=== PATIENT | female | born 1950 | race Caucasian/White ===

== ENCOUNTER → 2016-09-06 | Outpatient (CLI) | payer OTHER ==
[~2016-09-06] MED LIST: ABL/5 PO; ABL5 PO; AMT10 PO; ATV/1 PO; ATV5 PO; BIOT50006 PO; CALC500T64 PO; CHOL1000 PO; CHOL1TAB42 PO; CLB/200 PO; CLOT10TR2 MT; DOCU-94 PO; FERR1TAB62 PO; FLUC150T PO; HOME1TAB8 PO; IBUP100S7 PEG; LACT1LOT3 EX; LISI-789 PO; LORA10CA2 PO; LVNIS40 SQ; MAGN400T6 PO; MGNO400 PO; MODA1TAB PO; MOML PO; MORP15TA PO; MRPSR15 PO; NPHA; OMEG10007 PO; OMEP40CA PO; ONDA4TAB9 PO; ONDA8TAB6 PO; PENI-82 PO; POLY335019 PO; POLYSOL OPB; POTA550T4 PO; PSEU1TAB PO; RANI150T3 PO; RXC5 PO; SNK PO; SODIENE PR; TRMCR515 TOP; TRMO2580 TOP; ULT50X PO
== END | disposition home or self-care (01) ==
LOC: C.PATHSPEC 17:55
PROVIDERS: ATTEND Podiatrist Foot & Ankle Surgery
DX: B07.9 Viral wart, unspecified (principal)

== ENCOUNTER → 2017-01-23 | Day surgery (SDC) | payer OTHER ==
[~2017-01-23] VITALS: Ht 161.3 cm; Wt 98.0 kg
[~2017-01-23] MED LIST changes: -AMT10 PO; -CALC500T64 PO; +FENTANYL CITRATE INJ 50 MCG/1 ML 2 ML VIAL ONE; -FERR1TAB62 PO; +FERR325T PO; +HOME1TAB PO; -HOME1TAB8 PO; +LIDOCAINE HCL 2% 2 ML VIAL (20MG/ML) ONE; -MGNO400 PO; -OMEP40CA PO; -POTA550T4 PO; +PROPOFOL IV EMULSION 10 MG/ML 20 ML VIAL IV ONE; +SODIUM CHLORIDE 0.9% 500ML 500 ML IV ONE; -ULT50X PO
--- NOTE | 2017-01-23 10:15 | Endo History and Physical ---
History & Physical Date of Service: Jan 23, 2017. Chief Complaint: anemia Referring Physician: History of Present Illness anemia Past Surgical History Hx Cardiac Surgery: No Hx Abdominal Surgery: Yes (gastric bypass - complete) Hx Cancer Surgery: No Hx Thoracic Surgery: No Hx Orthopedic: No Hx Urinary Tract Surgery: No Social History Smoking Status: Never Smoker Hx Substance Use: No Hx Alcohol Use: Yes (socially) Allergies Coded Allergies: Dust (Verified Allergy, Unknown, sneezing, coughing and congestion, 01/13/17 ) Phenobarbital (Verified Allergy, Unknown, welts swelling, 10/11/14) Pineapple (Verified Allergy, Unknown, inside mouth irritation, 01/13/17) Uncoded Allergies: BLACK MOLD (Allergy, Unknown, chronic sinus infection, respiratory issues, 01/13/17) TOMATOES (Allergy, Unknown, inside mouth irritation, 01/13/17) Current Medications Reported Home Medications Medications Dose Route/Sig Max Daily Dose Days Date Category Dose Instructions 12HOUR Decongestant (Pseudoephedrine Hcl) 120 Mg Tab 1 Tab PO DAILY PRN 01/13/17 Reported Vitamin D3 (Cholecalciferol) 1,000 Unit Tab 5 Tab PO QAM 30 01/13/17 Reported Biotin 5,000 Mcg Sub 1 Tab PO QAM 01/13/17 Reported Childrens Ibuprofen 100 (Ibuprofen) 100 Mg/5 Ml Eunice 20 Ml PEG QD PRN 01/13/17 Reported Claritin (Loratadine) 10 Mg Cap 1 Cap PO DAILY PRN 30 01/13/17 Reported [place]-3 (Fish Oil) 1 Ea Cap 1 Cap PO QAM 01/13/17 Reported Zicam Cold Remedy (Homeopathic Products) 1 Tab Tab 1 Tab PO DAILY PRN 01/13/17 Reported Refresh (Polyvinyl Alcohol-Povidone (Op) 1 Luis Manuel Luis Manuel 2 Drop OPB DAILY PRN 01/13/17 Reported Naphcon-A (Naphazoline HCl/Pheniramine Maleate) 15 Ml Soln 2 Drops NA DAILY PRN 01/13/17 Reported Amlactin (Lactic Acid (Ammonium Lactate)) 12 % Lot 1 Appln EX DAILY PRN 01/13/17 Reported Mycelex (Clotrimazole) 10 Mg Tro 10 Mg MT DAILY PRN 01/13/17 Reported Triamcinolone Acet 0.025% (Triamcinolone Acetonide (Topic) 0.025 % Oin 1 Appln TOP DAILY PRN 01/13/17 Reported Triamcinolone Acetonide (Triamcinolone Acet) 45 Appln/15 Gm Cr 1 Appln TOP BID PRN 30 01/13/17 Reported Ondansetron HCl (Ondansetron) 4 Mg Tab 1 Mg PO Q8 PRN 01/13/17 Reported CeleBREX (Celecoxib) 200 Mg Cap 1 Cap PO BID 30 01/13/17 Reported Mag-Ox (Magnesium Oxide) 400 Mg Tab 400 Mg PO DAILY PRN 01/13/17 Reported Ativan * (Lorazepam) 0.5 Mg Tab 0.5 Mg PO HS 11/28/07 Reported Abilify * (Aripiprazole) 5 Mg Tab 5 Mg PO HS 11/28/07 Reported Provigil (Modafinil) 200 Mg Tab 200 Mg PO BID 11/28/07 Reported takes in Am and noon Physical Exam General Appearance: WD/WN, no apparent distress Assessment and Plan EGD/colonoscopy today
[2017-01-23 10:20] VITALS: Ht 161.3 cm; Wt 98.0 kg
--- NOTE | 2017-01-23 11:14 | Discharge Instructions ---
Endoscopy Patient Instructions Date / Procedure(s) Performed Jan 23, 2017. Colonoscopy, EGD Allergy Information Coded Allergies: Dust (Verified Allergy, Unknown, sneezing, coughing and congestion, 01/13/17 ) Phenobarbital (Verified Allergy, Unknown, welts swelling, 10/11/14) Pineapple (Verified Allergy, Unknown, inside mouth irritation, 01/13/17) Uncoded Allergies: BLACK MOLD (Allergy, Unknown, chronic sinus infection, respiratory issues, 01/13/17) TOMATOES (Allergy, Unknown, inside mouth irritation, 01/13/17) Discharge Date / Findings Jan 23, 2017. RYGB - no ulcers; few sigmoid diverticuli Medication Instructions Stopped Medication(s): OMEGA 3 AST DOSE 01/22/17 Restart Stopped Medication(s): OK to resume all home medications NO anti-inflammatory medications with a history of gastric bypass!!! Provider Instructions Activity Restrictions - No exercising or heavy lifting for 24 hours. - Do not drink alcohol the day of the procedure. - Do not drive a car or operate machinery until the day after the procedure. - Do not make any important decisions or sign important papers in 24 hours after the procedure. Following Day: - Return to full activity which may include returning to work/school. Diet Start your diet with liquids and light foods (jello, soup, juice, toast). Then eat your usual diet if not nauseated. Treatment For Common After Affects For mild abdominal pain, bloating, or excessive gas: - Rest - Eat lightly - Lie on right side Follow-Up Information Follow-up with DR JACKSON as scheduled Anesthesia Information What You Should Know You have had a procedure that required some medicine to reduce anxiety and discomfort. This treatment is called moderate sedation. After receiving the treatment, you may be sleepy, but you will be able to breathe on your own. The effects of the treatment may last for several hours. Follow these instructions along with Activity/Diet recommendations noted above: * Do NOT do anything where dizziness or clumsiness would be dangerous. * Rest quietly at home today, then you can be up and about tomorrow. * Have a responsible person stay with you the rest of today. * You may have had an I.V. today. If so, you may take the dressing off later today. Recommendations Call your doctor if: * Trouble breathing * Continuous vomiting for more than 24 hours * Temperature above 101 degrees * Severe abdominal pain or bloating * Pain not relieved by pain medicine ordered * There is increased drainage or redness from any incision * A large amount of rectal bleeding greater than 2-3 tablespoons. (If you had a polyp/s removed or have hemorrhoids, a small amount of blood - from the rectum is to be expected.) * You have any unanswered questions or concerns. IN THE EVENT OF A SERIOUS EMERGENCY, GO TO THE NEAREST EMERGENCY ROOM Your discharge instructions were prepared by provider Jaimie Rice. Patient Instructions Signature Page Ambika Lynch Patient (or Guardian) Signature/Date: I have read and understand the instructions given to me by my caregivers. Caregiver/RN/Doctor Signature/Date: The above-named patient and/or guardian has received patient instructions on this date. + Original Patient Signature Page (only) stays with chart. Please make copy for patient.
--- NOTE | 2017-01-23 11:20 | GI REPORT ---
Procedure Date: 01/23/2017 10:22 AM Procedure: Upper GI endoscopy Indications: Iron deficiency anemia Medicines: Propofol per Anesthesia Complications: No immediate complications. Estimated blood loss: None. Estimated Blood Loss: Estimated blood loss: none. Procedure: Pre-Anesthesia Assessment: - Prior to the procedure, a History and Physical was performed, and patient medications, allergies and sensitivities were reviewed. The patient's tolerance of previous anesthesia was reviewed. - The risks and benefits of the procedure and the sedation options and risks were discussed with the patient. All questions were answered and informed consent was obtained. - Patient identification and proposed procedure were verified prior to the procedure by the physician and the nurse. The procedure was verified in the pre-procedure area in the procedure room. - Mental Status Examination: alert and oriented. Airway Examination: normal oropharyngeal airway and neck mobility. Respiratory Examination: clear to auscultation. CV Examination: normal. Abdominal Examination: bowel sounds present, abdomen soft and non-tender, no masses or organomegaly noted. - ASA Grade Assessment: III - A patient with severe systemic disease. After obtaining informed consent, the endoscope was passed under direct vision. Throughout the procedure, the patient's blood pressure, pulse, and oxygen saturations were monitored continuously. The scope was introduced through the mouth, and advanced to the jejunum. The upper GI endoscopy was accomplished without difficulty. The patient tolerated the procedure well. Findings: The esophagus was normal. Evidence of a Darcy-en-Y gastrojejunostomy was found. The gastrojejunal anastomosis was characterized by healthy appearing mucosa. This was traversed. The ocajk-yq-ubwrard limb was characterized by healthy appearing mucosa. The jejunojejunal anastomosis was characterized by healthy appearing mucosa. The examined jejunum was normal. Impression: - Normal esophagus. - Darcy-en-Y gastrojejunostomy with gastrojejunal anastomosis characterized by healthy appearing mucosa. - Normal examined jejunum. - No specimens collected. Recommendation: - Perform a colonoscopy today. Jaimie Rice D.O. Jaimie Rice, 01/23/2017 11:19:55 AM This report has been signed electronically. Note Initiated On: 01/23/2017 10:22 AM I attest to the content of the Intraoperative Record and orders documented therein, exceptions below
--- NOTE | 2017-01-23 11:22 | GI REPORT ---
Procedure Date: 01/23/2017 10:27 AM Procedure: Colonoscopy Indications: Iron deficiency anemia Medicines: Propofol per Anesthesia Complications: No immediate complications. Estimated blood loss: None. Estimated Blood Loss: Estimated blood loss: none. Procedure: Pre-Anesthesia Assessment: - Prior to the procedure, a History and Physical was performed, and patient medications, allergies and sensitivities were reviewed. The patient's tolerance of previous anesthesia was reviewed. - The risks and benefits of the procedure and the sedation options and risks were discussed with the patient. All questions were answered and informed consent was obtained. - Patient identification and proposed procedure were verified prior to the procedure by the physician and the nurse. The procedure was verified in the pre-procedure area in the procedure room. - Mental Status Examination: alert and oriented. Airway Examination: normal oropharyngeal airway and neck mobility. Respiratory Examination: clear to auscultation. CV Examination: normal. Abdominal Examination: bowel sounds present, abdomen soft and non-tender, no masses or organomegaly noted. - ASA Grade Assessment: III - A patient with severe systemic disease. After I obtained informed consent, the scope was passed under direct vision. Throughout the procedure, the patient's blood pressure, pulse, and oxygen saturations were monitored continuously. The scope was introduced through the anus and advanced to the terminal ileum. The colonoscopy was performed without difficulty. The patient tolerated the procedure well. The quality of the bowel preparation was good. Findings: The perianal and digital rectal examinations were normal. Pertinent negatives include normal sphincter tone and no palpable rectal lesions. The terminal ileum appeared normal. The entire examined colon appeared normal on direct and retroflexion views. Impression: - The examined portion of the ileum was normal. - The entire examined colon is normal on direct and retroflexion views. - No specimens collected. Recommendation: - Repeat colonoscopy in 10 years for screening purposes. - Return to referring physician as previously scheduled. - Discharge patient to home. Jaimie Rice D.O. Jaimie Rice, 01/23/2017 11:22:19 AM This report has been signed electronically. Note Initiated On: 01/23/2017 10:27 AM I attest to the content of the Intraoperative Record and orders documented therein, exceptions below
[2017-01-23 11:50] VITALS: BP 173/95; PULSE 75; O2SAT 98
--- NOTE | 2017-01-23 12:13 | Anesthesiology Progress Note ---
Anesthesia Post Op Note Date & Time Jan 23, 2017 at 12:13 Vital Signs Pain Intensity: 0 Vital Signs Past 12 Hours Date Time Temp Pulse Resp B/P (MAP) Pulse Ox O2 Delivery O2 Flow Rate FiO2 01/23/17 11:50 75 16 173/95 (121) 98 Room Air 01/23/17 11:30 75 16 176/89 (118) 97 Room Air 01/23/17 11:15 73 16 131/80 (97) 97 Room Air 01/23/17 10:19 36.9 76 24 178/83 (114) 97 Room Air Notes Mental Status: alert / awake / arousable, participated in evaluation Pt Amnestic to Procedure: Yes Nausea / Vomiting: adequately controlled Pain: adequately controlled Airway Patency, RR, SpO2: stable & adequate BP & HR: stable & adequate Hydration State: stable & adequate Anesthetic Complications: no major complications apparent
== END | disposition home or self-care (01) ==
LOC: C.GI 09:43
PROVIDERS: ATTEND Internal Medicine
DX: D50.9 Iron deficiency anemia, unspecified (principal); Z98.84 Bariatric surgery status

== ENCOUNTER 2017-02-08 06:26 | Inpatient (IN) | payer OTHER ==
[2017-01-13 13:40] VITALS: BMI 38.0
--- NOTE | 2017-01-13 14:43 | PAT Medication Instructions ---
Service Date Jan 13, 2017. Current Home Medication List Aripiprazole (Abilify *), 5 MG PO HS Biotin (Biotin), 1 TAB PO QAM Celecoxib (CeleBREX), 1 CAP PO BID Cholecalciferol (Vitamin D3), 5 TAB PO QAM Clotrimazole (Mycelex), 10 MG MT DAILY PRN for DRYNESS Fish Oil ([place]-3), 1 CAP PO QAM Homeopathic Products (Zicam Cold Remedy), 1 TAB PO DAILY PRN for Cough Ibuprofen (Childrens Ibuprofen 100), 20 ML PEG QD PRN for Pain Lactic Acid (Ammonium Lactate) (Amlactin), 1 APPLN EX DAILY PRN for DRYNESS Loratadine (Claritin), 1 CAP PO DAILY PRN for ALLERGIC REACTION Lorazepam (Ativan *), 0.5 MG PO HS Magnesium Oxide (Mag-Ox), 400 MG PO DAILY PRN for Muscle Spasms Modafinil (Provigil), 200 MG PO BID Naphazoline/Pheniramine (Naphcon-A), 2 DROPS NA DAILY PRN for congestion Ondansetron (Ondansetron HCl), 1 MG PO Q8 PRN for Nausea or Vomiting Polyvinyl Alcohol-Povidone (Op (Refresh), 2 DROP OPB DAILY PRN for DRYNESS Pseudoephedrine Hcl (12HOUR Decongestant), 1 TAB PO DAILY PRN for congestion Triamcinolone Acet (Triamcinolone Acetonide), 1 APPLN TOP BID PRN for DRYNESS Triamcinolone Acetonide (Topic (Triamcinolone Acet 0.025%), 1 APPLN TOP DAILY PRN for DRYNESS Medication Instructions For Your Scheduled Surgery - Hold the following medications 2 weeks prior to surgery: Biotin (Biotin), 1 TAB PO QAM Fish Oil ([place]-3), 1 CAP PO QAM - Hold the following medications 24 hours prior to surgery: Triamcinolone Acetonide (Topic (Triamcinolone Acet 0.025%), 1 APPLN TOP DAILY PRN for DRYNESS Triamcinolone Acet (Triamcinolone Acetonide), 1 APPLN TOP BID PRN for DRYNESS Lactic Acid (Ammonium Lactate) (Amlactin), 1 APPLN EX DAILY PRN for DRYNESS - Hold the following medications the morning of surgery: Magnesium Oxide (Mag-Ox), 400 MG PO DAILY PRN for Muscle Spasms Modafinil (Provigil), 200 MG PO BID Pseudoephedrine Hcl (12HOUR Decongestant), 1 TAB PO DAILY PRN for congestion Loratadine (Claritin), 1 CAP PO DAILY PRN for ALLERGIC REACTION Cholecalciferol (Vitamin D3), 5 TAB PO QAM Homeopathic Products (Zicam Cold Remedy), 1 TAB PO DAILY PRN for Cough Clotrimazole (Mycelex), 10 MG MT DAILY PRN for DRYNESS Ibuprofen (Childrens Ibuprofen 100), 20 ML PO QD PRN for Pain (otherwise okay to continue per surgeon) - Take the following medications the morning of surgery: Polyvinyl Alcohol-Povidone (Op (Refresh), 2 DROP OPB DAILY PRN for DRYNESS Naphazoline/Pheniramine (Naphcon-A), 2 DROPS NA DAILY PRN for congestion - Take the following medications as scheduled the night before surgery: Lorazepam (Ativan *), 0.5 MG PO HS Aripiprazole (Abilify *), 5 MG PO HS Magnesium Oxide (Mag-Ox), 400 MG PO DAILY PRN for Muscle Spasms Polyvinyl Alcohol-Povidone (Op (Refresh), 2 DROP OPB DAILY PRN for DRYNESS Naphazoline/Pheniramine (Naphcon-A), 2 DROPS NA DAILY PRN for congestion nothing to eat or drink after midnight If you have any questions please call us at [phone] or [phone] or [phone]
--- NOTE | 2017-01-13 15:08 | History and Physical ---
History & Physical Date Jan 13, 2017. Chief Complaint Bilateral Knee Pain History of Present Illness Ms Lynch is a 66 year old female who is here for a follow up of knee pain equally on both sides. She presents with pain on the right and left side equally. She states that the symptoms have been chronic non-traumatic. Patient is here today for pre-operative visit, scheduled for bilateral knee TKA to be performed by Dr. Arroyo on 02/08/2017 at [facility]. The symptoms occur intermittently. The problem is unchanged. Currently the patient states that the symptoms are moderate-severe. The pain is described as aching, discomforting and throbbing. The symptoms occur intermittently. The symptoms are aggravated by ascending stairs, daily activities, descending stairs, driving, first steps while awake, kneeling, movement, repetitive activities, sleeping in any position, squatting and walking. Ambika states that the symptoms are relieved by no specific activity. In addition to knee pain equally on both sides the patient is also experiencing decreased mobility, difficulty bending, difficulty going to sleep, limping, nighttime awakening, pain, stiffness, tenderness and weakness. Pertinent negatives include chills and fever. The patient has had a previous x- ray. Prior NSAIDs include ibuprofen. She has been treated with a corticosteroid injection on the right and left side equally. Patient has been treated with previous visco supplementation, previous Supartz series of 3 injections. No relief with injections. Patient has had previous therapy. She attended physical therapy. Patient has had arthroscopic surgery. Past Medical/Surgical History Medical Problems: (1) Asthma, exercise induced (2) HTN (hypertension) (3) Osteoarthritis (4) Sinusitis (5) Urinary urgency Surgical Problems: (1) H/O gastric bypass (2) H/O knee surgery Allergies Coded Allergies: Dust (Verified Allergy, Unknown, sneezing, coughing and congestion, 01/13/17 ) Phenobarbital (Verified Allergy, Unknown, welts swelling, 10/11/14) Pineapple (Verified Allergy, Unknown, inside mouth irritation, 01/13/17) Uncoded Allergies: BLACK MOLD (Allergy, Unknown, chronic sinus infection, respiratory issues, 01/13/17) TOMATOES (Allergy, Unknown, inside mouth irritation, 01/13/17) Home Medications Scheduled Aripiprazole (Abilify *), 5 MG PO HS Biotin (Biotin), 1 TAB PO QAM Celecoxib (CeleBREX), 1 CAP PO BID Cholecalciferol (Vitamin D3), 5 TAB PO QAM Fish Oil ([place]-3), 1 CAP PO QAM Lorazepam (Ativan *), 0.5 MG PO HS Modafinil (Provigil), 200 MG PO BID Scheduled PRN Clotrimazole (Mycelex), 10 MG MT DAILY PRN for DRYNESS Homeopathic Products (Zicam Cold Remedy), 1 TAB PO DAILY PRN for Cough Ibuprofen (Childrens Ibuprofen 100), 20 ML PEG QD PRN for Pain Lactic Acid (Ammonium Lactate) (Amlactin), 1 APPLN EX DAILY PRN for DRYNESS Loratadine (Claritin), 1 CAP PO DAILY PRN for ALLERGIC REACTION Magnesium Oxide (Mag-Ox), 400 MG PO DAILY PRN for Muscle Spasms Naphazoline/Pheniramine (Naphcon-A), 2 DROPS NA DAILY PRN for congestion Ondansetron (Ondansetron HCl), 1 MG PO Q8 PRN for Nausea or Vomiting Polyvinyl Alcohol-Povidone (Op (Refresh), 2 DROP OPB DAILY PRN for DRYNESS Pseudoephedrine Hcl (12HOUR Decongestant), 1 TAB PO DAILY PRN for congestion Triamcinolone Acet (Triamcinolone Acetonide), 1 APPLN TOP BID PRN for DRYNESS Triamcinolone Acetonide (Topic (Triamcinolone Acet 0.025%), 1 APPLN TOP DAILY PRN for DRYNESS Physical Examination Skin: warm/dry, no rash Eyes: normal inspection, EOMI, sclerae normal Head: normocephalic, atraumatic Neck: supple, no adenopathy, trachea midline Respiratory/Chest: lungs clear, normal breath sounds, no respiratory distress Cardiovascular: regular rate, rhythm, no edema, no murmur Addiitonal Comments: Knee Exam Physical Exam Exam Findings Details Knee ROM L * Active ROM - Flexion: 135 degrees, Extension: 0 degrees, Factors: pain, Description: active painful range of motion. Passive ROM - Flexion: 135 degrees, Extension: 0 degrees, Factors: pain, Description: passive painful range of motion. Knee ROM R * Active ROM - Flexion: 135 degrees, Extension: 0 degrees, Factors: pain, Description: active painful range of motion. Passive ROM - Flexion: 135 degrees, Extension: 0 degrees, Factors: pain, Description: passive painful range of motion. Strength LE Normal Strength Description - Normal lower extremity: Bilateral. Knee * Inspection - Gait: antalgic. Alignment - Right: neutral, Left: neutral. Ecchymosis - Right: negative, Left: negative. Effusion - Right: mild, Left: mild. Swelling - Right: mild, Left: mild. Flexibility - Right: normal, Left: normal. Maximum tenderness - Right: medial joint line, lateral joint line, patella, Left: medial joint line, lateral joint line, patella. Patella exam - Crepitation - Right: mild, Left: mild. Patella position - Right: neutral, Left: neutral. Tilt - Right: equal, Left: equal. Jeff's - lateral - Right: Positive, Left: Positive. Jeff's - medial - Right: Positive, Left: Positive. Knee Comments No calf tenderness Knee Normal Inspection - Atrophy - Right: Absent, Left: Absent. Skin - Right: Normal, Left: Normal. Patella exam - Apprehension - Right: Negative, Left: Negative. Q-angle - Right: Normal, Left: Normal. Yesenia's - Right: Negative, Left: Negative. Posterior drawer - Right: Negative, Left: Negative. Anterior drawer - Right: Negative, Left: Negative. Valgus stress - Right: Negative, Left : Negative. Varus stress - Right: Negative, Left: Negative. Extensor lag - Right : Normal, Left: Normal. Neurovascular LE Normal Neurovascular examination including reflexes, sensation , and pulses is within normal limits. Knee Xray: Xrays reviewed of bilateral knees showing findings consistent with degenerative joint disease including joint space narrowing, subchondral sclerosis and peripheral osteophyte formation. no acute bony pathology, overall varus alignment. Impression: degenerative joint disease of Bilateral knees with no acute bony pathology noted. Diagnosis 1. Bilateral Knee Osteoarthritis -Further care discussed with patient and at this point in time has failed conservative measures and would like to proceed with bilateral total knee replacements. Plan on discharge will be to [facility]. DVT prophalaxis with TEDs, SCDs and will also place on aspirin 325 mg p.o. b.i.d. for a month postop. Patient will have follow up appointment in our office two weeks post op for staple/suture removal and re-evaluation. Patient otherwise has no other questions or concerns.
[2017-01-13 15:51] LABS: BUN/CREATININE RATIO 18.5 (10-20); CALCIUM 8.9 mg/dl (8.5-10.1); CREATININE 0.53 mg/dl (0.60-1.20); POTASSIUM 4.5 mmol/L (3.5-5.1)
[2017-01-13 15:54] LABS: URINE APPEARANCE CLEAR (CLEAR); URINE BILIRUBIN NEG (NEG); URINE COLOR YELLOW; URINE NITRITE NEG (NEG); URINE PH 6.5 (4.5-7.5); URINE SPECIFIC GRAVITY 1.012 (1.000-1.030); UROBILINOGEN NEG (NEG); ZZUR CULT IF INDIC CLEAN CATCH NO
[2017-01-13 16:01] LABS: MANUAL MICROSCOPIC REQUIRED? NO; REVIEW REQ? NO
[2017-01-13 16:07] LABS: PROTHROMBIN TIME (PATIENT) 10.2 SECONDS (9.0-12.0)
[2017-01-13 16:57] LABS: HEMATOCRIT 27.1 % (37-47); MEAN CELL VOLUME 65.1 fL (80-100); MEAN CORPUSCULAR HGB CONC 29.2 g/dl (32-36); MEAN PLATELET VOLUME 8.2 fL (7.4-10.4); PLATELET COUNT 411 K/uL (130-400); RED BLOOD COUNT 4.16 M/uL (4.2-5.4); WHITE BLOOD COUNT 7.81 K/uL (4.8-10.8)
[2017-01-13 17:03] LABS: ANISOCYTOSIS PRESENT; BASO % 1.2 %; BASO ABS # 0.09 K/uL (0-0.2); COMPLETE YES; EOS % 3.2 %; HYPOCHROMIA PRESENT; IG% 0.3 %; LYMPH % 20.5 %; MICROCYTOSIS PRESENT; MONO % 10.4 %; NEUT % 64.4 %; POLYCHROMASIA 1+; SCHISTOCYTES OCCASIONAL
[2017-01-14 07:58] LABS: ESTIMATED AVERAGE GLUCOSE 123 mg/dl; HA1C FLAG Normal (Normal)
[2017-02-08] VITALS (9 sets, daily range): BP systolic 118–153; BP diastolic 73–88; PULSE 65–89; TEMP 36.4–36.9; O2SAT 96–100; Ht 160 cm; Wt 98.2 kg
[~2017-02-08] VITALS: Ht 160 cm; Wt 98.2 kg
[~2017-02-08 06:26] MED LIST changes: -ABL/5 PO; +ACETAMINOPHEN 500 MG TAB PO SCH; -ATV/1 PO; +CEFAZOLIN 2000 MG/60 ML D5W 60 ML IV SCH; -CHOL1TAB42 PO; +CeleBREX 200 MG CAP PO SCH; +DEXAMETHASONE 4 MG TAB PO SCH; -DOCU-94 PO; +FAMOTIDINE 20 MG TAB PO SCH; -FENTANYL CITRATE INJ 50 MCG/1 ML 2 ML VIAL ONE; -FERR325T PO; +GABAPENTIN 300 MG CAP PO SCH; +LACTATED RINGER'S 1000ML 1,000 ML IV SCH; +LACTATED RINGER'S 1000ML 500 ML IV ONE; +LACTATED RINGER'S 1000ML IV SCH; -LIDOCAINE HCL 2% 2 ML VIAL (20MG/ML) ONE; -LISI-789 PO; -LVNIS40 SQ; +METOCLOPRAMIDE HCL 10 MG TAB PO SCH; -MOML PO; -MORP15TA PO; -MRPSR15 PO; -ONDA4TAB9 PO; -ONDA8TAB6 PO; -POLY335019 PO; -PROPOFOL IV EMULSION 10 MG/ML 20 ML VIAL IV ONE; -RANI150T3 PO; +ROPIVACAINE 5MG/ML 30 ML 150 MG, BUPIVACAINE/EPINEPHR 0.5% MPF 30 ML, KETOROLAC TROMETH... INFIL SCH; -RXC5 PO; -SNK PO; -SODIENE PR; -SODIUM CHLORIDE 0.9% 500ML 500 ML IV ONE; -TRMO2580 TOP
[2017-02-08] MEDS ORDERED: BUPIVACAINE 0.25% 30 ML VIAL ONE (06:32)
[2017-02-08] MEDS ORDERED: BUPIVACAINE 0.5 % 5 MG/1 ML PF 10ML VIAL ONE (06:32)
[2017-02-08] MEDS ORDERED: FENTANYL CITRATE INJ 50 MCG/1 ML 2 ML VIAL ONE (06:56)
[2017-02-08] MEDS ORDERED: MIDAZOLAM HCL 1 MG/ML 2ML VIAL ONE (06:56)
--- NOTE | 2017-02-08 06:58 | History & Physical Bridge Note ---
H&P Re-Evaluation Bridge Note: I have examined the patient, reviewed the History & Physical and in the interval since the performance of the History & Physical I have noted the following changes of clinical significance: No changes noted
[2017-02-08] MEDS ORDERED: BACITRACIN 50000 UNIT VIAL ONE (07:00)
[2017-02-08] MEDS ORDERED: POVIDONE-IODINE OP SOLN 30 ML BTL ONE (07:00)
[2017-02-08] MEDS ORDERED: ORTHO JOINT ANESTHETIC ONE (07:00)
[2017-02-08 07:15] LABS: HEMATOCRIT 36.3 % (37-47); MEAN CELL VOLUME 74.7 fL (80-100); MEAN CORPUSCULAR HEMOGLOBIN 22.6 pg (25-34); MEAN PLATELET VOLUME 8.6 fL (7.4-10.4); PLATELET COUNT 340 K/uL (130-400); RED BLOOD COUNT 4.86 M/uL (4.2-5.4); WHITE BLOOD COUNT 4.88 K/uL (4.8-10.8)
[2017-02-08 07:21] LABS: MEAN CORPUSCULAR HGB CONC 30.3 g/dl (32-36)
[2017-02-08] MEDS ORDERED: ATROPINE SULFATE 0.1 MG/ML 5ML SYR IV PRN (07:45)
[2017-02-08] MEDS ORDERED: FENTANYL CITRATE INJ 50 MCG/1 ML 2 ML VIAL IV PRN (07:45)
[2017-02-08] MEDS ORDERED: EpHEDrine SULFATE INJ 50 MG/ML AMP IV PRN (07:45)
[2017-02-08] MEDS ORDERED: ONDANSETRON INJ 2 MG/ML 2 ML VIAL IV PRN ×2 (07:45→10:45)
[2017-02-08] MEDS: TRANEXAMIC ACID INJ 1,000 MG in SODIUM CHLORIDE 0.9% 100ML 100 ML IV SCH ×2 (07:46→13:53)
[2017-02-08] MEDS ORDERED: ACETAMINOPHEN 1000 MG/100 ML IV IV ONE (08:31)
[2017-02-08] MEDS ORDERED: KETAMINE HCL INJ 50 MG/ML 10 ML VIAL ONE (08:34)
[2017-02-08] MEDS ORDERED: PROPOFOL IV EMULSION 10 MG/ML 20 ML VIAL IV ONE ×2 (08:48→09:39)
[2017-02-08] MEDS ORDERED: LIDOCAINE HCL 2% 2 ML VIAL (20MG/ML) ONE (08:48)
[2017-02-08] MEDS ORDERED: KETOROLAC TROMETHAMINE 30 MG/ML VIAL ONE (08:48)
[2017-02-08] MEDS: ROPIVACAINE 5MG/ML 30 ML 150 MG, BUPIVACAINE/EPINEPHR 0.5% MPF 30 ML, KETOROLAC TROMETH... INFIL SCH ×14 (09:01→13:53)
--- NOTE | 2017-02-08 10:02 | [facility] Operative Report ---
Operative Report Operative Date Feb 08, 2017. Pre-Operative Diagnosis Bilateral Knees Osteoarthritis Post-Operative Diagnosis Bilateral Knees Osteoarthritis Procedure(s) Performed Bilateral Total Knee Arthroplasty using Baltazar [employer] Nephew patient-matched journey 2 total knee arthroplasty right size 4 femur 4 tibia 12 poly-29 oval patella left size 4 femur 4 tibia 11 poly-[address] Clay Arroyo Specialist Physicians Surgeon(s) Cassius Lassiter PA-C Estimated Blood Loss 5 mL right 5 mL left Findings Patient presents presents with severe end-stage tricompartmental degenerative joint disease joint disease with varus alignment of her bilateral knees for bilateral total knee arthroplasty after failing attempts at conservative management. Specimens A. Right Knee Bone and Tissue B. Left Knee Bone and Tissue Complication(s) None Disposition Recovery Room / PACU Indications Patient presents today for failing times a conservative management including physical therapy anti-inflammatories relative rest activity modification injections viscus of rotations as well as corticosteroid injections for total knee arthroplasty bilaterally resculpted been discussed Description of Procedure After proper prepping and draping of the bilateral lower extremities, an anterior midline incision was made over the region of the extensor extensor mechanism of the left knee. After meticulous hemostasis was obtained and maintained in subcutaneous tissues a medial parapatellar incision was made The patella was subluxed lateralward the medial lateral gutter were cleaned from any hypertrophic synovitis and scar tissue of the distal femoral block was placed and the distal femoral osteotomy cut was made subsequently the chamfers anterior and posterior osteotomy cuts were made utilizing the 4-in-1 block the tibia was subsequently subluxed anteriorward medial and ateral meniscal remnants were excised in their entirety remnants of the anterior and posterior cruciate ligaments were excised in their entirety excellent exposure of the proximal tibia was obtained the tibial osteotomy guide was placed on the proximal tibial osteotomy cut was made once again the knee was irrigated with copious amounts of sterile saline solution the patella was subsequently everted lateralward thickened scar tissue around the patella was removed the patella was subsequently cut utilizing a freehand technique and was drilled prepared for final preparation and placement of patella socially flexion-extension gaps were checked and the equal and symmetric trials were placed to the appropriate femoral and tibial trials with poly-spacer being placed for equal flexion and extension gaps and full range of motion including extension to 0 and flexion to 140 the trial components after having been taken to recovery range of motion was subsequently removed meticulous hemostasis was obtained and maintained subsequently a knee block injection of joint cocktail including ropivacaine 0.5 % 150 mg. Bupivacaine 0.5% epinephrine 1-200,030 mL's toradol 30 mg dexamethasone 4 mg ketamine 10 mg clonidine 100 micrograms normal saline solution 30 mg was infiltrated into the soft tissues of the posterior knee medial lateral gutters and periosteal synovium special attention was paid to protect neurovascular structures at all times subsequently trial components having been removed the knee was irrigated with sterile saline solution. debris was removed the proximal tibia was subsequently prepared and was made ready for the placement of the tibial component tibial component was also cemented and tamped into position the femoral component was subsequently placed and cemented in the position the patellar component was subsequently cemented in position because hemostasis once again obtained and maintained wound having been thoroughly irrigated with debridement and debridement lavage was performed as well as a medial parapatellar incision closed with #1 Vicryl in interrupted fashion subcutaneous was closed with #2 Vicryl skin was closed with skin clips Next, an anterior midline incision was made over the region of the extensor extensor mechanism of the right knee. After meticulous hemostasis was obtained and maintained in subcutaneous tissues a medial parapatellar incision was made The patella was subluxed lateralward the medial lateral gutter were cleaned from any hypertrophic synovitis and scar tissue of the distal femoral block was placed and the distal femoral osteotomy cut was made subsequently the chamfers anterior and posterior osteotomy cuts were made utilizing the 4-in-1 block the tibia was subsequently subluxed anteriorward medial and ateral meniscal remnants were excised in their entirety remnants of the anterior and posterior cruciate ligaments were excised in their entirety excellent exposure of the proximal tibia was obtained the tibial osteotomy guide was placed on the proximal tibial osteotomy cut was made once again the knee was irrigated with copious amounts of sterile saline solution the patella was subsequently everted lateralward thickened scar tissue around the patella was removed the patella was subsequently cut utilizing a freehand technique and was drilled prepared for final preparation and placement of patella socially flexion-extension gaps were checked and the equal and symmetric trials were placed to the appropriate femoral and tibial trials with poly-spacer being placed for equal flexion and extension gaps and full range of motion including extension to 0 and flexion to 140 the trial components after having been taken to recovery range of motion was subsequently removed meticulous hemostasis was obtained and maintained subsequently a knee block injection of joint cocktail including ropivacaine 0.5 % 150 mg. Bupivacaine 0.5% epinephrine 1-200,030 mL's toradol 30 mg dexamethasone 4 mg ketamine 10 mg clonidine 100 micrograms normal saline solution 30 mg was infiltrated into the soft tissues of the posterior knee medial lateral gutters and periosteal synovium special attention was paid to protect neurovascular structures at all times subsequently trial components having been removed the knee was irrigated with sterile saline solution. debris was removed the proximal tibia was subsequently prepared and was made ready for the placement of the tibial component tibial component was also cemented and tamped into position the femoral component was subsequently placed and cemented in the position the patellar component was subsequently cemented in position because hemostasis once again obtained and maintained wound having been thoroughly irrigated with debridement and debridement lavage was performed as well as a medial parapatellar incision closed with #1 Vicryl in interrupted fashion subcutaneous was closed with #2 Vicryl skin was closed with skin clips.. PA-C was necessary for prepping and drapping as well as wound closure of deep fascia Sub cutaneous tissue and skin and was necessary for the case. A sterile compressive dressings were placed, patient was taken to recovery in stable condition of report dictated by Cruz I attest to the content of the Intraoperative Record and any orders documented therein. Any exceptions are noted below. I attest to the content of the Intraoperative Record and any orders documented therein. Any exceptions are noted below.
[2017-02-08] MEDS ORDERED: ARTIFICIAL TEARS OP SOLN OPB PRN ×2 (10:45)
[2017-02-08] MEDS ORDERED: ALUMINUM/MAGNESIUM/SIMETH (MAALOX MAX) 30 ML UDC PO PRN (10:45)
[2017-02-08] MEDS ORDERED: MAGNESIUM HYDROXIDE SUSP 30 ML UDC PO PRN (10:45)
[2017-02-08] MEDS ORDERED: LORATADINE 10 MG TAB PO PRN (10:45)
[2017-02-08] MEDS ORDERED: MoRPHine SULFATE 4 MG/ML 1 ML CARP\\VIAL IV PRN (10:45)
[2017-02-08] MEDS ORDERED: BISACODYL 10 MG SUPP PR PRN (10:45)
[2017-02-08] MEDS ORDERED: MoRPHine SULFATE 2 MG/ML CARP IV PRN (10:45)
[2017-02-08] MEDS ORDERED: MAGNESIUM OXIDE 400 MG TAB PO PRN (10:45)
--- NOTE | 2017-02-08 11:27 | DIAGNOSTIC IMAGING REPORT ---
RIGHT KNEE 2 VIEWS History: Right total knee arthroplasty. Degenerative arthritis. Postop. FINDINGS: The patient is status post a right total knee arthroplasty. The hardware is intact. No fracture or dislocation. Skin nir and surgical drains are in place. IMPRESSION: Right total knee arthroplasty. No evidence for hardware complication. Electronically signed by: Nik Hale M.D. 02/08/2017 11:26 AM Dictated Date/Time: 02/08/2017 11:26 AM
--- NOTE | 2017-02-08 11:29 | DIAGNOSTIC IMAGING REPORT ---
LEFT KNEE 2 VIEWS History: Left total knee arthroplasty. Degenerative arthritis. Postop. FINDINGS: The patient is status post a left total knee arthroplasty. The hardware is intact. No fracture or dislocation. Skin nir and surgical drains are in place. IMPRESSION: Left total knee arthroplasty. No evidence for hardware complication. Electronically signed by: Nik Hale M.D. 02/08/2017 11:28 AM Dictated Date/Time: 02/08/2017 11:28 AM
--- NOTE | 2017-02-08 11:50 | Anesthesiology Progress Note ---
Anesthesia Post Op Note Date & Time Feb 08, 2017 at 11:50 Vital Signs Pain Intensity: 0 Vital Signs Past 12 Hours Date Time Temp Pulse Resp B/P (MAP) Pulse Ox O2 Delivery O2 Flow Rate FiO2 02/08/17 11:43 67 16 02/08/17 11:43 69 16 100 02/08/17 11:41 139/83 02/08/17 11:38 50 12 100 02/08/17 11:38 56 12 02/08/17 11:36 145/75 02/08/17 11:33 60 17 02/08/17 11:33 62 17 100 02/08/17 11:31 119/79 02/08/17 11:29 36.4 65 16 145/75 100 Mask 2 02/08/17 11:28 61 18 02/08/17 11:28 60 18 100 02/08/17 11:27 157/75 02/08/17 11:23 59 12 02/08/17 11:23 59 12 100 02/08/17 11:22 66 13 100 02/08/17 11:22 68 13 02/08/17 11:21 152/67 02/08/17 11:17 61 16 02/08/17 11:17 61 16 100 02/08/17 11:16 142/68 02/08/17 11:12 64 19 02/08/17 11:12 64 19 02/08/17 11:11 144/72 02/08/17 11:07 65 13 100 02/08/17 11:07 65 13 02/08/17 11:06 129/73 02/08/17 11:02 76 17 02/08/17 11:02 66 17 02/08/17 11:01 64 19 02/08/17 11:01 60 19 138/71 100 02/08/17 10:56 64 15 02/08/17 10:56 63 15 138/64 99 02/08/17 10:51 65 18 02/08/17 10:51 67 18 139/65 100 02/08/17 10:46 64 21 02/08/17 10:46 65 21 126/63 100 02/08/17 10:41 66 19 02/08/17 10:41 68 19 117/84 100 02/08/17 10:37 124/62 02/08/17 10:36 37.1 71 16 124/62 100 Mask 10 02/08/17 10:36 67 18 100 02/08/17 10:36 69 18 02/08/17 06:59 36.8 78 20 138/82 96 Room Air Notes Mental Status: alert / awake / arousable, participated in evaluation Pt Amnestic to Procedure: Yes Nausea / Vomiting: adequately controlled Pain: adequately controlled Airway Patency, RR, SpO2: stable & adequate BP & HR: stable & adequate Hydration State: stable & adequate Neuraxial Anesthesia: was administered, sensory block is resolving Anesthetic Complications: no major complications apparent
[2017-02-08] MEDS: D5W AND 1/2NSS + 20MEQ KCL 1,000 ML IV SCH ×2 (13:44→22:31)
[2017-02-08] MEDS: SODIUM CHLORIDE 0.9% 1000ML 1,000 ML IV SCH (14:58)
[2017-02-08] MEDS ORDERED: NALOXONE HCL 0.4 MG/1 ML VIAL/CARP IV PRN (15:00)
[2017-02-08] MEDS ORDERED: LOCK-OUT PCA TITRATION SCH (16:00)
[2017-02-08] MEDS: MoRPHine SULFATE 1 MG/ML 50 ML PCA CASS IV PRN ×2 (17:33→23:16)
[2017-02-08] MEDS ORDERED: NURSING VERBAL MED ORDER ONE (19:30)
[2017-02-08] MEDS: CEFAZOLIN IV 2,000 MG in DEXTROSE 5% 50ML 50 ML IV SCH (19:41)
[2017-02-08] MEDS ORDERED: LORAZEPAM 0.5 MG TAB PO SCH (21:00)
[2017-02-08] MEDS: MoRPHine SULFATE CR 15 MG TAB (MS CONTIN) PO SCH (21:00)
[2017-02-08] MEDS: MODAFINIL 100 MG TAB PO SCH (21:00)
[2017-02-08] MEDS: DOCUSATE SODIUM 100 MG CAP PO SCH (22:30)
[2017-02-08] MEDS: ARIPIprazole TAB 5 MG TAB PO SCH (22:30)
[2017-02-08] MEDS: CeleBREX 200 MG CAP PO SCH (22:31)
[2017-02-08] MEDS: SENNA 8.6 MG TAB PO SCH (22:31)
[2017-02-09] MEDS: CEFAZOLIN IV 2,000 MG in DEXTROSE 5% 50ML 50 ML IV SCH (01:50)
[2017-02-09 03:30] VITALS: BP 151/82; PULSE 80; TEMP 36.5; O2SAT 97
[2017-02-09 06:15] LABS: MEAN CELL VOLUME 76.4 fL (80-100); MEAN CORPUSCULAR HEMOGLOBIN 22.7 pg (25-34); MEAN CORPUSCULAR HGB CONC 29.7 g/dl (32-36); MEAN PLATELET VOLUME 8.8 fL (7.4-10.4); PLATELET COUNT 324 K/uL (130-400); RED BLOOD COUNT 4.19 M/uL (4.2-5.4); WHITE BLOOD COUNT 11.29 K/uL (4.8-10.8)
[2017-02-09 06:52] LABS: BUN/CREATININE RATIO 19.1 (10-20); CALCIUM 8.5 mg/dl (8.5-10.1); CREATININE 0.69 mg/dl (0.60-1.20); POTASSIUM 4.6 mmol/L (3.5-5.1)
[2017-02-09] MEDS: MoRPHine SULFATE 1 MG/ML 50 ML PCA CASS IV PRN ×5 (07:04→23:18)
[2017-02-09 07:22] VITALS: BP 99/69; PULSE 91; TEMP 36.4; O2SAT 100
[2017-02-09] MEDS: D5W AND 1/2NSS + 20MEQ KCL 1,000 ML IV SCH (08:52)
[2017-02-09] MEDS: CHOLECALCIFEROL 1000 INTER.UNIT TAB PO SCH ×2 (08:53→09:00)
[2017-02-09] MEDS: ENOXAPARIN 40 MG/0.4 ML SYR SQ SCH (08:53)
[2017-02-09] MEDS: MULTIVITAMIN TAB PO SCH ×2 (08:53→09:00)
[2017-02-09] MEDS: PANTOprazole SOD 40 MG TAB PO SCH (08:53)
[2017-02-09] MEDS: DOCUSATE SODIUM 100 MG CAP PO SCH ×3 (08:54→21:13)
[2017-02-09] MEDS: CeleBREX 200 MG CAP PO SCH ×2 (08:54→21:13)
--- NOTE | 2017-02-09 09:04 | Orthopedic Progress Note ---
Orthopedic Progress Note Date of Service Feb 09, 2017. Subjective Post OP Day: 1 Reports: feeling well Objective N/V intact, dressing C/D/I (Hemovacs in place), toes mobile Date Time Temp Pulse Resp B/P (MAP) Pulse Ox O2 Delivery O2 Flow Rate FiO2 02/09/17 07:22 36.4 91 19 99/69 (79) 100 Room Air 02/09/17 03:30 36.5 80 16 151/82 (105) 97 Room Air 02/09/17 00:31 Room Air 02/08/17 22:53 36.4 76 16 151/86 (107) 97 Room Air 02/08/17 20:30 36.9 89 20 153/85 (107) 97 Room Air 02/08/17 19:30 36.6 80 18 142/79 (100) 96 Room Air 02/08/17 16:00 Nasal Cannula 2.0 02/08/17 15:15 36.5 68 18 120/73 (89) 96 Nasal Cannula 2.0 02/08/17 14:15 74 18 128/77 (94) 98 2.0 02/08/17 13:15 81 18 118/77 (91) 100 2.5 02/08/17 12:45 73 18 148/88 (108) 100 2.5 02/08/17 12:10 36.6 65 18 148/83 (104) 100 Nasal Cannula 2.0 02/08/17 12:10 100 Nasal Cannula 2.0 02/08/17 12:10 Nasal Cannula 2.0 02/08/17 12:01 124/ 02/08/17 11:59 68 16 100 02/08/17 11:59 66 16 02/08/17 11:56 131/67 02/08/17 11:54 60 14 02/08/17 11:54 59 14 100 02/08/17 11:51 130/72 02/08/17 11:49 62 17 02/08/17 11:49 61 17 100 02/08/17 11:46 134/73 02/08/17 11:44 71 13 100 02/08/17 11:44 69 13 02/08/17 11:43 67 16 02/08/17 11:43 69 16 100 02/08/17 11:41 139/83 02/08/17 11:38 50 12 100 02/08/17 11:38 56 12 02/08/17 11:36 145/75 02/08/17 11:33 60 17 02/08/17 11:33 62 17 100 02/08/17 11:31 119/79 02/08/17 11:29 36.4 65 16 145/75 100 Mask 2 02/08/17 11:28 61 18 02/08/17 11:28 60 18 100 02/08/17 11:27 157/75 02/08/17 11:23 59 12 02/08/17 11:23 59 12 100 02/08/17 11:22 66 13 100 02/08/17 11:22 68 13 02/08/17 11:21 152/67 02/08/17 11:17 61 16 02/08/17 11:17 61 16 100 02/08/17 11:16 142/68 02/08/17 11:12 64 19 02/08/17 11:12 64 19 02/08/17 11:11 144/72 02/08/17 11:07 65 13 100 02/08/17 11:07 65 13 02/08/17 11:06 129/73 02/08/17 11:02 76 17 02/08/17 11:02 66 17 02/08/17 11:01 64 19 02/08/17 11:01 60 19 138/71 100 02/08/17 10:56 64 15 02/08/17 10:56 63 15 138/64 99 02/08/17 10:51 65 18 02/08/17 10:51 67 18 139/65 100 02/08/17 10:46 64 21 02/08/17 10:46 65 21 126/63 100 02/08/17 10:41 66 19 02/08/17 10:41 68 19 117/84 100 02/08/17 10:37 124/62 02/08/17 10:36 37.1 71 16 124/62 100 Mask 10 02/08/17 10:36 67 18 100 02/08/17 10:36 69 18 Laboratory Results 24 Hours: Test 02/09/17 05:44 Hematocrit 32.0 % Hemoglobin 9.5 g/dL Assessment & Plan Assessment: 66 yo female stable POD #1 s/p bilat TKA Plan: 1. Med management 2. DVT prophylaxis- ASA, SCDs 3. PT/OT 4. D/C planning- pt interested in [facility]
[2017-02-09] MEDS: MODAFINIL 100 MG TAB PO SCH ×2 (09:07→21:00)
--- NOTE | 2017-02-09 09:29 | Clinical Documentation Query ---
GEOFF ChávezN : CLINICAL DOCUMENTATION QUERY Patient is a 66 year old female admitted to undergo elective bilateral TKA. Preoperative hemoglobin and hematocrit were 11 g/dl and 36.3%. Preadmission values were 7.9 g/dl and 27.1%. POD #1, values are 9.5 g/dl and 32%. Blood loss thus far totals 660 ml's to date. Notable history of gastric bypass via aye-en-y gastrojenunal anastomosis and previously documented iron deficiency anemia. Also, net I/O positive 1,600 ml's per nursing documentation. She is being monitored with serial hematology and I/O including drain outputs. In your clinical opinion is this patient being managed for: ( X ) Acute blood loss, iron deficiency, and hemodilutional anemia ( ) Not Agree ( ) Other explanation of clinical findings (Please Explain) ( ) Unable to determine (Please Define) ( ) Need to Discuss The medical record reflects the following clinical findings, treatment, and risk factors. Clinical Indicators: As above Treatment: She is being monitored with serial hematology and I/O including drain outputs. Risk Factors: Gastric bypass, acute blood losses, IVF administration Please clarify and document your clinical opinion in the progress notes and discharge summary. Terms such as "probable", "suspected", "likely", "questionable", "possible", or "still to be ruled out" are acceptable. IF IN AGREEMENT, YOU MUST DOCUMENT ABOVE DIAGNOSTIC STATEMENT IN DAILY PROGRESS NOTES AND DISCHARGE SUMMARY. This document is not part of the patient's record. Thank You, Sammy Blake, RN [phone]
[2017-02-09 11:02] VITALS: BP 167/87
[2017-02-09 11:36] VITALS: BP 155/86; PULSE 94; TEMP 36.6; O2SAT 100
[2017-02-09] MEDS ORDERED: NURSING VERBAL MED ORDER ONE (12:00)
[2017-02-09] MEDS: SODIUM CHLORIDE 0.9% 1000ML 1,000 ML IV SCH (12:52)
--- NOTE | 2017-02-09 13:09 | Anesthesiology Progress Note ---
Anesthesia Post Op Note Date & Time Feb 09, 2017 at 13:08 Vital Signs Pain Intensity: 2.0 Vital Signs Past 12 Hours Date Time Temp Pulse Resp B/P (MAP) Pulse Ox O2 Delivery O2 Flow Rate FiO2 02/09/17 11:36 36.6 94 16 155/86 (109) 100 Room Air 02/09/17 07:50 Room Air 02/09/17 07:22 36.4 91 19 99/69 (79) 100 Room Air 02/09/17 03:30 36.5 80 16 151/82 (105) 97 Room Air Notes Mental Status: alert / awake / arousable, participated in evaluation Pt Amnestic to Procedure: Yes Nausea / Vomiting: adequately controlled Pain: adequately controlled Airway Patency, RR, SpO2: stable & adequate BP & HR: stable & adequate Hydration State: stable & adequate Neuraxial Anesthesia: was administered, sensory block resolved Anesthetic Complications: no major complications apparent
[2017-02-09 15:15] VITALS: BP 169/83; PULSE 106; TEMP 36.8; O2SAT 100
[2017-02-09] MEDS ORDERED: LORAZEPAM INJ 0.5 MG in SYRINGE 0.75 ML IV PRN (16:00)
[2017-02-09] MEDS ORDERED: LORAZEPAM INJ 0.5 MG in SYRINGE 0.75 ML IV ONE (16:15)
[2017-02-09 19:45] VITALS: BP 165/81; PULSE 102; TEMP 36.7; O2SAT 99
[2017-02-09] MEDS: SENNA 8.6 MG TAB PO SCH (21:13)
[2017-02-09] MEDS: ARIPIprazole TAB 5 MG TAB PO SCH (21:14)
[2017-02-10 00:04] VITALS: BP 166/84; PULSE 101; TEMP 37; O2SAT 98
[2017-02-10] MEDS: MoRPHine SULFATE 1 MG/ML 50 ML PCA CASS IV PRN (07:21)
[2017-02-10 07:37] VITALS: BP 173/92; PULSE 99; TEMP 36.8; O2SAT 100
--- NOTE | 2017-02-10 08:11 | Orthopedic Progress Note ---
Orthopedic Progress Note Date of Service Feb 10, 2017. Subjective Post OP Day: 2 Reports: feeling well, pain controlled w PO medications, Denies: complaints, chest pain, SOB, nausea / vomiting, light headedness, calf pain Objective calves soft nontender, N/V intact, capillary refill less than 2 sec., dressing C /D/I (silverlon intact), A&O x3, toes mobile Date Time Temp Pulse Resp B/P (MAP) Pulse Ox O2 Delivery O2 Flow Rate FiO2 02/10/17 07:37 36.8 99 18 173/92 (119) 100 Room Air 02/10/17 00:04 37.0 101 16 166/84 (111) 98 Room Air 02/09/17 23:25 Room Air 02/09/17 19:45 36.7 102 16 165/81 (109) 99 Room Air 02/09/17 15:15 36.8 106 18 169/83 (111) 100 Room Air 02/09/17 13:11 Room Air 02/09/17 11:36 36.6 94 16 155/86 (109) 100 Room Air Assessment & Plan Assessment: 66 yo female stable POD #2 s/p bilat TKA Plan: 1. Med management 2. DVT prophylaxis- ASA, SCDs 3. PT/OT 4. D/C planning- pt interested in [facility] undiagnosed HTN, BPs high since admission, started on prn Hydralazine, will consult medicine. plan for d/c to [facility] when stable.
--- NOTE | 2017-02-10 08:15 | Discharge Instructions ---
Discharge Instructions Date of Service Feb 10, 2017. Admission Reason for Admission: Bilateral Knee Degenerative Joint Disease Discharge Discharge Diagnosis / Problem: Bilateral Total knee replacements Discharge Goals Goal(s): Decrease discomfort, Improve function, Increase independence Activity Recommendations Activity Level: Up Ad [place] Therapies: Weight Bearing Status (WBAT) Weightbearing Status: Left weightbearing (as tolerated), Right weightbearing ( as tolerated) . Additional Information Patient informed of condition: Yes Advance Directives: No DNR: No Level of Care: Acute Rehab Communicable Disease: No Prognosis: Stable Instructions / Follow-Up Instructions / Follow-Up ACTIVITY RECOMMENDATIONS: SELF CARE INSTRUCTIONS AFTER TOTAL KNEE REPLACEMENT A. You may need to continue a physical therapy program after discharge from the hospital. There are several options available to you. Your doctor will assist you in selecting the best one for you. 1. An out-patient facility 2 to 3 times a week for therapy or home therapy. 2. Continue working on all exercises taught to you in the hospital. Your goals should be to increase bending of your knee to 90 degrees and beyond and to fully straighten your knee. B. You may progress at your own pace from walking with a walker or crutches to a cane; then to no assistive devices. C. Make walking a part of your daily routine. Be up as much as comfortable with rest periods throughout the day. Rest with leg elevation is very important. Use the ice wrap frequently for the first 3-4 weeks. D. There are no restrictions on activities. You may ride in a car, shop, participate in admissions director and all social activities. E. Wear the long elastic stockings (MODESTA hose) 20 hours a day for 2 weeks after surgery. They can be removed several times a day for laundering and for a bath. F. You may shower, no tub baths until cleared by your doctor. SPECIAL CARE INSTRUCTIONS: VERY IMPORTANT TO READ AND REVIEW A. There are a few signs you need to watch for after you are home. Call [facility] if you notice any of the followin. Increased severe knee pain. Some pain is expected especially when you exercise. 2. Increased swelling in your leg or knee; pain or swelling of the calf muscle in either lower leg. 3. Any fluid drainage from the incision. 4. Shortness of breath or chest pain. B. Please call [facility] at if you have any concerns or questions about your operation or recovery. The doctor or his nurse will return your call promptly. C. You must take antibiotics before dental work, bladder, bowel or other surgery. Your doctor will provide you with a permanent care to carry describing this precaution. IMPORTANT: * REMEMBER TO TAKE ASPIRIN, 81 MG, TWICE DAILY FOR 4 WEEKS UNLESS OTHERWISE DIRECTED. THIS IS YOUR BLOOD THINNER. * HIGH RISK PATIENTS MAY BE PRESCRIBED A STRONGER BLOOD THINNER. THIS WILL BE PROVIDED AT DISCHARGE. * CALL IF INCREASED PAIN, REDNESS, DRAINAGE OR FEVER GREATER THAT 101. * WEAR MODESTA HOSE 20 HOURS PER DAY FOR 2 WEEKS. * YOU MAY HAVE A LARGE BAND-AID LIKE DRESSING (SILVERON). THIS WILL REMAIN ON YOUR INCISION FOR 7 DAYS, THEN CAN BE REMOVED. IF INCISION IS LEAKING THROUGH DRESSING, CALL THE OFFICE . FOLLOW UP VISIT: If appointment is not already scheduled: Please call [facility] to make a follow-up appointment for 2 weeks after your surgery at . Current Hospital Diet Patient's current hospital diet: Regular Diet Discharge Diet Recommended Diet: Regular Diet Procedures Procedures Performed: Bilateral Total Knee Arthroplasty using Baltazar & Nephew patient-matched journey 2 total knee arthroplasty right size 4 femur 4 tibia 12 poly-29 oval patella left size 4 femur 4 tibia 11 poly-29 oval patella Pending Studies Studies pending at discharge: no Physician Orders On Transfer Dressing Changes: Silverlon- This is a large adhesive bandage that contains silver ions. This helps your incision heal by fighting off bacteria and protecting it from the outside environment. You are permitted to shower with this dressing. This will remain on your incision for 7 days and then should be removed. Some visible blood or drainage through the dressing window is normal. If there is significant drainage or leaking noted before the 7 days notify your doctor's office immediately. Once removed, keep incision clean and dry. If there is any drainage or redness noted, please call your surgeon. Laboratory Results Hemoglobin A1c Test 01/13/17 14:41 Range/Units Estimated Average Glucose 123 mg/dl Hemoglobin A1c 5.9 H 4.5-5.6 % Medical Emergencies . Who to Call and When: Medical Emergencies: If at any time you feel your situation is an emergency, please call 911 immediately. . Non-Emergent Contact Non-Emergency issues call your: Primary Care Provider, Surgeon . . "Provider Documentation" section prepared by Bakari Resendiz. . Core Measure Problem Core Measures: None [place] Drug Monitoring Program Search Results: patient reviewed within database, no issues identified
[2017-02-10] MEDS: DOCUSATE SODIUM 100 MG CAP PO SCH ×2 (09:27→21:14)
[2017-02-10] MEDS: MULTIVITAMIN TAB PO SCH (09:27)
[2017-02-10] MEDS: CeleBREX 200 MG CAP PO SCH ×2 (09:27→21:14)
[2017-02-10] MEDS: PANTOprazole SOD 40 MG TAB PO SCH (09:27)
[2017-02-10] MEDS: ENOXAPARIN 40 MG/0.4 ML SYR SQ SCH (09:28)
[2017-02-10] MEDS: CHOLECALCIFEROL 1000 INTER.UNIT TAB PO SCH (09:28)
[2017-02-10 09:40] VITALS: BP 146/82; PULSE 103
[2017-02-10] MEDS: MoRPHine SULFATE CR 15 MG TAB (MS CONTIN) PO SCH ×2 (09:42→21:14)
[2017-02-10] MEDS: MODAFINIL 100 MG TAB PO SCH ×2 (09:42→21:00)
[2017-02-10 10:21] VITALS: BP 146/82; PULSE 103
[2017-02-10 15:31] VITALS: BP_SYST 149; BP_SYST 156; BP_DIAS 76; BP_DIAS 82; PULSE 99; TEMP 37.1; O2SAT 100
[2017-02-10] MEDS: OXYCODONE HCL IR 5 MG TAB (IMMEDIATE RELEASE) PO PRN (17:21)
[2017-02-10] MEDS: ARIPIprazole TAB 5 MG TAB PO SCH (21:14)
[2017-02-10] MEDS: SENNA 8.6 MG TAB PO SCH (21:14)
[2017-02-10 23:36] VITALS: BP_SYST 148; BP_SYST 171; BP_DIAS 81; BP_DIAS 83; PULSE 97; TEMP 36.9; O2SAT 93
[2017-02-11] MEDS: OXYCODONE HCL IR 5 MG TAB (IMMEDIATE RELEASE) PO PRN (06:13)
--- NOTE | 2017-02-11 07:31 | Orthopedic Progress Note ---
Orthopedic Progress Note Date of Service Feb 11, 2017. Subjective Post OP Day: 3 Reports: feeling well, Denies: chest pain, SOB, nausea / vomiting, light headedness, calf pain Objective calves soft nontender, N/V intact, dressing C/D/I (SILVERLON), A&O x3, toes mobile Date Time Temp Pulse Resp B/P (MAP) Pulse Ox O2 Delivery O2 Flow Rate FiO2 02/11/17 00:20 Room Air 02/10/17 23:36 36.9 97 16 148/83 (104) 93 Room Air 02/10/17 17:55 Room Air 02/10/17 15:31 37.1 99 17 156/82 (106) 100 Room Air 149/76 (100) 02/10/17 10:21 103 02/10/17 09:40 103 146/82 (103) 02/10/17 07:40 Room Air 02/10/17 07:37 36.8 99 18 173/92 (119) 100 Room Air Assessment & Plan Assessment: 66 yo female stable POD #3 s/p bilat TKA Plan: 1. Med management 2. DVT prophylaxis- ASA, SCDs 3. PT/OT 4. D/C planning- pt interested in [facility] undiagnosed HTN, BPs high since admission, started on prn Hydralazine, will consult medicine. plan for d/c to [facility] when stable. WILL AWAIT MEDICAL EVAL RE : HTN. IF STABLE OK TO TRANSFER TODAY Inhouse Planning Pain Management: Morphine (MS CONTIN), PO Tylenol, Oxy IR DVT Prophylaxis: Lovenox Discharge Planning Discharge Planning: rehab hospital ([facility] WHEN MEDICALLY STABLE.)
[2017-02-11] MEDS ORDERED: ONDA8TAB6 PO (07:37)
[2017-02-11] MEDS ORDERED: CLB/200 PO (07:37)
[2017-02-11] MEDS ORDERED: SNK PO (07:37)
[2017-02-11] MEDS ORDERED: MRPSR15 PO (07:37)
[2017-02-11] MEDS ORDERED: LVNIS40 SQ (07:37)
[2017-02-11] MEDS ORDERED: RXC5 PO (07:37)
[2017-02-11 08:20] VITALS: BP 135/81; PULSE 89; TEMP 36.8; O2SAT 100
[2017-02-11] MEDS: DOCUSATE SODIUM 100 MG CAP PO SCH (08:53)
[2017-02-11] MEDS: MoRPHine SULFATE CR 15 MG TAB (MS CONTIN) PO SCH (08:53)
[2017-02-11] MEDS: MULTIVITAMIN TAB PO SCH (08:54)
[2017-02-11] MEDS: CeleBREX 200 MG CAP PO SCH (08:54)
[2017-02-11] MEDS: ENOXAPARIN 40 MG/0.4 ML SYR SQ SCH (08:54)
[2017-02-11] MEDS: PANTOprazole SOD 40 MG TAB PO SCH (08:54)
[2017-02-11] MEDS: CHOLECALCIFEROL 1000 INTER.UNIT TAB PO SCH (08:55)
[2017-02-11] MEDS: MODAFINIL 100 MG TAB PO SCH ×2 (08:56→09:16)
[2017-02-11 09:52] VITALS: BP 135/81; PULSE 89; TEMP 36.8; O2SAT 100
--- NOTE | 2017-02-14 15:00 | DISCHARGE SUMMARY ---
DISCHARGE DIAGNOSIS: Degenerative joint disease, bilateral knees. SECONDARY DIAGNOSES: Asthma, hypertension, osteoarthritis, sinusitis, urinary urgency, history of urinary tract infection. CONSULTS: None. COMPLICATIONS: None. PROCEDURES: Bilateral total knee arthroplasty performed by Dr. Arroyo on 02/08/2017. BRIEF HISTORY: As dictated in the history and physical. HOSPITAL SUMMARY: The patient was admitted on the above date and had the above-noted surgery performed which she tolerated well. On the first postoperative day, she was feeling well. Neurovascularly intact. Dressings clean, dry and intact. Toes were mobile. Vital signs were stable and she was afebrile. BPs were fluctuating anywhere from systolic being 99 to 151. Hemoglobin was 9.5 and she was started on physical therapy protocol and continued on DVT prophylaxis and pain management. By her second postoperative day, she was feeling well and pain was controlled. Calves were soft, nontender. Neurovascularly intact. Cap refill is less than 2 seconds. Silverlon's were intact. Toes were mobile. The patient was using [employer] analgesia and plans were to switch over to a total p.o. pain management. She was continued on her PT protocol and continued on DVT prophylaxis and pain management. Plans were for her to go to [facility]. At that point in time, it was noted her systolic blood pressure had reached 173 and hydralazine was ordered p.r.n. By 02/11/2017 she was otherwise remaining stable. She was feeling well and had no complaints. Dressings were intact. Toes were mobile. Calves were soft and nontender. Systolic blood pressure was 148. She was progressing in PT and it was felt to be okay for her to be transferred to [facility] and she was thusly transferred to [facility] for further physical therapy and care. For further review, please see chart. LAB AND X-RAY DATA: As per chart. DISCHARGE INSTRUCTIONS: The patient was discharged to [facility] on 02/11/2017. DIET: Regular. ACTIVITY: Weightbearing as tolerated bilateral lower extremities. Follow TK instruction sheets and special care instructions as noted. Follow up with Dr. Arroyo in 2 weeks. The patient to call for appointment if one has not been made for you. DISCHARGE MEDICATIONS: Enoxaparin 40 mg subQ for 14 days, MS Contin 15 mg p.o. q. 12 hours, Zofran 8 mg p.o. q. 8 hours p.r.n. nausea, oxycodone 5-10 mg p.o. q. 4 hours p.r.n., senna 17.2 mg p.o. at bedtime. Resume home meds as listed and stop taking ibuprofen.
== END 2017-02-11 10:47 | DRG 462 ==
LOC: C.ACU 06:26 → C.3E 06:45 → ENRESERV 11:28
PROVIDERS: ADMIT Orthopaedic Surgery; ATTEND Orthopaedic Surgery
PROC: 0SRC0J9 Replacement of Right Knee Joint with Synthetic Substitute, Cemented, Open Approach (ICD-10-PCS; principal; 2017-02-08 08:00)
PROC: 0SRD0J9 Replacement of Left Knee Joint with Synthetic Substitute, Cemented, Open Approach (ICD-10-PCS; principal; 2017-02-08 08:00)
DX: M17.0 Bilateral primary osteoarthritis of knee (principal); I10 Essential (primary) hypertension; Z79.899 Other long term (current) drug therapy

== ENCOUNTER 2017-02-18 10:31 | Emergency (ER) | payer OTHER ==
[~2017-02-18] VITALS: Ht 162.6 cm; Wt 97.3 kg
[~2017-02-18 10:31] MED LIST changes: -ACETAMINOPHEN 500 MG TAB PO SCH; -CEFAZOLIN 2000 MG/60 ML D5W 60 ML IV SCH; -CeleBREX 200 MG CAP PO SCH; -DEXAMETHASONE 4 MG TAB PO SCH; -FAMOTIDINE 20 MG TAB PO SCH; -GABAPENTIN 300 MG CAP PO SCH; -IBUP100S7 PEG; -LACTATED RINGER'S 1000ML 1,000 ML IV SCH; -LACTATED RINGER'S 1000ML 500 ML IV ONE; -LACTATED RINGER'S 1000ML IV SCH; +LVNIS40 SQ; -METOCLOPRAMIDE HCL 10 MG TAB PO SCH; +MRPSR15 PO; +ONDA8TAB6 PO; -ROPIVACAINE 5MG/ML 30 ML 150 MG, BUPIVACAINE/EPINEPHR 0.5% MPF 30 ML, KETOROLAC TROMETH... INFIL SCH; +RXC5 PO; +SNK PO
[2017-02-18 10:40] VITALS: TEMP 37.5; Ht 162.6 cm; Wt 97.3 kg
[2017-02-18] MEDS ORDERED: ABL/5 PO (10:46)
[2017-02-18] MEDS ORDERED: ONDANSETRON INJ 2 MG/ML 2 ML VIAL IV PRN (11:15)
[2017-02-18 11:26] LABS: MEAN CELL VOLUME 77.1 fL (80-100); MEAN CORPUSCULAR HEMOGLOBIN 23.4 pg (25-34); MEAN CORPUSCULAR HGB CONC 30.4 g/dl (32-36); MEAN PLATELET VOLUME 7.9 fL (7.4-10.4); PLATELET COUNT 479 K/uL (130-400); RED BLOOD COUNT 3.63 M/uL (4.2-5.4); WHITE BLOOD COUNT 8.54 K/uL (4.8-10.8)
[2017-02-18 11:28] VITALS: O2SAT 94
--- NOTE | 2017-02-18 11:34 | EMERGENCY ROOM VISIT NOTE ---
History Report prepared by Kimberly: Rand Salazar Under the Supervision of: Dr. Juan Dutton M.D. First contact with patient: 10:37 Stated Complaint: CHEST PAIN History of Present Illness The patient is a 66 year old female who presents to the Emergency Room with complaints of constant chest pain beginning early this morning. The patient states that her chest pain woke her up at 3am. It is located in the center of her chest and does not radiate anywhere. She describes her pain as a "heaviness " and rates it as a 5/10 in severity. She did get diaphoretic and nauseated with her pain. She has had 1 episode of vomiting. The patient was recently in the hospital 10 days ago for bilateral knee surgery. Prior to her surgery she was anemic with a hemoglobin of 7.9. She was given iron infusions, but did not require blood transfusion. She was scoped upper and lower at that time and there was no evidence of bleeding. The patient has been at [facility] for rehab since she was discharged. She has not been eating much while there because she has not felt well. The patient was brought to the ED by ambulance from [facility]. She was given Maalox, morphine, and Zofran en route. She states that this helped to alleviate some of her discomfort and nausea. She is still on Lovenox after her knee surgery. The patient denies lightheadedness, palpitations, shortness of breath, abdominal pain, and hematemesis. She denies any significant cardiac history. She had a similar episode of pain about 5 years ago. She came to the hospital at that time and had an echocardiogram that was normal. She was discharged home. Source of History: patient Onset: 3am this morning Position: chest Symptom Intensity: 5/10 Quality: other (heaviness) Timing: constant Modifying Factors (Relieving): narcotics, anti-emetics, other (Maalox) Associated Symptoms: + diaphoresis, + nausea, + vomiting, No SOB, No abdominal pain Note: Pt denies lightheadedness, palpitations, and hematemesis. Review of Systems All systems have been listed, reviewed, and are negative other than those previously mentioned. Please see Additional Medical History Sheet. Past Medical & Surgical Medical Problems: (1) Asthma, exercise induced (2) DjD Bilateral knees (3) HTN (hypertension) (4) Osteoarthritis (5) Sinusitis (6) Urinary urgency Surgical Problems: (1) H/O gastric bypass (2) H/O knee surgery Family History Diabetes mellitus MOTHER FH: myocardial infarction FATHER MOTHER Heart disease FATHER MOTHER Stroke FATHER Social History Smoking Status: Never Smoker Housing Status: lives alone Occupation Status: employed Current/Historical Medications Scheduled Aripiprazole (Abilify), 5 MG PO HS Celecoxib (CeleBREX), 1 CAP PO BID Cholecalciferol (Vitamin D), 5,000 UNITS PO DAILY Docusate Sodium (Colace), 1 CAP PO BID Enoxaparin (Enoxaparin Sodium), 40 MG SQ Q24H Ferrous Sulfate (Ferrous Sulfate), 1 TAB PO DAILY Lisinopril (Zestril), 2.5 MG PO DAILY Lorazepam (Ativan), 1 MG PO BID Magnesium Hydroxide (Milk Of Magnesia), 30 ML PO DAILY Magnesium Oxide (Mag-Ox), 400 MG PO DAILY Modafinil (Provigil), 200 MG PO UD Penicillin V Potassium (Veetids), 500 MG PO QID Polyethylene Glycol 3350 (Miralax), 17 GM PO DAILY Ranitidine Hcl (Zantac), 150 MG PO BID Senna (Senna Lax), 17.2 MG PO HS Scheduled PRN Morphine Sulfate (Morphine Sulfate Ir), 7.5 MG PO Q4 PRN for Pain Naphazoline/Pheniramine (Naphcon-A), 2 DROPS NA DAILY PRN for congestion Ondansetron Hcl (Zofran), 8 MG PO Q8 PRN for Nausea Polyvinyl Alcohol-Povidone (Op (Refresh), 2 DROP OPB DAILY PRN for DRYNESS Pseudoephedrine Hcl (12HOUR Decongestant), 1 TAB PO DAILY PRN for congestion Sodium Phosphate/Biphosphate (Fleet Enema), [address] DAILY PRN for Constipation Allergies Coded Allergies: Dust (Verified Allergy, Unknown, sneezing, coughing and congestion, 02/18/17 ) Phenobarbital (Verified Allergy, Unknown, welts swelling, 02/18/17) Pineapple (Verified Allergy, Unknown, inside mouth irritation, 02/18/17) Uncoded Allergies: BLACK MOLD (Allergy, Unknown, chronic sinus infection, respiratory issues, 01/13/17) TOMATOES (Allergy, Unknown, inside mouth irritation, 01/13/17) Physical Exam Vital Signs Date Time Temp Pulse Resp B/P (MAP) Pulse Ox O2 Delivery O2 Flow Rate FiO2 02/18/17 15:22 81 18 166/83 96 02/18/17 14:21 87 18 163/68 95 Room Air 02/18/17 14:03 76 02/18/17 13:17 82 18 160/79 97 Room Air 02/18/17 11:28 94 Room Air 02/18/17 11:28 94 Room Air 02/18/17 10:45 82 02/18/17 10:40 37.5 85 18 158/85 100 Room Air 02/18/17 10:40 100 Room Air Physical Exam GENERAL: Patient awake, alert, oriented x 3. Patient appears somnolent and pale. Patient follows commands. Patient does not appear toxic. Patient is adequately hydrated and well-nourished. SKIN: No erythema, pallor, cyanosis or rash HEENT: Normal head, pupils equal, reactive to light and accommodation, pale conjunctiva. Oral cavity and posterior pharynx appear normal. Neck: Without adenopathy, no neck vein distention. LUNGS: Clear to auscultation. No wheezes, no rales, no rhonchi. HEART: Irregularly irregular. 2/6 systolic murmur. No gallops. No rubs ABDOMEN: Obese, soft, nontender. No masses, no rebound, no hepatomegaly or splenomegaly. EXTREMITIES: No signs of trauma. Trace pedal edema bilaterally. No calf or thigh tenderness. [place] over bilateral knees no signs of infection. NEUROLOGIC: Cranial nerves II-XII within normal limits. No gross motor sensory function deficits. Medical Decision & Procedures ER Provider Diagnostic Interpretation: Radiology results as stated below per my review and radiologist interpretation: CHEST ONE VIEW PORTABLE CLINICAL HISTORY: chest pain dyspnea COMPARISON STUDY: 08/17/2014 FINDINGS: Minimal bibasilar atelectasis. Lungs otherwise appear clear. Diaphragms are smooth. There are no focal infiltrates. IMPRESSION: Minimal bibasilar atelectasis. Otherwise negative study The above report was generated using voice recognition software. It may contain grammatical, syntax or spelling errors. Electronically signed by: Bakari Burdick M.D. 02/18/2017 11:36 AM Dictated Date/Time: 02/18/2017 11:35 AM (CHEST FOR PE) ANGIO WITH CT DOSE: 354.16 mGy.cm HISTORY: Chest pain dyspnea TECHNIQUE: Multiaxial CT images of the chest were performed following the intravenous administration of contrast to evaluate the pulmonary arteries. Maximal intensity projection images were also obtained. A dose lowering technique was utilized adhering to the principles of ALARA. COMPARISON STUDY: None. FINDINGS: Thoracic aorta shows minimal atherosclerotic change. Pulmonary vasculature enhances appropriately. There are no significant filling defects. There is no significant hilar or mediastinal adenopathy. There is a component of emphysematous change. There is a slight interstitial infiltrative process of the lingula. Lungs otherwise appear clear. Patient appears to be status post gastric bypass type procedure. IMPRESSION: 1. Study is negative for pulmonary embolus. 2. Minimal interstitial infiltrate in the lingula. 3. Lungs otherwise are clear. The above report was generated using voice recognition software. It may contain grammatical, syntax or spelling errors. Electronically signed by: Bakari Burdick M.D. 02/18/2017 1:54 PM Dictated Date/Time: 02/18/2017 1:49 PM Laboratory Results 02/18/17 11:05 02/18/17 11:05 Test 02/18/17 11:05 02/18/17 13:11 Red Blood Count 3.63 M/uL (4.2-5.4) Mean Corpuscular Volume 77.1 fL (80-100) Mean Corpuscular Hemoglobin 23.4 pg (25-34) Mean Corpuscular Hemoglobin Concent 30.4 g/dl (32-36) Mean Platelet Volume 7.9 fL (7.4-10.4) D-Dimer 4250 ug/L FEU (0-500) Anion Gap 5.0 mmol/L (3-11) Est Creatinine Clear Calc Drug Dose 150.8 ml/min Estimated GFR () 123.9 Estimated GFR (Non- 106.9 BUN/Creatinine Ratio 17.6 (10-20) Calcium Level 9.1 mg/dl (8.5-10.1) Total Bilirubin 0.2 mg/dl (0.2-1) Aspartate Amino Transf (AST/SGOT) 17 U/L (15-37) Alanine Aminotransferase (ALT/SGPT) 18 U/L (12-78) Alkaline Phosphatase 147 U/L (45-117) Troponin I < 0.015 ng/ml (0-0.045) Total Protein 7.4 gm/dl (6.4-8.2) Albumin 2.7 gm/dl (3.4-5.0) Globulin 4.7 gm/dl (2.5-4.0) Albumin/Globulin Ratio 0.6 (0.9-2) Lipase 88 U/L (73-393) Bedside Troponin I < 0.030 ng/ml (0-0.045) Laboratory results as stated above per my review. Medications Administered Medications (Trade) Dose Ordered Sig/Patsy Route Start Time Stop Time Status Last Admin Dose Admin Ondansetron HCl (Zofran Inj) 4 mg Q1HWA PRN IV 02/18/17 11:15 02/18/17 16:08 DC 02/18/17 11:27 4 MG Ranitidine HCl (zANTac TAB) 150 mg NOW ONCE PO 02/18/17 14:45 02/18/17 14:46 DC 02/18/17 15:11 150 MG ECG Indication: chest pain Rate (beats per minute): 87 Rhythm: normal sinus Findings: PAC, no acute ischemic change, other (borderline LVH) ED Course 1037: Past medical records reviewed. The patient was evaluated in room A11B. A complete history and physical examination was performed. 1115: Zofran 4 mg IV - PRN 1438: I reassessed the patient at this time. She is feeling better and resting comfortably. I discussed the results and treatment plan with the patient. I answered all pertaining questions that she had. She expressed understanding and verbalized agreement. The patient will be discharged back to [facility]. She is going to start Zantac. 1445: Zantac 150 mg PO Medical Decision I considered multiple diagnoses including myocardial infarction, chest wall pain , pericarditis, myocarditis, aortic emergencies, pulmonary embolism, congestive heart failure, GI causes, and other significant cardiopulmonary disorders. The patient is here with atypical chest pain. Multiple labs and EKG and imaging were obtained. The patient has no evidence of an acute cardiopulmonary event. Most likely her pain is GI in urgent. She has had similar pain in the past. The patient remains on Lovenox. Her CT was negative for PE. I believe the patient can safely return to the rehabilitation hospital. The patient was given Zantac here him continue that medication at home. Medication Reconcilliation Current Medication List: was personally reviewed by me Blood Pressure Screening Patient's blood pressure: Elevated blood pressure Blood pressure disposition: Referred to PCP Impression Primary Impression: GERD (gastroesophageal reflux disease) Additional Impression: Anemia Scribe Attestation The scribe's documentation has been prepared under my direction and personally reviewed by me in its entirety. I confirm that the note above accurately reflects all work, treatment, procedures, and medical decision making performed by me. Departure Information Dispostion Home / Self-Care Prescriptions Ranitidine Hcl (ZANTAC) 150 Mg Tab 150 MG PO BID, #60 TAB Prov: Juan Dutton M.D. 02/18/17 Referrals Luis Harris III, M.D. (PCP) Forms Call Back Authorization, HOME CARE DOCUMENTATION FORM, IMPORTANT VISIT INFORMATION Additional Instructions Continue all of your current medications as prescribed. 150 mg of Zantac twice a day. Follow-up with your family physician on Monday. Problem Qualifiers
[2017-02-18 11:35] LABS: BUN/CREATININE RATIO 17.6 (10-20); CALCIUM 9.1 mg/dl (8.5-10.1); CREATININE 0.41 mg/dl (0.60-1.20); POTASSIUM 4.1 mmol/L (3.5-5.1)
--- NOTE | 2017-02-18 11:37 | DIAGNOSTIC IMAGING REPORT ---
CHEST ONE VIEW PORTABLE CLINICAL HISTORY: chest pain dyspnea COMPARISON STUDY: 08/17/2014 FINDINGS: Minimal bibasilar atelectasis. Lungs otherwise appear clear. Diaphragms are smooth. There are no focal infiltrates. IMPRESSION: Minimal bibasilar atelectasis. Otherwise negative study The above report was generated using voice recognition software. It may contain grammatical, syntax or spelling errors. Electronically signed by: Bakari Burdick M.D. 02/18/2017 11:36 AM Dictated Date/Time: 02/18/2017 11:35 AM
[2017-02-18 11:38] LABS: ALB/GLOB RATIO 0.6 (0.9-2)
[2017-02-18] MEDS ORDERED: ATV/1 PO (11:40)
[2017-02-18] MEDS ORDERED: FERR325T PO (11:40)
[2017-02-18] MEDS ORDERED: DOCU-94 PO (11:40)
[2017-02-18] MEDS ORDERED: CHOL1TAB42 PO (11:40)
[2017-02-18] MEDS ORDERED: LISI-789 PO (11:40)
[2017-02-18] MEDS ORDERED: SODIENE PR (11:59)
[2017-02-18] MEDS ORDERED: POLY335019 PO (11:59)
[2017-02-18] MEDS ORDERED: MORP15TA PO (11:59)
[2017-02-18] MEDS ORDERED: MOML PO (11:59)
[2017-02-18] MEDS ORDERED: OPTIRAY 320 IV PRN (13:30)
--- NOTE | 2017-02-18 13:56 | DIAGNOSTIC IMAGING REPORT ---
(CHEST FOR PE) ANGIO WITH CT DOSE: 354.16 mGy.cm HISTORY: Chest pain dyspnea TECHNIQUE: Multiaxial CT images of the chest were performed following the intravenous administration of contrast to evaluate the pulmonary arteries. Maximal intensity projection images were also obtained. A dose lowering technique was utilized adhering to the principles of ALARA. COMPARISON STUDY: None. FINDINGS: Thoracic aorta shows minimal atherosclerotic change. Pulmonary vasculature enhances appropriately. There are no significant filling defects. There is no significant hilar or mediastinal adenopathy. There is a component of emphysematous change. There is a slight interstitial infiltrative process of the lingula. Lungs otherwise appear clear. Patient appears to be status post gastric bypass type procedure. IMPRESSION: 1. Study is negative for pulmonary embolus. 2. Minimal interstitial infiltrate in the lingula. 3. Lungs otherwise are clear. The above report was generated using voice recognition software. It may contain grammatical, syntax or spelling errors. Electronically signed by: Bakari Burdick M.D. 02/18/2017 1:54 PM Dictated Date/Time: 02/18/2017 1:49 PM
[2017-02-18] MEDS ORDERED: RANI150T3 PO (14:43)
[2017-02-18] MEDS ORDERED: RANITIDINE HCL 150 MG TAB PO ONE (14:45)
[2017-02-18 15:22] VITALS: BP 166/83; PULSE 81; O2SAT 96
== END 2017-02-18 15:22 | disposition home or self-care (01) ==
LOC: EDBD 10:31 → C.EDA 10:32
DX: K21.9 Gastro-esophageal reflux disease without esophagitis (principal); D64.9 Anemia, unspecified; J45.909 Unspecified asthma, uncomplicated; M17.9 Osteoarthritis of knee, unspecified; I10 Essential (primary) hypertension; Z98.84 Bariatric surgery status; Z83.3 Family history of diabetes mellitus; Z82.49 Family history of ischemic heart disease and other diseases of the circulatory system; Z79.899 Other long term (current) drug therapy

== ENCOUNTER 2020-09-14 13:23 | Inpatient (IN) ==
--- OUTSIDE RECORDS SUMMARY | 2020-09-14 13:26 | External Medical Summary | Continuity of Care Document ---
:1950 Author Name Kayden Dai, Provider Address Unavailable Unavailable , Care Team Providers Name Role Phone Unavailable Unavailable Unavailable Myron Dai, [email or web address] ASA JACKSON III Unavailable Unavailable Unavailable Unavailable Unavailable Problems Need for hepatitis A immunization (V05.3) (Z23) Need for immunization against typhoid (V03.1) (Z23) Need for prophylactic antibiotic (V58.62) (Z79.2) Need for hepatitis B vaccination (V05.3) (Z23) Encounter for counseling for travel (V65.49) (Z71.84) Polyarthritis (716.50) (M13.0) Sicca syndrome (710.2) (M35.00) Foot pain, bilateral (729.5) (M79.671) Long-term use of hydroxychloroquine (V58.69) (Z79.899) Generalized osteoarthritis (715.00) (M15.9) Raynaud's syndrome (443.0) (I73.00) Allergies and Adverse Reactions PHENobarbital SOLN (Allergy) Phenylalanine PACK (Allergy) Medications Famotidine 20 MG Oral Tablet , M.D. Start: Refills: 0 Abilify 5 MG Oral Tablet; TAKE 1 TABLET DAILY. , M.D. Start: 30-Jan-2018 Refills: 0 Ibuprofen 800 MG Oral Tablet , M.D. Start: Refills: 0 Tylenol 500 MG CAPS; TAKE CAPSULE PRN , M.D. Refills: 0 Naphcon-A 0.025-0.3 % Ophthalmic Solution , M.D. Refills: 0 Vitamin D SOLN , M.D. Refills: 0 Vitamin B-12 1000 MCG/ML SOLN; INJECT 1 ML EVERY 3 MONTHS , M.D. Refills: 0 Provigil 100 MG Oral Tablet; TAKE 2 TABLETS DAILY. , M.D. Refills: 0 LORazepam 1 MG Oral Tablet; TAKE 1 TABLET AT BEDTIME NEED Suhas BERNARDO Refills: 0 Hydroxychloroquine Sulfate 200 MG Oral Tablet; TAKE 1 TABLET DAILY. Suhas Sanches Start: 13-Feb-2018 Quantity: 90 Refills: 1 Procedures Procedures not documented Immunizations Hepatitis A, adult On: 28-Apr-2017 16:17 Lot #: [id number], [employer] Typhim 25 MCG/0.5ML Intramuscular Solution On: 16:20 Lot #: [id number], [employer] Plan of Treatment Planned Observations Planned Goals not documented Results No Known Results Results not documented
[2020-09-14] MEDS ORDERED: STAT IV Infusion **Titration per Protocol STA (13:28)
[2020-09-14] MEDS ORDERED: SODIUM CHLORIDE 0.9% 1000ML 1,000 ML IV SCH ×2 (13:30→19:41)
[2020-09-14 13:50] LABS: Basophils # (auto) 0.09 K/uL (0-0.2); Basophils % (auto) 0.8 %; Eosinophils % (auto) 0.9 %; Hematocrit (blood only) 41.5 % (37-47); Hemoglobin 13.3 g/dL (12.0-16.0); Immature Granulocytes # (auto) 0.02 K/uL (0.00-0.02); Immature Granulocytes % (auto) 0.2 %; Lymphocytes # (auto) 2.05 K/uL (1.2-3.4); Lymphocytes % (auto) 19.1 %; Mean Corpuscular Hemoglobin 30.6 pg (25-34); Mean Corpuscular Volume 95.6 fL (80-100); Mean Platelet Volume 10.5 fL (7.4-10.4); Monocytes # (auto) 1.09 K/uL (0.11-0.59); Monocytes % (auto) 10.2 %; Neutrophils # (auto) 7.37 K/uL (1.4-6.5); Neutrophils % (auto) 68.8 %; Platelet Count 299 K/uL (130-400); RDW Coefficient of Variation 13.5 % (11.5-14.5); RDW Standard Deviation 47.2 fL (36.4-46.3); Red Blood Count 4.34 M/uL (4.2-5.4); White Blood Count 10.72 K/uL (4.8-10.8)
--- NOTE | 2020-09-14 13:50 | XRay Report ---
XR chest 1V portable HISTORY: 70 years-old Female Chest Pain with atypical chest pain COMPARISON: Chest radiograph and CTA chest 02/18/2017 TECHNIQUE: Portable AP view of the chest FINDINGS: Cardiac silhouette is moderately enlarged. No pneumothorax, pleural effusion, airspace consolidation or overt pulmonary edema. Mild chronic interstitial coarsening. Degenerative changes of the shoulders and spine. IMPRESSION: Cardiomegaly without acute process. ACT 112: Negative or not required by law. The above report was generated using voice recognition software. It may contain grammatical, syntax o r spelling errors. Electronically signed by: Titus Romero M.D. 09/14/2020 1:48 PM
[2020-09-14] MEDS: dilTIAZem HCL 125 MG in DEXTROSE 5% 100 ML IV SCH (13:58)
[2020-09-14] MEDS ORDERED: ONDANSETRON INJ 2 MG/ML 2 ML VIAL ONE (14:02)
[2020-09-14 14:04] LABS: D Dimer 650 ug/L FEU (0-500)
[2020-09-14 14:09] LABS: BUN Creatinine Ratio 20.8 (10-20); Calcium 9.2 mg/dl (8.5-10.1); Creatinine Clr Calc Pharmacy 86.4 ml/min; Est GFR (Non-African American) 87.2; Magnesium 2.3 mg/dl (1.8-2.4); Potassium 4.1 mmol/L (3.5-5.1)
[2020-09-14 14:14] LABS: Troponin I 0.024 ng/ml (0-0.045)
[2020-09-14 14:43] LABS: Influenza A virus by PCR Negative (Neg); Influenza B virus by PCR Negative (Neg); RSV by PCR Negative (Neg); SARS CoV2 RNA(COVID-19) InHosp NEGATIVE (Negative)
--- NOTE | 2020-09-14 15:02 | Electrocardiogram Report ---
Test Reason : Blood Pressure : / mmHG Vent. Rate : 095 BPM Atrial Rate : 136 BPM P-R Int : 000 ms QRS Dur : 120 ms QT Int : 376 ms P-R-T Axes : 000 -19 145 degrees QTc Int : 472 ms Poor data quality, interpretation may be adversely affected Atrial fibrillation Left bundle branch block Abnormal ECG When compared with ECG of 18-FEB-2017 10:46, Atrial fibrillation has replaced Sinus rhythm Left bundle branch block is now Present Confirmed by Fahad Gilliland ([id number]) on 09/14/2020 3:02:32 PM Referred By: Confirmed By:Fahad Gilliland
[2020-09-14] MEDS ORDERED: OPTIRAY 320 125ml IV ONE (15:33)
--- NOTE | 2020-09-14 15:46 | Emergency Department Note ---
History of Present Illness General Chief Complaint: Cardiac Assessment Time Seen by Provider: 09/14/20 13:24 History of Present Illness Provider Complaint: + palpitations Onset (ago): 1 day(s) Severity: mild Current Pain Intensity: 0 Context: + occurred during rest Arrhythmia history: no atrial fibrillation and no SVT Associated symptoms: + shortness of breath; no chest pain, no syncope, no near- syncope, no nausea, no vomiting, no diaphoresis and no cough Home Medications Medication Instructions Recorded Confirmed Type Iron Infusion 1 dose IV DIRECTED PRN 09/14/20 09/14/20 History Magnesium Lotion 1 applic TOPICAL DAILY 09/14/20 09/14/20 History cyanocobalamin (vitamin B-12) 1,000 mcg IM .[id number] 09/14/20 09/14/20 History [Vitamin B-12] levothyroxine 25 mcg PO DAILYBB 09/14/20 09/14/20 History lorazepam 1 mg PO TID PRN 09/14/20 09/14/20 History modafinil 200 mg PO BID 09/14/20 09/14/20 History polyvinyl alcohol-povidon(PF) 2 drp OPHTHALMIC (EYE) DIRECTED 09/14/2009/14 History [Refresh Classic (PF)] PRN Allergies Allergy/AdvReac Type Severity Reaction Status Date / Time phenobarbital Allergy Intermediate welts Verified 09/14/20 16:07 swelling pineapple Allergy Mild inside Verified 09/14/20 16:07 mouth irritation cefuroxime AdvReac Unknown CAN'T Verified 09/14/20 16:07 REMEMBER BLACK MOLD Allergy Intermediate chronic Uncoded 09/14/20 16:07 sinus infection, respiratory issues Dust Allergy Intermediate sneezing, Uncoded 09/14/20 16:07 coughing and congestion TOMATOES Allergy Mild inside Uncoded 09/14/20 16:07 mouth irritation Past Med/Surg History Medical History (Updated 09/14/20 @ 16:28 by [place]) Asthma, exercise induced HLD (hyperlipidemia) HTN (hypertension) Intestinal postoperative nonabsorption Sjogren's syndrome without extraglandular involvement Surgical History (Updated 09/14/20 @ 16:04 by Salima Sam PA-C) H/O gastric bypass H/O knee surgery History of History of colonoscopy History of esophagogastroduodenoscopy (EGD) History of tonsillectomy and adenoidectomy Family History (Updated 09/14/20 @ 16:05 by Salima Sam PA-C) Mother Coronary heart disease Diabetes History of coronary artery bypass graft, Onset Age: 76 Father , 87 Coronary heart disease Stroke Myocardial infarction, Onset Age: 78 Social History (Updated 09/14/20 @ 16:06 by Salima Sam PA-C) Smoking Status: Never smoker Hx Alcohol Use: Yes Hx Substance Use: No Preferred Language: Guamanian Communication Ability: Effective marital status: Feels Safe at Home: Yes Review of Systems A total of 10 systems reviewed and were otherwise negative Physical Exam Vital Signs: Vital Signs - 24 hr 09/14/20 13:33 09/14/20 13:39 09/14/20 13:59 Pulse Rate 94 H 109 H Pulse Rate [Right Finger] Pulse Rate from Sp O2 Sensor 97 H 107 H Pulse Rhythm [Righ t Finger] Respiratory Rate 17 19 23 Respiratory Effort / Characteristics Non-Labored Sponta neous Respiratory Depth Normal Blood Pressure 163/131 H 152/99 H Blood Pressure [Ri ght Arm] Blood Pressure Roseline n 141 116 Blood Pressure Roseline n [Right Arm] Pulse Oximetry 95 98 98 Oxygen Delivery Me thod Room Air Sepsis Recent Feve r Within 48 Hours No Sepsis New/Unexpla ined Change in Men chiki Status N/A Sepsis Action Take n by Nursing No Action Required 09/14/20 14:00 09/14/20 15:00 09/14/20 15:42 Pulse Rate 113 H 119 H Pulse Rate [Right Finger] 110 H Pulse Rate from Sp O2 Sensor Pulse Rhythm [Righ t Finger] Irregular Respiratory Rate 24 24 26 H Respiratory Effort / Characteristics Respiratory Depth Blood Pressure 158/107 H Blood Pressure [Ri ght Arm] 152/99 H Blood Pressure Roseline n 124 Blood Pressure Roseline n [Right Arm] 116 Pulse Oximetry 98 Oxygen Delivery Me thod Room Air Sepsis Recent Feve r Within 48 Hours Sepsis New/Unexpla ined Change in Men chiki Status Sepsis Action Take n by Nursing 09/14/20 15:45 Pulse Rate 109 H Pulse Rate [Right Finger] Pulse Rate from Sp O2 Sensor Pulse Rhythm [Righ t Finger] Respiratory Rate 22 Respiratory Effort / Characteristics Respiratory Depth Blood Pressure Blood Pressure [Ri ght Arm] Blood Pressure Roseline n Blood Pressure Roseline n [Right Arm] Pulse Oximetry Oxygen Delivery Me thod Sepsis Recent Feve r Within 48 Hours Sepsis New/Unexpla ined Change in Men chiki Status Sepsis Action Take n by Nursing Physical Exam: Physical Exam GENERAL: She is oriented to person, place, and time. She appears well-developed and well-nourished. She does not appear distressed. HENT: Exam performed. -Head: Normocephalic and atraumatic. -Right Ear: External ear normal. No mastoid tenderness. -Left Ear: External ear normal. No mastoid tenderness. -Mouth/Throat: The oropharynx is clear and moist. No trismus in the jaw. No dental abscesses or uvula swelling. No oropharyngeal exudate or tonsillar abs cesses. EYES: Conjunctivae and EOM are normal. Pupils are equal, round, and reactive to light. Right eye exhibits no discharge. Left eye exhibits no discharge. No scleral icterus. NECK: Normal range of motion. Neck supple. No JVD present. No spinous process tenderness present. No carotid bruit present. No rigidity. No tracheal deviation and normal range of motion present. No Brudzinski's sign and no Kernig's sign noted. CV: Normal rate, irregular rhythm, normal heart sounds and intact distal pulses. There is no peripheral edema. Palpable radial pulses bue. PULM/CHEST: Effort normal and breath sounds normal. No respiratory distress. No stridor. She has no wheezes. She has no rales. -Chest Wall: She exhibits no tenderness. ABD: The abdomen is soft. Bowel sounds are normal. She has no distension. No mass is present. There is no tenderness. There is no rebound, no guarding, no Dixon's sign and no tenderness at McBurney's point. Rovsig negative MUSC/SKEL: Normal range of motion. There is no peripheral edema, tenderness or deformity. LYMPH: No cervical adenopathy. NEURO: She is alert and oriented to person, place, and time. She has normal strength. No cranial nerve deficit or sensory deficit. Coordination and gait normal. GCS eye subscore is 4. GCS verbal subscore is 5. GCS motor subscore is 6. Cerebellar tests wnl. SKIN: Skin is warm and dry. She is not diaphoretic. PSYCH: She has a normal mood and affect. Behavior is normal. Judgment and thought content normal. Course Course 1315: Call from EMS seeing the ring a 70-year-old female with A. fib RVR with heart rate between 150-170. No history of A. fib RVR. Patient was at PCPs office for constipation. Blood pressure stable. Cardizem 20 mg IV push was ordered for the patient. EKG transmitted from 1301 showed atrial fibrillation with a rate of 162. KS QRS and QTc intervals were within normal limits. No ST elevation or ST depression. 1325: The patient was evaluated in room A1. A complete history and physical exam was performed Cardiac monitoring: An order was placed for continuous cardiac monitoring. The monitor shows a rate of 110-130 with atrial fibrilation rhythm Patient's ventricular rate appears mildly elevated at this time we will start the patient on a Cardizem drip. 1624: Vital signs stable on Cardizem drip. Labs show elevated D-dimer, CTA negative for PE. Patient will be admitted for A. fib RVR new onset. Spoke with Salima [facility] hospitalist who stated to admit to Dr. Spencer Administered Medications Diltiazem HCl 125 mg/ Dextrose 125 mls @ 5 mls/hr IV .Q24H LORENA; Protocol Stop: 10/14/20 13:29 Last Titration: 09/14/20 15:14 Dose: 10 mg/hr, 10 mls/hr Documented by: [id number] Cosigned by: [id number] Admin: 09/14/20 13:58 Dose: 5 mg/hr, 5 mls/hr Documented by: [id number] Cosigned by: [id number] Sodium Chloride (Nss 1000ml) 1,000 mls @ 125 mls/hr IV .Q8H LORENA Stop: 10/14/20 13:29 Last Admin: 09/14/20 13:58 Dose: 125 mls/hr Documented by: [id number] Discontinued Medications Docusate Sodium (Docusate Sodium 100 Mg Cap) 100 mg PO NOW ONE Stop: 09/14/20 16:03 Last Admin: 09/14/20 16:15 Dose: 100 mg Documented by: Ioversol (Optiray 320 125ml) 119 ml IV ONCE ONE Stop: 09/14/20 15:34 Last Admin: 09/14/20 15:34 Dose: 119 ml Documented by: [id number] Miscellaneous (Stat Iv Infusion Titration Per Protocol) 1 ea N/A NOW STA Stop: 09/14/20 13:29 Last Admin: 09/14/20 13:58 Dose: 1 ea Documented by: [id number] Ondansetron HCl (Ondansetron Inj 2 Mg/Ml 2 Ml Vial) Confirm Administered Dose 4 mg .ROUTE .STK-MED ONE Stop: 09/14/20 14:03 Last Admin: 09/14/20 14:07 Dose: 4 mg Documented by: [id number] Medical Decision Making Laboratory Data Result diagrams: 09/14/20 13:30 09/14/20 13:30 Lab Results 09/14/20 09/14/20 09/14/20 Range/Units 13:30 13:30 13:30 WBC 10.72 (4.8-10.8) K/uL RBC 4.34 (4.2-5.4) M/uL Hgb 13.3 (12.0-16.0) g/dL Hct 41.5 (37-47) % MCV 95.6 (80-100) fL MCH 30.6 (25-34) pg MCHC 32.0 (32-36) g/dL RDW Std Deviation 47.2 H (36.4-46.3) fL RDW Coeff of Ujan 13.5 (11.5-14.5) % Plt Count 299 (130-400) K/uL MPV 10.5 H (7.4-10.4) fL Immature Gran % (Auto) 0.2 % Neut % (Auto) 68.8 % Lymph % (Auto) 19.1 % Foster % (Auto) 10.2 % Eos % (Auto) 0.9 % Baso % (Auto) 0.8 % Neut # (Auto) 7.37 H (1.4-6.5) K/uL Lymph # (Auto) 2.05 (1.2-3.4) K/uL Foster # (Auto) 1.09 H (0.11-0.59) K/uL Eos # (Auto) 0.10 (0-0.5) K/uL Baso # (Auto) 0.09 (0-0.2) K/uL Immature Gran # (Auto) 0.02 (0.00-0.02) K/uL D-Dimer 650 H* (0-500) ug/L FEU Sodium (136-145) mmol/L Potassium (3.5-5.1) mmol/L Chloride (98-107) mmol/L Carbon Dioxide (21-32) mmol/L Anion Gap (3-11) BUN (7-18) mg/dl Creatinine (0.6-1.2) mg/dl Est Cr Clr Drug Dosing ml/min Est GFR ( Amer) Est GFR (Non-Af Amer) BUN/Creatinine Ratio (10-20) Glucose (70-99) mg/dl Calcium (8.5-10.1) mg/dl Magnesium Cancelled Troponin I (0-0.045) ng/ml Lipase (73-393) U/L COVID-19 Eval Order SARS-CoV-2 (PCR) (Negative) Influenza Type A (PCR) (Neg) Influenza Type B (PCR) (Neg) RSV (RT-PCR) (Neg) 09/14/20 09/14/20 09/14/20 Range/Units 13:30 13:39 13:39 WBC (4.8-10.8) K/uL RBC (4.2-5.4) M/uL Hgb (12.0-16.0) g/dL Hct (37-47) % MCV (80-100) fL MCH (25-34) pg MCHC (32-36) g/dL RDW Std Deviation (36.4-46.3) fL RDW Coeff of Juan (11.5-14.5) % Plt Count (130-400) K/uL MPV (7.4-10.4) fL Immature Gran % (Auto) % Neut % (Auto) % Lymph % (Auto) % Foster % (Auto) % Eos % (Auto) % Baso % (Auto) % Neut # (Auto) (1.4-6.5) K/uL Lymph # (Auto) (1.2-3.4) K/uL Foster # (Auto) (0.11-0.59) K/uL Eos # (Auto) (0-0.5) K/uL Baso # (Auto) (0-0.2) K/uL Immature Gran # (Auto) (0.00-0.02) K/uL D-Dimer (0-500) ug/L FEU Sodium 140 (136-145) mmol/L Potassium 4.1 (3.5-5.1) mmol/L Chloride 109 H (98-107) mmol/L Carbon Dioxide 23 (21-32) mmol/L Anion Gap 8.0 (3-11) BUN 15 (7-18) mg/dl Creatinine 0.70 (0.6-1.2) mg/dl Est Cr Clr Drug Dosing 86.4 ml/min Est GFR ( Amer) 101.0 Est GFR (Non-Af Amer) 87.2 BUN/Creatinine Ratio 20.8 H (10-20) Glucose 117 H (70-99) mg/dl Calcium 9.2 (8.5-10.1) mg/dl Magnesium 2.3 Troponin I 0.024 (0-0.045) ng/ml Lipase 85 (73-393) U/L COVID-19 Eval Order CovFluRsv at [facility] [place] SARS-CoV-2 (PCR) NEGATIVE (Negative) Influenza Type A (PCR) Negative (Neg) Influenza Type B (PCR) Negative (Neg) RSV (RT-PCR) Negative (Neg) Imaging Data Radiologist's Impression: Chest X-Ray 09/14/20 13:26 XR chest 1V portable HISTORY: 70 years-old Female Chest Pain with atypical chest pain COMPARISON: Chest radiograph and CTA chest 02/18/2017 TECHNIQUE: Portable AP view of the chest FINDINGS: Cardiac silhouette is moderately enlarged. No pneumothorax, pleural effusion, airspace consolidation or overt pulmonary edema. Mild chronic interstitial coarsening. Degenerative changes of the shoulders and spine. IMPRESSION: Cardiomegaly without acute process. ACT 112: Negative or not required by law. The above report was generated using voice recognition software. It may contain grammatical, syntax or spelling errors. Electronically signed by: Titus Romero M.D. 09/14/2020 1:48 PM Chest CTA 09/14/20 14:26 CT ANGIOGRAM OF THE CHEST CLINICAL HISTORY: Dyspnea. Atypical chest pain. COMPARISON STUDY: Chest x-ray dated 09/14/2020. Chest CT dated 02/18/2017. TECHNIQUE: Following the IV administration of 119 cc of Optiray 320, CT angiogram of the chest was performed from the upper abdomen to the thoracic inlet utilizing the pulmonary embolus protocol. Images are reviewed in the axial, sagittal, and coronal planes. 3-D MIPS images are created and assessed. I V contrast was administered without complication. A dose lowering technique was utilized adhering to the principles of ALARA. CT DOSE: 631.45 mGycm FINDINGS: Thyroid: Imaged portions of the thyroid gland are normal in size and attenuation. Thoracic aorta: There is mild atherosclerotic calcification of the thoracic aorta, which is normal in caliber and demonstrates standard 3-vessel arch a natomy. No dissection is seen. Pulmonary vasculature: The pulmonary trunk is normal in caliber. There are no filling defects identified in main, lobar, or segmental pulmonary branches to suggest pulmonary embolus. Heart: The heart is mildly enlarged and without pericardial effusion. The coronary arteries are densely calcified. Lungs and pleural spaces: Evaluation of the lung parenchyma is degraded by motion artifact. There are foci of mild patchy groundglass consolidation identified in the left lower lobe. No pleural effusion is identified. Foci of scarring/atelectasis are seen throughout both lungs. The trachea and central airways are clear. Scattered calcified granulomas are observed. A 3 mm pulmonary nodule in the lingula on image #131 has been present dating back to 2017. Mediastinum: A mildly enlarged subcarinal node on image #140 measures 2.8 x 1.8 cm. No additional enlarged mediastinal lymph nodes are identified. Mirian: Clear. Axillae: There is no axillary lymphadenopathy. Upper abdomen: Postoperative change is consistent with a history of Darcy-en-Y gastric bypass surgery. Partially visualized upper abdominal viscera is otherwise grossly unremarkable. Skeletal structures: The skeletal structures are osteopenic. Degenerative change and mild hyperkyphosis is noted in the thoracic spine. Advanced arthritic change is seen in the shoulders. No lytic or blastic bony lesions are seen. There are healed bilateral rib fractures. IMPRESSION: 1. There is no evidence of pulmonary embolus in the main, lobar, or segmental pulmonary arteries. 2. There are mild patchy groundglass opacities in the left lower lobe. This likely represents a mild infectious/inflammatory pneumonitis. A 3-6 month follow-up chest CT is recommended to document resolution. 3. There is no lobar consolidation or pleural effusion. 4. A mildly enlarged subcarinal node is indeterminant and can also be reassessed at follow-up. 5. Cardiomegaly. 6. Additional findings as above. ACT 112: Positive. There are findings on this exam that require communication between the performing entity and the patient following Patient Test Result Information Act ([place] Act 112) guidelines. Electronically signed by: Eran Martinez M.D. 09/14/2020 3:52 PM ECG Data Indication: palpitations Rate (beats per minute): 95 Rhythm: atrial fibrillation Findings: + LBBB; no ST depression, no ST elevation and no prolonged QT Additional Comments: sgarbosa negative MDM Narrative 1315: Call from EMS seeing the ring a 70-year-old female with A. fib RVR with heart rate between 150-170. No history of A. fib RVR. Patient was at PCPs office for constipation. Blood pressure stable. Cardizem 20 mg IV push was ordered for the patient. EKG transmitted from 1301 showed atrial fibrillation with a rate of 162. KS QRS and QTc intervals were within normal limits. No ST elevation or ST depression. 1325: The patient was evaluated in room A1. A complete history and physical exam was performed Cardiac monitoring: An order was placed for continuous cardiac monitoring. The monitor shows a rate of 110-130 with atrial fibrilation rhythm Patient's ventricular rate appears mildly elevated at this time we will start the patient on a Cardizem drip. 1624: Vital signs stable on Cardizem drip. Labs show elevated D-dimer, CTA negative for PE. Patient will be admitted for A. fib RVR new onset. Spoke with [facility] Hospitalist who stated to admit to Dr. Spencer Impression & Plan Atrial fibrillation with rapid ventricular response Critical Care Time Critical Care Time: Yes Total Critical Care Time: 42 I have personally spent greater than 42 minutes of critical care time in the direct management of this patient. This includes bedside care, interpretation of diagnostic studies, and testing, discussion with consultants, patient, and family members, and other required patient management activities. This 42 minutes is in excess of all separately billable procedures. Discharge Plan Visit Data Chief Complaint: Cardiac Assessment ED Provider: [place] Discharge Problem: Atrial fibrillation with rapid ventricular response Patient Disposition: Admitted As Inpatient Forms Stand Alone Forms: My [facility] Prescriptions Prescriptions: No Action levothyroxine 25 mcg tablet 25 mcg PO DAILYBB RF: 0 modafinil 200 mg tablet 200 mg PO BID RF: 0 cyanocobalamin (vitamin B-12) [Vitamin B-12] 1,000 mcg/mL Solution 1,000 mcg IM .[id number] RF: 0 lorazepam 1 mg tablet 1 mg PO TID PRN (Reason: Anxiety) RF: 0 Refresh Classic (PF) 1.4-0.6 % Dropperette 2 drp OPHTHALMIC (EYE) DIRECTED PRN (Reason: Dry Eyes) RF: 0 Iron Infusion 1 dose IV DIRECTED PRN (Reason: CHECK [id number]) RF: 0 Magnesium Lotion 1 applic topical DAILY RF: 0 Referrals Referrals: Luis Harris MD [Primary Care Provider] -
--- NOTE | 2020-09-14 15:53 | CT Scan Report ---
CT ANGIOGRAM OF THE CHEST CLINICAL HISTORY: Dyspnea. Atypical chest pain. COMPARISON STUDY: Chest x-ray dated 09/14/2020. Chest CT dated 02/18/2017. TECHNIQUE: Following the IV administration of 119 cc of Optiray 320, CT angiogram of the chest was pe rformed from the upper abdomen to the thoracic inlet utilizing the pulmonary embolus protocol. Images are reviewed in the axial, sagittal, and coronal planes. 3-D MIPS images are created and assessed. I V contrast was administered without complication. A dose lowering technique was utilized adhering to the principles of ALARA. CT DOSE: 631.45 mGycm FINDINGS: Thyroid: Imaged portions of the thyroid gland are normal in size and attenuation. Thoracic aorta: There is mild atherosclerotic calcification of the thoracic aorta, which is normal in caliber and demonstrates standard 3-vessel arch anatomy. No dissection is seen. Pulmonary vasculature: The pulmonary trunk is normal in caliber. There are no filling defects identif ied in main, lobar, or segmental pulmonary branches to suggest pulmonary embolus. Heart: The heart is mildly enlarged and without pericardial effusion. The coronary arteries are dense ly calcified. Lungs and pleural spaces: Evaluation of the lung parenchyma is degraded by motion artifact. There are foci of mild patchy groundglass consolidation identified in the left lower lobe. No pleural effusion is identified. Foci of scarring/atelectasis are seen throughout both lungs. The trachea and central airways are clear. Scattered calcified granulomas are observed. A 3 mm pulmonary nodule in the lingul a on image #131 has been present dating back to 2017. Mediastinum: A mildly enlarged subcarinal node on image #140 measures 2.8 x 1.8 cm. No additional enl arged mediastinal lymph nodes are identified. Mirian: Clear. Axillae: There is no axillary lymphadenopathy. Upper abdomen: Postoperative change is consistent with a history of Darcy-en-Y gastric bypass surgery. Partially visualized upper abdominal viscera is otherwise grossly unremarkable. Skeletal structures: The skeletal structures are osteopenic. Degenerative change and mild hyperkyphos is is noted in the thoracic spine. Advanced arthritic change is seen in the shoulders. No lytic or bl astic bony lesions are seen. There are healed bilateral rib fractures. IMPRESSION: 1. There is no evidence of pulmonary embolus in the main, lobar, or segmental pulmonary arteries. 2. There are mild patchy groundglass opacities in the left lower lobe. This likely represents a mild infectious/inflammatory pneumonitis. A 3-6 month follow-up chest CT is recommended to document resolu tion. 3. There is no lobar consolidation or pleural effusion. 4. A mildly enlarged subcarinal node is indeterminant and can also be reassessed at follow-up. 5. Cardiomegaly. 6. Additional findings as above. ACT 112: Positive. There are findings on this exam that require communication between the performing entity and the patient following Patient Test Result Information Act ([place] Act 112) guidelines. Electronically signed by: Eran Martinez M.D. 09/14/2020 3:52 PM
[2020-09-14] MEDS ORDERED: DOCUSATE SODIUM 100 MG CAP PO ONE (16:02)
[2020-09-14] MEDS ORDERED: Heparin IV Adult Wt-Based Standard *NO* Bolus Protocol IV SCH (16:55)
--- NOTE | 2020-09-14 17:13 | History & Physical Report ---
Date of Service September 14, 2020 Assessment & Plan (1) Atrial fibrillation with rapid ventricular response: (2) New onset left bundle branch block (LBBB): This is a 70-year-old female who has significant past medical history of HTN, HLD, Sjogren's, history of Darcy-en-Y with postop malabsorption, history of iron deficiency anemia, obesity, narcolepsy who presents to ED at the referral of PCP secondary to A. fib with RVR. Pt with new onset afibb, LBBB. No c/o chest pain, trop 0.024. Unknown duration of afib. Admit to PCU consult cardiology Continue Diltiazem gtt start metoprolol tartrate 12.5 po q6h Initiate IV heparin - [id number] 3 (F, age, HTN) cycle troponins, ecg obtain echocardiogram obtain TSH, venous doppler lower ext 2/ to elevated dimer a1c, fasting lipid panel in a.m. (3) Constipation: senna S bid, consider adding miralax if no improvement no need for KUB at this time, abd S, NT (4) History of COVID-19: hx of covid 08/2019 received full vaccination 07/2019 CT chest showing LLL ground glass opacity recommend repeat imaging as outpt in 3-6 months If dyspnea on exertion persists despite tx of afib would recommend referral to pulmonology (5) Sjogren's syndrome without extraglandular involvement: continue refresh eye gtts (6) DVT prophylaxis: IV heparin gtt Dispo: PCU PCP: Kimberly FULL CODE Pt was seen and examined in collaboration with Dr. Harris, please see addendum History of Present Illness Chief Complaint: Referred by PCP / to Afib RVR. Primary Care Provider: Luis Harris MD This is a 70-year-old female who has significant past medical history of HTN, HLD, Sjogren's, history of Darcy-en-Y with postop malabsorption, history of iron deficiency anemia, obesity, narcolepsy who presents to ED at the referral of PCP secondary to A. fib with RVR. Patient has no prior history of atrial fibrillation. She was seen and evaluated by PCP today secondary to nausea and constipation for 1 week. While being evaluated she was found to be tachycardic with heart rates in the 150s. She was referred to ED and in route received 20 mg of IV diltiazem. In ED heart rates are around 110s. She was started on a diltiazem drip and is currently on 10 mg. Patient elicits 1 year ago being diagnosed with COVID-19. She admits to being very sick for 1 month, but did not require any hospitalization. She also did not have any lung imaging. Ever since having Covid she admits to being more fatigued and having shortness of breath with exertion. "I just do not have the get up and go that I used to." She has noticed her FOURNIER worsening over the past month. She did receive her second dose of Covid vaccine in July 2020. She had significant reaction to second dose including inflammatory arthropathy, myalgias and fatigue. She was taking [id number] ibuprofen which was upsetting her stomach. She subsequently then took Pepcid and feels this resulted in her constipation. She has not had a bowel movement in over 1 week. She is overall nauseated and has decreased appetite. She has had minimal oral intake for the last 1 to 2 days. She has tried milk of magnesia without result. "I think I'm impacted." She denies recent fevers but feels chilled. Also c/o dizziness and lightheaded but no syncope. She denies CP, SOB at rest, orthopnea, PND, edema, palpitations, emesis, melena, hematochezia, dysuria, increased urg/freq with urination. She denies URI sx. Occasional dry cough but nothing on regular basis. She does feel mildly improved in ED. Denies hx of significant bleeding in past. Has never been on anticoagulation in past. Allergies Allergy/AdvReac Type Severity Reaction Status Date / Time phenobarbital Allergy Intermediate welts Verified 09/14/20 16:07 swelling pineapple Allergy Mild inside Verified 09/14/20 16:07 mouth irritation cefuroxime AdvReac Unknown CAN'T Verified 09/14/20 16:07 REMEMBER BLACK MOLD Allergy Intermediate chronic Uncoded 09/14/20 16:07 sinus infection, respiratory issues Dust Allergy Intermediate sneezing, Uncoded 09/14/20 16:07 coughing and congestion TOMATOES Allergy Mild inside Uncoded 09/14/20 16:07 mouth irritation Home Medications Medication Instructions Recorded Confirmed Type cyanocobalamin (vitamin B-12) 1,000 mcg IM [id number] 09/14/20 09/14/20 History [Vitamin B-12] levothyroxine 25 mcg PO DAILYBB 09/14/20 09/14/20 History lorazepam 1 mg PO DAILY PRN 09/14/20 09/14/20 History modafinil 200 mg PO BID 09/14/20 09/14/20 History polyvinyl alcohol-povidon(PF) 2 drp OPHTHALMIC (EYE) DIRECTED 09/14/20 09/14/20 History [Refresh Classic (PF)] PRN Past Med/Surg History Medical History Asthma, exercise induced HLD (hyperlipidemia) HTN (hypertension) Intestinal postoperative nonabsorption Sjogren's syndrome without extraglandular involvement Surgical History H/O gastric bypass H/O knee surgery History of History of colonoscopy History of esophagogastroduodenoscopy (EGD) History of tonsillectomy and adenoidectomy Family History Mother Coronary heart disease Diabetes History of coronary artery bypass graft, Onset Age: 76 Father , 87 Coronary heart disease Stroke Myocardial infarction, Onset Age: 78 Social History Smoking Status: Never smoker Hx Alcohol Use: Yes Hx Substance Use: No Preferred Language: Ghanaian Communication Ability: Effective marital status: Feels Safe at Home: Yes Review of Systems Review of Systems: All systems reviewed & are unremarkable except as noted in HPI & below Physical Exam Physical Exam: Constitutional: WD/WN, F, vitals as above, NAD, sitting up in bed, pleasant, conversing easily Head: Normocephalic, Atraumatic Eyes: PERRL, conjunctivae normal, anicteric sclerae ENMT: external ear and nose normal, oropharynx normal Neck: trachea midline, no thyromegaly normal visual inspection Respiratory: normal respiratory effort, lungs clear to auscultation, no wheeze, rales, rhonchi. Normal insp/exp effort, no accessory muscle use Cardiovascular: IRR/IRR, no murmur, no edema Vessels: no JVD or carotid bruit Chest: normal inspection of chest Abdomen: normal bowel sounds, soft, nontender, no hepatosplenomegaly Musculoskeletal: no cyanosis or clubbing, extremities motor strength 5/5 Skin: no rashes, warm and dry normal turgor Neurologic: PERRL, EOMI, accommodation nl, no face palsy, no dysarthria CN's II-XI intact bilaterally and moves all extremities Psychiatric: A+Ox3, euthymic affect Lymphatic: no cervical or axillary lymphadenopathy : deferred Results & Data Results & Data ([facility]) Vital Signs (Past 12 Hours) Vital Signs Pulse Pulse Resp BP BP Pulse Ox 09/14/20 16:40 95 H 23 94 09/14/20 16:30 113 H 21 130/92 97 09/14/20 16:00 106 H 25 H 146/114 H 09/14/20 15:45 109 H 22 09/14/20 15:42 119 H 26 H 158/107 H 09/14/20 15:00 113 H 24 09/14/20 14:00 110 H 24 152/99 H 98 09/14/20 13:59 23 152/99 H 98 09/14/20 13:39 109 H 19 163/131 H 98 09/14/20 13:33 94 H 17 95 Diagnostic Findings Chest X-Ray 09/14/20 13:26 XR chest 1V portable HISTORY: 70 years-old Female Chest Pain with atypical chest pain COMPARISON: Chest radiograph and CTA chest 02/18/2017 TECHNIQUE: Portable AP view of the chest FINDINGS: Cardiac silhouette is moderately enlarged. No pneumothorax, pleural effusion, airspace consolidation or overt pulmonary edema. Mild chronic interstitial coarsening. Degenerative changes of the shoulders and spine. IMPRESSION: Cardiomegaly without acute process. ACT 112: Negative or not required by law. The above report was generated using voice recognition software. It may contain grammatical, syntax or spelling errors. Electronically signed by: Titus Romero M.D. 09/14/2020 1:48 PM Chest CTA 09/14/20 14:26 CT ANGIOGRAM OF THE CHEST CLINICAL HISTORY: Dyspnea. Atypical chest pain. COMPARISON STUDY: Chest x-ray dated 09/14/2020. Chest CT dated 02/18/2017. TECHNIQUE: Following the IV administration of 119 cc of Optiray 320, CT angiogram of the chest was performed from the upper abdomen to the thoracic inlet utilizing the pulmonary embolus protocol. Images are reviewed in the axial, sagittal, and coronal planes. 3-D MIPS images are created and assessed. IV contrast was administered without complication. A dose lowering technique was utilized adhering to the principles of ALARA. CT DOSE: 631.45 mGycm FINDINGS: Thyroid: Imaged portions of the thyroid gland are normal in size and attenuation. Thoracic aorta: There is mild atherosclerotic calcification of the thoracic aorta, which is normal in caliber and demonstrates standard 3-vessel arch anatomy. No dissection is seen. Pulmonary vasculature: The pulmonary trunk is normal in caliber. There are no filling defects identified in main, lobar, or segmental pulmonary branches to suggest pulmonary embolus. Heart: The heart is mildly enlarged and without pericardial effusion. The coronary arteries are densely calcified. Lungs and pleural spaces: Evaluation of the lung parenchyma is degraded by motion artifact. There are foci of mild patchy groundglass consolidation identified in the left lower lobe. No pleural effusion is identified. Foci of scarring/atelectasis are seen throughout both lungs. The trachea and central airways are clear. Scattered calcified granulomas are observed. A 3 mm pulmonary nodule in the lingula on image #131 has been present dating back to 2017. Mediastinum: A mildly enlarged subcarinal node on image #140 measures 2.8 x 1.8 cm. No additional enlarged mediastinal lymph nodes are identified. Mirian: Clear. Axillae: There is no axillary lymphadenopathy. Upper abdomen: Postoperative change is consistent with a history of Darcy-en-Y gastric bypass surgery. Partially visualized upper abdominal viscera is otherwise grossly unremarkable. Skeletal structures: The skeletal structures are osteopenic. Degenerative change and mild hyperkyphosis is noted in the thoracic spine. Advanced arthritic change is seen in the shoulders. No lytic or blastic bony lesions are seen. There are healed bilateral rib fractures. IMPRESSION: 1. There is no evidence of pulmonary embolus in the main, lobar, or segmental pulmonary arteries. 2. There are mild patchy groundglass opacities in the left lower lobe. This likely represents a mild infectious/inflammatory pneumonitis. A 3-6 month follow-up chest CT is recommended to document resolution. 3. There is no lobar consolidation or pleural effusion. 4. A mildly enlarged subcarinal node is indeterminant and can also be reassessed at follow-up. 5. Cardiomegaly. 6. Additional findings as above. ACT 112: Positive. There are findings on this exam that require communication between the performing entity and the patient following Patient Test Result Information Act ([place] Act 112) guidelines. Electronically signed by: Eran Martinez M.D. 09/14/2020 3:52 PM Medications Administered Diltiazem HCl 125 mg/ Dextrose 125 mls @ 5 mls/hr IV .Q24H LORENA; Protocol Stop: 10/14/20 13:29 Last Titration: 09/14/20 15:14 Dose: 10 mg/hr, 10 mls/hr Documented by: [id number] Cosigned by: [id number] Admin: 09/14/20 13:58 Dose: 5 mg/hr, 5 mls/hr Documented by: [id number] Cosigned by: [id number] Sodium Chloride (Nss 1000ml) 1,000 mls @ 125 mls/hr IV .Q8H LORENA Stop: 10/14/20 13:29 Last Admin: 09/14/20 13:58 Dose: 125 mls/hr Documented by: [id number] Discontinued Medications Docusate Sodium (Docusate Sodium 100 Mg Cap) 100 mg PO NOW ONE Stop: 09/14/20 16:03 Last Admin: 09/14/20 16:15 Dose: 100 mg Documented by: [id number] Ioversol (Optiray 320 125ml) 119 ml IV ONCE ONE Stop: 09/14/20 15:34 Last Admin: 09/14/20 15:34 Dose: 119 ml Documented by: [id number] Miscellaneous (Stat Iv Infusion Titration Per Protocol) 1 ea N/A NOW STA Stop: 09/14/20 13:29 Last Admin: 09/14/20 13:58 Dose: 1 ea Documented by: [id number] Ondansetron HCl (Ondansetron Inj 2 Mg/Ml 2 Ml Vial) Confirm Administered Dose 4 mg .ROUTE .STK-MED ONE Stop: 09/14/20 14:03 Last Admin: 09/14/20 14:07 Dose: 4 mg Documented by: [id number] ECG Rate (beats per minute): 95 Rhythm: atrial fibrillation Findings: + LBBB COVID-19 Results Results COVID-19 Adm Lab Results: RBC 4.34 M/uL (4.2-5.4) 09/14/20 WBC 10.72 K/uL (4.8-10.8) 09/14/20 Hgb 13.3 g/dL (12.0-16.0) 09/14/20 Hct 41.5 % (37-47) 09/14/20 Plt Count 299 K/uL (130-400) 09/14/20 Neutrophils (%) (Auto) 68.8 % 09/14/20 Lymphocytes (%) (Auto) 19.1 % 09/14/20 Monocytes # (Auto) 1.09 K/uL (0.11-0.59) H 09/14/20 Eosinophils # (Auto) 0.10 K/uL (0-0.5) 09/14/20 Immature Granulocyte % (Auto) 0.2 % 09/14/20 Neutrophils # (Auto) 7.37 K/uL (1.4-6.5) H 09/14/20 Lymphocytes # (Auto) 2.05 K/uL (1.2-3.4) 09/14/20 Monocytes # (Auto) 1.09 K/uL (0.11-0.59) H 09/14/20 Eosinophils # (Auto) 0.10 K/uL (0-0.5) 09/14/20 Basophils # (Auto) 0.09 K/uL (0-0.2) 09/14/20 Immature Granulocyte # (Auto) 0.02 K/uL (0.00-0.02) 09/14/20 Na 140 mmol/L (136-145) 09/14/20 K 4.1 mmol/L (3.5-5.1) 09/14/20 Cl 109 mmol/L (98-107) H 09/14/20 CO2 23 mmol/L (21-32) 09/14/20 Anion Gap 8.0 (3-11) 09/14/20 BUN 15 mg/dl (7-18) 09/14/20 Creatinine 0.70 mg/dl (0.6-1.2) 09/14/20 BUN/Creatinine Ratio 20.8 (10-20) H 09/14/20 Glucose Level 117 mg/dl (70-99) H 09/14/20 Ca 9.2 mg/dl (8.5-10.1) 09/14/20 Troponin I 0.024 ng/ml (0-0.045) 09/14/20 D-Dimer 650 ug/L FEU (0-500) H* 09/14/20 COVID-19 PCR NEGATIVE (Negative) 09/14/20 Influenza Virus Type A (PCR) Negative (Neg) 09/14/20 Influenza Virus Type B (PCR) Negative (Neg) 09/14/20 Chest X-Ray 09/14/20 Code Status & VTE Plan Code Status Full Code VTE Prophylaxis Plan VTE Prophylaxis will be ordered: No Supervising Physician Co-Signing Physician Notes Attending addendum: The patient was seen and examined in the emergency room She was referred from PCPs office with A Fib with RVR She denied any symptoms except exertional shortness of breath which has been ongoing for a long time On examination No apparent distress at rest Hemodynamically stable in the emergency room Heart heart rate is is below 100 now Chest-minimally decreased breath sounds bilaterally without any crackles Heart- S1-S2 irregular, no murmur appreciated Abdomen- benign Extremities-negative for any edema- Her admission labs, EKG and imaging studies reviewed Has atrial fibrillation with RVR with left bundle branch block Has been on Cardizem drip, Lopressor orally and heparin drip Serial cardiac enzymes Cardiology consult Agree with assessment and plan as outlined above by CALVIN Biggs Dr
[2020-09-14] MEDS ORDERED: HEPARIN 25000 UNIT/500 ML D5W IV ONE (17:23)
[2020-09-14] MEDS: METOPROLOL TARTRATE 25 MG TAB PO SCH (17:35)
[2020-09-14] MEDS: HEPARIN SODIUM/DEXTROSE 25,000 UNITS/500 ML BAG IV SCH (17:41)
[2020-09-14] MEDS ORDERED: MAGNESIUM HYDROXIDE SUSP 30 ML UDC PO PRN (19:41)
[2020-09-14] MEDS ORDERED: POLYETHYLENE (MIRALAX) 17 GM PACK PO PRN (19:41)
[2020-09-14] MEDS ORDERED: ALUMINUM/MAGNESIUM SUSP 30 ML UDC PO PRN (19:41)
[2020-09-14] MEDS ORDERED: ACETAMINOPHEN 325 MG TAB PO PRN (19:41)
[2020-09-14] MEDS ORDERED: LORazepam 1 MG TAB PO PRN (20:08)
[2020-09-14] MEDS ORDERED: ARTIFICIAL TEARS OP PRN (20:09)
[2020-09-14] MEDS: modafiniL 100 MG TAB PO SCH (21:31)
[2020-09-14] MEDS: DOCUSATE SODIUM/SENNA 50/8.6MG TAB PO SCH (21:31)
[2020-09-14] MEDS: ONDANSETRON INJ 2 MG/ML 2 ML VIAL IV PRN (21:43)
[2020-09-14 23:57] LABS: Partial Thromboplastin Ratio 1.5; Partial Thromboplastin Time 39.3 Seconds (21.0-31.0)
[2020-09-15] MEDS: dilTIAZem HCL 125 MG in DEXTROSE 5% 100 ML IV SCH (00:02)
[2020-09-15] MEDS: METOPROLOL TARTRATE 25 MG TAB PO SCH ×3 (00:42→11:36)
[2020-09-15] MEDS ORDERED: SOD PHOSPHATE/SOD BIPHOSPHATE ENEMA 132 ML BTL PR STA (02:23)
[2020-09-15] MEDS: ONDANSETRON INJ 2 MG/ML 2 ML VIAL IV PRN ×2 (03:25→17:42)
[2020-09-15] MEDS: LEVOTHYROXINE SODIUM 25 MCG TABLET PO SCH (05:44)
[2020-09-15 06:25] LABS: Hemoglobin 12.8 g/dL (12.0-16.0); Mean Corpuscular Volume 96.9 fL (80-100); Mean Platelet Volume 10.1 fL (7.4-10.4); Platelet Count 249 K/uL (130-400); RDW Coefficient of Variation 13.7 % (11.5-14.5); RDW Standard Deviation 48.5 fL (36.4-46.3); Red Blood Count 4.13 M/uL (4.2-5.4); White Blood Count 11.11 K/uL (4.8-10.8)
[2020-09-15 06:30] LABS: Partial Thromboplastin Ratio 1.6; Partial Thromboplastin Time 42.2 Seconds (21.0-31.0)
[2020-09-15 06:43] LABS: Albumin Level 3.5 gm/dl (3.4-5.0); BUN Creatinine Ratio 19.5 (10-20); Calcium 8.3 mg/dl (8.5-10.1); Creatinine Clr Calc Pharmacy 91.2 ml/min; Est GFR (Non-African American) 88.9; Potassium 3.9 mmol/L (3.5-5.1)
[2020-09-15 06:48] LABS: Albumin Globulin Ratio 0.8 (0.9-2); Bilirubin,Total 0.5 mg/dl (0.2-1); Globulin 4.3 gm/dl (2.5-4.0); Total Protein 7.8 gm/dl (6.4-8.2)
[2020-09-15 06:55] LABS: Estimated Average Glucose 108 mg/dl; Hemoglobin A1C 5.4 % (4.5-5.6)
[2020-09-15] MEDS ORDERED: DOCUSATE SODIUM 100 MG CAP PO ONE (07:31)
[2020-09-15] MEDS ORDERED: bisacodyL 10 MG SUPP PR STA ×2 (07:46→11:07)
[2020-09-15] MEDS: modafiniL 100 MG TAB PO SCH ×2 (08:03→20:29)
[2020-09-15] MEDS: DOCUSATE SODIUM/SENNA 50/8.6MG TAB PO SCH ×2 (08:03→20:30)
--- NOTE | 2020-09-15 09:02 | Ultrasound Report ---
US venous doppler LE BI CLINICAL HISTORY: elevated d-dimer ,r/o dvt COMPARISON STUDY: No previous studies for comparison. FINDINGS: Real-time and color flow Doppler imaging were performed. Flow was seen within the femoral, popliteal and calf veins with no intraluminal thrombus demonstrated. The saphenous vein is patent. IMPRESSION: No evidence of lower extremity DVT. ACT 112: Negative or not required by law. Electronically signed by: Ziyad Glaser M.D. 09/15/2020 9:01 AM
[2020-09-15] MEDS: POLYETHYLENE (MIRALAX) 17 GM PACK PO SCH ×2 (09:03→16:00)
--- NOTE | 2020-09-15 09:27 | Hospitalist Progress Note ---
Date of Service September 15, 2020 Assessment & Plan (1) Atrial fibrillation with rapid ventricular response: (2) New onset left bundle branch block (LBBB): This is a 70-year-old female who has significant past medical history of HTN, HLD, Sjogren's, history of Darcy-en-Y with postop malabsorption, history of iron deficiency anemia, obesity, narcolepsy who presents to ED at the referral of PCP secondary to A. fib with RVR. Pt with new onset afibb, LBBB. No c/o chest pain, trop 0.024. Unknown duration of afib. Admit to PCU consult cardiology Continue Diltiazem gtt and metoprolol tartrate 12.5 po q6h, continues in Afib but now rate controlled IV heparin - [id number] 3 (F, age, HTN) - await cards recommendations for OAC trops 0.025, ecg reviewed rate controlled afib, new LBBB await echocardiogram results TSH WNL, b/l venous duplex WNL A1c 5.4, LDL93, Chol 170, Trig 110, HDL 55 (3) Constipation: senna S bid, Miralax now added BID had fleet enema, biscodyl suppository over night as well as extra 100mg colace Obtain KUB; although abd S, NT and + BS Received second Fleet enema with oil without any result KUB did not show any obstruction evidence of stool overload/impaction Status post DE examination-no stool in the rectum and no tenderness Will try 1 dose of hydrocortisone suppository (4) History of COVID-19: hx of covid 08/2019 received full vaccination 07/2019 CT chest showing LLL ground glass opacity recommend repeat imaging as outpt in 3-6 months If dyspnea on exertion persists despite tx of afib would recommend referral to pulmonology (5) Sjogren's syndrome without extraglandular involvement: continue refresh eye gtts (6) DVT prophylaxis: IV heparin gtt Dispo: PCU, will need continued hospitalization until transitioned to oral medications for afib and constipation improved PCP: Kimberly FULL CODE Pt was seen and examined in collaboration with Dr. Spencer, please see addendum (7) Morbid obesity: She has history of gastric bypass surgery Her BMI is more than 41 kg/m She is morbidly obese Possible pneumonia has been ruled out No significant increase in white count and no fever or any other respiratory symptoms Admission and Anticipated Discharge Date Admission Date: September 14, 2020 Supervising Physician Co-Signing Physician Notes Attending addendum: The patient was seen and examined in telemetry unit She has been complaining of constipation with abdominal discomfort and nausea which have been worse since admission She has not had a bowel movement for the last 7 days and initial laxatives including enema did not work so far She remains very anxious and inferior that the constipation is going to affect her consciousness She was reassured On examination Very anxious Denies any cardiac symptoms Hemodynamically stable Abdomen-soft and not distended, mildly tender in the lower quadrants without any guarding and/or rigidity. Bowel sounds present Chest-clear to auscultate bilaterally Heart-S1-S2, irregular [employer]ST[employer]ER-very anxious Her labs were reviewed KUB-did not show any intestinal obstruction or any increase in fecal mass in the colon Plan We will continue current treatment for A. fib with RVR Awaiting cardiology evaluation She will be given additional Fleet enema with oil Agree with assessment and plan as outlined above by CALVIN Biggs DR Subjective Pt seen and examined in room 229-2. Follow up Afib and Constipation. "I feel awful, everyone is concerned about my heart and no one is concerned a bout my serious issue of constipation." "Nothing is working." Denies f/c/s, chest pain, palpitations, cough, sob, abdominal pain, dysuria, increased urg, freq, or melena." She only passed flatus after fleet enema. "I am extremely nauseated and can barely take anything by mouth." Discussed with nursing staff. She had fleet enema overnight, senna-s and colace this morning. She also had biscodyl suppository and miralax. Per nursing staff pt has been very rude towards them. Review of Systems Review of Systems: All systems reviewed & are unremarkable except as noted in HPI & below Physical Exam Physical Exam: Gen: WD/WN, ill appearing female, lying in bed, minimal eye contact, NAD, A&O x3 HEENT: Normocephalic, atraumatic, conjunctivae moist, sclerae anicteric, mucous membranes moist. Lung: Clear to Auscultation bilaterally, no wheezes/rales/rhonchi Heart: IRR/IRR, no murmurs, rubs, or gallops Abdomen: Soft, NT, ND +BS x 4 Extremities: No edema Skin: Warm, no rash, negative turgor. Results & Data Results & Data ([facility]) Vital Signs (Past 12 Hours) Vital Signs Temp Pulse Pulse Resp BP Pulse Ox 09/15/20 08:54 36.8 C 72 18 132/68 99 09/15/20 04:23 36.6 C 80 18 172/77 H 91 09/15/20 01:21 72 09/15/20 00:04 36.6 C 85 18 108/73 92 Laboratory Results Short CBC 09/14/20 09/15/20 Range/Units 13:30 05:53 WBC 10.72 11.11 H (4.8-10.8) K/uL Hgb 13.3 12.8 (12.0-16.0) g/dL Hct 41.5 40.0 (37-47) % Plt Count 299 249 (130-400) K/uL BMP 09/14/20 09/15/20 13:30 05:53 Sodium 140 137 Potassium 4.1 3.9 Chloride 109 H 107 Carbon Dioxide 23 24 BUN 15 13 Creatinine 0.70 0.66 Glucose 117 H 152 H Calcium 9.2 8.3 L Cardiac Enzymes 09/14/20 09/14/20 09/15/20 Range/Units 13:30 19:42 00:36 Troponin I 0.024 0.027 0.025 (0-0.045) ng/ml Liver Function 09/15/20 Range/Units 05:53 Total Bilirubin 0.5 (0.2-1) mg/dl AST 27 (15-37) U/L ALT 26 (12-78) U/L Alkaline Phosphatase 167 H (45-117) U/L Albumin 3.5 (3.4-5.0) gm/dl Diagnostic Findings Venous doppler Study: IMPRESSION: No evidence of lower extremity DVT. Medications Administered Diltiazem HCl 125 mg/ Dextrose 125 mls @ 5 mls/hr IV .Q24H [facility]; Protocol Stop: 10/14/20 13:29 Last Admin: 09/15/20 00:02 Dose: 10 mg/hr, 10 mls/hr Documented by: [id number] Cosigned by: [id number] Titration: 09/15/20 00:02 Dose: 10 mg/hr, 10 mls/hr Documented by: [id number] Cosigned by: [id number] Titration: 09/14/20 15:14 Dose: 10 mg/hr, 10 mls/hr Documented by: [id number] Cosigned by: [id number] Admin: 09/14/20 13:58 Dose: 5 mg/hr, 5 mls/hr Documented by: [id number] Cosigned by: [id number] Heparin Sodium/Dextrose (Heparin Sodium/Dextrose) 25,000 units in 500 mls @ 29 mls/hr IV .[id number] [facility]; Protocol Stop: 10/14/20 16:59 Last Titration: 09/15/20 06:55 Dose: 1,450 units/hr, 29 mls/hr Documented by: [id number] Cosigned by: [id number] Titration: 09/14/20 23:59 Dose: 1,400 units/hr, 28 mls/hr Documented by: [id number] Cosigned by: [id number] Admin: 09/14/20 17:41 Dose: 1,350 units/hr, 27 mls/hr Documented by: [id number] Cosigned by: [id number] Levothyroxine Sodium (Levothyroxine Sodium 25 Mcg Tablet) 25 mcg PO DAILYBB [facility] Stop: 10/15/20 06:29 Last Admin: 09/15/20 05:44 Dose: Not Given Documented by: [id number] Metoprolol Tartrate (Metoprolol Tartrate 25 Mg Tab) 12.5 mg PO Q6H [facility] Stop: 10/14/20 16:59 Last Admin: 09/15/20 05:36 Dose: 12.5 mg Documented by: [id number] Admin: 09/15/20 00:42 Dose: 12.5 mg Documented by: [id number] Admin: 09/14/20 17:35 Dose: 12.5 mg Documented by: [id number] Modafinil (Modafinil 100 Mg Tab) 200 mg PO BID [facility] Stop: 10/14/20 20:59 Last Admin: 09/15/20 08:03 Dose: Not Given Documented by: [id number] Admin: 09/14/20 21:31 Dose: Not Given Documented by: [id number] Ondansetron HCl (Ondansetron Inj 2 Mg/Ml 2 Ml Vial) 4 mg IV Q6H PRN PRN Reason: Nausea Stop: 10/14/20 19:40 Last Admin: 09/15/20 03:25 Dose: 4 mg Documented by: [id number] Admin: 09/14/20 21:43 Dose: 4 mg Documented by: [id number] Polyethylene Glycol (Polyethylene (Miralax) 17 Gm Pack) 17 gm PO DAILY PRN PRN Reason: Constipation Stop: 10/14/20 19:40 Last Admin: 09/15/20 06:35 Dose: 17 gm Documented by: [id number] Polyethylene Glycol (Polyethylene (Miralax) 17 Gm Pack) 17 gm PO [id number] [facility] Stop: 10/15/20 08:59 Last Admin: 09/15/20 09:03 Dose: 17 gm Documented by: [id number] Senna/Docusate Sodium (Docusate Sodium/Senna 50/8.6mg Tab) 1 tab PO BID [facility] Stop: 10/14/20 20:59 Last Admin: 09/15/20 08:03 Dose: 1 tab Documented by: [id number] Admin: 09/14/20 21:31 Dose: 1 tab Documented by: [id number] Discontinued Medications Bisacodyl (Bisacodyl 10 Mg Supp) 10 mg DE NOW STA Stop: 09/15/20 07:47 Last Admin: 09/15/20 08:03 Dose: 10 mg Documented by: [id number] Docusate Sodium (Docusate Sodium 100 Mg Cap) 100 mg PO NOW ONE Stop: 09/14/20 16:03 Last Admin: 09/14/20 16:15 Dose: 100 mg Documented by: [id number] Docusate Sodium (Docusate Sodium 100 Mg Cap) 100 mg PO NOW ONE Stop: 09/15/20 07:32 Last Admin: 09/15/20 08:03 Dose: 100 mg Documented by: [id number] Heparin Sodium/Dextrose (Heparin [id number] Unit/500 Ml D5w) Confirm Administered Dose 25,000 units IV .STK-MED ONE Stop: 09/14/20 17:24 Last Admin: 09/14/20 17:36 Dose: Not Given Documented by: [id number] Sodium Chloride (Nss 1000ml) 1,000 mls @ 125 mls/hr IV .Q8H [facility] Stop: 10/14/20 13:29 Last Infusion: 09/14/20 20:11 Dose: 0 mls/hr Documented by: [id number] Admin: 09/14/20 13:58 Dose: 125 mls/hr Documented by: [id number] Sodium Chloride (Nss 1000ml) 1,000 mls @ 80 mls/hr IV .[id number] [facility] Stop: 09/15/20 08:10 Last Infusion: 09/15/20 09:16 Dose: 0 mls/hr Documented by: [id number] Admin: 09/14/20 20:32 Dose: 80 mls/hr Documented by: [id number] Ioversol (Optiray 320 125ml) 119 ml IV ONCE ONE Stop: 09/14/20 15:34 Last Admin: 09/14/20 15:34 Dose: 119 ml Documented by: [id number] Miscellaneous (Stat Iv Infusion Titration Per Protocol) 1 ea N/A NOW STA Stop: 09/14/20 13:29 Last Admin: 09/14/20 13:58 Dose: 1 ea Documented by: [id number] Ondansetron HCl (Ondansetron Inj 2 Mg/Ml 2 Ml Vial) Confirm Administered Dose 4 mg .ROUTE .STK-MED ONE Stop: 09/14/20 14:03 Last Admin: 09/14/20 14:07 Dose: 4 mg Documented by: [id number] Sodium Biphosphate/Sodium Phosphate (Sod Phosphate/Sod Biphosphate Enema 132 Ml Btl) 132 ml DE NOW STA Stop: 09/15/20 02:24 Last Admin: 09/15/20 02:45 Dose: 132 ml Documented by: [id number] ECG Rate (beats per minute): 83 Rhythm: atrial fibrillation Findings: + LBBB
[2020-09-15] MEDS ORDERED: FAMOTIDINE 20MG IV PUSH 20 MG/5 ML SYR IV ONE (09:30)
[2020-09-15] MEDS ORDERED: POTASSIUM CHLORIDE / WTR 10 MEQ/100 ML PLCT IV ONE (09:30)
[2020-09-15] MEDS ORDERED: POTASSIUM CHLORIDE CRTAB 20 MEQ TABCR PO STA (09:58)
[2020-09-15] MEDS: HEPARIN SODIUM/DEXTROSE 25,000 UNITS/500 ML BAG IV SCH ×2 (10:01→17:01)
--- NOTE | 2020-09-15 10:49 | XRay Report ---
KUB CLINICAL HISTORY: Constipation. FINDINGS: 2 AP supine abdominal radiographs are obtained. No prior studies are available for comparis on at the time of dictation. There is a nonobstructed abdominal bowel gas pattern. No significant fec al retention is identified. No evidence of intraperitoneal free air is seen on these supine views. Carey ture material projects over the gastroesophageal junction and the midabdomen. There are no abnormal a bdominal calcifications. The skeletal structures are osteopenic and appear intact. Lumbosacral spondy losis is noted. IMPRESSION: Nonobstructed bowel gas pattern. Electronically signed by: Eran Martinez M.D. 09/15/2020 10:47 AM
[2020-09-15] MEDS ORDERED: MINERAL OIL ENEMA 133 ML BTL PR ONE (11:08)
[2020-09-15] MEDS: PROMETHAZINE HCL 12.5 MG in SODIUM CHLORIDE 0.9% 50 ML IV PRN ×2 (11:35→20:58)
--- NOTE | 2020-09-15 12:37 | Electrocardiogram Report ---
Test Reason : Blood Pressure : / mmHG Vent. Rate : 101 BPM Atrial Rate : 182 BPM P-R Int : 000 ms QRS Dur : 120 ms QT Int : 384 ms P-R-T Axes : 000 -28 150 degrees QTc Int : 497 ms Atrial fibrillation Possible Anterior infarct , age undetermined Abnormal ECG When compared with ECG of 14-SEP-2020 13:27, No significant change was found Confirmed by Fahad Gilliland ([id number]) on 09/15/2020 12:36:46 PM Referred By: REFERRED SELF Confirmed By:Fahad Gilliland
--- NOTE | 2020-09-15 14:37 | Electrocardiogram Report ---
Test Reason : Blood Pressure : / mmHG Vent. Rate : 083 BPM Atrial Rate : 070 BPM P-R Int : 000 ms QRS Dur : 124 ms QT Int : 432 ms P-R-T Axes : 000 -27 152 degrees QTc Int : 507 ms Atrial fibrillation Left bundle branch block Abnormal ECG When compared with ECG of 14-SEP-2020 17:40, (unconfirmed) No significant change Confirmed by Fahad Gilliland ([id number]) on 09/15/2020 2:36:59 PM Referred By: REFERRED SELF Confirmed By:Fahad Gilliland
[2020-09-15 14:40] LABS: Partial Thromboplastin Ratio 4.2
[2020-09-15 14:47] LABS: Partial Thromboplastin Time 109.3 Seconds (21.0-31.0)
[2020-09-15] MEDS ORDERED: HYDROCORTISONE ACETATE 25 MG SUPP PR ONE (14:51)
[2020-09-15] MEDS ORDERED: METOPROLOL TARTRATE 50 MG TAB PO STA (16:05)
--- NOTE | 2020-09-15 17:23 | Cardiology Consultation ---
Date of Consultation September 15, 2020 Assessment & Plan (1) Atrial fibrillation with rapid ventricular response: (2) New onset left bundle branch block (LBBB): (3) Sjogren's syndrome without extraglandular involvement: Echocardiogram reveals abnormal septal motion consistent with left bundle branch block, with mild left ventricular systolic dysfunction, ejection fraction in the range of 40 to 45%. Mild mitral regurgitation is present Severe pulmonary hypertension is present with estimated pulmonary systolic pressure in the range of 60 to 65 mmHg. Compared to the prior study performed in 2014, sinus rhythm was noted at that time. Grade 2 diastolic dysfunction noted at that time, estimated pulmonary systolic pressure was 50 mmHg at that time. We will forward with attempting to wean diltiazem infusion, change metoprolol tartrate from 12.5 mg p.o. every 6 to 50 mg twice daily. Retrogressed stroke prophylaxis, transition from heparin to Eliquis this evening. Patient has significant elevation in her pulmonary pressures without a past diagnosis of underlying lung disease or obstructive sleep apnea. Her pulmonary pressures however were moderately elevated in 2015. She has a history of Sjogren's syndrome, and I question if she has previously undiagnosed underlying interstitial lung disease related to an autoimmune process Which would explain the CT findings as well as taking her Covid diagnosis from a year ago into account. She also notes GI complaints. These are difficult to interpret given her history of gastric bypass. I am going to order a repeat antinuclear antibody, SCL 70 antibody, and anticentromere antibody. Although I did not see the results of anti-SCL 70 or anticentromere antibody in her [facility] record, Per review of her [facility] record she did have a negative SCL 70 antibody and negative anticentromere antibody performed in 2018. Her outpatient record suggests mild hypertension, with most of her systolic blood pressure readings in the 130s, and occasional readings in the 150s to 160s. At present, she does not appear to be volume overloaded. We will continue to follow the patient through this hospital stay. History of Present Illness Attending Physician: Jolly Spencer MD History of Present Illness Ambika Lynch is a 70-year-old male seen in cardiology consultation per the request of Salima Sam PA-C of the [facility] for the evaluation of atrial fibrillation, left bundle branch block. Ms. Lynch describes having had a COVID-19 illness about a year ago in August,. She states that she has had shortness of breath since and has not returned to her previous baseline. In addition to shortness of breath, her most pressing subjective concern is a sensation of nauseousness and constipation. She presented to primary care yesterday and was found to be in atrial fibrillation with rapid ventricular response, with left bundle branch block morphology on EKG. At the time an EKG performed at 11:26 AM on 09/14/2020 at the outpatient clinic, her ventricular rate was extremely rapid at 173 bpm. The patient was admitted via the emergency room, placed on a diltiazem infusion overnight which remains at 10 mg/h, and also placed on low-dose oral metoprolol and unfractionated heparin for stroke prophylaxis. During my assessment, she was resting comfortably. Allergies Allergy/AdvReac Type Severity Reaction Status Date / Time phenobarbital Allergy Intermediate welts Verified 09/14/20 16:07 swelling pineapple Allergy Mild inside Verified 09/14/20 16:07 mouth irritation cefuroxime AdvReac Unknown CAN'T Verified 09/14/20 16:07 REMEMBER BLACK MOLD Allergy Intermediate chronic Uncoded 09/14/20 16:07 sinus infection, respiratory issues Dust Allergy Intermediate sneezing, Uncoded 09/14/20 16:07 coughing and congestion TOMATOES Allergy Mild inside Uncoded 09/14/20 16:07 mouth irritation Home Medications Medication Instructions Recorded Confirmed Type cyanocobalamin (vitamin B-12) 1,000 mcg IM .[id number] 09/14/20 09/14/20 History [Vitamin B-12] levothyroxine 25 mcg PO DAILYBB 09/14/20 09/14/20 History lorazepam 1 mg PO DAILY PRN 09/14/20 09/14/20 History modafinil 200 mg PO BID 09/14/20 09/14/20 History polyvinyl alcohol-povidon(PF) 2 drp OPHTHALMIC (EYE) DIRECTED 09/14/20 09/14/20 History [Refresh Classic (PF)] PRN Patient History Medical History Asthma, exercise induced HLD (hyperlipidemia) HTN (hypertension) Intestinal postoperative nonabsorption Sjogren's syndrome without extraglandular involvement Surgical History H/O gastric bypass H/O knee surgery History of History of colonoscopy History of esophagogastroduodenoscopy (EGD) History of tonsillectomy and adenoidectomy Family History Mother Coronary heart disease Diabetes History of coronary artery bypass graft, Onset Age: 76 Father , 87 Coronary heart disease Stroke Myocardial infarction, Onset Age: 78 Social History Smoking Status: Never smoker Hx Alcohol Use: Yes Alcohol type: wine Hx Substance Use: No Preferred Language: Qatari Communication Ability: Effective Beliefs That Will Affect Care: None marital status: Current Living Situation: Alone Other Information That Helps Us Care for You: No Feels Safe at Home: Yes Safety Concerns: Feels Safe At This Time Assistive Devices: Glasses Review of Systems Review of Systems: All systems reviewed & are unremarkable except as noted in HPI & below Physical Exam Physical Exam: Temp Pulse Resp BP Pulse Ox 36.7 C 83 18 140/90 96 09/15/20 15:25 09/15/20 15:25 09/15/20 15:25 09/15/20 15:25 09/15/20 15:25 Constitutional: + obese Respiratory: normal respiratory effort, lungs clear to auscultation Cardiovascular: Rate/Rhythm: + irregularly irregular Heart Sounds: no murmur Vessels: no JVD Extremities: no edema Gastrointestinal (Abdomen): normal bowel sounds, soft, nontender, no hepatosplenomegaly Neurologic: PERRL, EOMI, accommodation nl, no face palsy, no dysarthria Results & Data ([facility]) Vital Signs (Past 12 Hours) Vital Signs Temp Pulse Resp BP Pulse Ox 09/15/20 15:25 36.7 C 83 18 140/90 96 09/15/20 08:54 36.8 C 72 18 132/68 99 Laboratory Results Cardiac Enzymes 09/14/20 09/15/20 09/15/20 Range/Units 19:42 00:36 05:53 AST 27 (15-37) U/L Troponin I 0.027 0.025 (0-0.045) ng/ml Coagulation 09/14/20 09/15/20 09/15/20 Range/Units 23:35 05:53 14:04 APTT 39.3 H 42.2 H 109.3 H* (21.0-31.0) Seconds Lipids 09/15/20 Range/Units 05:53 Triglycerides 110 (0-150) mg/dl Cholesterol 170 (0-200) mg/dl HDL Cholesterol 55 mg/dl Cholesterol/HDL Ratio 3 CBC 09/15/20 Range/Units 05:53 WBC 11.11 H (4.8-10.8) K/uL RBC 4.13 L (4.2-5.4) M/uL Hgb 12.8 (12.0-16.0) g/dL Hct 40.0 (37-47) % Plt Count 249 (130-400) K/uL Comprehensive Metabolic Panel 09/15/20 Range/Units 05:53 Sodium 137 (136-145) mmol/L Potassium 3.9 (3.5-5.1) mmol/L Chloride 107 (98-107) mmol/L Carbon Dioxide 24 (21-32) mmol/L BUN 13 (7-18) mg/dl Creatinine 0.66 (0.6-1.2) mg/dl Glucose 152 H (70-99) mg/dl Calcium 8.3 L (8.5-10.1) mg/dl AST 27 (15-37) U/L ALT 26 (12-78) U/L Alkaline Phosphatase 167 H (45-117) U/L Total Protein 7.8 (6.4-8.2) gm/dl Albumin 3.5 (3.4-5.0) gm/dl Intake and Output 09/15/20 09/15/20 09/15/20 06:59 14:59 22:59 Intake Total 652.233 / 7798.773 1789.4 / 1521.866 261.466 / 1521.866 Balance 652.233 / 0435.292 2070.4 / 1521.866 261.466 / 1521.866 Intake: IV 452.233 / 0702.827 0221.4 / 1401.866 261.466 / 1401.866 HEPARIN SODIUM/DEXTROSE 25,000 364.233 / 364.233 89.9 / 289.033 199.133 / 289.033 units In 500 ml @ 1,450 UNITS/ HR 29 mls/hr IV .[id number] [facility] Rx #:[id number] Phenergan 12.5 mg In Nss 50 ml 50.5 / 50.5 @ 202 mls/hr IV Q6H PRN Rx#: [id number] Nss 1000ML 1,000 ml @ 80 mls/hr 1000 / 1000 IV .[id number] [facility] Rx#:[id number] Cardizem 125 mg In D5 100 ml @ 88 / 94.333 0 / 62.333 62.333 / 62.333 5 MG/HR 5 mls/hr IV .Q24H [facility] Rx#:[id number] Oral 200 / 400 120 / 120 Other: # Unmeasured Voids 2 Weight 106.2 kg Diagnostic Findings EKG performed this morning while on diltiazem infusion, 09/15/2020 atrial fibrillation at 83 bpm, with left bundle branch block. Radiology report of CT of the chest: Heart silhouette is mildly enlarged without pericardial effusion, coronary arter y calcifications noted. Evaluation of the lung parenchyma degraded by motion, but there are patchy groundglass consolidations identified in the left lower lobe. Scarring/atelectasis noted throughout the lungs. Mildly enlarged subcarinal lymph node No pulmonary embolism
[2020-09-15] MEDS: APIXABAN 5 MG TABLET PO SCH (20:58)
[2020-09-15 23:20] LABS: Partial Thromboplastin Ratio 1.1; Partial Thromboplastin Time 27.7 Seconds (21.0-31.0)
[2020-09-16] MEDS: dilTIAZem HCL 125 MG in DEXTROSE 5% 100 ML IV SCH (02:40)
[2020-09-16] MEDS: LEVOTHYROXINE SODIUM 25 MCG TABLET PO SCH (05:13)
[2020-09-16 05:39] LABS: Basophils # (auto) 0.04 K/uL (0-0.2); Basophils % (auto) 0.4 %; Eosinophils # (auto) 0.02 K/uL (0-0.5); Eosinophils % (auto) 0.2 %; Hematocrit (blood only) 39.2 % (37-47); Hemoglobin 12.8 g/dL (12.0-16.0); Immature Granulocytes # (auto) 0.02 K/uL (0.00-0.02); Immature Granulocytes % (auto) 0.2 %; Mean Corpuscular Hgb Conc 32.7 g/dL (32-36); Mean Corpuscular Volume 94.9 fL (80-100); Mean Platelet Volume 10.3 fL (7.4-10.4); Monocytes # (auto) 0.99 K/uL (0.11-0.59); Monocytes % (auto) 9.9 %; Neutrophils # (auto) 7.93 K/uL (1.4-6.5); Neutrophils % (auto) 79.3 %; Platelet Count 320 K/uL (130-400); RDW Coefficient of Variation 13.6 % (11.5-14.5); RDW Standard Deviation 46.5 fL (36.4-46.3); Red Blood Count 4.13 M/uL (4.2-5.4)
[2020-09-16 06:12] LABS: BUN Creatinine Ratio 24.5 (10-20); Calcium 8.7 mg/dl (8.5-10.1); Creatinine Clr Calc Pharmacy 91.1 ml/min; Est GFR (Non-African American) 88.9; Magnesium 2.1 mg/dl (1.8-2.4); Potassium 4.2 mmol/L (3.5-5.1)
[2020-09-16] MEDS: APIXABAN 5 MG TABLET PO SCH (08:23)
[2020-09-16] MEDS: POLYETHYLENE (MIRALAX) 17 GM PACK PO SCH ×2 (08:24→16:24)
[2020-09-16] MEDS: LOSARTAN POTASSIUM 25 MG TAB PO SCH (08:24)
[2020-09-16] MEDS: DOCUSATE SODIUM/SENNA 50/8.6MG TAB PO SCH ×2 (08:27→21:44)
[2020-09-16] MEDS: modafiniL 100 MG TAB PO SCH ×2 (08:28→21:44)
[2020-09-16] MEDS ORDERED: METOPROLOL TARTRATE 50 MG TAB PO SCH (09:00)
--- NOTE | 2020-09-16 13:14 | CT Scan Report ---
CT SCAN OF THE ABDOMEN AND PELVIS WITHOUT CONTRAST CLINICAL HISTORY: Constipation ABDOMINAL PAIN COMPARISON STUDY: X-ray study dated 09/15/2020 TECHNIQUE: CT scan of the abdomen and pelvis was performed from the lung bases to the proximal femurs . Images are reviewed in the axial, sagittal, and coronal planes. IV contrast was not administered fo r this examination. A dose lowering technique was utilized adhering to the principles of ALARA. CT DOSE: 1154.19 mGy.cm FINDINGS: Lower chest: There are small bilateral pleural effusions. There are basilar opacities statistically a telectatic. Liver: The unenhanced liver is normal in size, contour, and attenuation. There is no intrahepatic gina iary ductal dilatation. Gallbladder: There is nonspecific gallbladder wall edema versus pericholecystic fluid. Ultrasound cor relation suggested. Spleen: Normal in size and attenuation. Pancreas: Unremarkable. Adrenal glands: No adrenal masses are visualized. There is minimal infiltration of the fat surroundin g the adrenal glands. Kidneys: There is a punctate nonobstructing lower pole left renal calculus. No ureteral or bladder ca lculi are visualized. Bowel: There are no transition zones indicate bowel obstruction. There is no evidence of acute divert iculitis. The appendix appears normal. There are postsurgical changes of a gastric bypass. Peritoneum: There is no intraperitoneal free air or abdominal ascites. Vasculature: The abdominal aorta is normal in course and caliber. Adenopathy: None. Pelvic viscera: There is a left adnexal calcification, likely ovarian. Skeletal structures: No destructive osseous lesions are seen. There is a grade 1 spinal listhesis of L4 and L5 IMPRESSION: 1. No evidence of bowel obstruction. No evidence of free air 2. Normal appendix. No evidence of acute diverticulitis 3. Abnormally appearing gallbladder with gallbladder wall thickening versus pericholecystic fluid. Ul trasound correlation recommended. 4. Small bilateral pleural effusions ACT 112: Negative or not required by law. Electronically signed by: Ziyad Glaser M.D. 09/16/2020 1:13 PM
--- NOTE | 2020-09-16 13:39 | Electrocardiogram Report ---
Test Reason : Blood Pressure : / mmHG Vent. Rate : 108 BPM Atrial Rate : 133 BPM P-R Int : 000 ms QRS Dur : 124 ms QT Int : 364 ms P-R-T Axes : 000 -19 141 degrees QTc Int : 487 ms Atrial fibrillation with rapid ventricular response Left bundle branch block Abnormal ECG When compared with ECG of 15-SEP-2020 06:31, No significant change was found Confirmed by Fahad Gilliland ([id number]) on 09/16/2020 1:39:09 PM Referred By: REFERRED SELF Confirmed By:Fahad Gilliland
--- NOTE | 2020-09-16 16:19 | Hospitalist Progress Note ---
Date of Service September 16, 2020 Assessment & Plan (1) Atrial fibrillation with rapid ventricular response: (2) New onset left bundle branch block (LBBB): Patient is a 70 yr female with H/O HTN, HLD, Sjogren's, history of Darcy-en-Y with postop malabsorption, history of iron deficiency anemia, obesity, narcolepsy who presents to ED at the referral of PCP secondary to A. fib with RVR. Atrial fibrillation RVR Left bundle branch block Normal TSH Continue Diltiazem gtt Continue metoprolol IV heparin transition to apixaban Apixaban held due to bleeding per rectum Appreciate cardiology input Monitor electrolytes and replace as needed Bleeding per rectum -CT ABD:No evidence of bowel obstruction. No evidence of free air. Normal appendix. No evidence of acute diverticulitis. Abnormally appearing gallbladder with gallbladder wall thickening versus pericholecystic fluid. Ultrasound mike elation recommended. Small bilateral pleural effusions -Hold apixaban -Started on PPI -GI consulted -Monitor H&H (3) Constipation: CT abdomen as above Continue bowel regimen GI consult Encourage to ambulate ? Gallbladder wall thickening/pericholecystic fluid Incidental finding on CT scan Obtain gallbladder ultrasound (4) History of COVID-19: h/O COVID 08/2019 Received full vaccination 07/2019 CT chest showing LLL ground glass opacity COVID Screen negative Needs repeat CT Chest in 3-6 months (5) Sjogren's syndrome without extraglandular involvement: continue refresh eye gtts (6) DVT prophylaxis: SCDs Re: Rectal bleeding (7) Morbid obesity: H/O gastric bypass surgery BMI:41.1 Code Status FULL CODE Admission and Anticipated Discharge Date Admission Date: September 14, 2020 Subjective Patient is seen and examined at bedside Reports nausea, abdominal bloating, constipation Also stated to have a bloody bowel movement this afternoon Denies chest pain, palpitations, dizziness, shortness of breath,nausea, abd pain Offers no other complaints Review of Systems Review of Systems: All systems reviewed & are unremarkable except as noted in HPI & below Physical Exam Physical Exam: Physical Exam: Vitals signs as noted above General Appearance:Obese, no apparent distress Head: normocephalic, Atraumatic Eyes: normal inspection, EOMI Neck: supple, Trachea midline Respiratory/Chest: Normal breath sounds, CTA Cardiovascular: Irregularly irregular, No murmur Abdomen/GI:Soft, Non tender, Bowel sounds present Extremities/Musculoskelatal:normal inspection, no edema Neurologic/Psych:AAOX3, grossly no focal neurological deficits Skin: normal color, warm Results & Data Results & Data ([facility]) Vital Signs (Past 12 Hours) Vital Signs Temp Pulse Pulse Resp BP Pulse Ox 09/16/20 15:11 37.0 C 93 H 18 149/105 H 94 09/16/20 11:18 36.7 C 90 18 146/106 H 93 09/16/20 08:22 36.7 C 110 H 18 151/88 H 94 09/16/20 07:40 105 H Laboratory Results Short CBC 09/16/20 Range/Units 05:17 WBC 10.00 (4.8-10.8) K/uL Hgb 12.8 (12.0-16.0) g/dL Hct 39.2 (37-47) % Plt Count 320 (130-400) K/uL BMP 09/16/20 05:17 Sodium 136 Potassium 4.2 Chloride 107 Carbon Dioxide 24 BUN 16 Creatinine 0.66 Glucose 128 H Calcium 8.7
[2020-09-16 16:21] LABS: Hematocrit (blood only) 37.9 % (37-47); Hemoglobin 12.7 g/dL (12.0-16.0)
[2020-09-16] MEDS: PANTOprazole 40 MG TAB PO SCH (16:26)
--- NOTE | 2020-09-16 16:32 | Ultrasound Report ---
ULTRASOUND RIGHT UPPER QUADRANT ABDOMEN CLINICAL HISTORY: Abnormal gallbladder seen by CT. Abdominal pain. COMPARISON STUDY: Abdominal CT dated 09/16/2020. TECHNIQUE: Real-time, grayscale, and color flow sonography of the right upper quadrant of the abdomen was performed. Images are reviewed in the transverse and longitudinal planes. FINDINGS: Liver: The liver appears cirrhotic in morphology and heterogeneous in echotexture with nodularity of the hepatic surface contour. There is no intrahepatic biliary ductal dilatation. The main portal vein is patent. Gallbladder: The gallbladder is mildly distended. The gallbladder wall is thickened and edematous nneka suring up to 6 mm. No shadowing gallstones are identified. Trace pericholecystic fluid is noted. A so nographic Dixon's sign is reportedly absent. The common bile duct measures up to 0.6 cm in diameter. Pancreas: Visualized portions of the pancreatic head and body are normal in appearance. Splenic vein is patent. Right kidney: Survey images of the right kidney demonstrate normal size and echotexture. There is no hydronephrosis. Ascites: None. IMPRESSION: 1. The gallbladder wall is thickened and edematous and there is trace pericystic fluid. No shadowing gallstones are identified and a sonographic Dixon's sign is reportedly absent. Findings are equivoca l for acute cholecystitis which is not excluded. If there is strong clinical concern for acute and po ssibly acalculus cholecystitis consider nuclear hepatobiliary scan to assess for patency of the cysti c duct. 2. The appearance of the liver suggests early change of cirrhosis. ACT 112: Negative or not required by law. Electronically signed by: Eran Martinez M.D. 09/16/2020 4:31 PM
[2020-09-16] MEDS ORDERED: SODIUM CHLORIDE 0.9% 1000ML 1,000 ML IV ONE (17:45)
--- NOTE | 2020-09-16 19:10 | Cardiology Progress Note ---
Date of Service September 16, 2020 Assessment & Plan (1) Atrial fibrillation with rapid ventricular response: (2) New onset left bundle branch block (LBBB): (3) Sjogren's syndrome without extraglandular involvement: Echocardiogram reveals abnormal septal motion consistent with left bundle branch block, with mild left ventricular systolic dysfunction, ejection fraction in the range of 40 to 45%. Mild mitral regurgitation is present Severe pulmonary hypertension is present with estimated pulmonary systolic pressure in the range of 60 to 65 mmHg. Compared to the prior study performed in 2014, sinus rhythm was noted at that time. Grade 2 diastolic dysfunction noted at that time, estimated pulmonary systolic pressure was 50 mmHg at that time. Diltiazem infusion was weaned to 5 mg/h overnight. We will increase metoprolol tartrate to 75 mg twice daily. Patient has been transitioned to Eliquis, but now describes blood per rectum, therefore Eliquis on hold. She has minimal cardiac complaints, but is very concerned with regards to complaints of early satiety, nauseousness, and no blood per rectum. She is not examined is being volume overloaded. Recommend gastroenterology consultation. As noted, serum markers for systemic sclerosis ordered due to echo findings of pulmonary hypertension both on current echo as well as in 2015. The degree of pulmonary hypertension seems to be out of proportion to what would be expected with diastolic dysfunction. Admission and Anticipated Discharge Date Admission Date: September 14, 2020 Subjective Patient seen in follow-up of atrial fibrillation, left bundle branch block. She describes ongoing difficulty with feeling constipated like she cannot have a bowel movement. She describes having "blood "per rectum but no orlin bloody bowel movement. No problems urinating. Her affect is very flat. Review of Systems Review of Systems: All systems reviewed & are unremarkable except as noted in HPI & below Physical Exam Physical Exam: Temp Pulse Resp BP Pulse Ox 37.0 C 86 18 149/105 H 94 09/16/20 15:11 09/16/20 17:32 09/16/20 15:11 09/16/20 15:11 09/16/20 15:11 Constitutional: No acute distress Respiratory: normal respiratory effort, lungs clear to auscultation Cardiovascular: Rate/Rhythm: + irregularly irregular Heart Sounds: no murmur Extremities: no edema Gastrointestinal (Abdomen): normal bowel sounds, soft, nontender, no hepatosplenomegaly Neurologic: PERRL, EOMI, accommodation nl, no face palsy, no dysarthria Psychiatric: Orientation: alert Affect: + flat affect Results & Data ([facility] [place]) Vital Signs (Past 12 Hours) Vital Signs Temp Pulse Pulse Resp BP Pulse Ox 09/16/20 17:32 86 09/16/20 15:11 37.0 C 93 H 18 149/105 H 94 09/16/20 11:18 36.7 C 90 18 146/106 H 93 09/16/20 08:22 36.7 C 110 H 18 151/88 H 94 09/16/20 07:40 105 H Laboratory Results Coagulation 09/15/20 Range/Units 22:34 APTT 27.7 (21.0-31.0) Seconds CBC 09/16/20 09/16/20 Range/Units 05:17 15:41 WBC 10.00 (4.8-10.8) K/uL RBC 4.13 L (4.2-5.4) M/uL Hgb 12.8 12.7 (12.0-16.0) g/dL Hct 39.2 37.9 (37-47) % Plt Count 320 (130-400) K/uL Neut # (Auto) 7.93 H (1.4-6.5) K/uL Lymph # (Auto) 1.00 L (1.2-3.4) K/uL [place] # (Auto) 0.99 H (0.11-0.59) K/uL Eos # (Auto) 0.02 (0-0.5) K/uL Baso # (Auto) 0.04 (0-0.2) K/uL Comprehensive Metabolic Panel 09/16/20 Range/Units 05:17 Sodium 136 (136-145) mmol/L Potassium 4.2 (3.5-5.1) mmol/L Chloride 107 (98-107) mmol/L Carbon Dioxide 24 (21-32) mmol/L BUN 16 (7-18) mg/dl Creatinine 0.66 (0.6-1.2) mg/dl Glucose 128 H (70-99) mg/dl Calcium 8.7 (8.5-10.1) mg/dl Intake and Output 09/16/20 09/16/20 09/16/20 06:59 14:59 22:59 Intake Total 127 / 2470.658 200 / 200 Output Total Balance 127 / 2470.658 - 200 / 199 Intake: IV 1610.658 Cardizem 125 mg In D5 100 ml @ .708 5 MG/HR 5 mls/hr IV .Q24H [facility] Rx#:[id number] Oral 100 / 860 200 / 200 Output: # Bowel Movements Other: # Unmeasured Voids 1 Weight 106 kg
[2020-09-16] MEDS: METOPROLOL TARTRATE 25 MG TAB PO SCH (21:43)
[2020-09-17] MEDS: dilTIAZem HCL 125 MG in DEXTROSE 5% 100 ML IV SCH (03:16)
[2020-09-17] MEDS: LEVOTHYROXINE SODIUM 25 MCG TABLET PO SCH (04:21)
[2020-09-17 06:05] LABS: Basophils # (auto) 0.05 K/uL (0-0.2); Basophils % (auto) 0.6 %; Eosinophils # (auto) 0.15 K/uL (0-0.5); Eosinophils % (auto) 1.8 %; Hematocrit (blood only) 38.3 % (37-47); Hemoglobin 12.3 g/dL (12.0-16.0); Immature Granulocytes # (auto) 0.04 K/uL (0.00-0.02); Immature Granulocytes % (auto) 0.5 %; Lymphocytes # (auto) 0.98 K/uL (1.2-3.4); Lymphocytes % (auto) 11.9 %; Mean Corpuscular Hemoglobin 30.7 pg (25-34); Mean Corpuscular Hgb Conc 32.1 g/dL (32-36); Mean Corpuscular Volume 95.5 fL (80-100); Mean Platelet Volume 10.4 fL (7.4-10.4); Monocytes # (auto) 1.01 K/uL (0.11-0.59); Monocytes % (auto) 12.3 %; Neutrophils # (auto) 6.01 K/uL (1.4-6.5); Neutrophils % (auto) 72.9 %; Platelet Count 302 K/uL (130-400); RDW Coefficient of Variation 13.8 % (11.5-14.5); RDW Standard Deviation 47.7 fL (36.4-46.3); Red Blood Count 4.01 M/uL (4.2-5.4); White Blood Count 8.24 K/uL (4.8-10.8)
[2020-09-17 06:36] LABS: BUN Creatinine Ratio 25.7 (10-20); Calcium 8.3 mg/dl (8.5-10.1); Creatinine Clr Calc Pharmacy 98.6 ml/min; Est GFR (African American) 105.7; Est GFR (Non-African American) 91.2; Potassium 3.9 mmol/L (3.5-5.1)
[2020-09-17] MEDS: METOPROLOL TARTRATE 25 MG TAB PO SCH (07:21)
[2020-09-17] MEDS: DOCUSATE SODIUM/SENNA 50/8.6MG TAB PO SCH (07:22)
[2020-09-17] MEDS: LOSARTAN POTASSIUM 25 MG TAB PO SCH (07:22)
[2020-09-17] MEDS: PANTOprazole 40 MG TAB PO SCH (07:23)
[2020-09-17] MEDS: POLYETHYLENE (MIRALAX) 17 GM PACK PO SCH ×2 (07:24→17:10)
[2020-09-17] MEDS: modafiniL 100 MG TAB PO SCH ×2 (07:34→21:17)
--- NOTE | 2020-09-17 10:49 | Gastrointestinal Consultation ---
Date of Consultation September 17, 2020 Assessment & Plan (1) Rectal bleeding: (2) Constipation: Pt is a 70 y/o female admitted w new onset Afib, L BBB on Eliquis seen for rectal bleeding. Hx of constipation and hard stools per pt's report. On exam, brown stool on rectal vault though she does have int/ext hemorrhoids. Suspect hemorrhoidal bleeding 2/2 constipation/straining. - Repeat KUB today - Bowel regimen: Miralax 17g BID + Senna 17.2mg qHS - Hydrocortisone rectal cream prn hemorrhoidal bleeding - No contraindication to restart Eliquis - Defer endoscopic eval - ? cirrhosis on u/s and associated abnormal appearing gallbladder: no abd pain and normal LFTs, less likely has cholecystitis. Will need f/u GI appt for cirrhosis workup once she is DC'd home - GI to sign off; pls recall prn Supervising Physician Co-Signing Physician Notes I have discussed the management with HUMBERTO Pizano. Patient in no acute distress when seeing her this afternoon. Reports no bm's today with blood. No belly pain. Abd obese Labs reviewed: hgb stable, no bun rise,last colon with hemorrhoids in 2017. Agree with further plan of care as per Irma's assessment and plan. History of Present Illness Reason for Consultation: Rectal bleeding , constipation Requesting Physician: Dr. Jamie Becerra Attending Physician: Dr. Lexi Carrasco History of Present Illness Pt is a 70 yo female admitted w new onset Afib and L BBB, seen today for rectal bleeding. Pt had been on Eliquis. She reports constipation and last BM 10 days ago. Stool was black, rounded and hard and recently in the last few days started to have only BRBPR. She denies abd pain but has nausea, finds it hard to tolerate liquids but is asking for food now. She hasn't had any rectal bleeding since last night. Noted blood ct, plt and BUN are normal. Prior u/s, CT, KUB reviewed - no signs of bowel obstruction. Gallbladder appears thickened. ? liver cirrhosis noted. EGD/Colonoscopy - Hx of RYGB, normal exams otherwise Allergies Allergy/AdvReac Type Severity Reaction Status Date / Time phenobarbital Allergy Intermediate welts Verified 09/14/20 16:07 swelling pineapple Allergy Mild inside Verified 09/14/20 16:07 mouth irritation tomato Allergy Mild Unknown Verified 09/16/20 16:02 cefuroxime AdvReac Unknown CAN'T Verified 09/14/20 16:07 REMEMBER BLACK MOLD Allergy Intermediate chronic Uncoded 09/14/20 16:07 sinus infection, respiratory issues Dust Allergy Intermediate sneezing, Uncoded 09/14/20 16:07 coughing and congestion Home Medications Medication Instructions Recorded Confirmed Type cyanocobalamin (vitamin B-12) 1,000 mcg IM .[id number] 09/14/20 09/14/20 History [Vitamin B-12] levothyroxine 25 mcg PO DAILYBB 09/14/20 09/14/20 History lorazepam 1 mg PO DAILY PRN 09/14/20 09/14/20 History modafinil 200 mg PO BID 09/14/20 09/14/20 History polyvinyl alcohol-povidon(PF) 2 drp OPHTHALMIC (EYE) DIRECTED 09/14/20 09/14/20 History [Refresh Classic (PF)] PRN Patient History Medical History Asthma, exercise induced HLD (hyperlipidemia) HTN (hypertension) Intestinal postoperative nonabsorption Sjogren's syndrome without extraglandular involvement Surgical History H/O gastric bypass H/O knee surgery History of History of colonoscopy History of esophagogastroduodenoscopy (EGD) History of tonsillectomy and adenoidectomy Family History Mother Coronary heart disease Diabetes History of coronary artery bypass graft, Onset Age: 76 Father , 87 Coronary heart disease Stroke Myocardial infarction, Onset Age: 78 Social History Smoking Status: Never smoker Hx Alcohol Use: Yes Alcohol type: wine Hx Substance Use: No Preferred Language: Iranian Communication Ability: Effective Beliefs That Will Affect Care: None marital status: Current Living Situation: Alone Other Information That Helps Us Care for You: No Feels Safe at Home: Yes Safety Concerns: Feels Safe At This Time Assistive Devices: None Review of Systems Review of Systems: All systems reviewed & are unremarkable except as noted in HPI & below Physical Exam Constitutional: WD/WN, vitals as above well groomed, cooperative and comfortable Eyes: PERRL, conjunctivae normal, anicteric sclerae ENMT: external ear and nose normal, oropharynx normal Respiratory: normal respiratory effort, lungs clear to auscultation Cardiovascular: Rate/Rhythm: + irregularly irregular Heart Sounds: no gallop and no murmur Gastrointestinal (Abdomen): normal bowel sounds, soft, nontender, no hepatosplenomegaly Rectal Exam: + hemorrhoids (external, internal felt); no rectal fissure Brown stool in rectal vault Skin: no rashes, warm and dry no jaundice Psychiatric: A+Ox3, euthymic affect Lymphatic: no lymphedema Results & Data ([facility]) Vital Signs (Past 12 Hours) Vital Signs Temp Pulse Pulse Resp BP Pulse Ox 09/17/20 08:00 36.5 C 83 18 165/85 H 92 09/17/20 04:07 36.6 C 82 20 134/91 93 09/17/20 00:36 36.7 C 81 20 124/67 92 09/17/20 00:00 84
--- NOTE | 2020-09-17 11:14 | XRay Report ---
KUB HISTORY: Acute generalized abdominal pain with constipation eval stool burden COMPARISON: CT abdomen and pelvis 09/16/2020 FINDINGS: Nonobstructive bowel gas pattern. Air-filled loops of large and small bowel are likely phys iologic. No significant fecal retention to suggest constipation. Surgical suture material projects ov er the abdomen related to prior gastric bypass. Renal shadows are obscured by bowel gas. The previou sly noted punctate calculus of the inferior pole left kidney is not identified. No ureteral calculi. Pelvic basin calcifications suggestive of phleboliths. No pneumoperitoneum or pneumatosis. Degenerati ve changes of the lower lumbar spine. No fracture. IMPRESSION: 1. Nonobstructive bowel gas pattern. 2. No radiographic evidence of constipation. ACT 112: Negative or not required by law. The above report was generated using voice recognition software. It may contain grammatical, syntax o r spelling errors. Electronically signed by: Titus Romero M.D. 09/17/2020 11:12 AM
[2020-09-17] MEDS: HYDROCORTISONE ACETATE 25 MG SUPP PR PRN ×2 (12:15→22:55)
--- NOTE | 2020-09-17 15:02 | Hospitalist Progress Note ---
Date of Service September 17, 2020 Assessment & Plan (1) Atrial fibrillation with rapid ventricular response: (2) New onset left bundle branch block (LBBB): Patient is a 70 yr female with H/O HTN, HLD, Sjogren's, history of Darcy-en-Y with postop malabsorption, history of iron deficiency anemia, obesity, narcolepsy who presents to ED at the referral of PCP secondary to A. fib with RVR. Atrial fibrillation RVR Left bundle branch block Normal TSH IV Diltiazem weaned off Continue metoprolol IV heparin transition to apixaban Appreciate cardiology input Monitor electrolytes and replace as needed Resume Eliquis Monitor for any bleeding issues Bleeding per rectum -CT ABD:No evidence of bowel obstruction. No evidence of free air. Normal appendix. No evidence of acute diverticulitis. Abnormally appearing gallbladder with gallbladder wall thickening versus pericholecystic fluid. Ultrasound correlation recommended. Small bilateral pleural effusions Likely secondary to hemorrhoids due to constipation -Appreciate GI Input -Monitor H&H -Hydrocortisone rectal cream -No plan for endoscopy Abnormal Gallbladder ? Cirrhosis -USD: The gallbladder wall is thickened and edematous and there is trace pericystic fluid. No shadowing gallstones are identified and a sonographic Dixon's sign is reportedly absent. Findings are equivocal for acute cholecystitis which is not excluded. If there is strong clinical concern for acute and possibly acalculus cholecystitis consider nuclear hepatobiliary scan to assess for patency of the cystic duct. The appearance of the liver suggests early change of cirrhosis. -Less likely acute cholecystitis given no abdominal pain, afebrile, normal LFTs -Needs follow-up with GI as outpatient for cirrhosis work-up (3) Constipation: CT abdomen as above Continue bowel regimen Encourage to ambulate (4) History of COVID-19: h/O COVID 08/2019 Received full vaccination 07/2019 CT chest showing LLL ground glass opacity COVID Screen negative Needs repeat CT Chest in 3-6 months (5) Sjogren's syndrome without extraglandular involvement: continue refresh eye gtts Immunological work-up pending Severe pulmonary hypertension ? Secondary to above Noted on ECHO (6) DVT prophylaxis: SCDs Re: Rectal bleeding (7) Morbid obesity: H/O gastric bypass surgery BMI:41.1 Code Status FULL CODE Admission and Anticipated Discharge Date Admission Date: September 14, 2020 Subjective Patient is seen and examined at bedside States feeling better today Nausea resolved Denies any bloody bowel movement today Also denies chest pain, palpitations, dizziness, dyspnea, abd pain Review of Systems Review of Systems: All systems reviewed & are unremarkable except as noted in HPI & below Physical Exam Physical Exam: Physical Exam: Vitals signs as noted above General Appearance:Obese, no apparent distress Head: normocephalic, Atraumatic Eyes: normal inspection, EOMI Neck: supple, Trachea midline Respiratory/Chest: Normal breath sounds, CTA Cardiovascular: Irregularly irregular, No murmur Abdomen/GI:Soft, Non tender, Bowel sounds present Extremities/Musculoskelatal:normal inspection, no edema Neurologic/Psych:AAOX3, grossly no focal neurological deficits Skin: normal color, warm Results & Data Results & Data ([facility]) Vital Signs (Past 12 Hours) Vital Signs Temp Pulse Resp BP Pulse Ox 09/17/20 11:52 36.6 C 74 18 131/85 95 09/17/20 08:00 36.5 C 83 18 165/85 H 92 09/17/20 04:07 36.6 C 82 20 134/91 93 Laboratory Results Short CBC 09/16/20 09/17/20 Range/Units 15:41 05:27 WBC 8.24 (4.8-10.8) K/uL Hgb 12.7 12.3 (12.0-16.0) g/dL Hct 37.9 38.3 (37-47) % Plt Count 302 (130-400) K/uL BMP 09/17/20 05:27 Sodium 138 Potassium 3.9 Chloride 108 H Carbon Dioxide 26 BUN 16 Creatinine 0.61 Glucose 107 H Calcium 8.3 L
--- NOTE | 2020-09-17 16:31 | Cardiology Progress Note ---
Date of Service September 17, 2020 Assessment & Plan (1) Atrial fibrillation with rapid ventricular response: Discontinue IV diltiazem. Increase metoprolol tartrate to 100 mg twice daily. Hemoglobin stable, tolerating ongoing Eliquis. Recommend ongoing rate control and anticoagulation. We will consider trial of direct-current cardioversion after she has been on uninterrupted anticoagulation for 4 weeks depending upon how she feels with medications. (2) New onset left bundle branch block (LBBB): Mild left ventricular systolic dysfunction. Reassess LVEF once ongoing rhythm control strategy established. (3) Sjogren's syndrome without extraglandular involvement: Question if patient has a crossover inflammatory process that would explain her GI symptoms, pulmonary hypertension. Serum markers including repeat SCL 70 , SARAH , anticentromere antibody ordered. (4) Rectal bleeding: Gi input noted and appreciated. Continue Eliquis. Outpt GI follow up of abnormal hepatic imaging. Admission and Anticipated Discharge Date Admission Date: September 14, 2020 Subjective Patient seen in follow-up today. She was much more bright. [place] improved. But still laying in bed. Telemetry reveals ongoing atrial fibrillation with left bundle branch block morphology in the 70 bpm range, on 5 mg/h of IV diltiazem. Review of Systems Review of Systems: All systems reviewed & are unremarkable except as noted in HPI & below Physical Exam Physical Exam: Temp Pulse Resp BP Pulse Ox 36.6 C 91 H 18 117/79 92 09/17/20 16:25 09/17/20 16:25 09/17/20 16:25 09/17/20 16:25 09/17/20 16:25 Constitutional: WD/WN, vitals as above Respiratory: normal respiratory effort, lungs clear to auscultation Cardiovascular: Rate/Rhythm: + irregularly irregular Heart Sounds: no murmur Extremities: + edema Gastrointestinal (Abdomen): normal bowel sounds, soft, nontender, no hepatosplenomegaly Neurologic: PERRL, EOMI, accommodation nl, no face palsy, no dysarthria Results & Data ([facility]) Vital Signs (Past 12 Hours) Vital Signs Temp Pulse Resp BP Pulse Ox 09/17/20 16:25 36.6 C 91 H 18 117/79 92 09/17/20 11:52 36.6 C 74 18 131/85 95 09/17/20 08:00 36.5 C 83 18 165/85 H 92 Laboratory Results CBC 09/17/20 Range/Units 05:27 WBC 8.24 (4.8-10.8) K/uL RBC 4.01 L (4.2-5.4) M/uL Hgb 12.3 (12.0-16.0) g/dL Hct 38.3 (37-47) % Plt Count 302 (130-400) K/uL Neut # (Auto) 6.01 (1.4-6.5) K/uL Lymph # (Auto) 0.98 L (1.2-3.4) K/uL [place] # (Auto) 1.01 H (0.11-0.59) K/uL Eos # (Auto) 0.15 (0-0.5) K/uL Baso # (Auto) 0.05 (0-0.2) K/uL Comprehensive Metabolic Panel 09/17/20 Range/Units 05:27 Sodium 138 (136-145) mmol/L Potassium 3.9 (3.5-5.1) mmol/L Chloride 108 H (98-107) mmol/L Carbon Dioxide 26 (21-32) mmol/L BUN 16 (7-18) mg/dl Creatinine 0.61 (0.6-1.2) mg/dl Glucose 107 H (70-99) mg/dl Calcium 8.3 L (8.5-10.1) mg/dl Intake and Output 09/17/20 09/17/20 09/17/20 06:59 14:59 22:59 Intake Total 1123 / 1373 594.833 / 594.833 Output Total 300 / 301 450 / 450 Balance 823 / 1072 144.833 / 144.833 Intake: IV 1123 / 1123 44.833 / 44.833 Nss 1000ML 1,000 ml @ 80 mls/hr 1000 / 1000 IV .[id number] Rx#:[id number] Cardizem 125 mg In D5 100 ml @ 123 / 123 44.833 / 44.833 5 MG/HR 5 mls/hr IV .Q24H [facility] Rx#:[id number] Oral 550 / 550 Output: Urine 300 / 300 450 / 450 Other: Weight 106 kg Weight Measurement Method Built in [facility]
[2020-09-17 16:32] LABS: Anti Nuclear Antibody Screen POSITIVE (NEGATIVE); Anti-Centromere Ab <1.0 NEG AI (<1.0 NEG); Scleroderma Anti Scl-70 Ab <1.0 NEG AI (<1.0 NEG)
[2020-09-17] MEDS: METOPROLOL TARTRATE 100 MG TAB PO SCH (20:44)
[2020-09-17] MEDS ORDERED: SENNA 8.6 MG TAB PO SCH (21:00)
[2020-09-17] MEDS: APIXABAN 5 MG TABLET PO SCH (21:16)
[2020-09-17] MEDS: dilTIAZem HCL 30 MG TAB PO SCH (21:16)
[2020-09-18] MEDS: LEVOTHYROXINE SODIUM 25 MCG TABLET PO SCH (05:31)
[2020-09-18 05:45] LABS: Hemoglobin 11.9 g/dL (12.0-16.0); Mean Corpuscular Hemoglobin 30.7 pg (25-34); Mean Corpuscular Hgb Conc 32.2 g/dL (32-36); Mean Corpuscular Volume 95.6 fL (80-100); Mean Platelet Volume 9.9 fL (7.4-10.4); Platelet Count 250 K/uL (130-400); RDW Coefficient of Variation 13.6 % (11.5-14.5); RDW Standard Deviation 47.1 fL (36.4-46.3); Red Blood Count 3.87 M/uL (4.2-5.4); White Blood Count 6.82 K/uL (4.8-10.8)
[2020-09-18 06:23] LABS: BUN Creatinine Ratio 24.6 (10-20); Creatinine Clr Calc Pharmacy 105.2 ml/min; Est GFR (African American) 108.7; Est GFR (Non-African American) 93.8; Magnesium 2.1 mg/dl (1.8-2.4); Potassium 3.7 mmol/L (3.5-5.1)
[2020-09-18] MEDS: dilTIAZem HCL 30 MG TAB PO SCH (07:46)
[2020-09-18] MEDS: APIXABAN 5 MG TABLET PO SCH (07:47)
[2020-09-18] MEDS: LOSARTAN POTASSIUM 25 MG TAB PO SCH (07:48)
[2020-09-18] MEDS: METOPROLOL TARTRATE 100 MG TAB PO SCH (07:48)
[2020-09-18] MEDS: PANTOprazole 40 MG TAB PO SCH (07:49)
[2020-09-18] MEDS: POLYETHYLENE (MIRALAX) 17 GM PACK PO SCH (07:49)
[2020-09-18] MEDS: modafiniL 100 MG TAB PO SCH (07:54)
--- NOTE | 2020-09-18 10:56 | Cardiology Progress Note ---
Date of Service September 18, 2020 Assessment & Plan (1) Atrial fibrillation with rapid ventricular response: Diltiazem infusion discontinued on 09/17. Oral diltiazem added with first dose last evening. AF noted, rates improved , 80s at rest, 110 -140 walking to bathroom, however much improved. Transition to Diltiazem CD 120 mg daily, metoprolol tartrate 100 mg two times per day. If feels well, discharge to home after lunch with plans for outpt cardiology follow up in about 2-4 weeks , and consideration of outpatient cardioversion after has been on anticoagulation without interruption x 4 weeks. (2) New onset left bundle branch block (LBBB): New compared to prior EKG performed in 2019. Mild left ventricular systolic dysfunction. Reassess LVEF once ongoing rhythm control strategy established. (3) Sjogren's syndrome without extraglandular involvement: Question if patient has a crossover inflammatory process that would explain her GI symptoms, pulmonary hypertension. Scl-70 negative, Atni-centromere Ab negative. SARAH + (chronic finding) Overdue for outpatient Rheum follow up. Reassess pulm pressures on future echo in 1-3 months as outpatient. (4) Rectal bleeding: Resolved. Hgb stable. Gi input noted and appreciated. Continue Eliquis. Outpt GI follow up of abnormal hepatic imaging. Admission and Anticipated Discharge Date Admission Date: September 14, 2020 Subjective Patient seen in follow-up today.Feels well. Constipation resolved. No additional blood per rectum. Review of Systems Review of Systems: All systems reviewed & are unremarkable except as noted in HPI & below Physical Exam Physical Exam: Temp Pulse Resp BP Pulse Ox 37.0 C 86 16 137/83 92 09/18/20 08:10 09/18/20 08:10 09/18/20 08:10 09/18/20 08:10 09/18/20 08:10 Constitutional: WD/WN, vitals as above Respiratory: normal respiratory effort, lungs clear to auscultation Cardiovascular: Rate/Rhythm: + irregularly irregular Heart Sounds: no murmur Vessels: no JVD Extremities: no edema Gastrointestinal (Abdomen): normal bowel sounds, soft, nontender, no hepatosplenomegaly Neurologic: PERRL, EOMI, accommodation nl, no face palsy, no dysarthria Results & Data ([facility]) Vital Signs (Past 12 Hours) Vital Signs Temp Pulse Pulse Resp BP Pulse Ox 09/18/20 08:10 37.0 C 86 16 137/83 92 09/18/20 08:00 93 H 09/18/20 03:53 36.6 C 83 16 156/93 H 95 09/18/20 01:32 81 09/17/20 23:07 37.3 C 70 18 115/79 93 Laboratory Results CBC 09/18/20 Range/Units 05:24 WBC 6.82 (4.8-10.8) K/uL RBC 3.87 L (4.2-5.4) M/uL Hgb 11.9 L (12.0-16.0) g/dL Hct 37.0 (37-47) % Plt Count 250 (130-400) K/uL Comprehensive Metabolic Panel 09/18/20 Range/Units 05:24 Sodium 140 (136-145) mmol/L Potassium 3.7 (3.5-5.1) mmol/L Chloride 110 H (98-107) mmol/L Carbon Dioxide 27 (21-32) mmol/L BUN 14 (7-18) mg/dl Creatinine 0.56 L (0.6-1.2) mg/dl Glucose 95 (70-99) mg/dl Calcium 8.0 L (8.5-10.1) mg/dl Intake and Output 09/17/20 09/18/20 09/18/20 22:59 06:59 14:59 Intake Total 240 / 834.833 0 / 834.833 Balance 240 / 384.833 0 / 384.833 Intake: Oral 240 / 790 0 / 790 Other: # Unmeasured Voids 1 Weight 102.2 kg Weight Measurement Method Built in [facility]
[2020-09-18] MEDS ORDERED: dilTIAZem HCL 120 MG CAPCR PO SCH (12:00)
--- NOTE | 2020-09-18 12:57 | Hospitalist Progress Note ---
Date of Service September 18, 2020 Assessment & Plan (1) Atrial fibrillation with rapid ventricular response: (2) New onset left bundle branch block (LBBB): Patient is a 70 yr female with H/O HTN, HLD, Sjogren's, history of Darcy-en-Y with postop malabsorption, history of iron deficiency anemia, obesity, narcolepsy who presents to ED at the referral of PCP secondary to A. fib with RVR. Atrial fibrillation RVR Left bundle branch block Normal TSH IV Diltiazem weaned off Continue metoprolol 100 mg twice daily Started on diltiazem CD 120 mg daily IV heparin transition to apixaban Appreciate cardiology input Monitor electrolytes and replace as needed Need to follow-up with cardiology upon discharge in 2 to 4 weeks for possible cardioversion Bleeding per rectum -CT ABD:No evidence of bowel obstruction. No evidence of free air. Normal appendix. No evidence of acute diverticulitis. Abnormally appearing gallbladder with gallbladder wall thickening versus pericholecystic fluid. Ultrasound correlation recommended. Small bilateral pleural effusions Likely secondary to hemorrhoids due to constipation -Appreciate GI Input -Monitor H&H -Hydrocortisone rectal cream -No plan for endoscopy -Continue bowel regimen Abnormal Gallbladder ? Cirrhosis -USD: The gallbladder wall is thickened and edematous and there is trace pericystic fluid. No shadowing gallstones are identified and a sonographic Dixon's sign is reportedly absent. Findings are equivocal for acute cholecystitis which is not excluded. If there is strong clinical concern for acute and possibly acalculus cholecystitis consider nuclear hepatobiliary scan to assess for patency of the cystic duct. The appearance of the liver suggests early change of cirrhosis. -Less likely acute cholecystitis given no abdominal pain, afebrile, normal LFTs -Needs follow-up with GI as outpatient for cirrhosis work-up (3) Constipation: CT abdomen as above Continue bowel regimen Encourage to ambulate (4) History of COVID-19: h/O COVID 08/2019 Received full vaccination 07/2019 CT chest showing LLL ground glass opacity COVID Screen negative Needs repeat CT Chest in 3-6 months (5) Sjogren's syndrome without extraglandular involvement: continue refresh eye gtts Immunological work-up pending Severe pulmonary hypertension ? Secondary to above Noted on ECHO (6) DVT prophylaxis: SCDs Re: Rectal bleeding (7) Morbid obesity: H/O gastric bypass surgery BMI:41.1 Code Status FULL CODE Admission and Anticipated Discharge Date Admission Date: September 14, 2020 Subjective Patient is seen and examined at bedside Doing well Offers no complaints Discussed with cardiology today Nausea resolved, tolerating diet Denies any recurrence of bleeding per rectum Also denies chest pain, palpitations, dizziness, dyspnea, abd pain Review of Systems Review of Systems: All systems reviewed & are unremarkable except as noted in HPI & below Physical Exam Physical Exam: Physical Exam: Vitals signs as noted above General Appearance:Obese, no apparent distress Head: normocephalic, Atraumatic Eyes: normal inspection, EOMI Neck: supple, Trachea midline Respiratory/Chest: Normal breath sounds, CTA Cardiovascular: Irregularly irregular, No murmur Abdomen/GI:Soft, Non tender, Bowel sounds present Extremities/Musculoskelatal:normal inspection, no edema Neurologic/Psych:AAOX3, grossly no focal neurological deficits Skin: normal color, warm Results & Data Results & Data ([place]) Vital Signs (Past 12 Hours) Vital Signs Temp Pulse Pulse Resp BP BP Pulse Ox 09/18/20 11:49 36.7 C 81 17 118/76 95 09/18/20 08:10 37.0 C 86 16 137/83 92 09/18/20 08:00 93 H 09/18/20 03:53 36.6 C 83 16 156/93 H 95 09/18/20 01:32 81 Laboratory Results Short CBC 09/18/20 Range/Units 05:24 WBC 6.82 (4.8-10.8) K/uL Hgb 11.9 L (12.0-16.0) g/dL Hct 37.0 (37-47) % Plt Count 250 (130-400) K/uL BMP 09/18/20 05:24 Sodium 140 Potassium 3.7 Chloride 110 H Carbon Dioxide 27 BUN 14 Creatinine 0.56 L Glucose 95 Calcium 8.0 L
--- NOTE | 2020-09-18 13:15 | Discharge Summary ---
Date of Service September 18, 2020 Admission HPI Per Admitting Provider This is a 70-year-old female who has significant past medical history of HTN, HLD, Sjogren's, history of Darcy-en-Y with postop malabsorption, history of iron deficiency anemia, obesity, narcolepsy who presents to ED at the referral of PCP secondary to A. fib with RVR. Patient has no prior history of atrial fibrillation. She was seen and evaluated by PCP today secondary to nausea and constipation for 1 week. While being evaluated she was found to be tachycardic with heart rates in the 150s. She was referred to ED and in route received 20 mg of IV diltiazem. In ED heart rates are around 110s. She was started on a diltiazem drip and is currently on 10 mg. Patient elicits 1 year ago being diagnosed with COVID-19. She admits to being very sick for 1 month, but did not require any hospitalization. She also did not have any lung imaging. Ever since having Covid she admits to being more fatigued and having shortness of breath with exertion. "I just do not have the get up and go that I used to." She has noticed her FOURNIER worsening over the past month. She did receive her second dose of Covid vaccine in July 2020. She had significant reaction to second dose including inflammatory arthropathy, myalgias and fatigue. She was taking [id number] ibuprofen which was upsetting her stomach. She subsequently then took Pepcid and feels this resulted in her constipation. She has not had a bowel movement in over 1 week. She is overall nauseated and has decreased appetite. She has had minimal oral intake for the last 1 to 2 days. She has tried milk of magnesia without result. "I think I'm impacted." She denies recent fevers but feels chilled. Also c/o dizziness and lightheaded but no syncope. She denies CP, SOB at rest, orthopnea, PND, edema, palpitations, emesis, melena, hematochezia, dysuria, increased urg/freq with urination. She denies URI sx. Occasional dry cough but nothing on regular basis. She does feel mildly improved in ED. Denies hx of significant bleeding in past. Has never been on anticoagulation in past. Admission Exam Per Admitting Provider Physical Exam Physical Exam: Constitutional: WD/WN, F, vitals as above, NAD, sitting up in bed, pleasant, conversing easily Head: Normocephalic, Atraumatic Eyes: PERRL, conjunctivae normal, anicteric sclerae ENMT: external ear and nose normal, oropharynx normal Neck: trachea midline, no thyromegaly normal visual inspection Respiratory: normal respiratory effort, lungs clear to auscultation, no wheeze, rales, rhonchi. Normal insp/exp effort, no accessory muscle use Cardiovascular: IRR/IRR, no murmur, no edema Vessels: no JVD or carotid bruit Chest: normal inspection of chest Abdomen: normal bowel sounds, soft, nontender, no hepatosplenomegaly Musculoskeletal: no cyanosis or clubbing, extremities motor strength 5/5 Skin: no rashes, warm and dry normal turgor Neurologic: PERRL, EOMI, accommodation nl, no face palsy, no dysarthria CN's II-XI intact bilaterally and moves all extremities Psychiatric: A+Ox3, euthymic affect Lymphatic: no cervical or axillary lymphadenopathy : deferred Principal Diagnosis Atrial fibrillation with rapid ventricular response New onset left bundle branch block Rectal bleeding Abnormal gallbladder Discharge Data Allergies Allergy/AdvReac Type Severity Reaction Status Date / Time phenobarbital Allergy Intermediate welts Verified 09/14/20 16:07 swelling pineapple Allergy Mild inside Verified 09/14/20 16:07 mouth irritation tomato Allergy Mild Unknown Verified 09/16/20 16:02 cefuroxime AdvReac Unknown CAN'T Verified 09/14/20 16:07 REMEMBER BLACK MOLD Allergy Intermediate chronic Uncoded 09/14/20 16:07 sinus infection, respiratory issues Dust Allergy Intermediate sneezing, Uncoded 09/14/20 16:07 coughing and congestion Consultations 09/14/20 15:55 ED Decision to Admit Stat 09/14/20 16:18 Consult Cardiology Routine 09/16/20 15:24 Consult Gastroenterology Routine Procedures Performed CT ABD:No evidence of bowel obstruction. No evidence of free air. Normal appendix. No evidence of acute diverticulitis. Abnormally appearing gallbladder with gallbladder wall thickening versus pericholecystic fluid. Ultrasound correlation recommended. Small bilateral pleural effusions USD: The gallbladder wall is thickened and edematous and there is trace pericystic fluid. No shadowing gallstones are identified and a sonographic Dixon's sign is reportedly absent. Findings are equivocal for acute cholecystitis which is not excluded. If there is strong clinical concern for acute and possibly acalculus cholecystitis consider nuclear hepatobiliary scan to assess for patency of the cystic duct. The appearance of the liver suggests early change of cirrhosis. Ordered Studies 09/14/20 14:26 CT angio chest PE protocol Stat 09/15/20 08:30 US venous doppler LE BI Routine 09/16/20 10:49 CT abd pelvis wo con Urgent 09/16/20 14:07 US gallbladder Routine Hospital Course (1) Atrial fibrillation with rapid ventricular response: (2) New onset left bundle branch block (LBBB): Patient is a 70 yr female with H/O HTN, HLD, Sjogren's, history of Darcy-en-Y with postop malabsorption, history of iron deficiency anemia, obesity, narcolepsy who presents to ED at the referral of PCP secondary to A. fib with RVR. Atrial fibrillation RVR Left bundle branch block Normal TSH IV Diltiazem weaned off Continue metoprolol 100 mg twice daily Started on diltiazem CD 120 mg daily IV heparin transition to apixaban Appreciate cardiology input Monitor electrolytes and replace as needed Need to follow-up with cardiology upon discharge in 2 to 4 weeks for possible cardioversion Bleeding per rectum -CT ABD:No evidence of bowel obstruction. No evidence of free air. Normal appendix. No evidence of acute diverticulitis. Abnormally appearing gallbladder with gallbladder wall thickening versus pericholecystic fluid. Ultrasound correlation recommended. Small bilateral pleural effusions Likely secondary to hemorrhoids due to constipation -Appreciate GI Input -Monitor H&H -Hydrocortisone rectal cream -No plan for endoscopy -Continue bowel regimen Abnormal Gallbladder ? Cirrhosis -USD: The gallbladder wall is thickened and edematous and there is trace pericystic fluid. No shadowing gallstones are identified and a sonographic Dixon's sign is reportedly absent. Findings are equivocal for acute cholecystitis which is not excluded. If there is strong clinical concern for acute and possibly acalculus cholecystitis consider nuclear hepatobiliary scan to assess for patency of the cystic duct. The appearance of the liver suggests early change of cirrhosis. -Less likely acute cholecystitis given no abdominal pain, afebrile, normal LFTs -Needs follow-up with GI as outpatient for cirrhosis work-up (3) Constipation: CT abdomen as above Continue bowel regimen Encourage to ambulate (4) History of COVID-19: h/O COVID 08/2019 Received full vaccination 07/2019 CT chest showing LLL ground glass opacity COVID Screen negative Needs repeat CT Chest in 3-6 months (5) Sjogren's syndrome without extraglandular involvement: continue refresh eye gtts Immunological work-up pending Severe pulmonary hypertension ? Secondary to above Noted on ECHO (6) DVT prophylaxis: SCDs Re: Rectal bleeding (7) Morbid obesity: H/O gastric bypass surgery BMI:41.1 Code Status FULL CODE Total Time Total Time Spent Total Time Spent (In Minutes): 44 minutes Total Time Includes: Examination of the Patient, Discharge Planning, Medication Reconciliation, Communication With Other Providers and Other Discharge Plan Discharge Items Patient Disposition: Home - Self-Care Reason For Visit: New Onset Afib Discharge Diagnosis: Atrial fibrillation with rapid ventricular response New onset left bundle branch block Rectal bleeding Abnormal gallbladder Activity: Per Instructions section Exercise/Sports: Gradually increase as tolerated Non-emergency contact: Primary Care Provider, Specialist, [employer] and Rate [employer] Call non-emergency contact if: you have any medication questions, your symptoms worsen, your pain is not controlled, your pain is concerning for you and you have a fever Follow-up/Referrals: Luis Harris MD [Primary Care Provider] - (Date & Time 09/23/2020 1:40 PM Provider Tyshawn Tam [facility] ) Diet: Heart Healthy Addtl Attending Provider Instructions: Follow-up with your primary care physician Dr. Harris on 09/23/2020 1:40 PM Follow-up with your geopolitics teacher Dr. Cardoza in 2 to 4 weeks for outpatient cardioversion Follow-up with your major account representative for further work-up of abnormal gallbladder and possible cirrhosis Follow up with your Bioinformaticist for further evaluation and management of Sjogren's syndrome Seek immediate medical attention if your symptoms reoccur or worsen Continue bowel regimen--MiraLAX, senna as recommended by your major account representative. Hold taking bowel regimen for diarrhea. Pending Studies at Discharge: No Stand-Alone Forms: My [employer] [facility] [employer] [facility], Smoking Cessation Medications and DC Order Prescriptions: New metoprolol tartrate 100 mg Tablet 100 mg PO BID Qty: 60 RF: 1 pantoprazole 40 mg Tablet,Delayed Release (Dr/Ec) 40 mg PO QAM Qty: 30 RF: 0 losartan 25 mg Tablet 25 mg PO QAM Qty: 30 RF: 1 diltiazem HCl 120 mg Capsule,Extended Release 24hr 120 mg PO QAM Qty: 30 RF: 1 Eliquis 5 mg Tablet 5 mg PO BID Qty: 60 RF: 1 polyethylene glycol 3350 [Miralax] 17 gram Powder In Packet 17 g PO BID17 Qty: 60 RF: 0 sennosides [Senokot] 8.6 mg Tablet 17.2 mg PO HS Qty: 30 RF: 0 hydrocortisone acetate [Anucort-HC] 25 mg Suppository 25 mg [place] BID PRN (Reason: hemorrhoids) Qty: 24 RF: 0 Continued levothyroxine 25 mcg tablet 25 mcg PO DAILYBB RF: 0 modafinil 200 mg tablet 200 mg PO BID RF: 0 cyanocobalamin (vitamin B-12) 1,000 mcg/mL Solution 1,000 mcg IM .[id number] RF: 0 lorazepam 1 mg tablet 1 mg PO DAILY PRN (Reason: Anxiety) RF: 0 Refresh Classic (PF) 1.4-0.6 % Dropperette 2 drp OPHTHALMIC (EYE) DIRECTED PRN (Reason: Dry Eyes) RF: 0 Discharge Orders: Discharge Order (Routine); Ordered 09/18/20 Ordered By: Jamie Becerra Admission Data Admit Date/Time: 09/14/20 16:18 Attending Provider: Jamie Becerra Admit Provider: Jolly Spencer Primary Care Provider: Luis Harris Other Providers: Wellington Cardoza ; Jolly Spencer ; Lexi Carrasco Other Interventions: Discharge Summary Assessment (RN) Last Done: 09/18/20 13:32
== END 2020-09-18 15:48 | disposition home or self-care (01) | DRG 309 ==
LOC: ED 13:23 → 2S 16:18 → SUATTDRO 16:18 → 2S 18:32

== ENCOUNTER 2023-11-25 09:42 | Inpatient (IN) ==
[2023-11-25] MEDS: FUROSEMIDE 40 MG/4 ML VIAL IV ONE (10:28)
--- NOTE | 2023-11-25 10:28 | Emergency Department Note ---
ED Visit Note I was consulted by the Advanced Practice Provider, Moo Saucedo PA-C. I personally made/approved the management plan and take responsibility for the patient management. I performed a substantive portion of the visit. This includes the aspects of: -History/Physical/Personally seeing the patient -MDM .
[2023-11-25 10:32] LABS: Basophils # (auto) 0.09 K/uL (0.00-0.20); Basophils % (auto) 1.3 %; Eosinophils # (auto) 0.15 K/uL (0.00-0.50); Eosinophils % (auto) 2.1 %; Hematocrit (blood only) 34.1 % (37.0-47.0); Hemoglobin 10.9 g/dl (12.0-16.0); Immature Granulocytes # (auto) 0.02 K/uL (0.01-0.20); Immature Granulocytes % (auto) 0.3 %; Lymphocytes # (auto) 0.97 K/uL (1.20-3.40); Lymphocytes % (auto) 13.7 %; Mean Corpuscular Hemoglobin 27.9 pg (25.0-34.0); Mean Corpuscular Volume 87.2 fL (80.0-100.0); Monocytes # (auto) 0.81 K/uL (0.11-0.59); Monocytes % (auto) 11.5 %; Neutrophils # (auto) 5.03 K/uL (1.40-6.50); Neutrophils % (auto) 71.1 %; Platelet Count 208 K/uL (130-400); RDW Coefficient of Variation 13.6 % (11.5-14.5); RDW Standard Deviation 43.2 fL (36.4-46.3); Red Blood Count 3.91 M/uL (4.20-5.40); White Blood Count 7.07 K/ul (4.8-10.8)
--- NOTE | 2023-11-25 10:47 | XRay Report ---
XR chest 1V portable HISTORY: 73 years-old Female Chest pain, nonspecific COMPARISON: 09/08/2023 TECHNIQUE: AP view of the chest FINDINGS: Cardiac silhouette is enlarged. Pulmonary vascular congestion with interstitial densities. No lobar a irspace consolidation. No pneumothorax or large pleural effusion. IMPRESSION: Cardiomegaly with suggestion of pulmonary edema. ACT 112: Negative or not required by law. The above report was generated using voice recognition software. It may contain grammatical, syntax o r spelling errors. Electronically signed by: Juan Jose Romero M.D. 11/25/2023 10:45 AM
[2023-11-25 10:56] LABS: Albumin Globulin Ratio 1.3 (0.9-2); Albumin Level 3.9 gm/dl (3.4-5.0); BUN Creatinine Ratio 25.3 (10-20); Bilirubin,Total 0.7 mg/dl (0.2-1.0); Calcium 8.9 mg/dl (8.6-10.3); Creatinine Clr Calc Pharmacy 77.5 ml/min; Est GFR (African American) 85.5 ml/min; Est GFR (Non-African American) 73.7 ml/min; Globulin 3.1 gm/dl (2.5-4.0); Potassium 3.9 mmol/L (3.5-5.1)
[2023-11-25 11:01] LABS: Troponin I High Sensitivity 16.6 pg/ml (0-14)
[2023-11-25 11:07] LABS: INR 1.1 (0.9-1.1); Partial Thromboplastin Time 28 Seconds (21-31); Prothrombin Time 12.1 Seconds (9.0-12.0)
[2023-11-25] MEDS: dilTIAZem HCl 5 MG/ML 5 ML VIAL IV STA (11:55)
[2023-11-25] MEDS: MAGNESIUM SULFATE / D5W 1 GM/100 ML BAG IV STA (12:27)
--- NOTE | 2023-11-25 13:03 | History & Physical Report ---
Date of Service November 25, 2023 Assessment & Plan (1) Acute on chronic heart failure with preserved ejection fraction (HFpEF): Plan: This is a 73 y/o female with pulmonary hypertension, diastolic heart failure, atrial fibrillation, on chronic AC, exercise-induced asthma, KIMMY (intermittently uses CPAP b/c she is concerned it causes sinus infections), GERD, anxiety and other history as outlined who presents to the ED today with progressive edema and dyspnea. In the ED, pt was found to be in atrial fibrillation with rapid ventricular response with rates in the 130s-140s. Noted to have marked fluid overload so give IV furosemide 60 mg and referred for admission. Given one dose of diltiazem 20 mg IV with initial improvement of rate to the 100s-110s but rates now back in the 120s-130s. - Admit to PCU - Consult cardiology - Daily weights, monitor Is and Os - Continue IV diuresis - furosemide 40 mg IV BID - Labs in the AM - will need to monitor electrolytes closely with diuresis (2) Atrial fibrillation with rapid ventricular response: Plan: Recurrent issue for patient - scheduled for ablation in [place] on 12/18. Unclear if pt has been taking her beta-víctor as prescribed - IV Lopressor x 1 dose then PRN for HR > 125 - Start metoprolol tartrate 25 mg BID (3) HTN (hypertension): Plan: Chronic, BP in the ED elevated at 142/112 presently Unclear if pt has been taking her atenolol as prescribed (4) Sleep apnea: Plan: Has a CPAP but using inconsistently due to concern that it causes sinus infections. Follows with sleep medicine Will order CPAP per protocol this admission Needs outpatient f/u with sleep medicine (5) Hypothyroidism: Plan: Off meds since 2020. Last outpatient TSH in 2021 was 3.43 Check TSH with reflexive T4 Plan Pt seen and reviewed with collaborating physician, Dr. Carney. Plan of care discussed and as outlined above. Code Status: Full code DVT Prophylaxis: on Eliquis Dispo: PCU Yung Rocha PA-C History of Present Illness Chief Complaint: shortness of breath, swelling Primary Care Provider: Elsa Anguiano, DO This is a 73 y/o female with pulmonary hypertension, diastolic heart failure, atrial fibrillation, on chronic AC, exercise-induced asthma, KIMMY (intermittently uses CPAP b/c she is concerned it causes sinus infections), GERD, anxiety and other history as outlined who presents to the ED today with progressive edema and dyspnea. She reports recurrent issues with atrial fibrillation since first diagnosed in 2020. She feels better after cardioversion but then symptoms gradually return, often triggered by acute illness. She is scheduled for an ablation in [place] on December 18. Her current symptoms started a week ago with gradually progressive LE edema. She notes a sinus infection 2-3 weeks ago, treated with antibiotics, that she thinks may have been the trigger for this episode. Over the last week, she has had progressive edema to the point of being unable to ambulate. She notes dyspnea on exertion that has progressed to the point of shortness of breath at rest since yesterday. She notes orthopnea, having to sleep sitting up or she will feel like she cannot breathe. She notes some tightness in her solar plexus area but no overt chest pain. Denies palpitations, racing heart, syncope, lightheadedness. She did see her PCP earlier in November for the edema, and her furosemide was changed to torsemide. However, pt did not note any significant improvement with this change so she restarted the furosemide yesterday. Pt notes a 30 lb weight gain over the last couple of weeks. She received a dose of IV furosemide in the ED. Respiratory status is already improving with diuresis. She was prescribed an inhaler by her PCP this week but reports she has not started it because she did not think her symptoms were related to history of asthma. ECHO (ANDREW) 10/10/23 - LVEF 55-59%, no LV segmental wall motion abnormalities, mild to moderate MR, moderate TR, mild pulmonary HTN Allergies Allergy/AdvReac Type Severity Reaction Status Date / Time theanine Allergy Severe anxious, Verified 11/25/23 11:29 palpitations, sob phenobarbital Allergy Intermediate hives, Verified 11/25/23 11:29 welts, swelling pineapple Allergy Mild inside Verified 11/25/23 11:29 mouth irritation tomato Allergy Mild irritation Verified 11/25/23 11:29 to mouth aspartame Allergy Unknown Unknown Verified 11/25/23 11:29 lavender (Lavandula Allergy Unknown Unknown Verified 11/25/23 11:29 angustifolia) cefuroxime Allergy Joint Pain Verified 11/25/23 16:11 house dust Allergy Sneezing Verified 11/25/23 16:12 mold Allergy Congested Verified 11/25/23 16:13 phenylalanine AdvReac Severe anxious, Verified 11/25/23 11:29 joint swelling metoprolol AdvReac Blurry Verified 11/25/23 16:11 Vision BLACK MOLD Allergy Intermediate chronic Uncoded 11/25/23 11:29 sinus infection, respiratory issues Dust Allergy Intermediate sneezing, Uncoded 11/25/23 11:29 coughing and congestion Home Medications Medication Instructions Recorded Confirmed Type cyanocobalamin (vitamin B-12) 1,000 mcg IM MONTHLY 07/28/21 11/25/23 History 1,000 mcg/mL injection solution ipratropium bromide 21 mcg (0.03 2 spray intranasal DAILY #30 mL 08/09/23 11/25/23 Rx %) nasal spray acetaminophen 650 mg 1,300 mg PO Q12H PRN Pain 09/08/23 11/25/23 History tablet,extended release (Tylenol Arthritis Pain) apixaban 5 mg tablet (Eliquis) 5 mg PO BID 09/08/23 11/25/23 History aripiprazole 5 mg tablet 5 mg PO HS 09/08/23 11/25/23 History atenolol 25 mg tablet 25 mg PO QAM 09/08/23 11/25/23 History benzonatate 100 mg capsule 100 mg PO TID PRN Cough 09/08/23 11/25/23 History ergocalciferol (vitamin D2) 1,250 1,250 mcg PO WK 09/08/23 11/25/23 History mcg (50,000 unit) capsule (Vitamin D2) furosemide 40 mg tablet See Rx Instructions .Route .COMPLEX 09/08/23 11/25/23 History lorazepam 1 mg tablet 1 mg PO HS Anxiety 09/08/23 11/25/23 History losartan 25 mg tablet 25 mg PO DAILY 09/08/23 11/25/23 History naphazoline 0.025 %-pheniramine 1 drp OPB BID 09/08/23 11/25/23 History 0.3 % eye drops (Naphcon-A) spironolactone 25 mg tablet 12.5 mg PO DAILY 09/08/23 11/25/23 History trazodone 50 mg tablet 50 mg PO HS PRN Sleep 09/08/23 11/25/23 History zolpidem 10 mg tablet 10 mg PO HS PRN Sleep 09/08/23 11/25/23 History Past Med/Surg History Problem List (Updated 11/25/23 @ 13:56 by Susan Rocha PA-C) Hypothyroidism Off meds since 11/2020 > PCP aware/monitoring TSH and Free T4 WNL on 02/24/21 Sleep apnea No device Acute on chronic heart failure with preserved ejection fraction (HFpEF) Vasomotor rhinitis Sensorineural hearing loss (SNHL) of both ears Osteoarthritis (Chronic) HLD (hyperlipidemia) Atrial fibrillation with rapid ventricular response (Acute) New onset left bundle branch block (LBBB) History of COVID-19 Morbid obesity Osteoarthritis of left shoulder CMC arthritis HTN (hypertension) Medical History (Updated 11/25/23 @ 13:56 by Susan Rocha PA-C) Sjogren's syndrome without extraglandular involvement Follows with rheum Intestinal postoperative nonabsorption Pulmonary hypertension Moderate to severe pulmonary hypertension, PASP 60-70 mmHg 09/2022 echo Diastolic heart failure s/p covid-19. Fatty liver non-alcoholic Narcolepsy following up with Jo Ann Cruz (Sleep Lab) at [facility] today LBBB (left bundle branch block) Intermittent- follows with Dr. Cardoza Anxiety GERD (gastroesophageal reflux disease) Well controlled and stable Osteoarthritis History of COVID-19 Dx 08/2019> not hospitalized > loss of taste and smell, fever, sore throat--> developed CHF and chronic congestion and follows with Pulmonary (BELLA Larkin). doing well at this time. Atrial fibrillation Dx September 2020 > follows Dr. Cardoza > no pacer/ Eliquis Asthma, exercise induced Well controlled and stable Exercise induced Surgical History History of total left knee replacement (TKR) 2014 History of total right knee replacement (TKR) 2014 History of cardioversion x2 > last one Jan 2021 History of tooth extraction with dental implants and screw in dentures-approx 2019 History of esophagogastroduodenoscopy (EGD) History of tonsillectomy and adenoidectomy History of colonoscopy History of x1 H/O gastric bypass Family History Mother Diabetes Coronary heart disease History of coronary artery bypass graft, Onset Age: 76 Hypertension Father , 87 Coronary heart disease Myocardial infarction, Onset Age: 78 Stroke Family/Other Heart disease Other No family history of adverse response to anesthesia No family history of bleeding disorder Social History Smoking Status: Never smoker Second Hand Exposure: No; Do You Dip or Chew Tobacco: No; Tobacco Cessation Education Requested by Patient: No Hx Alcohol Use: Yes Alcohol type: wine Hx Substance Use: No Preferred Language: Indonesian Communication Ability: Effective Test And Turn Up Technician Required: No Beliefs That Will Affect Care: None marital status: Current Living Situation: Alone current occupational status: retired current occupation: Retired psychologist Other Information That Helps Us Care for You: No Feels Safe at Home: Yes Safety Concerns: Feels Safe At This Time Assistive Devices: Glasses Assistive Devices Comment: screwed in upper an dlower dentures that don't come out Review of Systems Review of Systems: All systems reviewed & are unremarkable except as noted in HPI & below Constitutional: + fatigue and + weight gain; no fever Eyes: no diplopia Ear, Nose, Mouth, Throat: no nasal congestion and no sore throat Respiratory: + cough, + dyspnea, + dyspnea on exertio n and + wheezing Cardiovascular: + dyspnea at rest, + dyspnea on exertion , + orthopnea and + edema; no chest pain, no palpitations and no syncope Gastrointestinal: + bloating, + nausea and + diarrhea/loos e stools (mild per pt); no vomiting Genitourinary: no dysuria Musculoskeletal: + myalgia Integumentary: no rash and no yellowing of the skin Neurologic: + headache(s); no seizure-like activity and no confusion Physical Exam Physical Exam: General: awake, alert, NAD HEENT: no scleral icterus, moist oral mucosa Neck: trachea midline Heart: tachycardic, irregularly irregular Lungs: fine bibasilar crackles, o/w clear Abdomen: softly distended, +BS Extremities: 3-4+ edema bilateral LE to above knees Skin: no jaundice Neurologic: Ox3, moving all extremities, no focal deficits, no dysarthria, no confusion Results & Data Results & Data Vital Signs (Past 12 Hours) Vital Signs Temp Pulse Resp BP Pulse Ox O2 Del Method 11/25/23 10:02 130 H 11/25/23 09:31 Room Air 11/25/23 09:31 Room Air 11/25/23 09:31 36.6 C 135 H 20 142/112 H 99 Laboratory Results Lab Results 11/25/23 Range/Units 10:09 WBC 7.07 (4.8-10.8) K/ul RBC 3.91 L (4.20-5.40) M/uL Hgb 10.9 L (12.0-16.0) g/dl Hct 34.1 L (37.0-47.0) % MCV 87.2 (80.0-100.0) fL MCH 27.9 (25.0-34.0) pg MCHC 32.0 (32.0-36.0) g/dL RDW Std Deviation 43.2 (36.4-46.3) fL RDW Coeff of Juan 13.6 (11.5-14.5) % Plt Count 208 (130-400) K/uL MPV 9.0 L (9.4-12.4) fL Immature Gran % (Auto) 0.3 % Neut % (Auto) 71.1 % Lymph % (Auto) 13.7 % Barry % (Auto) 11.5 % Eos % (Auto) 2.1 % Baso % (Auto) 1.3 % Neut # (Auto) 5.03 (1.40-6.50) K/uL Lymph # (Auto) 0.97 L (1.20-3.40) K/uL Barry # (Auto) 0.81 H (0.11-0.59) K/uL Eos # (Auto) 0.15 (0.00-0.50) K/uL Baso # (Auto) 0.09 (0.00-0.20) K/uL Immature Gran # (Auto) 0.02 (0.01-0.20) K/uL PT 12.1 H (9.0-12.0) Seconds INR 1.1 (0.9-1.1) APTT 28 (21-31) Seconds PTT Ratio 1.0 Sodium 131 L (136-145) mmol/L Potassium 3.9 (3.5-5.1) mmol/L Chloride 96 L (98-107) mmol/L Carbon Dioxide 26 (21-32) mmol/L Anion Gap 9 (3-11) BUN 20 (6-23) mg/dl Creatinine 0.79 (0.6-1.2) mg/dl Est Cr Clr Drug Dosing 77.5 ml/min Est GFR ( Amer) 85.5 ml/min Est GFR (Non-Af Amer) 73.7 ml/min BUN/Creatinine Ratio 25.3 H (10-20) Glucose 120 H (70-99(Fasting)) mg/dl Calcium 8.9 (8.6-10.3) mg/dl Magnesium 2.4 (1.7-2.4) mg/dl Total Bilirubin 0.7 (0.2-1.0) mg/dl AST 22 (13-39) U/L ALT 14 (7-52) U/L Alkaline Phosphatase 154 H (34-104) U/L Troponin I High Sens 16.6 H (0-14) pg/ml B-Natriuretic Peptide 186 H (0-100) pg/ml Total Protein 7.0 (6.0-8.3) gm/dl Albumin 3.9 (3.4-5.0) gm/dl Globulin 3.1 (2.5-4.0) gm/dl Albumin/Globulin Ratio 1.3 (0.9-2) Lipase 22 (11-82) U/L Diagnostic Findings Chest X-Ray 11/25/23 10:07 XR chest 1V portable HISTORY: 73 years-old Female Chest pain, nonspecific COMPARISON: 09/08/2023 TECHNIQUE: AP view of the chest FINDINGS: Cardiac silhouette is enlarged. Pulmonary vascular congestion with interstitial densities. No lobar airspace consolidation. No pneumothorax or large pleural effusion. IMPRESSION: Cardiomegaly with suggestion of pulmonary edema. ACT 112: Negative or not required by law. The above report was generated using voice recognition software. It may contain grammatical, syntax or spelling errors. Electronically signed by: Juan Jose Romero M.D. 11/25/2023 10:45 AM Medications Administered Discontinued Medications Diltiazem HCl (Diltiazem Hcl 5 Mg/Ml 5 Ml Vial) 20 mg IV NOW STA Stop: 11/25/23 11:49 Last Admin: 11/25/23 11:55 Dose: 20 mg Documented By: DEEP Co-signed By: SUSANA Furosemide (Furosemide 40 Mg/4 Ml Vial) 60 mg IV ONE ONE Stop: 11/25/23 10:09 Last Admin: 11/25/23 10:28 Dose: 60 mg Documented By: DEEP Magnesium Sulfate/Dextrose (Magnesium Sulfate / D5w) 1 gm in 100 mls @ 100 mls/hr IV NOW STA Stop: 11/25/23 12:48 Last Admin: 11/25/23 12:27 Dose: 100 mls/hr Documented By: BERTA Supervising Physician Co-Signing Physician Notes 73-year-old female with PMH of P HTN, diastolic heart failure, A-fib on Eliquis, exercise-induced asthma, KIMMY [intermittent use of CPAP because she is concerned it causes sinus infection], GERD, anxiety presented to the ED with progressive lower extremity swelling and dyspnea on exertion since sinus infection 2 and half weeks ago. Patient reports she got treated for sinus infection. But since then she has gotten 30 pounds in weight gain along with shortness of breath and progressive lower extremity swelling. Denies any recent febrile illness. Admitting labs and imaging reviewed. BNP elevated at 186, troponin mildly elevated at 16.6, CXR with pulmonary edema. Admitting EKG with A-fib with RVR with rate of 150. Patient received a dose of diltiazem in the ED, rates had come down to 110s to 120s. Patient also received a dose of Lasix in the ED. Active problems: A-fib RVR: Continue home atenol, uptirate as needed, pt doesn't want metoprolol as she had side effects in the past. Will likely need amiodarone used if rvr persistently over 125 bpm. Pt apparently received metoprolol iv in the ED w/ no side effects. Continue to uptitrate beta víctor. EKG with chest pain. Cardiology consult. Continue home Eliquis Acute on chronic heart failure with preserved ejection fraction: patient coming in with FOURNIER, LE swelling, 30 pounds weight gain. CXR with pulmonary edema. Patient received 60 mg IV Lasix in the ED with improvement in FOURNIER and leg swelling. Utilize Lasix 40 mg IV twice daily, monitor replete electrolytes closely. Continue home blood pressure medication including Aldactone and losartan. Preference to diuresis And metoprolol to be given should blood pressure fall. HH diet, I's and O's, telemetry monitoring, cardiology consult, recent ANDREW noted, low-sodium diet, heart healthy diet. Demand ischemia: 2/2 above, no CP per pt, trend trop. Continue with/resume other home medications as and when able. on examination: GENERAL: Alert and oriented x3. NAD, on RA. Obese class III. HEENT: No pallor, no icterus. Pupils equal, round and reactive to light. Oral mucosa moist. NECK: No JVD, no neck masses. HEART: S1 and S2 heard. irregular rate and rhythm. tachy in 120s, No murmur, no gallop. RESPIRATORY SYSTEM: Normal AP diameter. No accessory muscle use. No wheezing, bb crackles. ABDOMEN: Soft, bowel sounds present, nontender, no distention. CENTRAL NERVOUS SYSTEM: No facial droop. Speech is clear. Obeys simple commands. Moves extremities. EXTREMITIES: 2+ ble edema, + LE erythema seen likely from skin stretch/swelling. NO s/s of infection I have seen and examined the patient and have discussed the case with the provider above. I agree with the assessment and plan as stated. (3) HTN (hypertension) Hypertension type: primary hypertension Qualified Code(s): I10 - Essential (primary) hypertension (4) Sleep apnea Sleep apnea type: obstructive Qualified Code(s): G47.33 - Obstructive sleep apnea (adult) (pediatric) (5) Hypothyroidism Hypothyroidism type: unspecified Qualified Code(s): E03.9 - Hypothyroidism, unspecified
[2023-11-25] MEDS ORDERED: METOPROLOL TARTRATE 1 MG/ML VIAL IV PRN (13:58)
[2023-11-25] MEDS: METOPROLOL TARTRATE 1 MG/ML VIAL IV STA (15:10)
[2023-11-25] MEDS: METOPROLOL TARTRATE 25 MG TAB PO SCH (15:11)
[2023-11-25] MEDS ORDERED: ACETAMINOPHEN 325 MG TAB PO PRN (16:00)
--- OUTSIDE RECORDS SUMMARY | 2023-11-25 16:53 | External Medical Summary | Summary of Care ---
Author Name Unknown Organization [facility] Address [address] [facility] [place] [address] Phone [phone] Care Team Providers Care Culinary Art Teacher Name Role Phone Elsa Anguiano DO Primary Care Provider Reason for Visit * Reason Comments Oxygen Assessment 6 [address] Encounter Details Date Type Department Care Team (Latest Contact Info) Description 11/21/2023 1:00 PM EDT PulmDiagnostic Pulmonary Function Lab, [facility] [address] [place] [address] [place], [address] [facility] [place] [address] Pulmonary HTN (HCC)* Allergies Active Allergy Reactions Criticality Noted Date Comments Aspartame Other (Please comment) 07/09/2015 Headache Cefuroxime Axetil 07/21/2015 contains phenylananine Cortisone Psych complications 07/10/2023 Metoprolol 02/20/2023 Dizziness, blurred vision, difficulty walking Phenobarbital Edema Other,Hives 02/05/2008 Phenylalanine 07/21/2015 Joints swelled documented as of this encounter (statuses as of 11/21/2023) Medications Medication Sig Dispensed Refills Start Date End Date Status LORAZEPAM 1 MG PO TABS one pill nightly Active Modafinil 200 MG Oral Tablet (Provigil) Take 2 Tablets by mouth in the morning. 11/25/2020 Active Loratadine 10 MG Oral Tablet (Claritin)Indicatio ns:Seasonal allergic rhinitis due to pollen,Post-nasal drip Take 1 Tab by mouth daily. x1-2 wks then as needed-otc 30 Tab 01/04/2021 Active Womens Multi Gummies Oral Tablet Chewable Active Drisdol 1.25 MG (58184 UT) Oral Capsule Take by mouth 1 Capsule once a week . 8 Capsule 11/05/2021 Active Additional Information Patient not taking.Reported on 11/16/2023 traZODone HCl 50 MG Oral Tablet (Desyrel) Take 1 Tablet by mouth at bedtime. 1/2 tab daily Active ARIPiprazole 5 MG Oral Tablet (Abilify) Take 0.5 Tablets by mouth at bedtime. 08/12/2022 Active Apixaban 5 MG Oral Tablet (Eliquis)Indication s:PAF (paroxysmal atrial fibrillation) (HCC) Take 1 Tablet by mouth in the morning and 1 Tablet before bedtime. 60 Tablet 11 11/21/2022 Active Spironolactone 25 MG Oral Tablet (Aldactone) Take 0.5 Tablets by mouth in the morning. 45 Tablet 5 12/16/2022 Active CPAP every night at bedtime. Auto pap 5-20 cm Active Citracal Petites/Vitamin D 200-6.25 MG-MCG Oral Tablet (Calcium Citrate-Vitamin D) Take 2 Tablets by mouth in the morning and 2 Tablets before bedtime. Active Furosemide 40 MG Oral Tablet (Lasix)Indications: Chronic diastolic heart failure (HCC) Take 1 tablet by mouth in the morning and Take 1/2 tablet by mouth in the afternoon, about 4-6 hours apart. 135 Tablet 3 05/30/2023 Active Additional Information Patient taking differently: 20 mg Oral BID (.AM/PM), Take 1 tablet by mouth in the morning and Take 1/2 tablet by mouth in the afternoon, about 4-6 hours apart., Reported on 06/14/2023 DIURETIC TITRATION PLAN If you gain 2 pounds please take a full dose of afternoon lasix instead of a half dose If no improvement on day 3, contact heart failure managing provider. 1 Each 07/28/2023 Active Losartan Potassium 25 MG Oral Tablet (Cozaar)Indications :Essential hypertension with goal blood pressure less than 140/90,PAF (paroxysmal atrial fibrillation) (HCC) TAKE 1 TAB BY MOUTH EVERY MORNING 90 Tablet 3 08/04/2023 Active Atenolol 25 MG Oral Tablet (Tenormin) Take 1 Tablet by mouth in the morning. 90 Tablet 3 09/12/2023 Active Additional Information Patient not taking.Reported on 11/16/2023 Mupirocin 2 % External Ointment (Bactroban) apply to lips twice a day for two weeks 08/01/2023 Active Torsemide 20 MG Oral Tablet (Demadex) Take 1 Tablet by mouth in the morning. 60 Tablet 11 11/16/2023 Active Fluticasone-Salmete rol 100-50 MCG/ACT Inhalation Aerosol Powder Breath Activated (Wixela Inhub) Inhale 1 Puff by mouth in the morning and 1 Puff before bedtime. Active Hospital, Clinic, or Other Facility Administered Medication Ordered Dose Route Frequency Start Date End Date Status vitamin b-12 (Cyanocobalamin) inj 1,000 mcgIndications:Intestinal postoperative nonabsorption 1000 mcg IM [id number] 06/27/2023 05/28/20 24 Active documented as of this encounter (statuses as of 11/21/2023) Active Problems Problem Noted Date Diagnosed Date Atrial fibrillation 10/12/2023 B12 deficiency 08/10/2023 Persistent atrial fibrillation 06/14/2023 FOURNIER (dyspnea on exertion) 11/11/2022 Body mass index (BMI) of 40.0 to 44.9 in adult 1 Overview: Per Obesity protocol Renal cyst 11/15/2021 Overview: Follow-up with US in 05/03 Cirrhosis of liver without ascites 10/27/2021 Chronic diastolic heart failure 09/16/2021 Bradycardia, sinus 09/16/2021 Pulmonary HTN 08/27/2021 History of 2019 novel coronavirus disease (COVID -19) 04/22/2021 PAF (paroxysmal atrial fibrillation) 10/07/2020 Essential hypertension with goal blood pressure less than 140/90 06/25/2019 Iron deficiency anemia 01/20/2017 Primary osteoarthritis of both knees 03/16/2015 Dyslipidemia, goal LDL below 130 05/13/2013 ADVANCE DIRECTIVE INFORMATION 06/24/2008 Overview: Yes, Patient instructed to provide copy of advance directive for provider to review and to be scanned into Electronic Medical Record Intestinal postoperative nonabsorption 8 GERARDO RESEARCH OTHER*[id number] 09/18/2007 KIMMY (obstructive sleep apnea) 05/15/2007 H/O gastric bypass documented as of this encounter (statuses as of 11/21/2023) Resolved Problems Problem Noted Date Diagnosed Date Resolved Date Chronic respiratory failure with hypoxia 11/11/2022 09/13/2023 Prediabetes 08/23/2021 01/26/2023 Overview: Per Prediabetes protocol Sjogren's syndrome without e xtraglandular involvement 07/07/2020 08/23/2022 HTN, goal below 140/90 06/25/201901/04 Acute superficial gastritis without hemorrhage 03/31/2017 01/23/2018 Sjogren's syndrome 03/16/2015 9 Otitis media 04/01/2010 07/06/2012 Dysfunction of eustachian tube 03/31/2010 07/06/2012 Chronic rhinitis 03/31/2010 07/06/2012 Deviated nasal septum 03/31/20102018 Temporomandibular joint diso rders, unspecified 03/31/2010 01/23/2018 Other specified forms of hearing loss 03/31/2010 07/06/2012 Otalgia 03/31/2010 03/13/2017 Chronic otitis externa 03/31/201012/30 Impacted cerumen 03/31/2010 07/14/2014 Dyslipidemia, goal to be determined 05/21/2009 03/13/2017 Overview: Per Lipid Taxonomy. Dyslipidemia, goal LDL below 160 05/20/2008 05/21/2009 Overview: Per Lipid Taxonomy. Vitamin D deficiency 12/27/2007 013 Morbid obesity, BMI not known 05/15/2007 09/03/2009 Overview: Per Obesity Taxonomy Osteoarthrosis, unspecified whether generalized or localized, other specified sites 05/15/2007 03/13/2017 documented as of this encounter (statuses as of 11/21/2023) Immunizations Name Administration Dates Next Due COVID-19 mRNA, LNP-s, No Pre serve, 2-Dose Series (Pfizer) 07/25/2020,07/04/2020 Pneumococcal Conjugate Vacc, 13 Valent (Prevnar) 07/21/2015 Pneumococcal Polysaccharide PPV23 (Pneumovax) 07/26/2016 Seasonal Influenza, PF, 6 M & above, IM , (FluLaval or Fluzone) 03/03/2020,03/16/2018,04/12/2017 Seasonal Influenza, Quadriva lent Hd (Fluzone Hd) 2023,03/07/2022,04/22/2021 Seasonal Influenza, Quadriva lent, No Preserve, Peds 04/22/2015 Seasonal Influenza, Split, I IV3, With Preserve, Inj 03/14/2016,02/18/2014,03/21/2013,04/23,04/13/2009 Seasonal Influenza, Trivalen t, Adjuvanted, 65+ yrs 03/18/2019 TDAP (age 10 and older)(Boostrix) 07/06/2012 Varicella Zoster Vaccine (Adult) 04/24/2013 documented as of this encounter Social History Tobacco Use Types Packs/Day Years Used Date Smoking Tobacco: Never Passive Smoke Exposure: Never Smokeless Tobacco: Never Tobacco Cessation:Counseling Given: Not Answered Comments:No passive smoke exposure Alcohol Use Standard Drinks/Week Comments Yes 0 (1 standard drink = 0.6 oz pur e alcohol) occasional wine AUDIT-C Answer Date Recorded Frequency of Alcohol Consumption 2-4 times a mon 11/13/2018 Average Number of Drinks Not on file 019 Frequency of Binge Drinking Not on file 09/2018 PHQ-2 Answer Date Recorded PHQ Adult Total Score 0 06/15/2022 Hunger Vital Sign Answer Date Recorded Within the past 12 months, y ou worried that your food would run out before you got the money to buy more. Never true 11/15/19 24 Within the past 12 months, t he food you bought just didn't last and you didn't have money to get more. Never true 11/15/2023 Sex and Gender Information Value Date Recorded Sex Assigned at Female 11/15/2023 7:44 PM EDT Gender Identity Female 11/15/2023 7:44 PM EDT Sexual Orientation Straight 11/15/2023 7: 44 PM EDT Job Start Date Occupation Industry Not on file Not on file Not on file documented as of this encounter Last Filed Vital Signs Vital Sign Reading Time Taken Comments Blood Pressure 120/76 11/21/2023 1:06 PM EDT Pulse 132 11/21/2023 1:06 PM EDT Temperature - - Respiratory Rate 18 11/21/2023 1:06 PM EDT Oxygen Saturation 95% 11/21/2023 1:06 PM EDT Inhaled Oxygen Concentration - - Weight 111.2 kg (245 lb 2.4 oz) 11/21/2023 1:06 PM EDT Height 156.7 cm (5' 1.69") 11/21/2023 1:06 PM ED T Body Mass Index 45.29 11/21/2023 1:06 PM EDT documented in this encounter Nursing Notes * Brandee Jaquez RRT - 11/21/2023 1:15 PM EDT Ambika Lynch was identified by name, Date of : (1950), and . Vitals were obtained for testing. Body mass index is 45.29 kg/m. Exercise oximetry performed on room air x 6 minutes. Pt ambulated with cane 930 feet/ 283 meters. 2 rest periods were required for 24 seconds. Lowest SPO2 on room air was 94%. documented in this encounter Plan of Treatment Upcoming Encounters Date Type Department Care Team (Latest Contact Info) Description 11/24/2023 11:00 AM EDT Scheduled Telephone Pulmonary Medicine Devon Pemberton [address] [place] [phone] Nurse Devon Follow Up Phone Call Pulmonary [address] [place] [address] 12/19/2023 9:30 AM EDT Hospital Encounter CRS Waiting [facility], Cardiac Recovery Suite Waiting Unit, [address] [place] [address] Leatha Carrera IV, MD [address] [place] [address] 12/19/2023 9:30 AM EDT - 12/19/2023 3:00 PM EDT Surgery CRS Waiting [facility], Cardiac Recovery Suite Waiting Unit, [address] [place] [address] Leatha Carrera IV, MD [address] [place] [address] PVI RADIOFREQUENCY CATHETER ABLATION 12/19/2023 9:30 AM EDT Office Visit Cardiology [facility] [place] [address] [place] [address] [facility] Cardiac Recovery [facility] [address] [place] [address] 01/08/2024 1:20 PM EDT Office Visit Neurology [facility] [address] [place] [address] Annalise Zapien PA-C [address] [facility] [place] [address] 02/08/2024 1:00 PM EDT Laboratory Laboratory [facility] [address] [facility] [place] [address] [place], Lab [facility] [address] [facility] [place] [address] 02/13/2024 9:45 AM EDT Cardiac Studies [facility] Studies [facility] [place] [address] [place] [address] [place], Ekg [address] [place] [address] 02/13/2024 10:15 AM EDT Office Visit Cardiology [facility], [place] [address] [place] [address] Rand Oleary CRNP [address] [place] [phone] 02/19/2024 1:00 PM EDT Office Visit Family Practice [facility] [address] [place], [place] [address] Elsa Anguiano, [address] [facility] [place], [place] [address] 04/15/2024 1:30 PM EST [facility], [facility] [address] [facility] [address] Ani [facility] [address] [facility] [address] 08/05/2024 1:00 PM EST Laboratory Laboratory [facility] [address] [place] [phone] [facility] [address] [facility] [place] [address] 08/09/2024 2:00 PM EST Office Visit Hematology/Oncolog y [facility] [address] [place], [place] [phone] Alma Williamson CRNP [address] [place] [address] 10/22/2024 10:00 AM EDT Appointment Radiology, [facility] [address] [place] [address] 10/22/2024 10:20 AM EDT Office Visit Pulmonary Medicine, [facility] [address] [place] [address] Ramo Soriano MD [address] [place] [address] Scheduled Procedures Name Priority Associated Diagnoses Date/Ti me PVI RADIOFREQUENCY CATHETER ABLATION Atrial fibrillation, unspecified type (HCC) 12/19/2023 9:30 AM EDT Health Maintenance Due Date Last Done Comments Cologuard 1994 Fecal Occult Blood Test 1994 Sigmoidoscopy 1994 Hepatitis B (1 of 3 - Risk 3-dose series) 2009 Zoster Vaccines (2 of 3) 06/19/2013 04/24/2013 Mammogram 08/21/2013 08/21/2012, 07/31/2012 DTaP,Tdap,and Td Vaccines (2 - Td or Tdap) 07/06/2022 07/06/2012 COVID-19 Vaccine (3 - 2022- season) 2023 07/25/2020, 07/04/2020 Depression Screening 06/15/2023 06/15/2022 GFR 09/12/2024 09/13/2023, 08/11, 08/10/2023, Additional history exists Albumin/Creatinine Ratio 10/13/2025 10/13/2022 DXA Scan 03/11/2026 03/11/2019, 06/13, 05/25/2009, Additional history exists Lipid Panel 03/13/2028 03/13/2023, 0 08/2022, 08/10/2021, Additional history exists Colonoscopy 09/18/2031 09/17/2021, 04/0 01/2022, 01/23/2017, Additional history exists Colorectal Cancer Screening 09/18/2031 Pneumococcal Vaccine: 65+ Years Completed 07/26/2016, 07/21/2015 Influenza Vaccine (FLU shot) Completed 09/2022, 2023, 03/07/2022, Additional history exists GARDASIL-HPV IMMUNIZATION SERIES Aged Out No longer eligible based on patient's age to complete this topic MENINGOCOCCAL (MENACTRA/MENVEO) Aged Out No longer eligible based on patient's age to complete this topic documented as of this encounter Medical Devices Not on filedocumented as of this encounter Visit Diagnoses Diagnosis Atrial fibrillation (HCC)- Primary Atrial fibrillation Pulmonary HTN (HCC)- Primary Other chronic pulmonary heart diseases Atrial fibrillation, unspecified type (HCC) documented in this encounter Advance Directives Documents on File Type Date Recorded Patient Sales Order Processor Expl anation Advance Directives and Living Will 06/15/2023 ADVANCE DIRECTIVE / LIVING WILL Power of Dip Painter 06/15/2023 POWER OF A TTORNEY * Full Code (Latest Code Status on File) Date Activated Date Inactivated Comments 04/23/2008 8:25 AM 04/25/2008 3:23 PM * Full Code Date Activated Date Inactivated Comments 04/23/2008 6:20 AM 04/23/2008 8:25 AM * Full Code Date Activated Date Inactivated Comments 04/23/2008 6:20 AM 04/23/2008 6:20 AM Care Teams Culinary Art Teacher Relationship Specialty Start Date End Date Elsa Anguiano DO [facility] [place] [address] PCP - General Family Medicine 11/16/23 documented as of this encounter
--- OUTSIDE RECORDS SUMMARY | 2023-11-25 16:53 | External Medical Summary | Summary of Care ---
Author Name Unknown Organization [facility] Address [address] [place] [address] Phone [phone] Care Team Providers Care Frame Gate Mortiser Operator Name Role Phone Tyshawn Tam DO Primary Care Provider [phone] Reason for Visit * Reason Onset Date Comments Advice 09/01/2023 Encounter Details Date Type Department Care Team (Late st Contact Info) Description 09/01/2023 Telephone Family Practice [facility] [address] [facility] [place] [address] Anabel York, RN [address] [place] [address] Advice Allergies Active Allergy Reactions Criticality Noted Date Comments Aspartame Other (Please comment) 07/09/2015 Headache Cefuroxime Axetil 07/21/2015 contains phenylananine Cortisone Psych complications 07/10/2023 Metoprolol 02/20/2023 Dizziness, blurred vision, difficulty walking Phenobarbital Edema Other,Hives 02/05/2008 Phenylalanine 07/21/2015 Joints swelled documented as of this encounter (statuses as of 10/23/2023) Medications Medication Sig Dispensed Refills Start Date End Date Status LORAZEPAM 1 MG PO TABS one pill nightly 0 Active Modafinil 200 MG Oral Tablet (Provigil) Take 2 Tablets by mouth in the morning. 0 11/25/2020 Active Loratadine 10 MG Oral Tablet (Claritin)Indicat ions:Seasonal allergic rhinitis due to pollen,Post-nasal drip Take 1 Tab by mouth daily. x1-2 wks then as needed-otc 30 Tab 0 01/04/2021 Active Womens Multi Gummies Oral Tablet Chewable 0 Active Drisdol 1.25 MG (92068 UT) Oral Capsule Take by mouth 1 Capsule once a week . 8 Capsule 0 11/05/2021 Active traZODone HCl 50 MG Oral Tablet (Desyrel) Take 1 Tablet by mouth at bedtime. 1/2 tab daily 0 Active ARIPiprazole 5 MG Oral Tablet (Abilify) Take 0.5 Tablets by mouth at bedtime. 0 08/12/2022 Active Apixaban 5 MG Oral Tablet (Eliquis)Indicati ons:PAF (paroxysmal atrial fibrillation) (HCC) Take 1 Tablet by mouth in the morning and 1 Tablet before bedtime. 60 Tablet 11 11/21/2022 Active Spironolactone 25 MG Oral Tablet (Aldactone) Take 0.5 Tablets by mouth in the morning. 45 Tablet 5 12/16/2022 Active CPAP every night at bedtime. Auto pap 5-20 cm 0 Active Citracal Petites/Vitamin D 200-6.25 MG-MCG Oral Tablet (Calcium Citrate-Vitamin D) Take 2 Tablets by mouth in the morning and 2 Tablets before bedtime. 0 Active Furosemide 40 MG Oral Tablet (Lasix)Indication s:Chronic diastolic heart failure (HCC) Take 1 tablet [...] contact heart failure managing provider. 1 Each 0 07/28/2023 Active Losartan Potassium 25 MG Oral Tablet (Cozaar)Indicatio ns:Essential hypertension with goal blood pressure less than 140/90,PAF (paroxysmal atrial fibrillation) (HCC) TAKE 1 TAB BY MOUTH EVERY MORNING 90 Tablet 3 08/04/2023 Active Tolnaftate 1 % External Solution Apply topically to affected area daily. Apply to toenails 15 mL 2 01/04/2023 10/03/19 24 Discontinued Doxycycline Hyclate 100 MG Oral Capsule Take 1 Capsule by mouth in the morning and 1 Capsule before bedtime. Do all this for 10 days. Until gone.. 20 Capsule 0 06/23/2023 10/03/19 24 Discontinued Atenolol 25 MG Oral Tablet (Tenormin) Take 0.5 Tablets by mouth in the morning. 30 Tablet 5 08/16/2023 09/12/19 24 Discontinued Hospital, Clinic, or Other Facility Administered Medication Ordered Dose Route Frequency Start Date End Date Status vitamin b-12 (Cyanocobalamin) inj 1,000 mcgIndications:Intestin al postoperative nonabsorption 1000 mcg IM [id number] 06/27/2023 05/28/2024 Active Albuterol Sulfate (Proventil) (2.5 MG/3ML) 0.083% inhalation solution 2.5 mgIndications:Pulmonary arterial hypertension (HCC),Mild reactive airways disease, unspecified whether persistent 2.5 mg NEBULIZER PRN 10/07/2022 10/07/2023 Ended documented as of this encounter (statuses as of 10/23/2023) Active Problems Problem Noted Date Diagnosed Date [...] Record Intestinal postoperative nonabsorption 8 GERARDO RESEARCH OTHER*[id number] 09/18/2007 KIMMY (obstructive sleep apnea) 05/15/2007 H/O gastric bypass documented as of this encounter (statuses as of 10/23/2023) Resolved Problems Problem Noted Date Diagnosed Date [...] as of this encounter (statuses as of 10/23/2023) Immunizations Name Administration Dates Next Due COVID-19 [...] Passive Smoke Exposure: Never Smokeless Tobacco: Never Comments:No passive smoke ex posure Alcohol Use Standard Drinks/Week Comments Yes 0 (1 standard drink = 0.6 oz pur e alcohol) occasional wine AUDIT-C Answer Date Recorded Frequency of Alcohol Consumption 2-4 times a mon11/13/2018 Average Number of Drinks Not on file 019 Frequency of Binge Drinking Not on file 09/2018 PHQ-2 Answer Date Recorded PHQ Adult Total Score 0 06/15/2022 Hunger Vital Sign Answer Date Recorded Within the past 12 months, y ou worried that your food would run out before you got the money to buy more. Never true 02/24/20 23 Within the past 12 months, t he food you bought just didn't last and you didn't have money to get more. Never true 02/23/2023 Sex and Gender Information Value Date Recorded Sex Assigned at Not on file Gender Identity Not on file Sexual Orientation Not on file Job Start Date Occupation Industry Not on file Not on file Not on file documented as of this encounter Miscellaneous Notes * Telephone Encounter - Tyshawn Tam DO - 09/01/2023 2:28 PM EDT Can you send a message to cardiology in [facility] to get her scheduled there in place of ? * Telephone Encounter - Anabel York RN - 09/01/2023 9:55 AM EDT Marty Freylie was scheduled for an atrial fibrillation ablation on 08/29. They were unable to proceed as itwas noted she had not had an echocardiogram done in the past year. They then tried to do a ANDREW and were uanble to pass the scope after multiple attempts d/t her having a very narrow esophagus. Ambika says the plan is for her to have it done outpatient at [facility]. She is very upset about how everything went and wants to make sure nothing falls through the cracks. She wants to know if wecan coordinate with Dr. Carrera to make sure everything she needs gets set up. She's also wanting to change from [facility] at this time to maybe [place] as she feels Dr. Cardoza let a lot of her problems fall through the cracks and it's very hard to be seen at [facility] right now. Is there any way we can assist in coordinating her care? I'll be happy to help where I can. Thank you in advanced, Anabel Harding (Geoff, RN CCM documented in this encounter Plan of Treatment Upcoming Encounters Date Type Department Care Team (Late st Contact Info) Description 10/31/2023 1:30 PM EDT Cardiac Studies Cardiac Studies [facility] [place] [address] [place] [facility] [place] [address] [place], Ekg [address] [place] [address] 10/31/2023 2:00 PM EDT Office Visit Cardiology [facility] [place] [address] [place] [address] Nia Eldridge CRNP [address] [place] [address] 11/21/2023 1:00 PM EDT PulmDiagnostic Pulmonary Function Lab, Health system [address] [facility] [place] [address] [place], [address] [facility] [place] [address] 11/24/2023 11:00 AM EDT Scheduled Telephone Pulmonary Medicine Devon Pemberton [address] [place] [address] [phone] [place], Nurse Follow Up Phone Call Pulmonary [address] [place] [address] [address] 12/13/2023 3:40 PM EDT Office Visit Family Practice [facility] [address] [facility] [place] [address] Tyshawn Tam, DO [address] [facility] [place] [address] 01/08/2024 1:20 PM EDT Office Visit Neurology [facility] [address] [facility] [place] [address] Annalise Zapien PA-C [address] [facility] [place] [address] 02/08/2024 1:00 PM EDT Laboratory Laboratory [facility] [address] [facility] [place] [address] [phone] Livia Lab [facility] [address] [facility] [place] [address] 04/15/2024 1:30 PM EST Office Visit [facility] [place] [address] Ani Parikh CRNP [facility] [address] 08/05/2024 1:00 PM EST Laboratory Laboratory [facility] [address] [phone] [facility] [address] [place] [address] 08/09/2024 2:00 PM EST Office Visit Hematology/Oncology [facility] [address] [place] [phone] Alma Williamson CRNP [address] [place] [address] 10/22/2024 10:00 AM EDT Appointment Radiology, [facility] [address] [place] [phone] 10/22/2024 10:20 AM EDT Office Visit Pulmonary Medicine, [facility] [place] [address] Ramo Soriano MD [address] [place] [facility] [place] [address] Scheduled Procedures Name Priority Associated Diagnoses Date/Ti me PVI RADIOFREQUENCY CATHETER ABLATION Atrial fibrillation, unspecified type (HCC) Health Maintenance Due Date Last Done Comments Cologuard 1994 Fecal Occult Blood Test 1994 Sigmoidoscopy 1994 Hepatitis B (1 of 3 - Risk 3-dose series) 2009 Zoster Vaccines (2 of 3) 06/19/2013 04/24/2013 Mammogram 08/21/2013 08/21/2012, 07/31/2012 DTaP,Tdap,and Td Vaccines (2 - Td or Tdap) 07/06/2022 07/06/2012 COVID-19 Vaccine (3 - 2023-24 season) 2023 07/25/2020, 07/04/2020 Depression Screening 06/15/2023 06/15/2022 GFR 09/12/2024 09/13/2023, 08/11, 08/10/2023, Additional history exists Albumin/Creatinine Ratio 10/13/2025 10/13/2022 DXA Scan 03/11/2026 03/11/2019, 06/13, 05/25/2009, Additional history exists Lipid Panel 03/13/2028 03/13/2023, 0 08/2022, 08/10/2021, Additional history exists Colonoscopy 09/18/2031 09/17/2021, 01/2022, 01/23/2017, Additional history exists Colorectal Cancer Screening 09/18/2031 Pneumococcal Vaccine: 65+ Years Completed 07/26/2016, 07/21/2015 Influenza Vaccine (FLU shot) Completed 06/2022, 03/07/2022, 04/22/2021, Additional history exists GARDASIL-HPV IMMUNIZATION SERIES Aged Out No longer eligible based on patient's age to complete this topic MENINGOCOCCAL (MENACTRA/MENVEO) Aged Out No longer eligible based on patient's age to complete this topic documented as of this encounter Medical Devices Not on filedocumented as of this encounter Advance Directives Documents on File Type Date Recorded Patient Manager Highway Expl anation Advance Directives and Living Will 06/15/2023 ADVANCE DIRECTIVE / LIVING WILL Power of Value Stream Manager 06/15/2023 POWER OF A TTORNEY Latest Code Status on File Code Status Date Activated Date Inactivated Comments Full Code 04/23/2008 8:25 AM 04/25/2008 3:23 PM Code Status History Code Status Date Activated Date Inactivated Comments Full Code 04/23/2008 6:20 AM 04/23/2008 8:25 AM Full Code 04/23/2008 6:20 AM 04/23/2008 6:20 AM Care Teams Frame Gate Mortiser Operator Relationship Specialty Start Date End Date Tyshawn Tam DO [address] [place] [address] PCP - General Family Medicine 05/26/21 documented as of this encounter
--- OUTSIDE RECORDS SUMMARY | 2023-11-25 16:53 | External Medical Summary | Summary of Care ---
Author Name Unknown Organization [facility] Address [address] [place] [address] Phone [phone] Care Team Providers Care Framework Developer Name Role Phone AllanTyshawn armstrong Jessika MONREAL Primary Care Provider [phone] Reason for Visit * Reason Onset Date Comments Advice 07/17/2023 Pre-op heart sca n inquiry Encounter Details Date Type Department Care Team (Late st Contact Info) Description 07/17/2023 Telephone Cardiology [facility] [address] [place] [address] Leatha Carrera IV, MD [address] [place] [address] Advice (Pre-op heart scan inquiry) Allergies Active Allergy Reactions Criticality Noted Date Comments Aspartame Other (Please comment) 07/09/2015 Headache Cefuroxime Axetil 07/21/2015 contains phenylananine Cortisone Psych complications 07/10/2023 Metoprolol 02/20/2023 Dizziness, blurred vision, difficulty walking Phenobarbital Edema Other,Hives 02/05/2008 Phenylalanine 07/21/2015 Joints swelled documented as of this encounter (statuses as of 10/16/2023) Medications Medication Sig Dispensed Refills Start Date End Date Status LORAZEPAM 1 MG PO TABS one pill nightly 0 Active Modafinil 200 MG Oral Tablet (Provigil) Take 2 Tablets by mouth in the morning. 0 11/25/2020 Active Loratadine 10 MG Oral Tablet (Claritin)Indicati ons:Seasonal allergic rhinitis due to pollen,Post-nasal drip Take 1 Tab by mouth daily. x1-2 wks then as needed-otc 30 Tab 0 01/04/2021 Active Womens Multi Gummies Oral Tablet Chewable 0 Active Drisdol 1.25 MG (73248 UT) Oral Capsule Take by mouth 1 Capsule once a week . 8 Capsule 0 11/05/2021 Active traZODone HCl 50 MG Oral Tablet (Desyrel) Take 1 Tablet by mouth at bedtime. 1/2 tab daily 0 Active ARIPiprazole 5 MG Oral Tablet (Abilify) Take 0.5 Tablets by mouth at bedtime. 0 08/12/2022 Active Apixaban 5 MG Oral Tablet (Eliquis)Indicatio ns:PAF (paroxysmal atrial fibrillation) (HCC) Take 1 Tablet [...] 0 Active Furosemide 40 MG Oral Tablet (Lasix)Indications :Chronic diastolic heart failure (HCC) Take 1 tablet [...] about 4-6 hours apart., Reported on 06/14/2023 Hospital, Clinic, or Other Facility Administered Medication Ordered Dose Route Frequency Start Date End Date Status vitamin b-12 (Cyanocobalamin) inj 1,000 mcgIndications:Intestinal postoperative nonabsorption 1000 mcg IM [id number] 06/27/2023 05/28/20 24 Active documented as of this encounter (statuses as of 10/16/2023) Active Problems Problem Noted Date Diagnosed Date [...] Record Intestinal postoperative nonabsorption 8 GERARDO RESEARCH OTHER*[id number] 09/18/2007 KIMMY (obstructive sleep apnea) 05/15/2007 H/O gastric bypass documented as of this encounter (statuses as of 10/16/2023) Resolved Problems Problem Noted Date Diagnosed Date [...] as of this encounter (statuses as of 10/16/2023) Immunizations Name Administration Dates Next Due COVID-19 [...] encounter Miscellaneous Notes * Telephone Encounter - Paola Allison OSA - 07/28/2023 3:00 PM EST Scheduled for Aug 29 Patient aware Thanks KIMMY Oliva * Telephone Encounter - Betzaida Brooks CMA - 07/24/2023 11:[address] Carrera's OV note from 06/14: PLAN: 1. Arrange for pulmonary vein isolation procedure with RF 2. Preprocedure CT scan Please advise. * Telephone Encounter - Selene Ricardo OSA - 07/17/2023 3:49 PM EST Person calling: Patient Relationship to patient: Patient Number to return call: [phone] Reason for call: Calling to state she believes she needs to have a scan of her heart on 08/28/23. Noappt or orders in [employer] Please advise if she needs this completed a the number listed above. Outcome: N/A Pharmacy: N/A Provider Name: Dr. Leatha Carrera documented in this encounter Plan of Treatment Upcoming Encounters Date Type Department Care Team (Late st Contact Info) Description 10/17/2023 2:30 PM EDT Nutrition Services Nutrition & Weight Management, [facility] [address] [facility] [place] [address] Karen Armenta RDN 132 [facility] [place] [address] 10/31/2023 1:30 PM EDT Cardiac Studies Cardiac Studies [facility] [address] [place] [address] [place], Ekg [address] [place], [place] [phone] 10/31/2023 2:00 PM EDT Office Visit Cardiology [facility] [address] [place] [address] Nia Eldridge CRNP [address] [place], [place] [phone] 11/21/2023 1:00 PM EDT PulmDiagnostic Pulmonary Function Lab, [facility] 132 [facility] [place] [address] [place], [address] [facility] [address] 11/24/2023 11:00 AM EDT Scheduled Telephone Pulmonary Medicine Devon Pemberton [address] [place] [address] [phone] Devon Nurse Follow Up Phone Call Pulmonary [address] [place] [address] [address] 12/13/2023 3:40 PM EDT Office Visit Family Practice [facility] [address] [place], [place] [address] Tyshawn Tam, [address] [place], [place] [address] 01/08/2024 1:20 PM EDT Office Visit Neurology [facility] [address] [place] [address] Annalise Zapien PA-C [address] [place], [place] [address] 02/08/2024 1:00 PM EDT Laboratory Laboratory [facility] [address] [place] [phone] Livia Lab [facility] [address] [facility] [place] [address] 04/15/2024 1:30 PM EST Office Visit Cardiology, [facility] [address] Ani Parikh CRNP [address] [facility] [address] 08/05/2024 1:00 PM EST Laboratory Laboratory [facility] [address] [place] [address] Livia, [facility] [address] [facility] [place], [place] [address] 08/09/2024 2:00 PM EST Office Visit Hematology/Oncology [facility] [address] [place], [place] [phone] Alma Williamson CRNP [address] [place] [address] 10/28/2024 9:30 AM EDT Appointment Radiology, [facility] [address] [place] [phone] 10/28/2024 10:00 AM EDT Office Visit Pulmonary Medicine [place] Pemberton [address] [place] [address] [phone] Curry Camarillo MD [address] [place] [address] [address] Scheduled Procedures Name Priority Associated Diagnoses Date/Ti [...] Tdap) 07/06/2022 07/06/2012 COVID-19 Vaccine (3 - season) 2023 07/25/2020, 07/04/2020 Depression Screening 06/15/2023 06/15/2022 GFR 09/12/2024 09/13/2023, 08/11, 08/10/2023, Additional history exists Albumin/Creatinine Ratio 10/13/2025 10/13/2022 DXA Scan 03/11/2026 03/11/2019, 06/13, 05/25/2009, Additional history exists Lipid Panel 03/13/2028 03/13/2023, 08/2022, 08/10/2021, Additional history exists Colonoscopy 09/18/2031 09/17/2021, 0 01/2022, 01/23/2017, Additional history exists Colorectal Cancer [...] Documents on File Type Date Recorded Patient Brake [address] Freight Expl anation Advance Directives and Living Will 06/15/2023 ADVANCE DIRECTIVE / LIVING WILL Power of Web Press Roll Tender 06/15/2023 POWER OF A TTORNEY Latest Code Status on File Code Status Date Activated Date Inactivated Comments Full Code 04/23/2008 8:25 AM 04/25/2008 3:23 PM Code Status History Code Status Date Activated Date Inactivated Comments Full Code 04/23/2008 6:20 AM 04/23/2008 8:25 AM Full Code 04/23/2008 6:20 AM 04/23/2008 6:20 AM Care Teams Framework Developer Relationship Specialty Start Date End Date Tyshawn Tam DO [address] [place] [address] PCP - General Family Medicine 05/26/21 documented as of this encounter
--- OUTSIDE RECORDS SUMMARY | 2023-11-25 16:53 | External Medical Summary | Summary of Care ---
Author Name Unknown Organization [facility] Address [address] [facility] [place] [address] Phone [phone] Care Team Providers Care Manager Ui Name Role Phone Annmarie Elsa Barahona DO Primary Care Provider Reason for Visit * Reason Comments eRx-Medication Refill Encounter Details Date Type Department Care Team (Late st Contact Info) Description 11/21/2023 Refill Cardiology, [facility] [address] [place] [address] Kimberly Jay PA-C [address] [place] [address] PAF (paroxysmal atrial fibrillation) ([facility]) Allergies Active Allergy Reactions Criticality Noted Date [...] Oral Tablet Chewable Active Drisdol 1.25 MG (72708 UT) Oral Capsule Take by mouth 1 Capsule once a week . 8 Capsule 11/05/2021 Active Additional Information Patient not taking.Reported on 11/16/2023 traZODone HCl 50 MG Oral Tablet (Desyrel) Take 1 Tablet by mouth at bedtime. 1/2 tab daily Active ARIPiprazole 5 MG Oral Tablet (Abilify) Take 0.5 Tablets by mouth at bedtime. 08/12/2022 Active Spironolactone 25 MG Oral Tablet (Aldactone) Take 0.5 Tablets by mouth in the morning. 45 Tablet 5 12/16/2022 Active CPAP every night at bedtime. Auto pap 5-20 cm Active Citracal Petites/Vitamin D 200-6.25 MG-MCG Oral Tablet (Calcium Citrate-Vitamin D) Take 2 Tablets by mouth in the morning and 2 Tablets before bedtime. Active Furosemide 40 MG Oral Tablet (Lasix)Indication [...] the morning. 60 Tablet 11 11/16/2023 Active Eliquis 5 MG Oral Tablet (Apixaban)Indicat ions:PAF (paroxysmal atrial fibrillation) (HCC) Take 1 Tablet by mouth in the morning and 1 Tablet before bedtime. 90 Tablet 3 11/21/2023 Active Fluticasone-Salme terol 100-50 MCG/ACT Inhalation Aerosol Powder Breath Activated (Wixela Inhub) Inhale 1 Puff by mouth in the morning and 1 Puff before bedtime. Active Apixaban 5 MG Oral Tablet (Eliquis)Indicati ons:PAF (paroxysmal atrial fibrillation) (HCC) Take 1 Tablet by mouth in the morning and 1 Tablet before bedtime. 60 Tablet 11 11/21/2022 11/21/19 24 Discontinued Hospital, Clinic, or Other Facility Administered Medication Ordered Dose Route Frequency Start Date End Date Status vitamin b-12 (Cyanocobalamin) inj 1,000 mcgIndications:Intestinal postoperative nonabsorption 1000 mcg IM [id number] 06/27/2023 05/28/20 24 Active documented as of [...] Record Intestinal postoperative nonabsorption 8 GERARDO RESEARCH OTHER*[id number] 09/18/2007 KIMMY (obstructive sleep apnea) 05/15/2007 H/O [...] mRNA, LNP-s, No Pre serve, 2-Dose Series (Pharma Two B) 07/25/2020,07/04/2020 Pneumococcal Conjugate Vacc, 13 Valent (Prevnar) [...] encounter Miscellaneous Notes * Telephone Encounter - Luz Maria Martinez CRNP - 11/21/2023 2:22 PM EDTSigned Prescriptions: Disp Refills Eliquis 5 MG Oral Tablet (Apixaban) 90 Tab*3 Sig: Take 1 Tablet by mouth in the morning and 1 Tablet before bedtime. Authorizing Provider: LUZ MARIA MARTINEZ * Telephone Encounter - Betzaida Brooks CMA - 11/21/2023 2:16 PM EDTPending Prescriptions: Disp Refills Eliquis 5 MG Oral Tablet (Apixaban) 90 Tab*3 Sig: Take 1 Tablet by mouth in the morning and 1 Tablet before bedtime. * Telephone Encounter - Betzaida Brooks CMA - 11/21/2023 2:15 PM EDT Did you pend patient's preferred pharmacy and medication before forwarding?yes Pharmacy: [facility] [address] Pending Prescriptions: Disp Refills Eliquis 5 MG Oral Tablet (Apixaban) [Phar*90 Tab*3 Sig: Take 1 Tablet by mouth in the morning and 1 Tablet before bedtime. Last Visit: 10/06/2023 (in office), 08/01/2022 (telemedicine) Next Visit: 04/15/2024 If no future appointments scheduled, and last appointment is greater than a year ago, please schedule patient for a follow-up appointment Last date the medication was ordered: 11/21/22 Is this request for a controlled substance?No Urine Drug Screen:No results found. However, due to the size of the patient record, not all encounters were searched. Please check Results Review for a complete set of results. Patient Phone Numbers Labs: Lab Results Component Value Date/Time CREAT 0.8 09/13/2023 02:51 PM CREAT 0.7 01/31/2020 09:21 AM POTASSIUM 4.2 09/13/2023 02:51 PM POTASSIUM 4.9 01/31/2020 09:21 AM TSH 3.43 08/10/2021 11:07 AM TSH 3.78 11/28/2019 12:10 PM LDLCALC 118 03/13/2023 03:03 PM LDLCALC 119 08/25/2016 12:07 PM LDLDIRECT NOT APPLICABLE 08/25/2016 12:07 PM LDLDIRECT 136 (H) 09/12/2006 02:25 PM ALT 30 06/01/2023 10:45 AM ALT 13 01/31/2020 09:21 AM HGBA1C 6.0 (H) 03/13/2023 03:03 PM HGBA1C 5.9 (A) 01/13/2017 12:00 AM HGBA1C 5.5 07/20/2013 11:08 AM documented in this encounter Plan of Treatment Upcoming Encounters Date Type Department Care Team (Latest Contact Info) Description 11/24/2023 11:00 AM EDT Scheduled Telephone Pulmonary Medicine [place] [address] [place] [phone] [place] Nurse Follow Up Phone Call Pulmonary [address] [place] [address] 12/19/2023 9:30 AM EDT Hospital Encounter CRS [facility] Waiting Unit, H [address] [place] [address] Leatha Carrera IV, MD [address] [place] [address] 12/19/2023 9:30 AM EDT - 12/19/2023 3:00 PM EDT Surgery CRS [facility] Card[facility] Suite Waiting Unit, H [address] [place] [address] Leatha Carrera IV, MD [address] [place] [address] PVI RADIOFREQUENCY CATHETER ABLATION 12/19/2023 9:30 AM EDT Office Visit Cardiology [facility] [place] [address] [place] [address] [facility] Cardiac [facility] [address] [place] [address] 01/08/2024 1:20 PM EDT Office Visit Neurology [facility] [place] [address] [place] [address] Annalise Zapien PA-C [address] [facility] [place] [address] 02/08/2024 1:00 PM EDT Laboratory Laboratory [facility] [place] [address] [facility] [place] [address] [facility] [address] [place] [address] 02/13/2024 9:45 AM EDT Cardiac Studies [facility] [place] [address] [place] [address] [place], Ekg [address] [place] [address] 02/13/2024 10:15 AM EDT Office Visit Cardiology [facility], [place] [address] [place], [place] [id number] Rand Oleary CRNP [address] [place] [address] 02/19/2024 1:00 PM EDT Office Visit Family Practice [facility] [address] [place] [address] Elsa Anguiano, DO [address] [place] [address] 04/15/2024 1:30 PM EST Office Visit Cardiology, [facility] [address] [place] [address] Ani Parikh CRNP [address] [place] [address] 08/05/2024 1:00 PM EST Laboratory Laboratory [facility] [address] [place] [phone] [place], Lab [facility] [address] [facility] [place] [address] 08/09/2024 2:00 PM EST Office Visit Hematology/Oncolog y [facility] [address] [place] [phone] Alma Williamson CRNP [address] [place] [address] 10/22/2024 10:00 AM EDT Appointment Radiology, [facility] [phone] 10/22/2024 10:20 AM EDT Office Visit Pulmonary Medicine, [facility] [address] [place] [address] Ramo Soriano MD [address] [place] [address] Scheduled Procedures Name Priority Associated Diagnoses Date/Ti [...] Diagnosis Atrial fibrillation (HCC)- Primary Atrial fibrillation PAF (paroxysmal atrial fibrillation) (HCC) Atrial fibrillation Atrial fibrillation, unspecified type (HCC) documented in this encounter Advance Directives Documents on File Type Date Recorded Patient Regulatory Compliance Director Expl anation Advance Directives and Living Will 06/15/2023 ADVANCE DIRECTIVE / LIVING WILL Power of Ctc Operator 06/15/2023 POWER OF A TTORNEY * Full Code (Latest Code Status on File) Date Activated Date Inactivated Comments 04/23/2008 8:25 AM 04/25/2008 3:23 PM * Full Code Date Activated Date Inactivated Comments 04/23/2008 6:20 AM 04/23/2008 8:25 AM * Full Code Date Activated Date Inactivated Comments 04/23/2008 6:20 AM 04/23/2008 6:20 AM Care Teams Manager Ui Relationship Specialty Start Date End Date Elsa Anguiano DO [address] [place] [address] PCP - General Family Medicine 11/16/23 documented as of this encounter
--- OUTSIDE RECORDS SUMMARY | 2023-11-25 16:53 | External Medical Summary | Summary of Care ---
Author Name Unknown Organization [facility] Address [address] [place] [address] Phone [phone] Care Team Providers Care Mobility Developer Name Role Phone Tyshawn Tam DO Primary Care Provider [phone] Encounter Details Date Type Department Care Team (Late st Contact Info) Description 10/30/2023 Orders Only Cardiology [facility] [address] [place] [address] Nia Eldridge CRNP [address] [place], [place] [id number] PAF (paroxysmal atrial fibrillation) ([facility])* Allergies Active Allergy Reactions Criticality Noted Date Comments Aspartame Other (Please comment) 07/09/2015 Headache Cefuroxime Axetil 07/21/2015 contains phenylananine Cortisone Psych complications 07/10/2023 Metoprolol 02/20/2023 Dizziness, blurred vision, difficulty walking Phenobarbital Edema Other,Hives 02/05/2008 Phenylalanine 07/21/2015 Joints swelled documented as of this encounter (statuses as of 10/30/2023) Medications Medication Sig Dispensed Refills Start Date [...] Oral Tablet Chewable Active Drisdol 1.25 MG (08787 UT) Oral Capsule Take by mouth 1 Capsule once a week . 8 Capsule 11/05/2021 Active traZODone HCl 50 MG Oral Tablet (Desyrel) Take 1 Tablet by mouth at bedtime. 1/2 tab daily Active ARIPiprazole 5 MG Oral Tablet (Abilify) Take 0.5 Tablets by mouth at bedtime. 08/12/2022 Active Apixaban 5 MG Oral Tablet (Eliquis)Indication s:PAF (paroxysmal atrial fibrillation) ([facility]) Take 1 Tablet by mouth in the [...] the morning. 90 Tablet 3 09/12/2023 Active Mupirocin 2 % External Ointment (Bactroban) apply to lips twice a day for two weeks 08/01/2023 Active Hospital, Clinic, or Other Facility Administered Medication Ordered Dose Route Frequency Start Date End Date Status vitamin b-12 (Cyanocobalamin) inj 1,000 mcgIndications:Intestinal postoperative nonabsorption 1000 mcg IM [id number] 06/27/2023 05/28/20 24 Active documented as of this encounter (statuses as of 10/30/2023) Active Problems Problem Noted Date Diagnosed Date [...] Record Intestinal postoperative nonabsorption 8 GERARDO RESEARCH OTHER*[id number] 09/18/2007 KIMMY (obstructive sleep apnea) 05/15/2007 H/O gastric bypass documented as of this encounter (statuses as of 10/30/2023) Resolved Problems Problem Noted Date Diagnosed Date [...] as of this encounter (statuses as of 10/30/2023) Immunizations Name Administration Dates Next Due COVID-19 [...] on file documented as of this encounter Plan of Treatment Upcoming Encounters Date Type Department Care Team (Late st Contact Info) Description 10/31/2023 1:30 PM EDT Cardiac Studies [facility] [place] [address] [facility] [place] [address] [place], E[facility] [address] [facility] [address] 10/31/2023 2:00 PM EDT Office Visit Cardiology [facility] [place] [address] [facility] [place] [address] Nia Eldridge CRNP [address] [facility] [place] [address] 11/21/2023 1:00 PM EDT PulmDiagnostic Pulmonary Function Lab, [facility] 132 [facility] [place] [address] [place], Pft 132 [facility] [place] [address] 11/24/2023 11:00 AM EDT Scheduled Telephone Pulmonary Medicine [place] [address] [place] [phone] [place], Nurse Follow Up Phone Call Pulmonary [address] [place] [address] [address] 12/13/2023 3:40 PM EDT Office Visit Family Practice [facility] [address] [place] [address] Tyshawn Tam, DO [address] [place] [address] 01/08/2024 1:20 PM EDT Office Visit Neurology [facility] [address] [place] [address] Annalise Zapien PA-C 200 [facility] [place] [address] 02/08/2024 1:00 PM EDT Laboratory Laboratory [facility] [address] [place] [phone] [place] [facility] 200 [facility] [place] [address] 04/15/2024 1:30 PM EST Office Visit Cardiology, [facility] 132 [facility] [place] [address] Ani Parikh CRNP [facility] [place] [address] 08/05/2024 1:00 PM EST Laboratory Laboratory [facility] [address] [place], [place] [address] [facility] 200 [facility] [place] [address] 08/09/2024 2:00 PM EST Office Visit Hematology/Oncology [facility] [address] [place] [phone] Alma Williamson CRNP [address] [place] [address] 10/22/2024 10:00 AM EDT Appointment Radiology, [facility] [address] [place] [address] 10/22/2024 10:20 AM EDT Office Visit Pulmonary Medicine, [facility] 132 [facility] [place] [address] Ramo Soriano MD [address] [facility] [place] [address] Scheduled Orders Name Type Priority Associated Diagnoses Orde r Schedule EKG EKG Routine PAF (paroxysmal atrial fibrillation) (HCC) Expected: 10/30/2023 (Approximate), Expires: 05/01/2024 Scheduled Procedures Name Priority Associated Diagnoses Date/Ti [...] as of this encounter Visit Diagnoses Diagnosis PAF (paroxysmal atrial fibrillation) (HCC)- Primary Atrial fibrillation documented in this encounter Advance Directives Documents on File Type Date Recorded Patient Clerk Secretary Expl anation Advance Directives and Living Will 06/15/2023 ADVANCE DIRECTIVE / LIVING WILL Power of Brand Analyst 06/15/2023 POWER OF A TTORNEY * Full Code (Latest Code Status on File) Date Activated Date Inactivated Comments 04/23/2008 8:25 AM 04/25/2008 3:23 PM * Full Code Date Activated Date Inactivated Comments 04/23/2008 6:20 AM 04/23/2008 8:25 AM * Full Code Date Activated Date Inactivated Comments 04/23/2008 6:20 AM 04/23/2008 6:20 AM Care Teams Mobility Developer Relationship Specialty Start Date End Date Tyshawn Tam DO [facility] [place] [address] PCP - General Family Medicine 05/26/21 documented as of this encounter
--- OUTSIDE RECORDS SUMMARY | 2023-11-25 16:53 | External Medical Summary | Summary of Care ---
Author Name Unknown Organization [facility] Address [address] [place] [address] Phone [phone] Care Team Providers Care Database Report Writer Name Role Phone Yonatan Tyshawn Jessika MONREAL Primary Care Provider [phone] Encounter Details Date Type Department Care Team (Late st Contact Info) Description 10/20/2023 Telephone Family Practice [facility] [address] [place] [address] Anabel York, RN [address] [place] [address] Allergies Active Allergy Reactions Criticality Noted Date [...] Tablet Chewable 0 Active Drisdol 1.25 MG (32010 UT) Oral Capsule Take by mouth 1 Capsule once a week . 8 Capsule 0 11/05/2021 Active traZODone HCl 50 MG Oral Tablet (Desyrel) Take 1 Tablet by mouth at bedtime. 1/2 tab daily 0 Active ARIPiprazole 5 MG Oral Tablet (Abilify) Take 0.5 Tablets by mouth at bedtime. 0 08/12/2022 Active Apixaban 5 MG Oral Tablet (Eliquis)Indication s:PAF (paroxysmal atrial fibrillation) ([facility]) Take 1 Tablet by mouth in the [...] 0 Active Furosemide 40 MG Oral Tablet (Lasix)Indications: [...] lips twice a day for two weeks 0 08/01/2023 Active Hospital, Clinic, or Other Facility Administered Medication Ordered Dose Route Frequency Start Date End Date Status vitamin b-12 (Cyanocobalamin) inj 1,000 mcgIndications:Intestinal postoperative nonabsorption 1000 mcg IM [id number] 06/27/2023 05/28/20 24 Active documented as of [...] Record Intestinal postoperative nonabsorption 8 GERARDO RESEARCH OTHER*[id number] 09/18/2007 KIMMY (obstructive sleep apnea) 05/15/2007 H/O [...] encounter Miscellaneous Notes * Telephone Encounter - Ani Song OSA - 10/23/2023 10:43 AM EDT Patient is rescheduled for all appointments and aware of the dates and times * Telephone Encounter - Charles September, KIMMY - 10/20/2023 2:07 PM EDT Called pt, no answer. LM to return apt. Can schedule 6mw at office. Dr Camarillo does not travel to but the pt could be switched to Dr Barnes at , if she prefers. * Telephone Encounter - Anabel York, RN - 10/20/2023 11:44 AM EDT Patient is scheduled for a 6 minute walk test/nurse visit in Pul at [place] on -ordered byDr. Camarillo. Can this be scheduled at the [facility] location? It is easier for pt to get there. Thank you in advanced, Anabel Harding (Geoff, RN [facility] Nurse Staple Processing Machine Operator Raj Bhakta documented in this encounter Plan of Treatment Upcoming Encounters Date Type Department Care Team (Late st Contact Info) Description 10/23/2023 1:40 PM EDT Telemedicine Nutrition & Weight Management, [place] [address] [place] [address] Suri Dias, RDN [address] [facility] [address] 10/31/2023 1:30 PM EDT Cardiac Studies [facility] [place] [address] [facility] [place] [address] [place], Ekg [address] [facility] [place] [address] 10/31/2023 2:00 PM EDT Office Visit Cardiology [facility], [place] [address] [facility] [place] [address] Nia Eldridge CRNP [address] [facility] [address] 11/21/2023 1:00 PM EDT PulmDiagnostic Pulmonary Function Lab, [facility] [address] [place] [address] [place], [place] [address] [place] [address] 11/24/2023 11:00 AM EDT Scheduled Telephone Pulmonary Medicine [place] [address] [place] [address] [phone] [place], Nurse Follow Up Phone Call Pulmonary [address] [place] [address] 12/13/2023 3:40 PM EDT Office Visit Family Practice [facility] [address] [place] [address] Tyshawn Tam, [address] [place] [address] 01/08/2024 1:20 PM EDT Office Visit Neurology [facility] [place] [address] [place] [address] Annalise Zapien PA-C [address] [place] [address] 02/08/2024 1:00 PM EDT Laboratory Laboratory [facility] [place] [address] [place] [phone] Bridgett Bhakta [address] [place] [address] 04/15/2024 1:30 PM EST Office Visit Cardiology, [facility] 132 [facility] [place] [address] Ani Parikh CRNP [address] [place] [address] 08/05/2024 1:00 PM EST Laboratory Laboratory [facility] [place] [address] [place] [phone] [facility] [address] [place] [address] 08/09/2024 2:00 PM EST Office Visit Hematology/Oncology [facility] 200 [facility] [place] [address] Alma [place] CRNP [address] [place] [address] 10/22/2024 10:00 AM EDT Appointment Radiology, [facility] [address] [place] [phone] 10/22/2024 10:20 AM EDT Office Visit Pulmonary Medicine, [facility] 132 [facility] [place] [address] Ramo Soriano MD [address] [place] [address] Scheduled Procedures Name Priority Associated Diagnoses Date/Ti [...] Documents on File Type Date Recorded Patient Military Education Coordinator Expl anation Advance Directives and Living Will 06/15/2023 ADVANCE DIRECTIVE / LIVING WILL Power of Agricultural Labor Camp Manager 06/15/2023 POWER OF A TTORNEY Latest Code Status on File Code Status Date Activated Date Inactivated Comments Full Code 04/23/2008 8:25 AM 04/25/2008 3:23 PM Code Status History Code Status Date Activated Date Inactivated Comments Full Code 04/23/2008 6:20 AM 04/23/2008 8:25 AM Full Code 04/23/2008 6:20 AM 04/23/2008 6:20 AM Care Teams Database Report Writer Relationship Specialty Start Date End Date Tyshawn Tam DO [address] [place] [address] PCP - General Family Medicine 05/26/21 documented as of this encounter
--- OUTSIDE RECORDS SUMMARY | 2023-11-25 16:53 | External Medical Summary | Summary of Care ---
Author Name Unknown Organization [facility] Address [address] [facility] [place] [address] Phone [phone] Care Team Providers Care China Decorator Name Role Phone Tyshawn Tam DO Primary Care Provider [phone] Reason for Visit * Reason Onset Date Comments FYI 07/31/2023 Encounter Details Date Type Department Care Team (Late st Contact Info) Description 07/31/2023 Telephone Family Practice [facility] [place] 200 [facility] [place] [address] Tyshawn Tam DO 200 [facility] [place] [address] FY Allergies Active Allergy Reactions Criticality Noted Date [...] Oral Tablet Chewable Active Drisdol 1.25 MG (50803 UT) Oral Capsule Take by mouth 1 [...] bedtime. Active Furosemide 40 MG Oral Tablet (Lasix)Indications [...] failure managing provider. 1 Each 07/28/2023 Active Hospital, Clinic, or Other Facility Administered Medication Ordered Dose Route Frequency Start Date End Date Status vitamin b-12 (Cyanocobalamin) inj 1,000 mcgIndications:Intestinal postoperative nonabsorption 1000 mcg IM [id number] 06/27/2023 05/28/20 24 Active documented as of [...] Record Intestinal postoperative nonabsorption 8 GERARDO RESEARCH OTHER*[id number] 09/18/2007 KIMMY (obstructive sleep apnea) 05/15/2007 H/O [...] encounter Miscellaneous Notes * Telephone Encounter - Estephanie Baltazar OSA - 07/31/2023 2:17 PM EST Patient is returning call. documented in this encounter Plan of Treatment Upcoming Encounters Date Type Department Care Team (Latest Contact Info) Description 11/21/2023 1:00 PM EDT PulmDiagnostic Pulmonary Function Lab, [facility] [address] [facility] [place] [address] [place], Pft [address] [facility] [place] [address] 11/24/2023 11:00 AM EDT Scheduled Telephone Pulmonary Medicine [place] Pember[place] [address] [place] [address] [phone] Devon Nurse Follow Up Phone Call Pulmonary [address] [place] [address] [address] 12/13/2023 3:40 PM EDT Office Visit Family Practice [facility] [place] [address] [place] [address] Tyshawn Tam, [address] [facility] [place] [address] 12/19/2023 9:30 AM EDT Hospital Encounter CRS Waiting [facility], Cardiac Recovery Suite Waiting Unit, H [address] [place] [address] Leatha Carrera IV, MD [address] [place] [address] 12/19/2023 9:30 AM EDT - 12/19/2023 3:00 PM EDT Surgery CRS Waiting [facility], Cardiac Recovery Suite Waiting Unit, H [address] [place] [address] Leatha Carrera IV, MD [address] [place] [address] PVI RADIOFREQUENCY CATHETER ABLATION 12/19/2023 9:30 AM EDT Office Visit [facility] [address] [place] [address] [facility] [address] [place] [address] 01/08/2024 1:20 PM EDT Office Visit Neurology [facility] [place] [address] [place] [address] Annalise Zapien PA-C [address] [place] [address] 02/08/2024 1:00 PM EDT Laboratory Laboratory [facility] [place] [address] [place] [phone] [place], Lab Scene [address] [place] [address] [address] 02/13/2024 9:45 AM EDT Cardiac Studies Card[facility] Studies [facility] [place] [address] [place] [address] [place], Ekg [address] [place] [address] 02/13/2024 10:15 AM EDT Office Visit Cardiology [facility] [place] [address] [place] [address] Rand Oleary CRNP [address] [place] [phone] 04/15/2024 1:30 PM EST Office Visit Cardiology, [facility] 132 [place] [address] Ani Parikh CRNP 132 [place] [address] 08/05/2024 1:00 PM EST Laboratory Laboratory [facility] [address] [place] [phone] [place], Lab [facility] 200 [facility] [place] [address] 08/09/2024 2:00 PM EST Office Visit Hematology/Oncolo gy [facility] [address] [place] [phone] Alma Williamson CRNP [address] [facility] [place] [address] 10/22/2024 10:00 AM EDT Appointment Radiology, [address] [place] [phone] 10/22/2024 10:20 AM EDT Office Visit Pulmonary Medicine, [facility] 132 [place] [address] Ramo Soriano MD [address] [place] [address] Scheduled Procedures Name Priority Associated Diagnoses Date/Ti [...] Documents on File Type Date Recorded Patient Physiatrist Expl anation Advance Directives and Living Will 06/15/2023 ADVANCE DIRECTIVE / LIVING WILL Power of Physical Science Teacher 06/15/2023 POWER OF A TTORNEY * Full Code (Latest Code Status on File) Date Activated Date Inactivated Comments 04/23/2008 8:25 AM 04/25/2008 3:23 PM * Full Code Date Activated Date Inactivated Comments 04/23/2008 6:20 AM 04/23/2008 8:25 AM * Full Code Date Activated Date Inactivated Comments 04/23/2008 6:20 AM 04/23/2008 6:20 AM Care Teams China Decorator Relationship Specialty Start Date End Date Tyshawn Tam DO 200 [place] [address] PCP - General Family Medicine 05/26/21 documented as of this encounter
--- OUTSIDE RECORDS SUMMARY | 2023-11-25 16:53 | External Medical Summary | Summary of Care ---
Author Name Unknown Organization [facility] Address [address] [place] [address] Phone [phone] Care Team Providers Care Welder Apprentice Gas Name Role Phone Annmarie Hunter [place] Primary Care Provider Reason for Visit * Reason Onset Date Comments Patient Instructions 11/23/2023 Encounter Details Date Type Department Care Team (Late st Contact Info) Description 11/23/2023 Telephone Cardiology [facility] [address] [place] [address] Leatha Carrera IV, MD [address] [place] [address] Patient Instructions Allergies Active Allergy Reactions Criticality Noted Date Comments Aspartame Other (Please comment) 07/09/2015 Headache Cefuroxime Axetil 07/21/2015 contains phenylananine Cortisone Psych complications 07/10/2023 Metoprolol 02/20/2023 Dizziness, blurred vision, difficulty walking Phenobarbital Edema Other,Hives 02/05/2008 Phenylalanine 07/21/2015 Joints swelled documented as of this encounter (statuses as of 11/23/2023) Medications Medication Sig Dispensed Refills Start Date [...] Oral Tablet Chewable Active Drisdol 1.25 MG (19865 UT) Oral Capsule Take by mouth 1 [...] 11/16/2023 Active Eliquis 5 MG Oral Tablet (Apixaban)Indicatio ns:PAF (paroxysmal atrial fibrillation) (HCC) Take 1 Tablet by mouth in the morning and 1 Tablet before bedtime. 90 Tablet 3 11/21/2023 Active Fluticasone-Salmete rol 100-50 MCG/ACT Inhalation Aerosol Powder Breath Activated (Wixela Inhub) Inhale 1 Puff by mouth in the morning and 1 Puff before bedtime. 60 Each 5 11/22/2023 Active Hospital, Clinic, or Other Facility Administered Medication Ordered Dose Route Frequency Start Date End Date Status vitamin b-12 (Cyanocobalamin) inj 1,000 mcgIndications:Intestinal postoperative nonabsorption 1000 mcg IM [id number] 06/27/2023 05/28/20 24 Active documented as of this encounter (statuses as of 11/23/2023) Active Problems Problem Noted Date Diagnosed Date [...] Record Intestinal postoperative nonabsorption 8 GERARDO RESEARCH OTHER*[id number] 09/18/2007 KIMMY (obstructive sleep apnea) 05/15/2007 H/O gastric bypass documented as of this encounter (statuses as of 11/23/2023) Resolved Problems Problem Noted Date Diagnosed Date [...] as of this encounter (statuses as of 11/23/2023) Immunizations Name Administration Dates Next Due COVID-19 [...] Pulmonary Medicine Devon Pemberton [address] [place] [phone] Devon Nurse Follow Up Phone Call Pulmonary [address] [place] [address] 12/19/2023 9:30 AM EDT Hospital Encounter [facility] [place] Card[facility] Recovery Suite Waiting Unit, H [address] [place] [address] Leatha Carrera IV, MD [address] [place] [address] 12/19/2023 9:30 AM EDT - 12/19/2023 3:00 PM EDT Surgery [facility] [place], Cardiac Recovery Suite Waiting Unit, H [address] [place] [address] Leatha Carrera IV, MD [address] [place] [address] PVI RADIOFREQUENCY CATHETER ABLATION 12/19/2023 9:30 AM EDT Office Visit Cardiology [facility] [address] [place] [address] [facility] Cardiac [facility] [address] [place] [address] 01/08/2024 1:20 PM EDT Office Visit Neurology [facility] [place] 200 [facility] [place] [address] Annalise Zapien PA-C [address] [place] [address] 02/08/2024 1:00 PM EDT Laboratory Laboratory [employer] [address] [place] [phone] Livia Lab [facility] 200 [facility] [place] [address] 02/13/2024 9:45 AM EDT Cardiac Studies [facility] Studies [facility] [place] [address] [place] [address] [place], Ekg [address] [place] [address] 02/13/2024 10:15 AM EDT Office Visit Cardiology [facility] [place] [address] [place], [place] [phone] Rand Oleary CRNP [address] [place] [phone] 02/19/2024 1:00 PM EDT Office Visit Family Practice [facility] 200 [facility] [place] [address] Elsa Anguiano DO [address] [place] [address] [address] 04/15/2024 1:30 PM EST Office Visit Cardiology, [facility] 132 [place] [address] Ani Parikh CRNP 132 [facility] [place] [address] 08/05/2024 1:00 PM EST Laboratory Laboratory [facility] [address] [place] [phone] [facility] [place] [address] Luis Patel [facility] [place] [address] 08/09/2024 2:00 PM EST Office Visit Hematology/Oncolog y [facility] [address] [phone] Alma Williamson CRNP 400 [facility] [place] [address] 10/22/2024 10:00 AM EDT Appointment Radiology, [facility] [address] [place] [phone] 10/22/2024 10:20 AM EDT Office Visit Pulmonary Medicine, [facility] 132 [facility] [place] [address] Ramo Soriano MD [address] [facility] [place] [phone] Scheduled Procedures Name Priority Associated Diagnoses Date/Ti [...] Documents on File Type Date Recorded Patient Plug Grower Expl anation Advance Directives and Living Will 06/15/2023 ADVANCE DIRECTIVE / LIVING WILL Power of Shift Coordinator 06/15/2023 POWER OF A TTORNEY * Full Code (Latest Code Status on File) Date Activated Date Inactivated Comments 04/23/2008 8:25 AM 04/25/2008 3:23 PM * Full Code Date Activated Date Inactivated Comments 04/23/2008 6:20 AM 04/23/2008 8:25 AM * Full Code Date Activated Date Inactivated Comments 04/23/2008 6:20 AM 04/23/2008 6:20 AM Care Teams Welder Apprentice Gas Relationship Specialty Start Date End Date Elsa Anguiano DO [address] [place] [address] PCP - General Family Medicine 11/16/23 documented as of this encounter
--- OUTSIDE RECORDS SUMMARY | 2023-11-25 16:53 | External Medical Summary | Summary of Care ---
Author Name Unknown Organization [facility] Address [address] [facility] [place] [address] Phone [phone] Care Team Providers Care Epoxy Specialist Name Role Phone Parrish Anguiano DO Primary Care Provider Reason for Visit * Reason Comments eRx-Medication Refill Encounter Details Date Type Department Care Team (Late st Contact Info) Description 11/21/2023 Refill Family Practice [facility] 200 [facility] [place] [address] Alexandra Beatty PA-C 200 [facility] [place] [address] History of 2019 novel coronavirus disease (COVID-19); Inflammation of lung Allergies Active Allergy Reactions Criticality Noted Date Comments Aspartame Other (Please comment) 07/09/2015 Headache Cefuroxime Axetil 07/21/2015 contains phenylananine Cortisone Psych complications 07/10/2023 Metoprolol 02/20/2023 Dizziness, blurred vision, difficulty walking Phenobarbital Edema Other,Hives 02/05/2008 Phenylalanine 07/21/2015 Joints swelled documented as of this encounter (statuses as of 11/22/2023) Medications Medication Sig Dispensed Refills Start Date [...] Oral Tablet Chewable Active Drisdol 1.25 MG (11571 UT) Oral Capsule Take by mouth 1 [...] Active Losartan Potassium 25 MG Oral Tablet (Cozaar)Indication s:Essential hypertension with goal blood pressure less than [...] the morning. 60 Tablet 11 11/16/2023 Active Fluticasone-Salmet tez 100-50 MCG/ACT Inhalation Aerosol Powder Breath Activated (Wixela Inhub) Inhale 1 Puff by mouth in the morning and 1 Puff before bedtime. 60 Each 5 11/22/2023 Active Fluticasone-Salmet tez 100-50 MCG/ACT Inhalation Aerosol Powder Breath Activated (Wixela Inhub) Inhale 1 Puff by mouth in the morning and 1 Puff before bedtime. Discontinue d(Refill) Hospital, Clinic, or Other Facility Administered Medication Ordered Dose Route Frequency Start Date End Date Status vitamin b-12 (Cyanocobalamin) inj 1,000 mcgIndications:Intestinal postoperative nonabsorption 1000 mcg IM [id number] 06/27/2023 05/28/20 24 Active documented as of this encounter (statuses as of 11/22/2023) Active Problems Problem Noted Date Diagnosed Date [...] Record Intestinal postoperative nonabsorption 8 GERARDO RESEARCH OTHER*[id number] 09/18/2007 KIMMY (obstructive sleep apnea) 05/15/2007 H/O gastric bypass documented as of this encounter (statuses as of 11/22/2023) Resolved Problems Problem Noted Date Diagnosed Date [...] as of this encounter (statuses as of 11/22/2023) Immunizations Name Administration Dates Next Due COVID-19 [...] encounter Miscellaneous Notes * Telephone Encounter - Parrish Anguiano DO - 11/22/2023 10:44 AM EDT Signed Prescriptions: Disp Refills Fluticasone-Salmeterol 100-50 MCG/ACT Inha*60 Each5 Sig: Inhale 1 Puff by mouth in the morning and 1 Puff before bedtime. Authorizing Provider: PARRISH ANGUIANO Refused Prescriptions: Disp Refills Fluticasone-Salmeterol 250-50 MCG/ACT Inha* 5 Sig: Inhale 1 Puff by mouth in the morning and 1 Pu ff before bedtime. Refused By: SARAH PENG Reason for Refusal: Refill Not Appropriate * Telephone Encounter - Sarah Peng RPh - 11/22/2023 10:37 AM EDTPending Prescriptions: Disp Refills Fluticasone-Salmeterol 100-50 MCG/ACT Inha*60 Each5 Sig: Inhale 1 Puff by mouth in the morning and 1 Puff before bedtime. Refused Prescriptions: Disp Refills Fluticasone-Salmeterol 250-50 MCG/ACT Inha* 5 Sig: Inhale 1 Puff by mouth in the morning and 1 Puff before bedtime. Refused By: SARAH PENG Reason for Refusal: Refill Not Appropriate * Telephone Encounter - Sarah Peng RPh - 11/22/2023 10:37 AM EDT Pharmacists cannot authorize refills for meds listed as "historical" in chart. Please approve if appropriate. Thanks, Sarah Peng Clinical Pharmacist [facility] ([facility]) [phone] 11/22/2023, 10:37 AM documented in this encounter Plan of Treatment Upcoming Encounters Date Type Department Care Team (Latest Contact Info) Description 11/24/2023 11:00 AM EDT Scheduled Telephone Pulmonary Medicine Devon Pemberton [address] [place] [phone] Nurse Devon Follow Up Phone Call Pulmonary [address] [place] [address] 12/19/2023 9:30 AM EDT Hospital Encounter CRS Waiting [facility], Cardiac Recovery Suite Waiting Unit, H [address] [place] [address] Leatha Carrera IV, MD [address] [place] [address] 12/19/2023 9:30 AM EDT - 12/19/2023 3:00 PM EDT Surgery CRS Waiting [facility], Cardiac Recovery Suite Waiting Unit, H [address] [place] [address] Leatha Carrera IV, MD [address] [place] [address] PVI RADIOFREQUENCY CATHETER ABLATION 12/19/2023 9:30 AM EDT Office Visit Cardiology [facility] [address] [place] [address] [facility] Cardiac [facility] [address] [place] [address] 01/08/2024 1:20 PM EDT Office Visit [facility] [address] Annalise Zapien PA-C [address] [place] [address] 02/08/2024 1:00 PM EDT Laboratory Laboratory [facility] [address] [place] [phone] [place] [address] [place], [place] [address] 02/13/2024 9:45 AM EDT Cardiac Studies [facility] [place] [address] [place] [address] [place], Ekg [address] [place] [address] 02/13/2024 10:15 AM EDT Office Visit Cardiology [facility] [place] [address] [place] [address] Rand Oleary CRNP [address] [place] [phone] 02/19/2024 1:00 PM EDT Office Visit Family Practice [facility] [address] [place], [place] [address] Parrish Anguiano DO [address] [place], [place] [address] 04/15/2024 1:30 PM EST Office Visit Cardiology, [facility] 132 [facility] [address] Ani Parikh CRNP 132 [facility] [address] 08/05/2024 1:00 PM EST Laboratory Laboratory [facility] [address] [place] [phone] [place], [facility] [address] [place], [place] [address] 08/09/2024 2:00 PM EST Office Visit Hematology/Oncolog y [facility] [address] [place], [place] [phone] Alma Williamson CRNP 400 [facility] [place] [phone] 10/22/2024 10:00 AM EDT Appointment Radiology, [facility] [place] [phone] 10/22/2024 10:20 AM EDT Office Visit Pulmonary Medicine, [facility] 132 [facility] [place] [address] Ramo Soriano MD [address] [facility] [phone] Scheduled Procedures Name Priority Associated Diagnoses Date/Ti [...] Diagnosis Atrial fibrillation (HCC)- Primary Atrial fibrillation History of 2019 novel coronavirus disease (COVID-19) Inflammation of lung Atrial fibrillation, unspecified type (HCC) documented in this encounter Advance Directives Documents on File Type Date Recorded Patient Obstetrical Tech Expl anation Advance Directives and Living Will 06/15/2023 ADVANCE DIRECTIVE / LIVING WILL Power of Retirement Specialist 06/15/2023 POWER OF A TTORNEY * Full Code (Latest Code Status on File) Date Activated Date Inactivated Comments 04/23/2008 8:25 AM 04/25/2008 3:23 PM * Full Code Date Activated Date Inactivated Comments 04/23/2008 6:20 AM 04/23/2008 8:25 AM * Full Code Date Activated Date Inactivated Comments 04/23/2008 6:20 AM 04/23/2008 6:20 AM Care Teams Epoxy Specialist Relationship Specialty Start Date End Date Parrish Anguiano DO [address] [place] [address] PCP - General Family Medicine 11/16/23 documented as of this encounter
--- OUTSIDE RECORDS SUMMARY | 2023-11-25 16:53 | External Medical Summary | Summary of Care ---
Author Name Unknown Organization [facility] Address [address] [place] [address] Phone [phone] Care Team Providers Care Market Research Senior Project Manager Name Role Phone AllanTyshawn armstrong Jessika MONREAL Primary Care Provider [phone] Reason for Visit * Reason Onset Date Comments Information 10/30/2023 Encounter Details Date Type Department Care Team (Late st Contact Info) Description 10/30/2023 Telephone Cardiology [facility] [address] [place] [address] Joan Eldridge CRNP [address] [place] [address] Information Allergies Active Allergy Reactions Criticality Noted Date [...] Oral Tablet Chewable Active Drisdol 1.25 MG (13901 UT) Oral Capsule Take by mouth 1 [...] 1,000 mcgIndications:Intestinal postoperative nonabsorption 1000 mcg IM [id number] 06/27/2023 05/28/20 24 Active documented as of [...] Record Intestinal postoperative nonabsorption 8 GERARDO RESEARCH OTHER*[id number] 09/18/2007 KIMMY (obstructive sleep apnea) 05/15/2007 H/O gastric bypass documented as of this encounter (statuses as of 10/30/2023) Resolved Problems Problem Noted Date Diagnosed Date Resolved Date Chronic respiratory failure with hypoxia 11/11/2022 09/13/2023 Prediabetes 08/23/2021 01/26/2023 Overview: Per Prediabetes protocol 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 Identified with name and date of . Patient is frustrated with how long it has been taking to get her ablation scheduled. Patient offered 12/19/23 at 9:30 and accepted. HUMBERTO Mckenna Cardiology [facility], [address] [address] * Telephone Encounter - Cele Stockton MED ASSIST - 10/30/2023 11:21 AM EDT I did speak with Joan on behalf of this and she is working on getting it in order. FABRICE Fernandez 10/30/2023 11:22 AM * Telephone Encounter - Cele Stockton MED ASSIST - 10/30/2023 9:33 AM EDT Pt called in and she is very upset and feels like she is being shuffled around and not having the correct direction she has been waiting for an ablation and she is very upset that she has appointments scheduled tomorrow and they have npt been cancelled. SHE IS REQUESTING A DIRECT PHONE CALL FROM JOAN. ( Pt states Joan told her that she would take care of all of this) and now she feels like nothing is getting done. Pt stated she will be home all day today and a good number to reach her at is [phone] FABRICE Fernandez 10/30/2023 9:42 AM documented in this encounter Plan of Treatment Upcoming Encounters Date Type Department Care Team (Latest Contact Info) Description 11/21/2023 1:00 PM EDT PulmDiagnostic Pulmonary Function Lab, [facility] [address] [place] [address] [place], [address] [place] [address] 11/24/2023 11:00 AM EDT Scheduled Telephone Pulmonary Medicine [facility] [place] [address] [phone] [place] Nurse Follow Up Phone Call Pulmonary [address] [address] 12/13/2023 3:40 PM EDT Office Visit Family Practice [facility] [place] [address] [place] [address] Tyshawn Tam, [address] [place] [address] 12/19/2023 9:30 AM EDT Hospital Encounter CRS Waiting [facility], Cardiac Recovery Suite Waiting Unit, H [address] [place] [address] Leatha Carrera IV, MD [address] [place] [address] 12/19/2023 9:30 AM EDT - 12/19/2023 3:00 PM EDT Surgery CRS Waiting [facility], Cardiac Recovery Suite Waiting Unit, H [address] [place] [address] Leatha Carrera IV, MD [address] [place] [address] PVI RADIOFREQUENCY CATHETER ABLATION 12/19/2023 9:30 AM EDT Office Visit [facility] [address] [place] [address] [facility] [address] [place] [address] 01/08/2024 1:20 PM EDT Office Visit [facility] [employer] [address] [place] [address] Annalise Zapien PA-C [address] [place] [address] 02/08/2024 1:00 PM EDT Laboratory Laboratory [facility] [place] [address] [place] [phone] [place], Lab Scene [address] [place] [address] 02/13/2024 9:45 AM EDT Cardiac Studies Cardiac Studies [facility] [place] [address] [place] [address] [place], E[place] [address] [place] [address] 02/13/2024 10:15 AM EDT Office Visit Cardiology [facility] [place] [address] [place] [address] Rand Oleary CRNP [address] [place] [phone] 04/15/2024 1:30 PM EST Office Visit Cardiology, [facility] [address] [place] [address] Ani Parikh CRNP [address] [place] [address] 08/05/2024 1:00 PM EST Laboratory Laboratory [facility] [address] [place] [phone] [place], Lab [facility] [address] [facility] [place] [address] 08/09/2024 2:00 PM EST Office Visit Hematology/[facility] gy [facility] [address] [place] [phone] Alma Williamson CRNP [address] [facility] [address] 10/22/2024 10:00 AM EDT Appointment Radiology, [address] [phone] 10/22/2024 10:20 AM EDT Office Visit Pulmonary Medicine, [facility] [address] [place] [address] Ramo Soriano MD [address] [address] Scheduled Procedures Name Priority Associated Diagnoses Date/Ti [...] Documents on File Type Date Recorded Patient Music Supervisor Expl anation Advance Directives and Living Will 06/15/2023 ADVANCE DIRECTIVE / LIVING WILL Power of Homeworker 06/15/2023 POWER OF A TTORNEY * Full Code (Latest Code Status on File) Date Activated Date Inactivated Comments 04/23/2008 8:25 AM 04/25/2008 3:23 PM * Full Code Date Activated Date Inactivated Comments 04/23/2008 6:20 AM 04/23/2008 8:25 AM * Full Code Date Activated Date Inactivated Comments 04/23/2008 6:20 AM 04/23/2008 6:20 AM Care Teams Market Research Senior Project Manager Relationship Specialty Start Date End Date Tyshawn Tam DO [address] [facility] [place] [address] PCP - General Family Medicine 05/26/21 documented as of this encounter
--- OUTSIDE RECORDS SUMMARY | 2023-11-25 16:54 | External Medical Summary | Summary of Care ---
Author Name Unknown Organization [facility] Address [address] [place] [address] Phone [phone] Care Team Providers Care Profiling Machine Setup Operator Name Role Phone YonatanRobertpankaj Rosen DO Primary Care Provider [phone] Reason for Visit * Auth/Cert Specialty Diagnoses / Procedures Referred By Gabriela t Referred To Contact Diagnoses PAF (paroxysmal atrial fibrillation) (HCC) Pulmonary HTN (HCC) PAF (paroxysmal atrial fibrillation) (HCC) [I48.0] Pulmonary HTN (HCC) [I27.20] Procedures EGD, FLEXIBLE, DIAGNOSTIC ESOPHAGOGASTRODUODENOSCOPY (EGD), FLEXIBLE, TRANSORAL, DIAGNOSTIC Geoff Murry, DO [address] [place] [address] Endo Ip [facility] [address] [place] [address] Referral ID Status Reason Start Date Expiration Date Visits Re quested Visits Authorized [id number] Encounter Details Date Type Department Care Team (Latest Contact Info) Description 10/10/2023 8:10 AM EDT - 10/10/2023 2:55 PM EDT Hospital Encounter [facility] [address] [place] [address] Nicolette Stoll DO [address] [place] [address] Upper GI Endoscopy Discharge Disposition: Home - Self Care Allergies Active Allergy Reactions Criticality Noted Date Comments Aspartame Other (Please comment) 07/09/2015 Headache Cefuroxime Axetil 07/21/2015 contains phenylananine Cortisone Psych complications 07/10/2023 Metoprolol 02/20/2023 Dizziness, blurred vision, difficulty walking Phenobarbital Edema Other,Hives 02/05/2008 Phenylalanine 07/21/2015 Joints swelled documented as of this encounter (statuses as of 10/11/2023) Medications Medication Sig Dispensed Refills Start Date [...] Tablet Chewable 0 Active Drisdol 1.25 MG (35011 UT) Oral Capsule Take by mouth 1 [...] the morning. 90 Tablet 3 09/12/2023 Active Tolnaftate 1 % External Solution Apply topically to affected area daily. Apply to toenails 15 mL 2 01/04/2023 10/03/19 24 Discontinued Doxycycline Hyclate 100 MG Oral Capsule Take 1 Capsule by mouth in the morning and 1 Capsule before bedtime. Do all this for 10 days. Until gone.. 20 Capsule 0 06/23/2023 10/03/19 24 Discontinued documented as of this encounter (statuses as of 10/11/2023) Active Problems Problem Noted Date Diagnosed Date B12 deficiency 08/10/2023 Persistent atrial fibrillation 06/14/2023 [...] Record Intestinal postoperative nonabsorption 8 GERARDO RESEARCH OTHER*[id number] 09/18/2007 KIMMY (obstructive sleep apnea) 05/15/2007 H/O gastric bypass documented as of this encounter (statuses as of 10/11/2023) Resolved Problems Problem Noted Date Diagnosed Date [...] as of this encounter (statuses as of 10/11/2023) Immunizations Name Administration Dates Next Due COVID-19 [...] Sign Reading Time Taken Comments Blood Pressure 119/67 10/10/2023 2:00 PM EDT Pulse 80 10/10/2023 2:28 PM EDT Temperature 36.2 C (97.2 F) 10/10/2023 1:15 PM ED T Respiratory Rate 21 10/10/2023 2:28 PM EDT Oxygen Saturation 100% 10/10/2023 2:28 PM EDT Inhaled Oxygen Concentration - - Weight 103.8 kg (228 lb 12.8 oz) 10/10/2023 8:30 AM EDT Height - - Body Mass Index 43.23 09/28/2023 11:01 AM EDT documented in this encounter H&P Notes * Nicolette Stoll, - 10/10/2023 8:14 AM EDT Endoscopy Pre-Procedure Assessment Name: Ambika Lynch Date: 10/10/2023 Time: 8:14 AM Procedure(s): Upper GI Endoscopy; with Indication(s) of can not pass ANDREW Endoscopy Pre-Procedure Assessment: Prior to the procedure, the patient is identified. The patient's history, medications and allergieshave been reviewed. The patient is competent. The risks and benefits of the proposed procedure and the planned sedation have been discussed with the patient. All questions have been answered and informed consent for the procedure has been obtained. Prior to Admission medications Medication Sig Last Dose Discont. Mupirocin 2 % External Ointment (Bactroban) apply to lips twice a day for two weeks Atenolol 25 MG Oral Tablet (Tenormin) Take 1 Tablet by mouth in the morning. Losartan Potassium 25 MG Oral Tablet (Cozaar) TAKE 1 TAB BY MOUTH EVERY MORNING DIURETIC TITRATION PLAN If you gain 2 pounds please take a full dose of afternoon lasix instead of a half dose If no improvement on day 3, contact heart failure managing provider. Amoxicillin 500 MG Oral Capsule (Amoxil) Take 2 Capsules by mouth in the morning and 2 Capsules before bedtime. Do all this for 10 days. Furosemide 40 MG Oral Tablet (Lasix) Take 1 tablet by mouth in the morning and Take 1/2 tablet by mouth in the afternoon, about 4-6 hours apart. Patient taking differently: Take 0.5 Tablets by mouth in the morning and 0.5 Tablets before bedtime. Take 1 tablet by mouth in the morning and Take 1/2 tablet by mouth in the afternoon, about 4-6 hours apart.. Citracal Petites/Vitamin D 200-6.25 MG-MCG Oral Tablet (Calcium Citrate-Vitamin D) Take 2 Tablets by mouth in the morning and 2 Tablets before bedtime. CPAP every night at bedtime. Auto pap 5-20 cm Spironolactone 25 MG Oral Tablet (Aldactone) Take 0.5 Tablets by mouth in the morning. Apixaban 5 MG Oral Tablet (Eliquis) Take 1 Tablet by mouth in the morning and 1 Tablet before bedtime. ARIPiprazole 5 MG Oral Tablet (Abilify) Take 0.5 Tablets by mouth at bedtime. traZODone HCl 50 MG Oral Tablet (Desyrel) Take 1 Tablet by mouth at bedtime. 1/2 tab daily Drisdol 1.25 MG (77365 UT) Oral Capsule Take by mouth 1 Capsule once a week . Womens Multi Gummies Oral Tablet Chewable Loratadine 10 MG Oral Tablet (Claritin) Take 1 Tab by mouth daily. x1-2 wks then as needed-otc Modafinil 200 MG Oral Tablet (Provigil) Take 2 Tablets by mouth in the morning. LORAZEPAM 1 MG PO TABS one pill nightly Review of patient's allergies indicates: Allergen Reactions Aspartame Other (Please comment) Headache Cefuroxime Axetil contains phenylananine Cortisone Psych complications Metoprolol Dizziness, blurred vision, difficulty walking Phenobarbital Edema Other and Hives Phenylalanine Joints swelled There were no vitals taken for this visit. Physical Exam: Mental Status Examination: alert and oriented. Airway Examination: normal oropharyngeal airway and neck mobility. Respiratory Examination: clear to auscultation. CV Examination: rrr, no murmurs, no S-3 or S-4. ASA Grade: II - A patient with mild systemic disease. Abdomen: soft and nontender This patient has undergone a preprocedural evaluation. A determination has been made to proceed with the planned procedure under [facility] procedural guidelines and the [facility] Non-Emergent, Elective Medical Services and Treatment Recommendations (published on 09-17-19). The community and hospital prevalence of COVID-19 has been discussed as well as this patient's specific risks associated with SARS-CoV-19 infection. Based upon the clinical acuity and patient-specific care considerations, this procedure is deemed a Tier II - Intermediate acuity treatment or service with either progression or the threat of progressive disease related to the delay in treatment. Not providing the service has the potential for increasing morbidity or mortality. After reviewing the risks and benefits, the patient is deemed in satisfactory condition to undergo the procedure. The anesthesia plan is to use monitored anesthesia care (MAC). Nicolette Stoll DO 10/10/2023 documented in this encounter Procedure Notes * Leatha Carrera IV, MD - 10/10/2023 9:53 AM EDTAssociated Order(s): UPPER GI ENDOSCOPY [facility] Patient Name: Ambika Lynch Procedure Date: 10/10/2023 9:53 AM Date of : 1950 Admit Type: Outpatient Note Status: Finalized Date of : 1950 Admit Type: Outpatient Age: 73 Room: Endo - Room 4 Gender: Female Note Status: Finalized Procedure: Upper GI endoscopy Indications: Diagnostic procedure (Cardiology can not pass ANDREW). Providers: Nicolette Stoll DO (Doctor) Referring MD: Leatha Carrera MD, Jurgen Dunham Medicines: Monitored Anesthesia Care Complications: No immediate complications. Procedure: Pre-Anesthesia Assessment: - Prior to the procedure, a History and Physical was performed, and patient medications, allergies and sensitivities were reviewed. The patient's tolerance of previous anesthesia was reviewed. - The risks and benefits of the procedure and the sedation options and risks were discussed with the patient. All questions were answered and informed consent was obtained. - Patient identification and proposed procedure were verified prior to the procedure by the physician and the nurse. The procedure was verified in the pre-procedure area in the procedure room. - Pre-procedure physical examination revealed no contraindications to sedation. - The medication list for this patient has been reviewed prior to the procedure and has been determined that the patient may proceed with the planned study. Any medication changes made as a result of the findings of this procedure have been discussed with the patient and/or sales representative cash registers at the time of discharge from the department. After obtaining informed consent, the endoscope was passed under direct vision. All instruments were visually inspected immediately before and after removal from the patient to ensure they are fully intact. Throughout the procedure, the patient's blood pressure, pulse, and oxygen saturations were monitored continuously. The GIF [id number] Endoscope([id number]) was introduced through the mouth, and advanced to the efferent jejunal loop. The upper GI endoscopy was accomplished without difficulty. The patient tolerated the procedure well. Findings & Specimens: The esophagus was normal. Evidence of a gastric bypass was found. A gastric pouch with a normal size was found. The staple line appeared intact. This was traversed. The examined jejunum was normal. Impression: - Normal esophagus. - Gastric bypass with a normal-sized pouch and intact staple line. - Normal examined jejunum. - No specimens collected. Recommendation: - Discharge patient to home. - Return to referring physician as previously scheduled. - Cardiology team updated on results. Nicolette Stoll DO 10/10/2023 10:10:29 AM This report has been signed electronically. Estimated Blood Loss: Estimated blood loss: none. documented in this encounter Nursing Notes * Preston Santana RN - 10/10/2023 2:21 PM EDT Dual Licensed Skin Assessment completed by preston rn and cristina rn. The patient is/has a N/A Skin Breakdown (includes non blanchable erythema): Yes - Surgical/Procedural changes only. * Schuyler Hess RN - 10/10/2023 11:40 AM EDT Per verbal order, the physician and/or designant examined the patient, prescribed and verified the charted medications and certify that she is recovered for safe discharge from Endoscopy. Patient transported by COLLATOR to PACU for ANDREW procedure. Bedside report given. * Galina Canseco RN - 10/10/2023 9:11 AM EDT Procedure being completed under general anesthesia. Please see anesthesia record for medications and vital signs. documented in this encounter Plan of Treatment Upcoming Encounters Date Type Department Care Team (Late st Contact Info) Description 10/12/2023 9:00 AM EDT Scheduled Telephone Pulmonary Medicine Devon Pemberton [address] [phone] Nurse Devon Follow Up Phone Call Pulmonary [address] [address] 10/17/2023 2:30 PM EDT Nutrition Services Nutrition & Weight Management, [facility] [address] [place] [address] Karen Armenta RDN [address] [place] [address] 10/31/2023 1:30 PM EDT Cardiac Studies Cardiac Studies [facility] [place] [address] [place] [address] [place], E[facility] [address] [place] [address] 10/31/2023 2:00 PM EDT Office Visit Cardiology [facility] [address], [place] [id number] Nia Eldridge CRNP [address], [place] [id number] 11/21/2023 1:00 PM EDT PulmDiagnostic Pulmonary Function Lab, [facility] [address] [facility] [address] [place], [address] [facility] [place] [address] 12/13/2023 3:40 PM EDT Office Visit Family Practice [facility] [address] [place] [address] Tyshawn Tam, [address] [place] [address] 01/08/2024 1:20 PM EDT Office Visit Neurology [facility] [place] [address] [place] [address] Annalise Zapien PA-C [address] [place] [address] 02/08/2024 1:00 PM EDT Laboratory Laboratory [facility] [address] [place] [phone] [facility] [address] [facility] [place], [place] [address] 04/15/2024 1:30 PM EST Office Visit Cardiology, [facility] [address] Ani Parikh CRNP [address] [facility] [address] 08/05/2024 1:00 PM EST Laboratory Laboratory [facility] [address] [place] [phone] [facility] Manish [address] [facility] [place] [address] 08/09/2024 2:00 PM EST Office Visit Hematology/Oncology [facility] [address] [place] [phone] Alma Williamson CRNP [address] [place] [address] [facility]pankaj [place] [address] 10/28/2024 9:30 AM EDT Appointment Radiology, [facility] [address] [place] [phone] 10/28/2024 10:00 AM EDT Office Visit Pulmonary Medicine [facility] [address] [phone] Curry Camar[place] MD [address] [facility] [place] [address] Health Maintenance Due Date Last Done Comments [...] Not on filedocumented as of this encounter Procedures Procedure Name Priority Date/Time Associated Diagnosis Comments UPPER GI ENDOSCOPY 10/10/2023 9: 53 AM EDT documented in this encounter Results * UPPER GI ENDOSCOPY (10/10/2023 9:53 AM EDT) 10/10/2023 9:53 AM EDT Narrative Procedure Note Leatha Carrera IV, MD - 10/10/2023 9:53 AM EDT [facility] Patient Name: Ambika Lynch Procedure Date: 10/10/2023 9:53 AM Date of : 1950 Admit Type: Outpatient Note Status:Finalized Date of : 1950 Admit Type: Outpatient Age: 73 Room: Endo - Room 4 Gender: Female Note Status: Finalized Procedure: Upper GI endoscopy Indications: Diagnostic procedure (Cardiology can not passTEE). Providers: Nicolette Stoll DO (Doctor) Referring MD: Leatha Carrera MD, Jurgen Dunham Medicines: Monitored Anesthesia Care Complications: No immediate complications. Procedure: Pre-Anesthesia Assessment: - Prior to the procedure, a History and Physicalwas performed, and patient medications, allergies and sensitivities werereviewed. The patient's tolerance of previous anesthesia was reviewed. - The risks and benefits of the procedure and thesedation options and risks were discussed with the patient. All questions wereanswered and informed consent was obtained. - Patient identification and proposed procedurewere verified prior to the procedure by the physician and the nurse. The procedure wasverified in the pre-procedure area in the procedure room. - Pre-procedure physical examination revealed nocontraindications to sedation. - The medication list for this patient has beenreviewed prior to the procedure and has been determined that the patient may proceedwith the planned study. Any medication changes made as a result of the findingsof this procedure have been discussed with the patient and/or sales representative cash registers atthe time of discharge from the department. After obtaining informed consent, the endoscope waspassed under direct vision. All instruments were visually inspected immediatelybefore and after removal from the patient to ensure they are fully intact. Throughout the procedure, the patient's bloodpressure, pulse, and oxygen saturations were monitored continuously. The GIF [id number]) was introduced through the mouth, and advanced to the efferent jejunalloop. The upper GI endoscopy was accomplished without difficulty. The patienttolerated the procedure well. Findings & Specimens: The esophagus was normal. Evidence of a gastric bypass was found. A gastric pouch with a normalsize was found. The staple line appeared intact. This was traversed. The examined jejunum was normal. Impression: - Normal esophagus. - Gastric bypass with a normal-sized pouch andintact staple line. - Normal examined jejunum. - No specimens collected. Recommendation: - Discharge patient to home. - Return to referring physician as previouslyscheduled. - Cardiology team updated on results. Nicolette Stoll DO 10/10/2023 10:10:29 AM This report has been signed electronically. Estimated Blood Loss: Estimated blood loss: none. Leatha Carrera IV, MD GASTRO UPPER documented in this encounter Administered Medications Inactive Administered Medications - up to 3 most recent administrations Medication Order MAR Action Action Date Dose Rate Site isolyte-S pH 7.4 infusion Intravenous, at 75 mL/hr, Plasma-LYTE 148, isolyte-S, and isolyte-S pH 7.4 are considered equivalent - including for MAR barcode scanning., CONTINUOUS, Starting on Mon10/10/23 at 0900, Until Mon10/10/23 at 1154, Pre-Op New Bag 10/10/2023 8:45 AM EDT 75 mL/hr documented in this encounter Active and Recently Administered Medications Times are shown in EDT. Continuous Medication Order 10/08/2023 10/09/2023 10/10/2023 isolyte-S pH 7.4 infusion (CANCELED) Intravenous, at 75 mL/hr, Plasma-LYTE 148, isolyte-S, and isolyte-S pH 7.4 are considered equivalent - including for MAR barcode scanning., CONTINUOUS, Starting on Mon10/10/23 at 0900, Until Mon10/10/23 at 1154, Pre-Op 0845 (New Bag - Prov ider: Annalise Baltazar RN)[phone] (Due: Stopped) documented in this encounter Advance Directives Documents on File Type Date Recorded Patient Bottle Washer Expl anation Advance Directives and Living Will 06/15/2023 ADVANCE DIRECTIVE / LIVING WILL Power of Concrete Mixing Plant Laborer 06/15/2023 POWER OF A TTORNEY Latest Code Status on File Code Status Date Activated Date Inactivated Comments Full Code 04/23/2008 8:25 AM 04/25/2008 3:23 PM Code Status History Code Status Date Activated Date Inactivated Comments Full Code 04/23/2008 6:20 AM 04/23/2008 8:25 AM Full Code 04/23/2008 6:20 AM 04/23/2008 6:20 AM Care Teams Profiling Machine Setup Operator Relationship Specialty Start Date End Date Tyshawn Tam DO [address] [place] [address] PCP - General Family Medicine 05/26/21 documented as of this encounter
--- OUTSIDE RECORDS SUMMARY | 2023-11-25 16:54 | External Medical Summary | Summary of Care ---
Author Name Unknown Organization [facility] Address [address] [place] [address] Phone [phone] Care Team Providers Care Heart Specialist Name Role Phone YonatanRobertpankaj Rosen DO Primary Care Provider [phone] Reason for Visit * Auth/Cert Specialty Diagnoses / Procedures Referred By Gabriela t Referred To Contact Diagnoses PAF (paroxysmal atrial fibrillation) (HCC) Pulmonary HTN (HCC) PAF (paroxysmal atrial fibrillation) (HCC) [I48.0] Pulmonary HTN (HCC) [I27.20] Procedures EGD, FLEXIBLE, DIAGNOSTIC ESOPHAGOGASTRODUODENOSCOPY (EGD), FLEXIBLE, TRANSORAL, DIAGNOSTIC Geoff Murry, DO [address] [place] [address] Endo Ip [facility] [address] [place] [address] Referral ID Status Reason Start Date Expiration Date Visits Re quested Visits Authorized [id number] Encounter Details Date Type Department Care Team (Latest Contact Info) Description 10/10/2023 8:10 AM EDT - 10/10/2023 2:55 PM EDT [facility] [address] [place] [address] Nicolette Stoll DO [address] [place] [address] Upper GI Endoscopy Discharge Disposition: [...] Tablet Chewable 0 Active Drisdol 1.25 MG (29063 UT) Oral Capsule Take by mouth 1 [...] Record Intestinal postoperative nonabsorption 8 GERARDO RESEARCH OTHER*[id number] 09/18/2007 KIMMY (obstructive sleep apnea) 05/15/2007 H/O [...] bedtime. 1/2 tab daily Drisdol 1.25 MG (96416 UT) Oral Capsule Take by mouth 1 [...] to proceed with the planned procedure under [facility] procedural guidelines and the [facility] Non-Emergent, Elective Medical Services and Treatment Recommendations [...] 9:53 AM EDTAssociated Order(s): UPPER GI ENDOSCOPY [facility] Patient Name: Ambika Lycnh Procedure Date: 10/10/2023 9:53 AM Date of [...] have been discussed with the patient and/or circulation sales representative at the time of discharge from the department. After obtaining informed consent, the endoscope was passed under direct vision. All instruments were visually inspected immediately before and after removal from the patient to ensure they are fully intact. Throughout the procedure, the patient's blood pressure, pulse, and oxygen saturations were monitored continuously. The GIF [id number] Endoscope([id number]) was introduced through the mouth, and advanced [...] safe discharge from Endoscopy. Patient transported by SUPERVISOR SULFURIC ACID PLANT to PACU for ANDREW procedure. Bedside report [...] Medicine Devon Pemberton [address] [address] Nurse Devon Follow Up Phone Call Pulmonary [address] [address] 10/17/2023 2:30 PM EDT Nutrition Services Nutrition & Weight Management, [facility] [address] [place] [address] Karen Armenta RDN [address] [place] [address] 10/31/2023 1:30 PM EDT Cardiac Studies Cardiac Studies [facility] [place] [address] [place] [address] [place], Ekg [address] [place] [address] 10/31/2023 2:00 PM EDT Office Visit Cardiology [facility] [address], [place] [phone] Nia Eldridge CRNP [address], [place] [phone] 11/21/2023 1:00 PM EDT PulmDiagnostic Pulmonary Function Lab, [facility] 132 [facility] [address] [place], Pft 132 [facility] [place] [address] 12/13/2023 3:40 PM EDT Office Visit Family Practice [facility] [address] [place] [address] Tyshawn Tam, [address] [place] [address] 01/08/2024 1:20 PM EDT Office Visit Neurology [facility] [place] [address] [place] [address] Annalise Zapien PA-C [address] [place] [address] 02/08/2024 1:00 PM EDT Laboratory Laboratory [facility] [address] [place] [phone] Livia [address] [facility] [place], [place] [address] 04/15/2024 1:30 PM EST Office Visit Cardiology, [facility] 132 [facility] [address] Ani Parikh CRNP [address] [facility] [address] 08/05/2024 1:00 PM EST Laboratory Laboratory [facility] [address] [place] [phone] Livia Lab Manish [address] [facility] [place] [address] 08/09/2024 2:00 PM EST Office Visit Hematology/Oncology [facility] [address] [place] [phone] Alma Williamson CRNP [address] [place] [address] Avpankaj QU[place]WILLAMINAM[place] [address] 10/28/2024 9:30 AM EDT Appointment Radiology, [facility] [address] [place] [address] 10/28/2024 10:00 AM EDT Office Visit Pulmonary Medicine [facility] [address] [phone] Curry Camarillo MD [address] [facility] [place] [address] Health Maintenance Due Date Last Done Comments [...] IV, MD - 10/10/2023 9:53 AM EDT [facility] Patient Name: Ambika Lynch Procedure [...] have been discussed with the patient and/or circulation sales representative atthe time of discharge from the department. After obtaining informed consent, the endoscope waspassed under direct vision. All instruments were visually inspected immediatelybefore and after removal from the patient to ensure they are fully intact. Throughout the procedure, the patient's bloodpressure, pulse, and oxygen saturations were monitored continuously. The GIF [id number]) was introduced through the mouth, and advanced [...] Documents on File Type Date Recorded Patient General Internal Medicine Doctor Expl anation Advance Directives and Living Will 06/15/2023 ADVANCE DIRECTIVE / LIVING WILL Power of Contact Center Manager 06/15/2023 POWER OF A TTORNEY Latest Code Status on File Code Status Date Activated Date Inactivated Comments Full Code 04/23/2008 8:25 AM 04/25/2008 3:23 PM Code Status History Code Status Date Activated Date Inactivated Comments Full Code 04/23/2008 6:20 AM 04/23/2008 8:25 AM Full Code 04/23/2008 6:20 AM 04/23/2008 6:20 AM Care Teams Heart Specialist Relationship Specialty Start Date End Date Tyshawn Tam DO [address] [place] [address] PCP - General Family Medicine 05/26/21 documented as of this encounter
--- OUTSIDE RECORDS SUMMARY | 2023-11-25 16:54 | External Medical Summary | Summary of Care ---
Author Name Unknown Organization [facility] Address [address] [place] [address] Phone [phone] Care Team Providers Care Welding Operator Name Role Phone Yonatan Tyshawn Rosen DO Primary Care Provider [phone] Reason for Referral * Precert (Within 10 days (routine)) - Authorized Specialty Diagnoses / Procedures Referred By Contac t Referred To Contact Cardiac Studies Diagnoses PAF (paroxysmal atrial fibrillation) (HCC) Procedures TRANSESOPHAGEAL ECHO (COMPLETE) Nia Eldridge CRNP [address] [place] [address] Referral ID Status Reason Start Date Expiration Date V isits Requested Visits Authorized [id number] Authorized Precert 09/22/[phone] Reason for Visit * Precert (Within 10 days (routine)) - Authorized Specialty Diagnoses / Procedures Referred By Contac t Referred To Contact Cardiac Studies Diagnoses PAF (paroxysmal atrial fibrillation) (HCC) Procedures TRANSESOPHAGEAL ECHO (COMPLETE) Nia Eldridge CRNP [address] [place] [address] Referral ID Status Reason Start Date Expiration Date V isits Requested Visits Authorized [id number] Authorized Precert 09/22/[phone] Encounter Details Date Type Department Care Team (Latest Contact Info) Description 10/10/2023 11:00 AM EDT - 10/10/2023 11:59 PM EDT Hospital Encounter Cardiac Studies [facility] [address] [place] [address] Discharge Disposition: Home - Self Care Allergies [...] Tablet Chewable 0 Active Drisdol 1.25 MG (77513 UT) Oral Capsule Take by mouth 1 [...] 1,000 mcgIndications:Intestinal postoperative nonabsorption 1000 mcg IM [id number] 06/27/2023 05/28/20 24 Active documented as of [...] Record Intestinal postoperative nonabsorption 8 GERARDO RESEARCH OTHER*[id number] 09/18/2007 KIMMY (obstructive sleep apnea) 05/15/2007 H/O [...] as of this encounter Miscellaneous Notes * Ancillary Progress Note - Tanya Maldonado, PEDRO - 10/10/2023 12:49 PM EDT ANDREW performed in PACU procedure room by dr. Dunham and dr. Matias. Anesthesia at bedside for sedation. Probe # [id number], pediatric probe. documented in this encounter Plan of Treatment Upcoming Encounters Date Type Department Care Team (Late st Contact Info) Description 10/12/2023 9:00 AM EDT Scheduled Telephone Pulmonary Medicine Devon Pemberton [address] [phone] Devon Nurse Follow Up Phone Call Pulmonary [address] [address] 10/17/2023 2:30 PM EDT Nutrition Services Nutrition & Weight Management, [facility] 132 [facility] [place] [address] Karen Armenta RDN 132 [facility] [place] [address] 10/31/2023 1:30 PM EDT Cardiac Studies Cardiac Studies [facility] [address] [facility] [address] [place], Ekg [address] [facility] [address] 10/31/2023 2:00 PM EDT Office Visit Cardiology [facility] [address] [facility] [place] [address] Nia Eldridge CRNP [address] [place] [address] 11/21/2023 1:00 PM EDT PulmDiagnostic Pulmonary Function Lab, [facility] 132 [place] [address] West, Pft 132 [place] [address] 12/13/2023 3:40 PM EDT Office Visit Family Practice [facility] [address] [place] [address] Tyshawn Tam, DO [address] [place] [address] 01/08/2024 1:20 PM EDT Office Visit Neurology [facility] [address] [place] [address] Annalise Zapien PA-C [address] [place] [address] 02/08/2024 1:00 PM EDT Laboratory Laboratory [facility] [address] [place] [phone] Ephraim [facility] [address] [place], [place] [address] 04/15/2024 1:30 PM EST Office Visit Cardiology, [facility] 132 [facility] [address] Ani Parikh CRNP [address] [facility] [address] 08/05/2024 1:00 PM EST Laboratory Laboratory [facility] [address] [place] [phone] [facility] [place] [address] 08/09/2024 2:00 PM EST Office Visit Hematology/Oncology Luis Bhakta [place] 200 [facility], [place] [address] Alma Williamson CRNP [address] [place] [address] 10/28/2024 9:30 AM EDT Appointment Radiology, [facility] [address] [place] [address] 10/28/2024 10:00 AM EDT Office Visit Pulmonary Medicine Devon Pemberton [address] [phone] Curry Camarillo MD [address] [address] Health Maintenance Due Date Last Done Comments [...] Procedure Name Priority Date/Time Associated Diagnosis Comments TRANSESOPHAGEAL ECHO (COMPLETE) Routine 10/10/2023 1:19 PM EDT PAF (paroxysmal atrial fibrillation) (HCC) documented in this encounter Results * TRANSESOPHAGEAL ECHO (COMPLETE) (10/10/2023 1:19 PM EDT) LEFT VENTRICULAR EJECTION FRACTION 55 % [facility] CARDIOLOG[facility] 10/10/2023 12:0 9 PM EDT Nia PAUL ECHOCARDIOLOGY [facility] CARDIOLOG[facility] documented in this encounter Visit Diagnoses Diagnosis PAF (paroxysmal atrial fibrillation) (HCC) Atrial fibrillation documented in this encounter Administered Medications Inactive Administered Medications - up to 3 most recent administrations Medication Order MAR Action Action Date Dose Rate Site benzocaine (topical) (Hurricaine) 20 % spray 2 [place] 2 [place], Topical, PRN For Transesophageal Study Only, Intra-Op, Starting on 10/10/23 at 1243, Until Mon10/10/23 at 1442, For 2 hours, For Transesophageal Study Only, Intra-Op, Cardiac Studies_HODHOV Given By 10/10/2023 12:20 PM EDT 1 [place] documented in this encounter Advance Directives Documents on File Type Date Recorded Patient Consultant Education Expl anation Advance Directives and Living Will 06/15/2023 ADVANCE DIRECTIVE / LIVING WILL Power of Chain Sales Consultant 06/15/2023 POWER OF A TTORNEY Latest Code Status on File Code Status Date Activated Date Inactivated Comments Full Code 04/23/2008 8:25 AM 04/25/2008 3:23 PM Code Status History Code Status Date Activated Date Inactivated Comments Full Code 04/23/2008 6:20 AM 04/23/2008 8:25 AM Full Code 04/23/2008 6:20 AM 04/23/2008 6:20 AM Care Teams Welding Operator Relationship Specialty Start Date End Date Tyshawn Tam DO [address] [place], [place] [address] [place] [place] [address] PCP - General Family Medicine 05/26/21 documented as of this encounter
--- OUTSIDE RECORDS SUMMARY | 2023-11-25 16:54 | External Medical Summary | Summary of Care ---
Author Name Unknown Organization [facility] Address [address] [place] [address] Phone [phone] Care Team Providers Care Log Brander Name Role Phone YonatanRobertpankaj Rosen DO Primary Care Provider [phone] Reason for Visit * Auth/Cert Specialty Diagnoses / Procedures Referred By Gabriela t Referred To Contact Diagnoses PAF (paroxysmal atrial fibrillation) (HCC) Pulmonary HTN (HCC) PAF (paroxysmal atrial fibrillation) (HCC) [I48.0] Pulmonary HTN (HCC) [I27.20] Procedures EGD, FLEXIBLE, DIAGNOSTIC ESOPHAGOGASTRODUODENOSCOPY (EGD), FLEXIBLE, TRANSORAL, DIAGNOSTIC Geoff Murry, DO [address] [place] [address] Endo Ip [facility] Hfam [address] [place] [address] Referral ID Status Reason Start Date Expiration Date Visits Re quested Visits Authorized [id number] Encounter Details Date Type Department Care Team (Latest Contact Info) Description 10/10/2023 8:10 AM EDT - 10/10/2023 2:55 PM EDT Hospital Encounter [facility] [address] [place] [address] Nicolette Stoll DO [address] [place] [address] Upper GI Endoscopy Discharge Disposition: Home - Self Care Allergies Active Allergy Reactions Criticality Noted Date Comments Aspartame Other (Please comment) 07/09/2015 Headache Cefuroxime Axetil 07/21/2015 contains phenylananine Cortisone Psych complications 07/10/2023 Metoprolol 02/20/2023 Dizziness, blurred vision, difficulty walking Phenobarbital Edema Other,Hives 02/05/2008 Phenylalanine 07/21/2015 Joints swelled documented as of this encounter (statuses as of 10/10/2023) Medications Medication Sig Dispensed Refills Start Date [...] Tablet Chewable 0 Active Drisdol 1.25 MG (43289 UT) Oral Capsule Take by mouth 1 [...] as of this encounter (statuses as of 10/10/2023) Active Problems Problem Noted Date Diagnosed Date [...] Record Intestinal postoperative nonabsorption 8 GERARDO RESEARCH OTHER*[id number] 09/18/2007 KIMMY (obstructive sleep apnea) 05/15/2007 H/O gastric bypass documented as of this encounter (statuses as of 10/10/2023) Resolved Problems Problem Noted Date Diagnosed Date [...] as of this encounter (statuses as of 10/10/2023) Immunizations Name Administration Dates Next Due COVID-19 [...] bedtime. 1/2 tab daily Drisdol 1.25 MG (11753 UT) Oral Capsule Take by mouth 1 [...] to proceed with the planned procedure under [facility] procedural guidelines and the [facility] Non-Emergent, Elective Medical Services and Treatment Recommendations [...] 9:53 AM EDTAssociated Order(s): UPPER GI ENDOSCOPY [facility] Patient Name: Ambika Lynch Procedure Date: 10/10/2023 [...] have been discussed with the patient and/or territory sales representative at the time of discharge from the department. After obtaining informed consent, the endoscope was passed under direct vision. All instruments were visually inspected immediately before and after removal from the patient to ensure they are fully intact. Throughout the procedure, the patient's blood pressure, pulse, and oxygen saturations were monitored continuously. The GIF [id number] Endoscope([id number]) was introduced through the mouth, and advanced [...] safe discharge from Endoscopy. Patient transported by NON CATEGORICAL PRESCHOOL TEACHER to PACU for ANDREW procedure. Bedside report [...] Medicine Devon Pemberton [address] [phone] Nurse Devon Follow Up Phone Call Pulmonary [address] [address] 10/17/2023 2:30 PM EDT Nutrition Services Nutrition & Weight Management, [facility] [address] [place] [address] Karen Armenta RDN [address] [facility] [place] [address] 10/31/2023 1:30 PM EDT Cardiac Studies Cardiac Studies [facility] [place] [address] [place] [address] [place], Ekg [address] [place] [address] 10/31/2023 2:00 PM EDT Office Visit Cardiology [facility] [address], [place] [phone] Nia Eldridge CRNP [address] [place], [place] [address] 11/21/2023 1:00 PM EDT PulmDiagnostic Pulmonary Function Lab, [facility] 132 [facility] [place] [address] West, Pft 132 [facility] [place] [address] 12/13/2023 3:40 PM EDT Office Visit Family Practice [facility] [address] [place] [address] Tyshawn Tam, [address] [place] [address] 01/08/2024 1:20 PM EDT Office Visit Neurology [facility] [place] [address] [place] [address] Annalise Zapien PA-C [address] [place] [address] 02/08/2024 1:00 PM EDT Laboratory Laboratory [facility] [address] [place] [phone] Livia Lab [address] [facility] [place], [place] [address] 04/15/2024 1:30 PM EST Office Visit Cardiology, [facility] 132 [facility] [address] Ani Parikh CRNP 132 [facility] [address] 08/05/2024 1:00 PM EST Laboratory Laboratory [facility] [address] [place] [phone] Livia Lab Manish [address] [facility] [place] [address] 08/09/2024 2:00 PM EST Office Visit Hematology/Oncology [facility] [address] [place] [phone] Alma Williamson CRNP [address] [place] [address] Avpankaj [place] [address] 10/28/2024 9:30 AM EDT Appointment Radiology, [facility] [address] [place] [address] 10/28/2024 10:00 AM EDT Office Visit [facility] [address] [phone] Curry Camarillo MD [address] [facility] [place] [address] Scheduled Procedures Name Priority Associated Diagnoses Date/Ti me ECHOCARDIOGRAPHY, TRANSESOPH AGEAL; INCLUDING PROBE PLACEMENT, IMAGE ACQUISITION, INTERPRETATION AND REPORT Pain 10/10/2023 12:00 PM EDT ESOPHAGOGASTRODUODENOSCOPY ( EGD), FLEXIBLE, TRANSORAL, DIAGNOSTIC PAF (paroxysmal atrial fibrillation) (HCC) Pulmonary HTN (HCC) 10/10/2023 8:46 AM EDT Health Maintenance Due Date Last [...] IV, MD - 10/10/2023 9:53 AM EDT [facility] Patient Name: Ambika Lynch Procedure Date: 10/10/2023 [...] have been discussed with the patient and/or territory sales representative atthe time of discharge from the department. After obtaining informed consent, the endoscope waspassed under direct vision. All instruments were visually inspected immediatelybefore and after removal from the patient to ensure they are fully intact. Throughout the procedure, the patient's bloodpressure, pulse, and oxygen saturations were monitored continuously. The GIF [id number]) was introduced through the mouth, and advanced [...] Documents on File Type Date Recorded Patient Grader Tender Expl anation Advance Directives and Living Will 06/15/2023 ADVANCE DIRECTIVE / LIVING WILL Power of Roll Up Helper 06/15/2023 POWER OF A TTORNEY Latest Code Status on File Code Status Date Activated Date Inactivated Comments Full Code 04/23/2008 8:25 AM 04/25/2008 3:23 PM Code Status History Code Status Date Activated Date Inactivated Comments Full Code 04/23/2008 6:20 AM 04/23/2008 8:25 AM Full Code 04/23/2008 6:20 AM 04/23/2008 6:20 AM Care Teams Log Brander Relationship Specialty Start Date End Date Tyshawn Tam DO [address] [place], [place] [address] PCP - General Family Medicine 05/26/21 documented as of this encounter
[2023-11-25] MEDS: FUROSEMIDE 40 MG/4 ML VIAL IV SCH (17:04)
--- NOTE | 2023-11-25 17:50 | Electrocardiogram Report ---
Test Reason : Blood Pressure : / mmHG Vent. Rate : 150 BPM Atrial Rate : 000 BPM P-R Int : 000 ms QRS Dur : 124 ms QT Int : 334 ms P-R-T Axes : 000 -37 118 degrees QTc Int : 527 ms probably Atrial fibrillation with rapid ventricular response Left axis deviation Left bundle branch block Abnormal ECG When compared with ECG of 08-SEP-2023 12:39, Vent. rate has increased BY 70 BPM Confirmed by Cj Fitzpatrick ([id number]) on 11/25/2023 5:49:58 PM Referred By: REFERRED SELF Confirmed By:Maury Fitzpatrick
--- OUTSIDE RECORDS SUMMARY | 2023-11-25 18:06 | External Medical Summary | Summary of Care ---
Author Name Unknown Organization [facility] Address [address] [facility] [place] [address] Phone [phone] Care Team Providers Care Weather Forecaster Name Role Phone Elsa Anguiano DO Primary Care Provider Reason for Visit * Reason Onset Date Comments Nurse Telephone Follow Up 11/24/2023 611 [address] Encounter Details Date Type Department Care Team (Late st Contact Info) Description 11/24/2023 11:00 AM EDT Scheduled Telephone Pulmonary Medicine Devon Pemberton [address] [place] [address] [phone] Devon Nurse Follow Up Phone Call Pulmonary [address] [place] [address] [address] Arrived Allergies Active Allergy Reactions Criticality Noted Date Comments Aspartame Other (Please comment) 07/09/2015 Headache Cefuroxime Axetil 07/21/2015 contains phenylananine Cortisone Psych complications 07/10/2023 Metoprolol 02/20/2023 Dizziness, blurred vision, difficulty walking Phenobarbital Edema Other,Hives 02/05/2008 Phenylalanine 07/21/2015 Joints swelled documented as of this encounter (statuses as of 11/24/2023) Medications Medication Sig Dispensed Refills Start Date [...] Oral Tablet Chewable Active Drisdol 1.25 MG (80253 UT) Oral Capsule Take by mouth 1 [...] 1,000 mcgIndications:Intestinal postoperative nonabsorption 1000 mcg IM [id number] 06/27/2023 05/28/20 24 Active documented as of this encounter (statuses as of 11/24/2023) Active Problems Problem Noted Date Diagnosed Date [...] Record Intestinal postoperative nonabsorption 8 GERARDO RESEARCH OTHER*[id number] 09/18/2007 KIMMY (obstructive sleep apnea) 05/15/2007 H/O gastric bypass documented as of this encounter (statuses as of 11/24/2023) Resolved Problems Problem Noted Date Diagnosed Date [...] as of this encounter (statuses as of 11/24/2023) Immunizations Name Administration Dates Next Due COVID-19 [...] encounter Miscellaneous Notes * Telephone Encounter - July Wu LPN - 11/24/2023 3:33 PM EDT Called the pt and left a detailed message that her testing was normal and no oxygen needed and to call the office with any questions. * Telephone Encounter - Curry Camarillo MD - 11/24/2023 3:25 PM EDT No desaturation No need for oxygen supplementation Thank you * Telephone Encounter - July Wu LPN - 11/23/2023 3:48 PM EDT Look under chart review/notes 11/20 Brandee did the testing. * Telephone Encounter - Curry Camarillo MD - 11/23/2023 3:42 PM EDT This test is not reported * Telephone Encounter - July Wu LPN - 11/23/2023 3:09 PM EDT Please review pt's 6 min walk from 11/20 for nurse call, thanks. documented in this encounter Plan of Treatment Upcoming Encounters Date Type Department Care Team (Latest Contact Info) Description 12/19/2023 9:30 AM EDT Hospital Encounter CRS Waiting [facility], Cardiac Recovery Suite Waiting Unit, [address] [place] [address] Leatha Carrera IV, MD [address] [place] [address] 12/19/2023 9:30 AM EDT - 12/19/2023 3:00 PM EDT Surgery CRS Waiting [facility], Cardiac Recovery Suite Waiting Unit, [address] [place] [address] Leatha Carrera IV, MD [address] [place] [address] PVI RADIOFREQUENCY CATHETER ABLATION 12/19/2023 9:30 AM EDT Office Visit Cardiology [facility] [place] [address] [place] [address] [facility] Cardiac Recovery [facility] [address] [place] [address] 01/08/2024 1:20 PM EDT Office Visit Neurology [facility] [address] [place] [address] Annalise Zapien PA-C [address] [place] [address] 02/08/2024 1:00 PM EDT Laboratory Laboratory [facility] [address] [place] [phone] [place], Lab Scene [address] [place] [address] 02/13/2024 9:45 AM EDT Cardiac Studies [facility] [place] [address] [place] [address] [place], Ekg [address] [place] [address] 02/13/2024 10:15 AM EDT Office Visit Cardiology [facility], [place] [address] [place] [address] Rand Oleary CRNP [address] [place] [phone] 02/19/2024 1:00 PM EDT Office Visit Family Practice [facility] [address] [place], [place] [address] Elsa Anguiano, [address] [place], [place] [address] 04/15/2024 1:30 PM EST Office Visit Cardiology, [facility] [address] [facility] [place] [address] Ani Parikh CRNP [address] [facility] [place] [address] 08/05/2024 1:00 PM EST Laboratory Laboratory [facility] [address] [place] [phone] [place], Lab [facility] [address] [facility] [place] [address] 08/09/2024 2:00 PM EST Office Visit Hematology/Oncolog y [facility] [address] [place], [place] [phone] Alma Williamson CRNP [address] [facility] [place] [address] 10/22/2024 10:00 AM EDT Appointment Radiology, [facility] [address] [facility] [place] [phone] 10/22/2024 10:20 AM EDT Office Visit Pulmonary Medicine, [facility] [address] [facility] [place] [address] Ramo Soriano MD [address] [place] [address] [address] Scheduled Procedures Name Priority Associated Diagnoses Date/Ti [...] Additional history exists Lipid Panel 03/13/2028 03/13/2023, 010 08/2022, 08/10/2021, Additional history exists Colonoscopy 09/18/2031 [...] Documents on File Type Date Recorded Patient Test Desk Operator Expl anation Advance Directives and Living Will 06/15/2023 ADVANCE DIRECTIVE / LIVING WILL Power of Twist Packer 06/15/2023 POWER OF A TTORNEY * Full Code (Latest Code Status on File) Date Activated Date Inactivated Comments 04/23/2008 8:25 AM 04/25/2008 3:23 PM * Full Code Date Activated Date Inactivated Comments 04/23/2008 6:20 AM 04/23/2008 8:25 AM * Full Code Date Activated Date Inactivated Comments 04/23/2008 6:20 AM 04/23/2008 6:20 AM Care Teams Weather Forecaster Relationship Specialty Start Date End Date Elsa Anguiano DO [address] [place] [address] PCP - General Family Medicine 11/16/23 documented as of this encounter
--- OUTSIDE RECORDS SUMMARY | 2023-11-25 18:07 | External Medical Summary | Summary of Care ---
Author Name Unknown Organization [facility] Address [address] [facility] [address] Phone [phone] Care Team Providers Care Well Drill Operator Cable Tool Name Role Phone Elsa Anguiano DO Primary Care Provider Reason for Visit * Reason Onset Date Comments Medication Problem 11/22/2023 Encounter Details Date Type Department Care Team (Late st Contact Info) Description 11/22/2023 Telephone Family Practice [facility] [address] [facility] [place] [address] Elsa Anguiano DO [address] [place] [address] Medication Problem Allergies Active Allergy Reactions Criticality Noted Date [...] Oral Tablet Chewable Active Drisdol 1.25 MG (34957 UT) Oral Capsule Take by mouth 1 [...] 1,000 mcgIndications:Intestinal postoperative nonabsorption 1000 mcg IM [id number] 06/27/2023 05/28/20 24 Active documented as of [...] Electronic Medical Record Intestinal postoperative nonabsorption 8 TILINE RESEARCH OTHER*[id number] 09/18/2007 KIMMY (obstructive sleep apnea) 05/15/2007 H/O [...] encounter Miscellaneous Notes * Telephone Encounter - Desiree Martinez CRNP - 11/24/2023 2:22 PM EDT Covering for HUMBERTO Bar LMOM. Do not mix Lasix and Torsemide together. Have patient get STAT labs. Further recommendations pending the results of this. * Telephone Encounter - Anabel York RN - 11/24/2023 9:29 AM EDT See MyG message from patient below and Dr. Anguiano's reply: CM called and spoke with patient today. She was switched to Torsemide on 11/15 (20mg) from Lasix (had been taking 40mg daily). Still feels like she is swollen with fluid. Is having trouble sleeping, has a persistent dry cough. Legs and abdomen are swollen to she is unable to put on shoes (none fit). This morning she took her 20mg Torsemide and then took 40mg of lasix. (Did this on her own). Feels like she is starting to void more. She does not want to go to the hospital unless she is told to go by one of the doctors. She would like IV lasix in the clinic if warranted. Can we get her into cardiology TJ for f/u? She is scheduled for ablation procedure on 12/18. * Telephone Encounter - Elsa Anguiano DO - 11/23/2023 7:48 AM EDT Recommend turosemide 20mg (or furosemide 40mg), spironolactone 50mg and continue atenolol 50mg. Low salt diet, It is supposed to keep your heart function normal which it was as of 10/09 echo. It won't necessarily help with weight loss. Follow up with cardiology if that isn't working. Interpretation Summary The examination is adequate to evaluate the referral indication. The qualitative LV ejection fraction is 55-59% (normal). No LV segmental wall motion abnormalities. There is mild to moderate mitral regurgitation present. Moderate tricuspid regurgitation is present. Mild pulmonary hypertension is present. * Telephone Encounter - Katarzyna Watkins OSA - 11/22/2023 4:47 PM EDT Patient given a lower dose of diuretic. She feels it is not working that well. She asks should the dose be increased or is there another medication she can take in junction with it. Please call patient at [phone] to discuss documented in this encounter Plan of Treatment Upcoming Encounters Date Type Department Care Team (Latest Contact Info) Description 12/19/2023 9:30 AM EDT Hospital Encounter CRS Waiting [facility], Cardiac Recovery Suite Waiting Unit, H [address] [place] [address] Leatha Carrera IV, MD [address] [place] [address] 12/19/2023 9:30 AM EDT - 12/19/2023 3:00 PM EDT Surgery CRS Waiting [facility], Cardiac Recovery Suite Waiting Unit, H [address] [place] [facility] [place] [address] Leatha Carrera IV, MD [address] [place] [address] PVI RADIOFREQUENCY CATHETER ABLATION 12/19/2023 9:30 AM EDT Office Visit Cardiology [facility] [place] [address] [place] [facility] [place] [address] [facility] Cardiac [facility] [address] [facility] [place] [address] 01/08/2024 1:20 PM EDT Office Visit Neurology [place] [address] [place] [address] Annalise Zapien PA-C [address] [place], [place] [address] 02/08/2024 1:00 PM EDT Laboratory Laboratory [facility] [address] [place] [phone] [place], [facility] Sc[address]ery [address] [place], [place] [address] 02/13/2024 9:45 AM EDT Cardiac Studies [facility] [place] [address] [place] [address] [place], Ekg [address] [place] [address] 02/13/2024 10:15 AM EDT Office Visit Cardiology [facility] [place] [address] [place], [place] [phone] Rand Oleary CRNP [address] [place] [phone] 02/19/2024 1:00 PM EDT Office Visit Family Practice [facility] [address] [place], [place] [address] Elsa Anguiano DO [address] [place], [place] [address] 04/15/2024 1:30 PM EST Office Visit Cardiology, [facility] [address] Ani Parikh CRNP 132 [place] [address] 08/05/2024 1:00 PM EST Laboratory Laboratory [facility] [address] [place], [place] [phone] Livia [facility] Scene [address] [place], [place] [address] 08/09/2024 2:00 PM EST Office Visit Hematology/Oncolog y [facility] [address] [place] [phone] Alma Williamson CRNP [address] [place] [address] 10/22/2024 10:00 AM EDT Appointment Radiology, [facility] [address] [place] [phone] 10/22/2024 10:20 AM EDT Office Visit Pulmonary Medicine, [facility] [address] [facility] [place] [address] Ramo Soriano MD [address] [place] [address] Scheduled Orders Name Type Priority Associated Diagnoses Orde r Schedule BASIC METABOLIC PANEL Lab STAT Chronic diastolic heart failure (HCC) Encounter for long-term (current) use of medications Expected: 11/24/2023, Expires: 11/23/2024 BNP, NT-PRO Lab STAT Chronic diastolic heart failure (HCC) Encounter for long-term (current) use of medications Expected: 11/24/2023, Expires: 11/23/2024 CBC Lab STAT Chronic diastolic heart failure (HCC) Encounter for long-term (current) use of medications Expected: 11/24/2023, Expires: 11/23/2024 Scheduled Procedures Name Priority Associated Diagnoses Date/Ti [...] Diagnosis Atrial fibrillation (HCC)- Primary Atrial fibrillation Chronic diastolic heart failure (HCC)- Primary Chronic diastolic heart failure Encounter for long-term (current) use of medications Encounter for long-term (current) use of other medications Atrial fibrillation, unspecified type (HCC) documented in this encounter Advance Directives Documents on File Type Date Recorded Patient Sales Representative Education Courses Expl anation Advance Directives and Living Will 06/15/2023 ADVANCE DIRECTIVE / LIVING WILL Power of Industrial Sewer 06/15/2023 POWER OF A TTORNEY * Full Code (Latest Code Status on File) Date Activated Date Inactivated Comments 04/23/2008 8:25 AM 04/25/2008 3:23 PM * Full Code Date Activated Date Inactivated Comments 04/23/2008 6:20 AM 04/23/2008 8:25 AM * Full Code Date Activated Date Inactivated Comments 04/23/2008 6:20 AM 04/23/2008 6:20 AM Care Teams Well Drill Operator Cable Tool Relationship Specialty Start Date End Date Elsa Anguiano DO [address] [place] [address] PCP - General Family Medicine 11/16/23 documented as of this encounter
[2023-11-25] MEDS: ATENOLOL 25 MG TABLET PO SCH (18:08)
[2023-11-25] MEDS: APIXABAN 5 MG TABLET PO SCH (21:02)
[2023-11-25] MEDS: ARIPiprazole 5 MG TAB PO SCH (21:02)
[2023-11-25] MEDS: LORazepam 1 MG TAB PO SCH (21:02)
[2023-11-25] MEDS: NAPHAZOLIN/PHENIRAMIN OPH SOLN 15 ML BTL OPB SCH (21:02)
[2023-11-26 04:02] LABS: Appearance Urine Turbid (Clear); Bacteria Urine Automated None Seen (None Seen); Bilirubin Urine Negative (Negative); Blood Urine 3+ (Negative); Color Urine Dark Yellow; Epithelial Cell Urine Auto 0-2 /hpf (0-2); Glucose Urine UA Negative (Negative); Ketones Urine Negative (Negative); Leukocyte Esterase Urine 3+ (Negative); Nitrite Urine Negative (Negative); Protein Urine 3+ (Negative); RBC Urine Automated >20 /hpf (0-2); Specific Gravity Urine 1.017 (1.000-1.030); Urobilinogen Urine Negative (Negative); WBC Urine Automated >50 /hpf (0-5)
[2023-11-26] MEDS: PHENAZOPYRIDINE HCL 200 MG TAB PO STA (04:44)
[2023-11-26] MEDS: cefTRIAXone SODIUM 2,000 MG/50 ML BAG IV SCH (04:45)
--- NOTE | 2023-11-26 05:57 | Communication Note ---
Date of Service: November 26, 2023 Made aware by RN of abnormal UA WBC esterase positive Patient with burning dysuria symptoms as per RN. AP Complicated UTI Urine CS, Ceftriaxone
[2023-11-26 06:42] LABS: BUN Creatinine Ratio 25.3 (10-20); Calcium 8.8 mg/dl (8.6-10.3); Creatinine Clr Calc Pharmacy 58.9 ml/min; Est GFR (African American) 65.1 ml/min; Est GFR (Non-African American) 56.1 ml/min; Magnesium 2.3 mg/dl (1.7-2.4); Potassium 3.7 mmol/L (3.5-5.1)
[2023-11-26 06:59] LABS: Basophils # (auto) 0.08 K/uL (0.00-0.20); Eosinophils # (auto) 0.17 K/uL (0.00-0.50); Eosinophils % (auto) 2.2 %; Hematocrit (blood only) 33.6 % (37.0-47.0); Hemoglobin 10.8 g/dl (12.0-16.0); Immature Granulocytes # (auto) 0.04 K/uL (0.01-0.20); Immature Granulocytes % (auto) 0.5 %; Lymphocytes # (auto) 0.72 K/uL (1.20-3.40); Lymphocytes % (auto) 9.2 %; Mean Corpuscular Hgb Conc 32.1 g/dL (32.0-36.0); Mean Platelet Volume 9.2 fL (9.4-12.4); Monocytes % (auto) 12.7 %; Neutrophils # (auto) 5.84 K/uL (1.40-6.50); Neutrophils % (auto) 74.4 %; Platelet Count 251 K/uL (130-400); RDW Coefficient of Variation 13.7 % (11.5-14.5); RDW Standard Deviation 43.6 fL (36.4-46.3); Red Blood Count 3.86 M/uL (4.20-5.40); White Blood Count 7.85 K/ul (4.8-10.8)
--- NOTE | 2023-11-26 07:21 | Emergency Department Note ---
History of Present Illness General Chief complaint: Swelling/Edema to Extremity Time Seen by Provider: 11/25/23 09:42 History of Present Illness This 73-year-old female with a history of hypothyroidism, sleep apnea, uses CPAP, chronic heart failure, osteoarthritis, elevated lipids, atrial fibrillation, morbid obesity, and hypertension, presents the ED for evaluation of shortness of breath and lower extremity swelling that has been present for the last 7 days. She states it has become worse with time. She has a known history of peripheral edema and normally takes Lasix 60 mg daily. She states periodically the Lasix is ineffective and she requires IV medication to diurese. She has not contacted her PCP. She denies any change in diet. She denies any chest pain associated with her shortness of breath. She states her A-fib is intermittent, and does become worse at times. She feels as though her knees and ankles are so swollen and stiff that it is difficult for her to move. no alteration diet. She denies any increase in fluid intake. She has not seen her PCP. Home Medications Medication Instructions Recorded Confirmed Type cyanocobalamin (vitamin B-12) 1,000 mcg IM MONTHLY 07/28/21 11/25/23 History 1,000 mcg/mL injection solution ipratropium bromide 21 mcg (0.03 2 spray intranasal DAILY #30 mL 08/09/23 11/25/23 Rx %) nasal spray acetaminophen 650 mg 1,300 mg PO Q12H PRN Pain 09/08/23 11/25/23 History tablet,extended release (Tylenol Arthritis Pain) apixaban 5 mg tablet (Eliquis) 5 mg PO BID 09/08/23 11/25/23 History aripiprazole 5 mg tablet 5 mg PO HS 09/08/23 11/25/23 History atenolol 25 mg tablet 25 mg PO QAM 09/08/23 11/25/23 History benzonatate 100 mg capsule 100 mg PO TID PRN Cough 09/08/23 11/25/23 History ergocalciferol (vitamin D2) 1,250 1,250 mcg PO WK 09/08/23 11/25/23 History mcg (50,000 unit) capsule (Vitamin D2) furosemide 40 mg tablet See Rx Instructions .Route .COMPLEX 09/08/23 11/25/23 History lorazepam 1 mg tablet 1 mg PO HS Anxiety 09/08/23 11/25/23 History losartan 25 mg tablet 25 mg PO DAILY 09/08/23 11/25/23 History naphazoline 0.025 %-pheniramine 1 drp OPB BID 09/08/23 11/25/23 History 0.3 % eye drops (Naphcon-A) spironolactone 25 mg tablet 12.5 mg PO DAILY 09/08/23 11/25/23 History trazodone 50 mg tablet 50 mg PO HS PRN Sleep 09/08/23 11/25/23 History zolpidem 10 mg tablet 10 mg PO HS PRN Sleep 09/08/23 11/25/23 History Allergies Allergy/AdvReac Type Severity Reaction Status Date / Time theanine Allergy Severe anxious, Verified 11/25/23 11:29 palpitations, sob phenobarbital Allergy Intermediate hives, Verified 11/25/23 11:29 welts, swelling pineapple Allergy Mild inside Verified 11/25/23 11:29 mouth irritation tomato Allergy Mild irritation Verified 11/25/23 11:29 to mouth aspartame Allergy Unknown Unknown Verified 11/25/23 11:29 lavender (Lavandula Allergy Unknown Unknown Verified 11/25/23 11:29 angustifolia) cefuroxime Allergy Joint Pain Verified 11/25/23 16:11 house dust Allergy Sneezing Verified 11/25/23 16:12 mold Allergy Congested Verified 11/25/23 16:13 phenylalanine AdvReac Severe anxious, Verified 11/25/23 11:29 joint swelling metoprolol AdvReac Blurry Verified 11/25/23 16:11 Vision BLACK MOLD Allergy Intermediate chronic Uncoded 11/25/23 11:29 sinus infection, respiratory issues Dust Allergy Intermediate sneezing, Uncoded 11/25/23 11:29 coughing and congestion Past Med/Surg History Problem List (Updated 11/29/23 @ 21:59 by Bryan Saucedo PA-C) Edema, peripheral (Acute) Hypothyroidism Off meds since 11/2020 > PCP aware/monitoring TSH and Free T4 WNL on 02/24/21 Sleep apnea No device Acute on chronic heart failure with preserved ejection fraction (HFpEF) Vasomotor rhinitis Sensorineural hearing loss (SNHL) of both ears Osteoarthritis (Chronic) HLD (hyperlipidemia) Atrial fibrillation with rapid ventricular response (Acute) History of COVID-19 Morbid obesity Osteoarthritis of left shoulder CMC arthritis HTN (hypertension) Medical History New onset left bundle branch block (LBBB) Sjogren's syndrome without extraglandular involvement Follows with rheum Intestinal postoperative nonabsorption Pulmonary hypertension Moderate to severe pulmonary hypertension, PASP 60-70 mmHg 09/2022 echo Diastolic heart failure s/p covid-19. Fatty liver non-alcoholic Narcolepsy following up with Jo Ann Cruz (Sleep Lab) at [facility] today LBBB (left bundle branch block) Intermittent- follows with Dr. Cardoza Anxiety GERD (gastroesophageal reflux disease) Well controlled and stable Osteoarthritis History of COVID-19 Dx 08/2019> not hospitalized > loss of taste and smell, fever, sore throat--> developed CHF and chronic congestion and follows with Pulmonary (BELLA Larkin). doing well at this time. Atrial fibrillation Dx September 2020 > follows Dr. Cardoza > no pacer/ Eliquis Asthma, exercise induced Well controlled and stable Exercise induced Surgical History History of total left knee replacement (TKR) 2014 History of total right knee replacement (TKR) 2014 History of cardioversion x2 > last one Jan 2021 History of tooth extraction with dental implants and screw in dentures-approx 2019 History of esophagogastroduodenoscopy (EGD) History of tonsillectomy and adenoidectomy History of colonoscopy History of x1 H/O gastric bypass Family History Mother Diabetes Coronary heart disease History of coronary artery bypass graft, Onset Age: 76 Hypertension Father , 87 Coronary heart disease Myocardial infarction, Onset Age: 78 Stroke Family/Other Heart disease Other No family history of adverse response to anesthesia No family history of bleeding disorder Social History Smoking Status: Never smoker Second Hand Exposure: No; Do You Dip or Chew Tobacco: No; Tobacco Cessation Education Requested by Patient: No Hx Alcohol Use: Yes Alcohol type: wine Hx Substance Use: No Preferred Language: Belarusian Communication Ability: Effective X Ray Equipment Tester Required: No Beliefs That Will Affect Care: None marital status: Current Living Situation: Alone current occupational status: retired current occupation: Retired psychologist Other Information That Helps Us Care for You: No Feels Safe at Home: Yes Safety Concerns: Feels Safe At This Time Assistive Devices: Cane Assistive Devices Comment: screwed in upper an dlower dentures that don't come out Review of Systems A total of 10 systems reviewed and were otherwise negative Physical Exam Vital Signs Vital Signs - 24 hr 11/25/23 09:31 11/25/23 09:31 11/25/23 09:31 Temperature 36.6 C Temperature Source Oral Pulse Rate 135 H Pulse Rate from SpO2 Sensor Pulse Rhythm Irregular Respiratory Rate 20 Blood Pressure 142/112 H Blood Pressure Mean 122 Pulse Oximetry 99 Oxygen Delivery Method Room Air Room Air Sepsis Recent Fever Within 48 Hours No Sepsis New/Unexplained Change in Mental Status No Sepsis Action Taken by Nursing No Action Required 11/25/23 10:00 11/25/23 10:00 11/25/23 10:02 Temperature Temperature Source Pulse Rate 137 H 130 H Pulse Rate from SpO2 Sensor 143 H Pulse Rhythm Respiratory Rate 18 Blood Pressure 123/96 Blood Pressure Mean 107 Pulse Oximetry 98 Oxygen Delivery Method Sepsis Recent Fever Within 48 Hours Sepsis New/Unexplained Change in Mental Status Sepsis Action Taken by Nursing 11/25/23 10:27 11/25/23 10:30 11/25/23 11:27 Temperature Temperature Source Pulse Rate 151 H 134 H Pulse Rate from SpO2 Sensor 160 H Pulse Rhythm Respiratory Rate 16 16 Blood Pressure 144/93 H Blood Pressure Mean 105 Pulse Oximetry 92 Oxygen Delivery Method Sepsis Recent Fever Within 48 Hours Sepsis New/Unexplained Change in Mental Status Sepsis Action Taken by Nursing 11/25/23 11:30 11/25/23 11:30 11/25/23 11:57 Temperature Temperature Source Pulse Rate 144 H 85 Pulse Rate from SpO2 Sensor Pulse Rhythm Respiratory Rate 23 22 Blood Pressure 131/99 Blood Pressure Mean 103 Pulse Oximetry Oxygen Delivery Method Sepsis Recent Fever Within 48 Hours Sepsis New/Unexplained Change in Mental Status Sepsis Action Taken by Nursing 11/25/23 12:01 11/25/23 12:03 11/25/23 13:09 Temperature Temperature Source Pulse Rate 91 H 125 H Pulse Rate from SpO2 Sensor 113 H Pulse Rhythm Respiratory Rate 19 22 Blood Pressure 140/74 Blood Pressure Mean 95 Pulse Oximetry 97 Oxygen Delivery Method Sepsis Recent Fever Within 48 Hours Sepsis New/Unexplained Change in Mental Status Sepsis Action Taken by Nursing General: Well-developed, well-nourished, morbidly obese elderly female, in no acute distress. Laying in bed. Alert and oriented. Conversive. Skin: Warm and dry with good turgor. No rashes. No ecchymosis or erythema. She has 3+ pitting edema present in both lower extremities. HEENT: Normocephalic atraumatic. Eyes PERRLA, EOMI. No conjunctiva or scleral injection. Ears TMs intact bilaterally with good light reflexes. No erythema or bulging. No hemotympanum. Canals are patent. Nares patent bilaterally without turbinate enlargement. No significant drainage. No epistaxis. Oropharynx without erythema or exudate. Uvula midline, oral mucosa moist. No lesions present. Lymphatics are palpated without anterior or posterior chain enlargement or tenderness. Heart: Heart Irregularly irregular. No MGR. Peripheral pulses are 2+. Lungs: Lungs have bibasilar crackles to auscultation. No rhonchi or wheezing. Good air movement. The patient is able to take a deep breath. Abdomen: Abdomen was inspected, auscultated, and palpated. morbidly obese. Bowel sounds present x 4. Soft, nontender to palpation. No hepato- splenomegaly. No masses noted. No rebound. No CVA tenderness. Musculoskeletal: Gross motor function of the upper and lower extremities is intact and unremarkable. There is some limitation in knee flexion and ankle dorsiflexion secondary to the edema. Neurologic: Gross sensation is intact across both lower extremities by soft touch. Course Administered Medications Apixaban (Apixaban 5 Mg Tablet) 5 mg PO BID LORENA Stop: 12/25/23 20:59 Last Admin: 11/29/23 20:51 Dose: 5 mg Documented By: Admin: 11/29/23 08:13 Dose: 5 mg Documented By: Admin: 11/28/23 20:21 Dose: 5 mg Documented By: Admin: 11/28/23 08:26 Dose: 5 mg Documented By: Admin: 11/27/23 20:11 Dose: 5 mg Documented By: Admin: 11/27/23 08:10 Dose: 5 mg Documented By: Admin: 11/26/23 20:39 Dose: 5 mg Documented By: Admin: 11/26/23 08:16 Dose: 5 mg Documented By: Admin: 11/25/23 21:02 Dose: 5 mg Documented By: HELEN Aripiprazole (Aripiprazole 5 Mg Tab) 5 mg PO HS LORENA Stop: 12/25/23 20:59 Last Admin: 11/29/23 20:50 Dose: 5 mg Documented By: Admin: 11/28/23 20:21 Dose: 5 mg Documented By: Admin: 11/27/23 20:11 Dose: 5 mg Documented By: Admin: 11/26/23 20:39 Dose: 5 mg Documented By: Admin: 11/25/23 21:02 Dose: 5 mg Documented By: HELEN Atenolol (Atenolol 25 Mg Tablet) 25 mg PO BID LORENA Stop: 12/25/23 20:59 Last Admin: 11/29/23 20:51 Dose: 25 mg Documented By: Admin: 11/29/23 08:14 Dose: 25 mg Documented By: Admin: 11/28/23 20:21 Dose: Not Given Documented By: Admin: 11/28/23 08:26 Dose: 25 mg Documented By: Admin: 11/27/23 20:10 Dose: Not Given Documented By: Admin: 11/27/23 08:10 Dose: 25 mg Documented By: Admin: 11/26/23 20:39 Dose: Not Given Documented By: Admin: 11/26/23 08:16 Dose: 25 mg Documented By: Admin: 11/25/23 18:08 Dose: 25 mg Documented By: DOMONIQUE Furosemide (Furosemide 40 Mg/4 Ml Vial) 40 mg IV TID LORENA Stop: 12/27/23 14:44 Last Admin: 11/29/23 20:50 Dose: 40 mg Documented By: Admin: 11/29/23 13:38 Dose: 40 mg Documented By: Admin: 11/29/23 08:15 Dose: 40 mg Documented By: Admin: 11/28/23 20:21 Dose: 40 mg Documented By: Admin: 11/28/23 14:10 Dose: 40 mg Documented By: Admin: 11/28/23 08:26 Dose: 40 mg Documented By: Admin: 11/27/23 20:11 Dose: 40 mg Documented By: Admin: 11/27/23 15:44 Dose: 40 mg Documented By: DOMONIQUE Ipratropium [place] (Ipratropium [place] Nasal [place] 0.06% 15ml) 1 sprays FIORELLA DAILY LORENA Stop: 12/26/23 08:59 Last Admin: 11/29/23 08:20 Dose: 1 sprays Documented By: Admin: 11/28/23 08:27 Dose: 1 sprays Documented By: Admin: 11/27/23 08:11 Dose: 1 sprays Documented By: Admin: 11/26/23 08:17 Dose: 1 sprays Documented By: DOMONIQUE Lorazepam (Lorazepam 1 Mg Tab) 1 mg PO HS LORENA Stop: 12/25/23 20:59 Last Admin: 11/29/23 20:50 Dose: 1 mg Documented By: Admin: 11/28/23 20:22 Dose: 1 mg Documented By: Admin: 11/27/23 20:11 Dose: 1 mg Documented By: Admin: 11/26/23 20:39 Dose: 1 mg Documented By: Admin: 11/25/23 21:02 Dose: 1 mg Documented By: HELEN Losartan Potassium (Losartan Potassium 25 Mg Tab) 25 mg PO DAILY LORENA Stop: 12/26/23 08:59 Last Admin: 11/29/23 08:14 Dose: 25 mg Documented By: Admin: 11/28/23 08:25 Dose: 25 mg Documented By: Admin: 11/27/23 08:10 Dose: 25 mg Documented By: Admin: 11/26/23 08:15 Dose: 25 mg Documented By: DOMONIQUE Naphazoline HCl/Pheniramine Maleate (Naphazolin/Pheniramin Oph Soln 15 Ml Btl) 1 drops OPB BID LROENA Stop: 12/25/23 20:59 Last Admin: 11/29/23 20:57 Dose: 1 drops Documented By: Admin: 11/29/23 08:18 Dose: 1 drops Documented By: Admin: 11/28/23 20:22 Dose: 1 drops Documented By: Admin: 11/28/23 08:27 Dose: 1 drops Documented By: Admin: 11/27/23 20:11 Dose: 1 drops Documented By: Admin: 11/27/23 08:11 Dose: 1 drops Documented By: Admin: 11/26/23 20:39 Dose: 1 drops Documented By: Admin: 11/26/23 08:17 Dose: 1 drops Documented By: Admin: 11/25/23 21:02 Dose: 1 drops Documented By: HELEN Oxycodone HCl (Oxycodone Hcl Ir 5 Mg Tab (Immediate Release)) 5 mg PO Q4H PRN PRN Reason: Pain Stop: 12/10/23 21:29 Last Admin: 11/29/23 21:05 Dose: 5 mg Documented By: Admin: 11/28/23 20:22 Dose: 5 mg Documented By: Admin: 11/27/23 23:48 Dose: 5 mg Documented By: Admin: 11/26/23 21:43 Dose: 5 mg Documented By: HELEN Potassium Chloride (Potassium Chloride 10 Meq Tabcr) 10 meq PO BID LORENA Stop: 12/28/23 09:44 Last Admin: 11/29/23 20:50 Dose: 10 meq Documented By: Admin: 11/29/23 08:17 Dose: 10 meq Documented By: Admin: 11/28/23 20:21 Dose: 10 meq Documented By: Admin: 11/28/23 10:25 Dose: 10 meq Documented By: DOMONIQUE Spironolactone (Spironolactone 12.5 Mg Tab) 12.5 mg PO DAILY LORENA Stop: 12/26/23 08:59 Last Admin: 11/29/23 08:20 Dose: 12.5 mg Documented By: Admin: 11/28/23 08:25 Dose: 12.5 mg Documented By: Admin: 11/27/23 08:11 Dose: 12.5 mg Documented By: Admin: 11/26/23 08:16 Dose: 12.5 mg Documented By: DOMONIQUE Trazodone HCl (Trazodone Hcl 50 Mg Tab) 50 mg PO HS PRN PRN Reason: Sleep Stop: 12/25/23 15:59 Last Admin: 11/29/23 21:05 Dose: 50 mg Documented By: Admin: 11/28/23 20:22 Dose: 50 mg Documented By: Admin: 11/27/23 23:48 Dose: 50 mg Documented By: Admin: 11/26/23 21:43 Dose: 50 mg Documented By: HELEN Zolpidem Tartrate (Zolpidem Tartrate 5 Mg Tab) 5 mg PO HS PRN PRN Reason: Sleep Stop: 12/25/23 16:06 Last Admin: 11/28/23 20:22 Dose: 5 mg Documented By: HELEN Discontinued Medications Diltiazem HCl (Diltiazem Hcl 5 Mg/Ml 5 Ml Vial) 20 mg IV NOW STA Stop: 11/25/23 11:49 Last Admin: 11/25/23 11:55 Dose: 20 mg Documented By: DEEP Co-signed By: SUSANA Furosemide (Furosemide 40 Mg/4 Ml Vial) 60 mg IV ONE ONE Stop: 11/25/23 10:09 Last Admin: 11/25/23 10:28 Dose: 60 mg Documented By: DEEP Furosemide (Furosemide 40 Mg/4 Ml Vial) 40 mg IV BID17 LORENA Stop: 12/25/23 16:59 Last Admin: 11/27/23 08:11 Dose: 40 mg Documented By: Admin: 11/26/23 17:31 Dose: 40 mg Documented By: Admin: 11/26/23 08:17 Dose: 40 mg Documented By: Admin: 11/25/23 17:04 Dose: 40 mg Documented By: DOMONIQUE Magnesium Sulfate/Dextrose (Magnesium Sulfate / D5w) 1 gm in 100 mls @ 100 mls/hr IV NOW STA Stop: 11/25/23 12:48 Last Infusion: 11/25/23 16:21 Dose: Infused Documented By: Admin: 11/25/23 12:27 Dose: 100 mls/hr Documented By: BERTA Ceftriaxone Sodium (Rocephin) 2,000 mg in 50 mls @ 100 mls/hr IV Q24H LORENA Stop: 12/06/23 04:29 Last Infusion: 11/28/23 04:50 Dose: Infused Documented By: Admin: 11/28/23 04:16 Dose: 100 mls/hr Documented By: Infusion: 11/27/23 05:05 Dose: Infused Documented By: Admin: 11/27/23 04:33 Dose: 100 mls/hr Documented By: Infusion: 11/26/23 05:15 Dose: Infused Documented By: Admin: 11/26/23 04:45 Dose: 100 mls/hr Documented By: HELEN Metoprolol Tartrate (Metoprolol Tartrate 1 Mg/Ml Vial) 5 mg IV NOW STA Stop: 11/25/23 13:58 Last Admin: 11/25/23 15:10 Dose: 5 mg Documented By: FARIDA Metoprolol Tartrate (Metoprolol Tartrate 25 Mg Tab) 25 mg PO BID LORENA Stop: 12/25/23 14:14 Last Admin: 11/25/23 15:11 Dose: 25 mg Documented By: FARIDA Phenazopyridine HCl (Phenazopyridine Hcl 200 Mg Tab) 200 mg PO NOW STA Stop: 11/26/23 04:32 Last Admin: 11/26/23 04:44 Dose: 200 mg Documented By: HELEN Potassium Chloride (Potassium Chloride Crtab 20 Meq Tabcr) 40 meq PO ONE ONE Stop: 11/26/23 07:32 Last Admin: 11/26/23 08:15 Dose: 40 meq Documented By: DOMONIQUE Zolpidem Tartrate (Zolpidem Tartrate 5 Mg Tab) 10 mg PO HS PRN PRN Reason: Sleep Stop: 12/25/23 16:06 Last Admin: 11/27/23 23:48 Dose: 10 mg Documented By: HELEN Medical Decision Making Differential Diagnosis Acute exacerbation of congestive heart failure, DVT, infection, cellulitis, acute fluid retention Medical Records Attestation: I reviewed the patient's medical records. Home Medications Current Medication List: was personally reviewed by me Laboratory Data CBC obtained today shows a normal white count of 7.7. Mild anemia with an H&H of 10.9 and 34.1. INR normal at 1.1. Mild had hyponatremia with sodium of 131. Potassium of 3.9. BUN and creatinine are normal. Glucose elevated at 120. Normal magnesium of 2.4. Normal LFTs. Troponin is elevated at 16.6. BNP is also elevated at 186. Lipase normal. 11/29/23 05:31 11/29/23 05:31 Lab Results 11/25/23 Range/Units 10:09 WBC 7.07 (4.8-10.8) K/ul RBC 3.91 L (4.20-5.40) M/uL Hgb 10.9 L (12.0-16.0) g/dl Hct 34.1 L (37.0-47.0) % MCV 87.2 (80.0-100.0) fL MCH 27.9 (25.0-34.0) pg MCHC 32.0 (32.0-36.0) g/dL RDW Std Deviation 43.2 (36.4-46.3) fL RDW Coeff of Juan 13.6 (11.5-14.5) % Plt Count 208 (130-400) K/uL MPV 9.0 L (9.4-12.4) fL Immature Gran % (Auto) 0.3 % Neut % (Auto) 71.1 % Lymph % (Auto) 13.7 % [place] % (Auto) 11.5 % Eos % (Auto) 2.1 % Baso % (Auto) 1.3 % Neut # (Auto) 5.03 (1.40-6.50) K/uL Lymph # (Auto) 0.97 L (1.20-3.40) K/uL [place] # (Auto) 0.81 H (0.11-0.59) K/uL Eos # (Auto) 0.15 (0.00-0.50) K/uL Baso # (Auto) 0.09 (0.00-0.20) K/uL Immature Gran # (Auto) 0.02 (0.01-0.20) K/uL PT 12.1 H (9.0-12.0) Seconds INR 1.1 (0.9-1.1) APTT 28 (21-31) Seconds PTT Ratio 1.0 Sodium 131 L (136-145) mmol/L Potassium 3.9 (3.5-5.1) mmol/L Chloride 96 L (98-107) mmol/L Carbon Dioxide 26 (21-32) mmol/L Anion Gap 9 (3-11) BUN 20 (6-23) mg/dl Creatinine 0.79 (0.6-1.2) mg/dl Est Cr Clr Drug Dosing 77.5 ml/min Est GFR ( Amer) 85.5 ml/min Est GFR (Non-Af Amer) 73.7 ml/min BUN/Creatinine Ratio 25.3 H (10-20) Glucose 120 H (70-99(Fasting)) mg/dl Calcium 8.9 (8.6-10.3) mg/dl Magnesium 2.4 (1.7-2.4) mg/dl Total Bilirubin 0.7 (0.2-1.0) mg/dl AST 22 (13-39) U/L ALT 14 (7-52) U/L Alkaline Phosphatase 154 H (34-104) U/L Troponin I High Sens 16.6 H (0-14) pg/ml B-Natriuretic Peptide 186 H (0-100) pg/ml Total Protein 7.0 (6.0-8.3) gm/dl Albumin 3.9 (3.4-5.0) gm/dl Globulin 3.1 (2.5-4.0) gm/dl Albumin/Globulin Ratio 1.3 (0.9-2) Lipase 22 (11-82) U/L Imaging Data My Impression: chest x-ray obtained today shows cardiomegaly with pulmonary edema. No acute infiltrate is noted. Films were interpreted by me and read by radiology. ECG Data Additional Comments: EKG obtained today was reviewed with Dr. Medrano. It shows atrial fibrillation with a rapid ventricular response. Rate of 150. Left bundle branch block is present. Blood Pressure Blood Pressure Findings: Normal blood pressure MDM Narrative The patient was evaluated in room B5. Conservative care measures were discussed. IV was established. Labs were obtained. She was placed on a monitoring engineer and was found to be in atrial fibrillation with a rapid ventricular response. Heart rate in the 130s to 140s. EKG was obtained confirming this. chest x-ray was also obtained. It shows pulmonary edema with cardiomegaly. She was given Lasix 60 mg IV to assist with her peripheral edema. She was able to diurese a considerable amount of fluid, and stated her ankles felt much better and moves more freely. She was also given Cardizem 20 mg IV for her atrial fibrillation and magnesium 1 g IV. Rate reduced to the 100s to 110s. Unfortunately, this was temporary. Admission was recommended to the patient. [facility] Please see that dictation for final management. The patient remained stable while in the ED. Impression & Plan Atrial fibrillation with rapid ventricular response, Edema, peripheral [facility] Please see that dictation for final management. She was seen in conjunction with Dr. Medrano, who also evaluated the patient and concurred with today's diagnosis and treatment plan. She will be monitored in the ED until she has been admitted to the floor. Cardizem 20 mg IV and magnesium 1 g IV were administered with short- term relief of her A-fib with rapid ventricular response. Discharge Plan Visit Data Chief Complaint: Swelling/Edema to Extremity ED Provider: Rodriguez Medrano ED Midlevel Provider: Bryan Saucedo Discharge Problem: Atrial fibrillation with rapid ventricular response, Edema, peripheral Patient Disposition: Admitted As Inpatient Discharge Instructions Interventions: ED Discharge Assessment Last Done: 11/25/23 15:22
--- NOTE | 2023-11-26 08:04 | Cardiology Consultation ---
Date of Consultation November 26, 2023 Assessment & Plan (1) Acute on chronic heart failure with preserved ejection fraction (HFpEF): (2) Atrial fibrillation with rapid ventricular response: (3) Morbid obesity: (4) LBBB (left bundle branch block): Plan Patient admitted with HFpEF in setting of non compliance wiht home medications. Weight gain of approx 30 lbs noted in the last few weeks. Pulm edema on chest xray with evidence of volume overload on exam. Continue furosemide 40 mg IV BID today. May need dose increase pending response. Monitor I+O's. Monitor electrolytes Mild hyponatremia noted. Likely dilutional. Will improve with diuretics. continue spironolactone. On admission, afib RVR noted. Treated with several doses IV beta víctor and IV diltiazem. Rates now improved. Continue atenolol 25 mg BID. She was non compliant with home beta víctor per outpatient notes. Continue anticoagulation with Eliquis 5 mg BID. [place] [facility] [place]code purple. Patient hit head. Fall was mehcnaical as she slipped getting off the toilet. Head CT was negative. No current symptoms of headache or vision changes. Monitor. Case discussed with Dr. Sanket Joe spent a total of 55 minutes on the date of service in preparation, delivery, and documentation of the care provided to this patient, excluding any time spent in the performance of separately billed services. Kimberly Jay PA-C Department of Cardiology, [facility] This chart was completed in part utilizing Speech Voice Recognition Software. Grammatical errors, random word insertions, pronoun errors, and incomplete sentences are an occasional consequence of this system due to software limitations, ambient noise, and hardware issues. Any formal questions or concerns about the content, text, or information contained within the body of this dictation should be directly addressed to the provider for clarification. Supervising Physician Co-Signing Physician Notes Patient was seen and personally examined. Full care and plan as outlined above. Management discussed personally with advanced provider and endorsed 73-year-old female with complex history of paroxysmal atrial fibrillation and chronic diastolic heart failure presents now with atrial fibrillation with rapid response in part due to the poss lapse in medications. Has findings consistent with heart failure with preserved ejection fraction with significant right-sided volume overload and edema. Heart rates have improved since hospitalization, oxygen and resumption of atenolol Will continue diuretics as above Patient agreeable plan History of Present Illness Reason for Consultation: CHF; Afib RVR Requesting Physician: Ms. Aj PA-C Attending Physician: Dr. Coles History of Present Illness Patient is a 73 year old female known to [facility] Cardiology. history is complex and includes: 1. Paroxysmal atrial fibrillation, diagnosed 10/2020, Dilated left atrium a. Status post DCCV 10/20/2020, 12/31/2020, 03/01/2023 b. Previously on flecainide, discontinued 04/2023 i. [id number] score of 3 (age, female, HTN), on Eliquis 2. Hypertension 3. Hyperlipidemia 4. Left bundle-branch block 5. Coronary calcification a. Negative nuclear stress 11/17/2020, 12/05/2022 6. Heart failure with preserved EF, NYHA class 2-3 7. Mitral regurgitation 8. Tricuspid regurgitation 9. Pulmonary hypertension, mixed etiology 10. History of gastric bypass 11. Iron deficiency anemia, history of iron infusions, follows with Hematology 12. Sjogren's syndrome 13. KIMMY - non compliant with CPAP 14. Peripheral polyneuropathy, follows with Neurology Patient currently awaiting [place]ib [place] [facility] Scheduled for December 18. Earlier this month patient was experiencing worsening SOB, swelling, orthopnea. She was transitioned from furosemide 40 mg daily to torsemide. She phoned [facility] PCP several days later and felt this was not working. She self medicated and then took lasix and torsemide for several days. On 11/15 during office visit patient reportedly said she was not taking Atenolol either. HR's were high When symptoms failed to return she presented to [place] ER for evaluation. Found to have afib RVR and chest xray consistent with pulm edema. Started on IV lasix. Also diagnosed with UTI. Danilo hernandez called this morning as patient slipped standing up from toilet. Hit her head on the commode. No loss of consciousness. Taken for head CT which was negative. At time of consult patient resting in bed. No headache or vision changes. feels fatigued as she did not sleep well. Declines use of CPAP. HR's greatly improved with resuming oral atenolol 25 mg BID. She reports her SOB has improved from admission. resting comfortably. Still edematous to her hips. No fever, cough, chills. Allergies Allergy/AdvReac Type Severity Reaction Status Date / Time theanine Allergy Severe anxious, Verified 11/25/23 11:29 palpitations, sob phenobarbital Allergy Intermediate hives, Verified 11/25/23 11:29 welts, swelling pineapple Allergy Mild inside Verified 11/25/23 11:29 mouth irritation tomato Allergy Mild irritation Verified 11/25/23 11:29 to mouth aspartame Allergy Unknown Unknown Verified 11/25/23 11:29 lavender (Lavandula Allergy Unknown Unknown Verified 11/25/23 11:29 angustifolia) cefuroxime Allergy Joint Pain Verified 11/25/23 16:11 house dust Allergy Sneezing Verified 11/25/23 16:12 mold Allergy Congested Verified 11/25/23 16:13 phenylalanine AdvReac Severe anxious, Verified 11/25/23 11:29 joint swelling metoprolol AdvReac Blurry Verified 11/25/23 16:11 Vision BLACK MOLD Allergy Intermediate chronic Uncoded 11/25/23 11:29 sinus infection, respiratory issues Dust Allergy Intermediate sneezing, Uncoded 11/25/23 11:29 coughing and congestion Home Medications Medication Instructions Recorded Confirmed Type cyanocobalamin (vitamin B-12) 1,000 mcg IM MONTHLY 07/28/21 11/25/23 History 1,000 mcg/mL injection solution ipratropium bromide 21 mcg (0.03 2 spray intranasal DAILY #30 mL 08/09/23 11/25/23 Rx %) nasal spray acetaminophen 650 mg 1,300 mg PO Q12H PRN Pain 09/08/23 11/25/23 History tablet,extended release (Tylenol Arthritis Pain) apixaban 5 mg tablet (Eliquis) 5 mg PO BID 09/08/23 11/25/23 History aripiprazole 5 mg tablet 5 mg PO HS 09/08/23 11/25/23 History atenolol 25 mg tablet 25 mg PO QAM 09/08/23 11/25/23 History benzonatate 100 mg capsule 100 mg PO TID PRN Cough 09/08/23 11/25/23 History ergocalciferol (vitamin D2) 1,250 1,250 mcg PO WK 09/08/23 11/25/23 History mcg (50,000 unit) capsule (Vitamin D2) furosemide 40 mg tablet See Rx Instructions .Route .COMPLEX 09/08/23 11/25/23 History lorazepam 1 mg tablet 1 mg PO HS Anxiety 09/08/23 11/25/23 History losartan 25 mg tablet 25 mg PO DAILY 09/08/23 11/25/23 History naphazoline 0.025 %-pheniramine 1 drp OPB BID 09/08/23 11/25/23 History 0.3 % eye drops (Naphcon-A) spironolactone 25 mg tablet 12.5 mg PO DAILY 09/08/23 11/25/23 History trazodone 50 mg tablet 50 mg PO HS PRN Sleep 09/08/23 11/25/23 History zolpidem 10 mg tablet 10 mg PO HS PRN Sleep 09/08/23 11/25/23 History Patient History Medical History (Updated 11/26/23 @ 08:13 by Kimberly Jay PA-C) New onset left bundle branch block (LBBB) Sjogren's syndrome without extraglandular involvement Follows with rheum Intestinal postoperative nonabsorption Pulmonary hypertension Moderate to severe pulmonary hypertension, PASP 60-70 mmHg 09/2022 echo Diastolic heart failure s/p covid-19. Fatty liver non-alcoholic Narcolepsy following up with Jo Ann Cruz (Sleep Lab) at [facility] today LBBB (left bundle branch block) Intermittent- follows with Dr. Cardoza Anxiety GERD (gastroesophageal reflux disease) Well controlled and stable Osteoarthritis History of COVID-19 Dx 08/2019> not hospitalized > loss of taste and smell, fever, sore throat--> developed CHF and chronic congestion and follows with Pulmonary ([facility] [place] doing well at this time. Atrial fibrillation Dx September 2020 > follows Dr. Cardoza > no pacer/ Eliquis Asthma, exercise induced Well controlled and stable Exercise induced Surgical History History of total left knee replacement (TKR) 2014 History of total right knee replacement (TKR) 2014 History of cardioversion x2 > last one Jan 2021 History of tooth extraction with dental implants and screw in dentures-approx 2019 History of esophagogastroduodenoscopy (EGD) History of tonsillectomy and adenoidectomy History of colonoscopy History of x1 H/O gastric bypass Family History Mother Diabetes Coronary heart disease History of coronary artery bypass graft, Onset Age: 76 Hypertension Father , 87 Coronary heart disease Myocardial infarction, Onset Age: 78 Stroke Family/Other Heart disease Other No family history of adverse response to anesthesia No family history of bleeding disorder Social History Smoking Status: Never smoker Second Hand Exposure: No; Do You Dip or Chew Tobacco: No; Tobacco Cessation Education Requested by Patient: No Hx Alcohol Use: Yes Alcohol type: wine Hx Substance Use: No Preferred Language: Gabonese Communication Ability: Effective Company Laundry Worker Required: No Beliefs That Will Affect Care: None marital status: Current Living Situation: Alone current occupational status: retired current occupation: Retired psychologist Other Information That Helps Us Care for You: No Feels Safe at Home: Yes Safety Concerns: Feels Safe At This Time Assistive Devices: Glasses Assistive Devices Comment: screwed in upper an dlower dentures that don't come out Review of Systems Review of Systems: All systems reviewed & are unremarkable except as noted in HPI & below Physical Exam Constitutional: WD/WN, vitals as above + morbidly obese; no acute distress Neck: + thick neck Respiratory: no labored breathing Auscultation: + diminished lung sounds and + rales Cardiovascular: Rate/Rhythm: + irregularly irregular Heart Sounds: no murmur Vessels: + JVD Extremities: + edema (2+ b/l edema to hips) Gastrointestinal (Abdomen): normal bowel sounds, soft, nontender, no hepatosplenomegaly Skin: no rashes, warm and dry Neurologic: PERRL, EOMI, accommodation nl, no face palsy, no dysarthria Psychiatric: A+Ox3, euthymic affect Results & Data Vital Signs (Past 12 Hours) Vital Signs Temp Pulse Pulse Resp BP Pulse Ox O2 Del Method 11/26/23 07:30 36.6 C 108 H 18 138/98 98 Nasal Cannula 11/26/23 05:35 Nasal Cannula 11/26/23 02:28 36.6 C 100 H 18 119/80 94 Room Air 11/25/23 23:17 101 H 11/25/23 22:34 36.6 C 102 H 19 111/79 102 H Room Air 11/25/23 22:01 Room Air O2 Flow Rate 11/26/23 07:30 2 11/26/23 05:35 2 11/26/23 02:28 11/25/23 23:17 11/25/23 22:34 11/25/23 22:01 Laboratory Results Cardiac Enzymes 11/25/23 Range/Units 10:09 AST 22 (13-39) U/L Troponin I High Sens 16.6 H (0-14) pg/ml B-Natriuretic Peptide 186 H (0-100) pg/ml Coagulation 11/25/23 Range/Units 10:09 PT 12.1 H (9.0-12.0) Seconds APTT 28 (21-31) Seconds B-Natriuretic Peptide 186 H (0-100) pg/ml CBC 11/25/23 11/26/23 Range/Units 10:09 05:44 WBC 7.07 7.85 (4.8-10.8) K/ul RBC 3.91 L 3.86 L (4.20-5.40) M/uL Hgb 10.9 L 10.8 L (12.0-16.0) g/dl Hct 34.1 L 33.6 L (37.0-47.0) % Plt Count 208 251 (130-400) K/uL Neut # (Auto) 5.03 5.84 (1.40-6.50) K/uL Lymph # (Auto) 0.97 L 0.72 L (1.20-3.40) K/uL [place] # (Auto) 0.81 H 1.00 H (0.11-0.59) K/uL Eos # (Auto) 0.15 0.17 (0.00-0.50) K/uL Baso # (Auto) 0.09 0.08 (0.00-0.20) K/uL Comprehensive Metabolic Panel 11/25/23 11/26/23 Range/Units 10:09 05:44 Sodium 131 L 132 L (136-145) mmol/L Potassium 3.9 3.7 (3.5-5.1) mmol/L Chloride 96 L 98 (98-107) mmol/L Carbon Dioxide 26 26 (21-32) mmol/L BUN 20 25 H (6-23) mg/dl Creatinine 0.79 0.99 (0.6-1.2) mg/dl Glucose 120 H 116 H (70-99(Fasting)) mg/dl Calcium 8.9 8.8 (8.6-10.3) mg/dl AST 22 (13-39) U/L ALT 14 (7-52) U/L Alkaline Phosphatase 154 H (34-104) U/L Total Protein 7.0 (6.0-8.3) gm/dl Albumin 3.9 (3.4-5.0) gm/dl Intake and Output 11/25/23 11/26/23 11/26/23 22:59 06:59 14:59 Intake Total 250 / 650 400 / 650 Balance 250 / 650 400 / 650 Intake: IV 100 / 150 50 / 150 Magnesium Sulfate / D5w 1 gm In 100 / 100 100 ml @ 100 mls/hr IV NOW STA Rx#:[id number] cefTRIAXone SODIUM 2,000 mg In 50 / 50 50 ml @ 100 mls/hr IV Q24H LORENA Rx#:[id number] Oral 150 / 500 350 / 500 Other: # Unmeasured Voids 1 Weight 112 kg 112 kg Weight Measurement Method [facility] in [facility] Diagnostic Findings Telemetry reviewed: Atrial fibrillation with controlled rates 80-100 bmp EKG reviewed form admission: Atrial fibrillation with RVR LBBB Chest xray reviewed from admission: Cardiomegaly and pulm edema Outside data reviewed: ANDREW report reviewed from September 2023: Interpretation Summary The examination is adequate to evaluate the referral indication. The qualitative LV ejection fraction is 55-59% (normal). No LV segmental wall motion abnormalities. There is mild to moderate mitral regurgitation present. Moderate tricuspid regurgitation is present. Mild pulmonary hypertension is present. Medications Administered Current Inpatient Medications Acetaminophen (Acetaminophen 325 Mg Tab) 650 mg PO Q4H PRN PRN Reason: Pain or Fever Stop: 12/25/23 15:59 Apixaban (Apixaban 5 Mg Tablet) 5 mg PO BID LORENA Stop: 12/25/23 20:59 Last Admin: 11/25/23 21:02 Dose: 5 mg Aripiprazole (Aripiprazole 5 Mg Tab) 5 mg PO HS LORENA Stop: 12/25/23 20:59 Last Admin: 11/25/23 21:02 Dose: 5 mg Atenolol (Atenolol 25 Mg Tablet) 25 mg PO BID LORENA Stop: 12/25/23 20:59 Last Admin: 11/25/23 18:08 Dose: 25 mg Furosemide (Furosemide 40 Mg/4 Ml Vial) 40 mg IV BID17 LORENA Stop: 12/25/23 16:59 Last Admin: 11/25/23 17:04 Dose: 40 mg Ceftriaxone Sodium (Rocephin) 2,000 mg in 50 mls @ 100 mls/hr IV Q24H LORENA Stop: 12/06/23 04:29 Last Infusion: 11/26/23 05:15 Dose: Infused Ipratropium [place] (Ipratropium [place] Nasal [place] 0.06% 15ml) 1 sprays FIORELLA DAILY LORENA Stop: 12/26/23 08:59 Lorazepam (Lorazepam 1 Mg Tab) 1 mg PO HS LORENA Stop: 12/25/23 20:59 Last Admin: 11/25/23 21:02 Dose: 1 mg Losartan Potassium (Losartan Potassium 25 Mg Tab) 25 mg PO DAILY LORENA Stop: 12/26/23 08:59 Naphazoline HCl/Pheniramine Maleate (Naphazolin/Pheniramin Oph Soln 15 Ml Btl) 1 drops OPB BID LORENA Stop: 12/25/23 20:59 Last Admin: 11/25/23 21:02 Dose: 1 drops Spironolactone (Spironolactone 12.5 Mg Tab) 12.5 mg PO DAILY LORENA Stop: 12/26/23 08:59 Trazodone HCl (Trazodone Hcl 50 Mg Tab) 50 mg PO HS PRN PRN Reason: Sleep Stop: 12/25/23 15:59 Zolpidem Tartrate (Zolpidem Tartrate 5 Mg Tab) 10 mg PO HS PRN PRN Reason: Sleep Stop: 12/25/23 16:06
[2023-11-26] MEDS: POTASSIUM CHLORIDE CRTAB 20 MEQ TABCR PO ONE (08:15)
[2023-11-26] MEDS: LOSARTAN POTASSIUM 25 MG TAB PO SCH (08:15)
[2023-11-26] MEDS: SPIRONOLACTONE 12.5 MG TAB PO SCH (08:16)
[2023-11-26] MEDS: IPRATROPIUM BROMIDE NASAL SPRAY 0.06% 15ML NAE SCH (08:17)
--- NOTE | 2023-11-26 09:28 | CT Scan Report ---
CT head/brain wo con CLINICAL HISTORY: 73 years-old Female with Head trauma on Eliquis. TECHNIQUE: Multiple axial CT images of the head were obtained without contrast. A dose lowering tech nique was utilized adhering to the principles of ALARA. CT DOSE: 547.75 mGy.cm COMPARISON: 04/25/2006. FINDINGS: No acute intracranial hemorrhage, midline shift, intracranial mass, hydrocephalus, territorial ischem ia or abnormal extra-axial collection. The calvarium is intact. The paranasal sinuses, mastoid air cells, and middle ear cavities are clear . IMPRESSION: No acute intracranial process ACT 112: Negative or not required by law. The above report was generated using voice recognition software. It may contain grammatical, syntax o r spelling errors. Electronically signed by: Juan Jose Romero M.D. 11/26/2023 9:26 AM
--- NOTE | 2023-11-26 13:56 | Hospitalist Progress Note ---
Date of Service November 26, 2023 Assessment & Plan (1) Acute on chronic heart failure with preserved ejection fraction (HFpEF): Plan: Patient is a 73 yr female with pulmonary hypertension, diastolic heart failure, atrial fibrillation, on chronic AC, exercise-induced asthma, KIMMY (intermittently uses CPAP b/c she is concerned it causes sinus infections), GERD, anxiety and other history as outlined who presents to the ED today with progressive edema and dyspnea. In the ED, pt was found to be in atrial fibrillation with rapid ventricular response with rates in the 130s-140s. Noted to have marked fluid overload so give IV furosemide 60 mg and referred for admission. Given one dose of diltiazem 20 mg IV with initial improvement of rate to the 100s-110s but rates now back in the 120s-130s. Acute on chronic HFpEF LBBB --CXR:Cardiomegaly with suggestion of pulmonary edema. Continue IV Lasix 40 mg twice daily Also on Aldactone Monitor I's and O's, daily weight Monitor volume status closely Replace electrolytes as needed Replete cardiology input Saturating well on room (2) Atrial fibrillation with rapid ventricular response: Plan: Afib RVR ? Compliance with beta-víctor Scheduled for ablation in [place] on 12/18 Atenolol dose increased to 25 mg twice daily On Eliquis for anticoagulation Monitor and replete electrolytes as needed Mechanical fall --CT head:No acute intracranial process Fall precautions PT OT as able Possible UTI Urine culture pending Empirically on Rocephin (3) HTN (hypertension): Plan: Hypertensive urgency at the time of admission Likely situational Continue losartan, atenolol Monitor BP (4) Sleep apnea: Plan: Has a CPAP but using inconsistently due to concern that it causes sinus infections. Follows with sleep medicine CPAP HS Needs outpatient f/u with sleep medicine (5) Hypothyroidism: Plan: Check TSH Plan Morbid obesity BMI 45 DVT Px: Eliquis Code Status: Full code Admission and Anticipated Discharge Date Admission Date: November 25, 2023 Subjective Patient is seen and examined at bedside Had code purple this morning after having a mechanical fall resulting in mild head trauma Patient had no syncopal episode Subjectively feels shortness of breath is better when compared yesterday Reports minimal cough Denies any chest pain, dizziness, nausea, vomiting, abdominal pain No other complaints Review of Systems Review of Systems: All systems reviewed & are unremarkable except as noted in Subjective Physical Exam Physical Exam: Physical Exam: Vitals signs as noted above General Appearance:Obese, no apparent distress Head: normocephalic, Atraumatic Eyes: normal inspection, EOMI Neck: supple, Trachea midline Respiratory/Chest: Decreased breath sounds, basal crackles, No accessory muscle use Cardiovascular: Irregularly irregular, No murmur Abdomen/GI:Soft, Non tender, Bowel sounds present Extremities/Musculoskeletal:normal inspection, 2+ pedal edema Neurologic/Psych:AAOX3, grossly no focal neurological deficits Skin: normal color, warm Results & Data Results & Data Vital Signs (Past 12 Hours) Vital Signs Temp Pulse Resp BP Pulse Ox O2 Del Method O2 Flow Rate 11/26/23 11:35 36.4 C L 107 H 18 119/80 98 Room Air 11/26/23 07:30 36.6 C 108 H 18 138/98 98 Nasal Cannula 2 11/26/23 05:35 Nasal Cannula 2 11/26/23 02:28 36.6 C 100 H 18 119/80 94 Room Air Laboratory Results Short CBC 11/26/23 Range/Units 05:44 WBC 7.85 (4.8-10.8) K/ul Hgb 10.8 L (12.0-16.0) g/dl Hct 33.6 L (37.0-47.0) % Plt Count 251 (130-400) K/uL BMP 11/26/23 05:44 Sodium 132 L Potassium 3.7 Chloride 98 Carbon Dioxide 26 BUN 25 H Creatinine 0.99 Glucose 116 H Calcium 8.8 Urine 11/26/23 Range/Units 03:20 Urine Color Dark Yellow Urine Appearance Turbid A (Clear) Urine pH 6.0 (4.5-7.5) Ur Specific [place] 1.017 (1.000-1.030) Urine Protein 3+ H (Negative) Urine Glucose (UA) Negative (Negative) (3) HTN (hypertension) Hypertension type: primary hypertension Qualified Code(s): I10 - Essential (primary) hypertension (4) Sleep apnea Sleep apnea type: obstructive Qualified Code(s): G47.33 - Obstructive sleep apnea (adult) (pediatric) (5) Hypothyroidism Hypothyroidism type: unspecified Qualified Code(s): E03.9 - Hypothyroidism, unspecified
[2023-11-26] MEDS: oxyCODONE HCL IR 5 MG TAB (IMMEDIATE RELEASE) PO PRN (21:43)
[2023-11-26] MEDS: traZODone HCL 50 MG TAB PO PRN (21:43)
[2023-11-27 11:38] LABS: Hematocrit (blood only) 34.9 % (37.0-47.0); Hemoglobin 11.2 g/dl (12.0-16.0); Mean Corpuscular Hemoglobin 28.1 pg (25.0-34.0); Mean Corpuscular Hgb Conc 32.1 g/dL (32.0-36.0); Mean Corpuscular Volume 87.5 fL (80.0-100.0); Platelet Count 277 K/uL (130-400); RDW Coefficient of Variation 13.5 % (11.5-14.5); RDW Standard Deviation 43.4 fL (36.4-46.3); Red Blood Count 3.99 M/uL (4.20-5.40); White Blood Count 6.63 K/ul (4.8-10.8)
[2023-11-27 11:56] LABS: BUN Creatinine Ratio 30.3 (10-20); Creatinine Clr Calc Pharmacy 53.2 ml/min; Est GFR (African American) 57.9 ml/min; Magnesium 2.3 mg/dl (1.7-2.4); Potassium 4.1 mmol/L (3.5-5.1)
[2023-11-27 12:11] LABS: Thyroid Stimulating Hormone 3.961 uIu/ml (0.300-4.500)
--- NOTE | 2023-11-27 14:36 | Cardiology Progress Note ---
Date of Service November 27, 2023 Assessment & Plan (1) Acute on chronic heart failure with preserved ejection fraction (HFpEF): (2) Atrial fibrillation with rapid ventricular response: (3) Morbid obesity: (4) LBBB (left bundle branch block): Plan Patient admitted with HFpEF in setting of non compliance wiht home medications. Weight gain of approx 30 lbs noted in the last few weeks. Pulm edema on chest xray with evidence of volume overload on exam. Continue furosemide 40 mg IV BID today. May need dose increase pending response. Monitor I+O's. Monitor electrolytes Mild hyponatremia noted. Likely dilutional. Will improve with diuretics. continue spironolactone. On admission, afib RVR noted. Treated with several doses IV beta víctor and IV diltiazem. Rates now improved. Continue atenolol 25 mg BID. She was non compliant with home beta víctor per outpatient notes. Continue anticoagulation with Eliquis 5 mg BID. Patient scheduled for [place] [facility] [place]/code purple. Patient hit head. Fall was mechanical as she slipped getting off the toilet. Head CT was negative. No current symptoms of headache or vision changes. Monitor. 11/27/2023 Slowly improving acute on chronic diastolic heart failure Continue IV diuretics. Will increase furosemide to 40 3 times daily Continue atenolol twice per day dosing patient unwilling to trial alternate beta-víctor Admission and Anticipated Discharge Date Admission Date: November 25, 2023 Subjective Patient seen and examined, chart, medications, telemetry reviewed. Patient improved since admission Lower extremity edema improved and weight down though patient concerned regarding reduced frequency of urination No tachypalpitations with heart rate better improved on resumption of atenolol No fevers or chills no bleeding difficulty Review of Systems Review of Systems: All systems reviewed & are unremarkable except as noted in Subjective Physical Exam Constitutional: WD/WN, vitals as above + morbidly obese; no acute distress ENMT: external ear and nose normal, oropharynx normal Neck: + thick neck Respiratory: no labored breathing Auscultation: + diminished lung sounds Cardiovascular: Rate/Rhythm: + irregularly irregular Heart Sounds: no murmur Vessels: + JVD Extremities: + edema (2+ b/l edema to hips) Gastrointestinal (Abdomen): normal bowel sounds, soft, nontender, no hepatosplenomegaly Skin: no rashes, warm and dry Neurologic: PERRL, EOMI, accommodation nl, no face palsy, no dysarthria Psychiatric: A+Ox3, euthymic affect Results & Data Vital Signs (Past 12 Hours) Vital Signs Temp Pulse Pulse Resp BP Pulse Ox O2 Del Method 11/27/23 11:14 36.4 C L 102 H 18 103/69 95 Room Air 11/27/23 09:13 80 11/27/23 07:18 36.3 C L 81 18 111/73 100 Nasal Cannula 11/27/23 02:45 36.5 C 95 H 19 97/60 L 97 Nasal Cannula O2 Flow Rate 11/27/23 11:14 11/27/23 09:13 11/27/23 07:18 2 11/27/23 02:45 2 Laboratory Results Laboratory Results - last 24 hr 11/27/23 11:18 WBC 6.63 RBC 3.99 L Hgb 11.2 L Hct 34.9 L MCV 87.5 MCH 28.1 MCHC 32.1 RDW Std Deviation 43.4 RDW Coeff of Juan 13.5 Plt Count 277 MPV 9.0 L Sodium 131 L Potassium 4.1 Chloride 96 L Carbon Dioxide 27 Anion Gap 8 BUN 33 H Creatinine 1.09 Est Cr Clr Drug Dosing 53.2 Est GFR ( Amer) 57.9 Est GFR (Non-Af Amer) 50.0 BUN/Creatinine Ratio 30.3 H Glucose 106 H Calcium 9.0 Magnesium 2.3 TSH 3.961 Diagnostic Findings Laboratory Results - last 24 hr 11/27/23 11:18 WBC 6.63 RBC 3.99 L Hgb 11.2 L Hct 34.9 L MCV 87.5 MCH 28.1 MCHC 32.1 RDW Std Deviation 43.4 RDW Coeff of Juan 13.5 Plt Count 277 MPV 9.0 L Sodium 131 L Potassium 4.1 Chloride 96 L Carbon Dioxide 27 Anion Gap 8 BUN 33 H Creatinine 1.09 Est Cr Clr Drug Dosing 53.2 Est GFR ( Amer) 57.9 Est GFR (Non-Af Amer) 50.0 BUN/Creatinine Ratio 30.3 H Glucose 106 H Calcium 9.0 Magnesium 2.3 TSH 3.961
[2023-11-27] MEDS: FUROSEMIDE 40 MG/4 ML VIAL IV SCH (15:44)
--- NOTE | 2023-11-27 16:27 | Hospitalist Progress Note ---
Date of Service November 27, 2023 Assessment & Plan (1) Acute on chronic heart failure with preserved ejection fraction (HFpEF): Plan: Patient is a 73 yr female with pulmonary hypertension, diastolic heart failure, atrial fibrillation, on chronic AC, exercise-induced asthma, KIMMY (intermittently uses CPAP b/c she is concerned it causes sinus infections), GERD, anxiety and other history as outlined who presents to the ED today with progressive edema and dyspnea. In the ED, pt was found to be in atrial fibrillation with rapid ventricular response with rates in the 130s-140s. Noted to have marked fluid overload so give IV furosemide 60 mg and referred for admission. Given one dose of diltiazem 20 mg IV with initial improvement of rate to the 100s-110s but rates now back in the 120s-130s. Acute on chronic HFpEF LBBB --CXR:Cardiomegaly with suggestion of pulmonary edema. Continue IV Lasix Also on Aldactone 12.5 mg daily Monitor I's and O's, daily weight Monitor volume status closely Replace electrolytes as needed Appreciate cardiology input IV Lasix dose increased to 40 mg 3 times a day Cardiology following (2) Atrial fibrillation with rapid ventricular response: Plan: Afib RVR ? Compliance with beta-víctor Scheduled for ablation in [place] on 12/18 Atenolol dose increased to 25 mg twice daily On Eliquis for anticoagulation Monitor and replete electrolytes as needed Rate controlled Mechanical fall --CT head:No acute intracranial process Fall precautions PT OT as able Possible UTI Urine culture negative today Empirically on IV Rocephin (3) HTN (hypertension): Plan: Hypertensive urgency at the time of admission Likely situational Continue losartan, atenolol Monitor BP (4) Sleep apnea: Plan: Has a CPAP but using inconsistently due to concern that it causes sinus infections. Follows with sleep medicine CPAP HS Needs outpatient f/u with sleep medicine (5) Hypothyroidism: Plan: Normal TSH Currently not on meds Plan Morbid obesity BMI 45 DVT Px: Eliquis Code Status: Full code Admission and Anticipated Discharge Date Admission Date: November 25, 2023 Subjective Patient is seen and examined at bedside Leg edema slowly improving Reports significant orthopnea Less dyspnea today Cough continues to improve as well Concerned about poor diuresis despite IV Lasix Denies any chest pain, dizziness, nausea, vomiting, abdominal pain Review of Systems Review of Systems: All systems reviewed & are unremarkable except as noted in Subjective Physical Exam Physical Exam: Physical Exam: Vitals signs as noted above General Appearance:Obese, no apparent distress Head: normocephalic, Atraumatic Eyes: normal inspection, EOMI Neck: supple, Trachea midline Respiratory/Chest: Decreased breath sounds, No accessory muscle use Cardiovascular: Irregularly irregular, No murmur Abdomen/GI:Soft, Non tender, Bowel sounds present Extremities/Musculoskeletal:normal inspection, 2+ pedal edema Neurologic/Psych:AAOX3, grossly no focal neurological deficits Skin: normal color, warm Results & Data Results & Data Vital Signs (Past 12 Hours) Vital Signs Temp Pulse Pulse Resp BP Pulse Ox O2 Del Method 11/27/23 15:25 36.6 C 91 H 18 116/68 99 Nasal Cannula 11/27/23 11:14 36.4 C L 102 H 18 103/69 95 Room Air 11/27/23 09:13 80 11/27/23 07:18 36.3 C L 81 18 111/73 100 Nasal Cannula O2 Flow Rate 11/27/23 15:25 2 11/27/23 11:14 11/27/23 09:13 11/27/23 07:18 2 Laboratory Results Short CBC 11/27/23 Range/Units 11:18 WBC 6.63 (4.8-10.8) K/ul Hgb 11.2 L (12.0-16.0) g/dl Hct 34.9 L (37.0-47.0) % Plt Count 277 (130-400) K/uL BMP 11/27/23 11:18 Sodium 131 L Potassium 4.1 Chloride 96 L Carbon Dioxide 27 BUN 33 H Creatinine 1.09 Glucose 106 H Calcium 9.0 (3) HTN (hypertension) Hypertension type: primary hypertension Qualified Code(s): I10 - Essential (primary) hypertension (4) Sleep apnea Sleep apnea type: obstructive Qualified Code(s): G47.33 - Obstructive sleep apnea (adult) (pediatric) (5) Hypothyroidism Hypothyroidism type: unspecified Qualified Code(s): E03.9 - Hypothyroidism, unspecified
--- NOTE | 2023-11-27 17:14 | Electrocardiogram Report ---
Test Reason : Blood Pressure : / mmHG Vent. Rate : 086 BPM Atrial Rate : 129 BPM P-R Int : 000 ms QRS Dur : 130 ms QT Int : 428 ms P-R-T Axes : 000 -08 145 degrees QTc Int : 512 ms Atrial fibrillation Left bundle branch block Abnormal ECG When compared with ECG of 25-NOV-2023 09:48, Vent. rate has decreased BY [address] no longer elevated in Anterior leads T wave inversion more evident in Lateral leads Confirmed by Rodriguez Pollock ([id number]) on 11/27/2023 5:13:39 PM Referred By: REFERRED SELF Confirmed By:Rodriguez Pollock
[2023-11-27] MEDS: ZOLPIDEM TARTRATE 5 MG TAB PO PRN (23:48)
[2023-11-28 06:22] LABS: BUN Creatinine Ratio 32.4 (10-20); Calcium 8.9 mg/dl (8.6-10.3); Creatinine Clr Calc Pharmacy 56.9 ml/min; Est GFR (African American) 62.8 ml/min; Est GFR (Non-African American) 54.1 ml/min; Magnesium 2.2 mg/dl (1.7-2.4); Potassium 3.7 mmol/L (3.5-5.1)
[2023-11-28] MEDS: POTASSIUM CHLORIDE 10 MEQ TABCR PO SCH (10:25)
--- NOTE | 2023-11-28 13:58 | Cardiology Progress Note ---
Date of Service November 28, 2023 Assessment & Plan (1) Acute on chronic heart failure with preserved ejection fraction (HFpEF): (2) Atrial fibrillation with rapid ventricular response: (3) Morbid obesity: (4) LBBB (left bundle branch block): Plan Patient admitted with HFpEF in setting of non compliance wiht home medications. Weight gain of approx 30 lbs noted in the last few weeks. Pulm edema on chest xray with evidence of volume overload on exam. Continue furosemide 40 mg IV BID today. May need dose increase pending response. Monitor I+O's. Monitor electrolytes Mild hyponatremia noted. Likely dilutional. Will improve with diuretics. continue spironolactone. On admission, afib RVR noted. Treated with several doses IV beta víctor and IV diltiazem. Rates now improved. Continue atenolol 25 mg BID. She was non compliant with home beta víctor per outpatient notes. Continue anticoagulation with Eliquis 5 mg BID. Patient scheduled for ablation in December at [facility] [place] Fall today/code purple. Patient hit head. Fall was mechanical as she slipped getting off the toilet. Head CT was negative. No current symptoms of headache or vision changes. Monitor. 11/27/2023 Slowly improving acute on chronic diastolic heart failure Continue IV diuretics. Will increase furosemide to 40mg 3 times daily Continue atenolol twice per day dosing patient unwilling to trial alternate beta-víctor 11/28/2023 Acute on chronic decompensated heart failure with preserved ejection fraction slowly improving. Called floor asked for daily weight Heart rates variable but trending towards control Anticoagulated with Eliquis Continue IV diuretics, oxygen supplementation. Would recommend nocturnal oximetry and O2 demand assessment as patient approaches discharge Still room for further diuresis and renal function allowing Room to increase spironolactone but holding increase given hyponatremia Admission and Anticipated Discharge Date Admission Date: November 25, 2023 Subjective Patient seen and examined, chart, medications, telemetry reviewed Patient looks improved no acute complaints. Leg edema less pronounced. Orthopnea resolved Still in atrial fibrillation with variable heart rate response No I's and O's or weights charted No fevers or chills no bleeding issue Physical Exam Constitutional: WD/WN, vitals as above + morbidly obese; no acute distress ENMT: external ear and nose normal, oropharynx normal Neck: + thick neck Respiratory: no labored breathing Auscultation: + diminished lung sounds and + rales Cardiovascular: Rate/Rhythm: + irregularly irregular Heart Sounds: no murmur Vessels: + JVD Extremities: + edema (2+ b/l edema to hips) Gastrointestinal (Abdomen): normal bowel sounds, soft, nontender, no hepatosplenomegaly Skin: no rashes, warm and dry Neurologic: PERRL, EOMI, accommodation nl, no face palsy, no dysarthria Psychiatric: A+Ox3, euthymic affect Results & Data Vital Signs (Past 12 Hours) Vital Signs Temp Pulse Resp BP Pulse Ox O2 Del Method O2 Flow Rate 11/28/23 10:51 36.4 C L 116 H 18 123/69 98 Nasal Cannula 2 11/28/23 07:10 36.3 C L 95 H 18 112/79 96 Room Air 11/28/23 02:31 36.6 C 105 H 18 100/69 98 Nasal Cannula 2 Laboratory Results Laboratory Results - last 24 hr 11/28/23 05:40 Sodium 132 L Potassium 3.7 Chloride 96 L Carbon Dioxide 29 Anion Gap 7 BUN 33 H Creatinine 1.02 Est Cr Clr Drug Dosing 56.9 Est GFR ( Amer) 62.8 Est GFR (Non-Af Amer) 54.1 BUN/Creatinine Ratio 32.4 H Glucose 123 H Calcium 8.9 Magnesium 2.2
--- NOTE | 2023-11-28 15:15 | Hospitalist Progress Note ---
Date of Service November 28, 2023 Assessment & Plan (1) Acute on chronic heart failure with preserved ejection fraction (HFpEF): Plan: Patient is a 73 yr female with pulmonary hypertension, diastolic heart failure, atrial fibrillation, on chronic AC, exercise-induced asthma, KIMMY (intermittently uses CPAP b/c she is concerned it causes sinus infections), GERD, anxiety and other history as outlined who presents to the ED today with progressive edema and dyspnea. In the ED, pt was found to be in atrial fibrillation with rapid ventricular response with rates in the 130s-140s. Noted to have marked fluid overload so give IV furosemide 60 mg and referred for admission. Given one dose of diltiazem 20 mg IV with initial improvement of rate to the 100s-110s but rates now back in the 120s-130s. Acute on chronic HFpEF LBBB --CXR:Cardiomegaly with suggestion of pulmonary edema. Also on Aldactone 12.5 mg daily Monitor I's and O's, daily weight Monitor volume status closely Replace electrolytes as needed Appreciate cardiology input on IV Lasix 40 mg 3 times a day Needs nocturnal oximetry, 2 step prior to discharge Continue IV diuresis, clinically improving (2) Atrial fibrillation with rapid ventricular response: Plan: Afib RVR ? Compliance with beta-víctor Scheduled for ablation in [place] on 12/18 Atenolol dose increased to 25 mg twice daily On Eliquis for anticoagulation Monitor and replete electrolytes as needed Mechanical fall --CT head:No acute intracranial process Fall precautions PT OT as able Abnormal urine analysis Ruled out UTI Urine culture negative Discontinue IV Rocephin (3) HTN (hypertension): Plan: Hypertensive urgency at the time of admission Likely situational Continue losartan, atenolol Monitor BP (4) Sleep apnea: Plan: Has a CPAP but using inconsistently due to concern that it causes sinus infections. Follows with sleep medicine CPAP HS Needs outpatient f/u with sleep medicine (5) Hypothyroidism: Plan: Normal TSH Currently not on meds Plan Morbid obesity BMI 45 DVT Px: Eliquis Code Status: Full code Admission and Anticipated Discharge Date Admission Date: November 25, 2023 Subjective Patient is seen and examined at bedside Leg edema, orthopnea improving Discussed with cardiology today Cough, dyspnea much improved No other complaints Denies any chest pain, dizziness, nausea, vomiting, abdominal pain Review of Systems Review of Systems: All systems reviewed & are unremarkable except as noted in Subjective Physical Exam Physical Exam: Physical Exam: Vitals signs as noted above General Appearance:Obese, no apparent distress Head: normocephalic, Atraumatic Eyes: normal inspection, EOMI Neck: supple, Trachea midline Respiratory/Chest: Decreased breath sounds, No accessory muscle use Cardiovascular: Irregularly irregular, No murmur Abdomen/GI:Soft, Non tender, Bowel sounds present Extremities/Musculoskeletal:normal inspection, 2+ pedal edema Neurologic/Psych:AAOX3, grossly no focal neurological deficits Skin: normal color, warm Results & Data Results & Data Vital Signs (Past 12 Hours) Vital Signs Temp Pulse Resp BP Pulse Ox O2 Del Method O2 Flow Rate 11/28/23 10:51 36.4 C L 116 H 18 123/69 98 Nasal Cannula 2 11/28/23 07:10 36.3 C L 95 H 18 112/79 96 Room Air Laboratory Results BMP 11/28/23 05:40 Sodium 132 L Potassium 3.7 Chloride 96 L Carbon Dioxide 29 BUN 33 H Creatinine 1.02 Glucose 123 H Calcium 8.9 (3) HTN (hypertension) Hypertension type: primary hypertension Qualified Code(s): I10 - Essential (primary) hypertension (4) Sleep apnea Sleep apnea type: obstructive Qualified Code(s): G47.33 - Obstructive sleep apnea (adult) (pediatric) (5) Hypothyroidism Hypothyroidism type: unspecified Qualified Code(s): E03.9 - Hypothyroidism, unspecified
[2023-11-28] MEDS: ZOLPIDEM TARTRATE 5 MG TAB PO PRN (20:22)
[2023-11-29 06:17] LABS: Hematocrit (blood only) 34.1 % (37.0-47.0); Hemoglobin 10.9 g/dl (12.0-16.0); Mean Corpuscular Hemoglobin 27.7 pg (25.0-34.0); Mean Corpuscular Volume 86.5 fL (80.0-100.0); Mean Platelet Volume 8.9 fL (9.4-12.4); Platelet Count 264 K/uL (130-400); RDW Coefficient of Variation 13.5 % (11.5-14.5); RDW Standard Deviation 42.7 fL (36.4-46.3); Red Blood Count 3.94 M/uL (4.20-5.40); White Blood Count 5.95 K/ul (4.8-10.8)
[2023-11-29 06:34] LABS: Creatinine Clr Calc Pharmacy 66.1 ml/min; Est GFR (Non-African American) 64.7 ml/min; Magnesium 2.1 mg/dl (1.7-2.4); Potassium 4.1 mmol/L (3.5-5.1)
--- NOTE | 2023-11-29 11:58 | Cardiology Progress Note ---
Date of Service November 29, 2023 Assessment & Plan (1) Acute on chronic heart failure with preserved ejection fraction (HFpEF): (2) Atrial fibrillation with rapid ventricular response: (3) Morbid obesity: (4) LBBB (left bundle branch block): Plan Patient admitted with HFpEF in setting of non compliance wiht home medications. Weight gain of approx 30 lbs noted in the last few weeks. Pulm edema on chest xray with evidence of volume overload on exam. Continue furosemide 40 mg IV BID today. May need dose increase pending response. Monitor I+O's. Monitor electrolytes Mild hyponatremia noted. Likely dilutional. Will improve with diuretics. continue spironolactone. On admission, afib RVR noted. Treated with several doses IV beta víctor and IV diltiazem. Rates now improved. Continue atenolol 25 mg BID. She was non compliant with home beta víctor per outpatient notes. Continue anticoagulation with Eliquis 5 mg BID. Patient scheduled [place] [facility] [place]/code purple. Patient hit head. Fall was mechanical as she slipped getting off the toilet. Head CT was negative. No current symptoms of headache or vision changes. Monitor. 11/27/2023 Slowly improving acute on chronic diastolic heart failure Continue IV diuretics. Will increase furosemide to 40mg 3 times daily Continue atenolol twice per day dosing patient unwilling to trial alternate beta-víctor 11/28/2023 Acute on chronic decompensated heart failure with preserved ejection fraction slowly improving. Called floor asked for daily weight Heart rates variable but trending towards control Anticoagulated with Eliquis Continue IV diuretics, oxygen supplementation. Would recommend nocturnal oximetry and O2 demand assessment as patient approaches discharge Still room for further diuresis and renal function allowing Room to increase spironolactone but holding increase given hyponatremia 11/29/2023: -Slow improvement in chronic diastolic heart failure. No accurate I&Os or weights as noted above. -Day nurse obtained standing scale weight today, also asked if 2 collection containers "hats" could be placed in the toilet to help capture output. -Requested that patient either have MODESTA hose or JUDE compression wraps applied to help assist with fluid mobilization. -HR remains consistent 90-110 bpm. She is slated for an upcoming A-fib ablation at [facility] in the near future. -Continue Eliquis for anticoagulation -Continue IV diuretics. 40mg TID Maintain close monitoring of renal function as well as goal serum K> 4.0 and serum mag > 2.0. -Continue Atenolol, losartan and Spironolactone as part of HF regimen -Continue with oral potassium supplementation -Reassess fluid status in the AM Case has been discussed with Dr. Bailey. Further recommendations regarding plan of care as per his assessment. I spent a total of 30 minutes on the date of service in preparation, delivery, documentation of the care provided to the patient excluding any time spent in the performance of separately billed services. HUMBERTO Roman [facility] Admission and Anticipated Discharge Date Admission Date: November 25, 2023 Supervising Physician Co-Signing Physician Notes I have personally performed a history and physical examination on the patient. I have reviewed the advance practitioner's documentation, and I agree with, and take responsibility for the plan of care. 73-year-old female with complex history of paroxysmal atrial fibrillation and acute on chronic diastolic heart failure. Primarily right-sided signs/symptoms. Current hospitalization likely precipitated by noncompliance with medical therapies. Patient refusing evening dose of atenolol over the last 3 nights. I had a long conversation with her regarding importance of compliance. Agreeable to begin atenolol twice daily. Continue IV diuresis, potassium supplementation, and Aldactone. I spent a total of 25 minutes on the date of service in preparation, delivery, and documentation of the care provided to this patient, excluding any time spent in the performance of separately billed services. Subjective 11/29/2023: Patient seen and examined in follow up today. Feeling fair. Denies any active shortness of breath, chest pain, palpitations, near-syncope or syncope. Continues to endorse lower extremity swelling. Expresses frustration with weight recordings that do not suggest fluid loss/weight loss. Inaccurate I&O recordings as there were "positional" issues with the urine collection hat Labs, vitals, diagnostics, telemetry and documentation reviewed. Telemetry reviewed showing A-fib rates 100-109 bpm, no acute events overnight. Review of Systems Review of Systems: All systems reviewed & are unremarkable except as noted in HPI & below Physical Exam Constitutional: + obese; no acute distress and not ill a ppearing Neck: normal visual inspection and trachea midline Respiratory: normal respiratory effort; no respiratory distress, no labored breathing and no cough Auscultation: + diminished lung sounds (diminished in bilateral bases ); no crackles, no rales, no rhonchi and no wheezes Cardiovascular: Rate/Rhythm: + irregularly irregular Heart Sounds: normal S1, normal S2 and + murmur (+II/ systolic murmur) Vessels: dorsalis pedis pulses present; no JVD Extremities: + edema (trace to +1 BLE) Skin: no rashes, warm and dry Psychiatric: A+Ox3, euthymic affect Results & Data Vital Signs (Past 12 Hours) Vital Signs Temp Pulse Resp BP Pulse Ox O2 Del Method 11/29/23 07:50 36.5 C 101 H 24 125/63 92 Room Air 11/29/23 02:55 36.8 C 105 H 17 133/95 94 Room Air Laboratory Results CBC 11/29/23 Range/Units 05:31 WBC 5.95 (4.8-10.8) K/ul RBC 3.94 L (4.20-5.40) M/uL Hgb 10.9 L (12.0-16.0) g/dl Hct 34.1 L (37.0-47.0) % Plt Count 264 (130-400) K/uL Comprehensive Metabolic Panel 11/29/23 Range/Units 05:31 Sodium 131 L (136-145) mmol/L Potassium 4.1 (3.5-5.1) mmol/L Chloride 98 (98-107) mmol/L Carbon Dioxide 25 (21-32) mmol/L BUN 29 H (6-23) mg/dl Creatinine 0.88 (0.6-1.2) mg/dl Glucose 115 H (70-99(Fasting)) mg/dl Calcium 9.0 (8.6-10.3) mg/dl Intake and Output 11/28/23 11/29/23 11/29/23 22:59 06:59 14:59 Intake Total 200 / 1240 500 / 1240 Balance 200 / 1240 500 / 1240 Intake: Oral 200 / 1240 500 / 1240 Other: # Unmeasured Voids 1 Weight 111.4 kg Weight Measurement Method Standing Scale Standing Scale
--- NOTE | 2023-11-29 14:19 | Hospitalist Progress Note ---
Date of Service November 29, 2023 Assessment & Plan (1) Acute on chronic heart failure with preserved ejection fraction (HFpEF): (2) Atrial fibrillation with rapid ventricular response: (3) HTN (hypertension): (4) Sleep apnea: (5) Hypothyroidism: Plan Ms Lynch is a 73 year old woman with history of pulmonary hypertension, diastolic heart failure, atrial fibrillation, on chronic AC, exercise-induced asthma, KIMMY (intermittently uses CPAP b/c she is concerned it causes sinus infections), GERD, anxietywho was admitted on 11/24 for management of acute on chronic HFpEF and atrial fibrillation with RVR. In the ED, pt was found to be in atrial fibrillation with rapid ventricular response with rates in the 130s-140s. Noted to have marked fluid overload so give IV furosemide 60 mg and referred for admission. Given one dose of diltiazem 20 mg IV with initial improvement of rate to the 100s-110s but rates now back in the 120s-130s. Patient remains on IV lasix TID with rates managed on atenolol BID. Intake/output poorly captured, placing navarro for accurate I/Os #Acute on chronic HFpEF #Chronic LBBB --CXR:Cardiomegaly with suggestion of pulmonary edema. Also on Aldactone 12.5 mg daily Monitor I's and O's, daily weight -Standing am weight -Navarro placed 11/28 Monitor volume status closely Replace electrolytes as needed Appreciate cardiology input Continue IV lasix TID Replace lytes prn # Atrial fibrillation with rapid ventricular response: Improved ? Compliance with beta-víctor Scheduled for ablation in [place] on 12/18 Atenolol dose increased to 25 mg twice daily, encourage compliance On Eliquis for anticoagulation Monitor and replete electrolytes as needed #Mechanical fall --CT head:No acute intracranial process Fall precautions PT OT: independent #Abnormal urine analysis Ruled out UTI, UA negative, no further abx #HTN (hypertension): Hypertensive urgency at the time of admission, resolved Likely situational Continue losartan, atenolol Monitor BP #Sleep apnea: Has a CPAP but using inconsistently due to concern that it causes sinus infecti ons. Follows with sleep medicine Overnight pulse oximetry #Prior Hypothyroidism Normal TSH DVT apixban PCU/tele Dispo contingent on transition to Po diuertic Admission and Anticipated Discharge Date Admission Date: November 25, 2023 Subjective Patient reports initially feeling terrible; reports no improvement, however, when asked about other symptoms, she noted the following improvements: easier time with breathing, less FOURNIER/orthopnea, improved swelling of toes/top of feet, improved mobility. Discussion about a plan was had--plan for navarro, plan for daily weights, and IV water pill Patient reports initial upset, but after discussing course patient verbalized understanding Physical Exam Constitutional: WD/WN, vitals as above Respiratory: normal respiratory effort, lungs clear to auscultation Cardiovascular: irregularly irregular Results & Data Results & Data Vital Signs (Past 12 Hours) Vital Signs Temp Pulse Resp BP Pulse Ox O2 Del Method 11/29/23 11:08 36.6 C 101 H 22 119/79 94 Room Air 11/29/23 07:50 36.5 C 101 H 24 125/63 92 Room Air 11/29/23 02:55 36.8 C 105 H 17 133/95 94 Room Air Laboratory Results Short CBC 11/29/23 Range/Units 05:31 WBC 5.95 (4.8-10.8) K/ul Hgb 10.9 L (12.0-16.0) g/dl Hct 34.1 L (37.0-47.0) % Plt Count 264 (130-400) K/uL BMP 11/29/23 05:31 Sodium 131 L Potassium 4.1 Chloride 98 Carbon Dioxide 25 BUN 29 H Creatinine 0.88 Glucose 115 H Calcium 9.0 Medications Administered Home Medications Medication Instructions Recorded Confirmed Last Taken cyanocobalamin (vitamin B-12) 1,000 mcg IM MONTHLY 07/28/21 11/25/23 1 Month Ago 1,000 mcg/mL injection solution ~10/25/23 ipratropium bromide 21 mcg (0.03 2 spray intranasal DAILY #30 mL 08/09/23 11/25/23 11/24/23 %) nasal spray acetaminophen 650 mg 1,300 mg PO Q12H PRN Pain 09/08/23 11/25/23 09/08/23 08:00 tablet,extended release (Tylenol Arthritis Pain) apixaban 5 mg tablet (Eliquis) 5 mg PO BID 09/08/23 11/25/23 11/25/23 aripiprazole 5 mg tablet 5 mg PO HS 09/08/23 11/25/23 11/24/23 atenolol 25 mg tablet 25 mg PO QAM 09/08/23 11/25/23 11/24/23 benzonatate 100 mg capsule 100 mg PO TID PRN Cough 09/08/23 11/25/23 Unknown ergocalciferol (vitamin D2) 1,250 1,250 mcg PO WK 09/08/23 11/25/23 11/22/23 mcg (50,000 unit) capsule (Vitamin D2) furosemide 40 mg tablet See Rx Instructions .Route .COMPLEX 09/08/23 11/25/23 11/24/23 lorazepam 1 mg tablet 1 mg PO HS Anxiety 09/08/23 11/25/23 11/24/23 losartan 25 mg tablet 25 mg PO DAILY 09/08/23 11/25/23 11/24/23 naphazoline 0.025 %-pheniramine 1 drp OPB BID 09/08/23 11/25/23 11/24/23 0.3 % eye drops (Naphcon-A) spironolactone 25 mg tablet 12.5 mg PO DAILY 09/08/23 11/25/23 11/24/23 trazodone 50 mg tablet 50 mg PO HS PRN Sleep 09/08/23 11/25/23 Unknown zolpidem 10 mg tablet 10 mg PO HS PRN Sleep 09/08/23 11/25/23 Unknown Active Medications Generic Name Dose Route Start Last Admin Trade Name Aleksq PRN Reason Stop Dose Admin Apixaban 5 mg 11/25/23 21:00 11/29/23 08:13 Apixaban 5 Mg Tablet PO 12/25/23 20:59 5 mg BID LORENA Administration Aripiprazole 5 mg 11/25/23 21:00 11/28/23 20:21 Aripiprazole 5 Mg Tab PO 12/25/23 20:59 5 mg HS LORENA Administration Atenolol 25 mg 11/25/23 21:00 11/29/23 08:14 Atenolol 25 Mg Tablet PO 12/25/23 20:59 25 mg BID LORENA Administration Furosemide 40 mg 11/27/23 14:45 11/29/23 13:38 Furosemide 40 Mg/4 Ml Vial IV 12/27/23 14:44 40 mg TID LORENA Administration Ipratropium [place] 1 sprays 11/26/23 09:00 11/29/23 08:20 Ipratropium [place] Nasal [place] 0.06% 15ml FIORELLA 12/26/23 08:59 1 sprays DAILY LORENA Administration Lorazepam 1 mg 11/25/23 21:00 11/28/23 20:22 Lorazepam 1 Mg Tab PO 12/25/23 20:59 1 mg HS LORENA Administration Losartan Potassium 25 mg 11/26/23 09:00 11/29/23 08:14 Losartan Potassium 25 Mg Tab PO 12/26/23 08:59 25 mg DAILY LORENA Administration Naphazoline HCl/Pheniramine Maleate 1 drops 11/25/23 21:00 11/29/23 08:18 Naphazolin/Pheniramin Oph Soln 15 Ml Btl OPB 12/25/23 20:59 1 drops BID LORENA Administration Oxycodone HCl 5 mg 11/26/23 21:30 11/28/23 20:22 Oxycodone Hcl Ir 5 Mg Tab (Immediate Release) PO 12/10/23 21:29 5 mg Q4H PRN Administration Pain Potassium Chloride 10 meq 11/28/23 09:45 11/29/23 08:17 Potassium Chloride 10 Meq Tabcr PO 12/28/23 09:44 10 meq BID LORENA Administration Spironolactone 12.5 mg 11/26/23 09:00 11/29/23 08:20 Spironolactone 12.5 Mg Tab PO 12/26/23 08:59 12.5 mg DAILY LORENA Administration Trazodone HCl 50 mg 11/25/23 16:00 11/28/23 20:22 Trazodone Hcl 50 Mg Tab PO 12/25/23 15:59 50 mg HS PRN Administration Sleep Zolpidem Tartrate 5 mg 11/28/23 12:50 11/28/23 20:22 Zolpidem Tartrate 5 Mg Tab PO 12/25/23 16:06 5 mg HS PRN Administration Sleep (3) HTN (hypertension) Hypertension type: primary hypertension Qualified Code(s): I10 - Essential (primary) hypertension (4) Sleep apnea Sleep apnea type: obstructive Qualified Code(s): G47.33 - Obstructive sleep apnea (adult) (pediatric) (5) Hypothyroidism Hypothyroidism type: unspecified Qualified Code(s): E03.9 - Hypothyroidism, unspecified
[2023-11-30 06:50] LABS: Hematocrit (blood only) 31.5 % (37.0-47.0); Mean Corpuscular Hemoglobin 27.9 pg (25.0-34.0); Mean Corpuscular Hgb Conc 31.7 g/dL (32.0-36.0); Mean Corpuscular Volume 87.7 fL (80.0-100.0); Mean Platelet Volume 9.2 fL (9.4-12.4); Platelet Count 220 K/uL (130-400); RDW Coefficient of Variation 13.5 % (11.5-14.5); RDW Standard Deviation 42.8 fL (36.4-46.3); Red Blood Count 3.59 M/uL (4.20-5.40); White Blood Count 5.31 K/ul (4.8-10.8)
[2023-11-30 07:12] LABS: BUN Creatinine Ratio 37.3 (10-20); Calcium 8.8 mg/dl (8.6-10.3); Creatinine Clr Calc Pharmacy 69.7 ml/min; Est GFR (African American) 80.5 ml/min; Est GFR (Non-African American) 69.5 ml/min; Magnesium 2.1 mg/dl (1.7-2.4); Phosphorus 4.1 mg/dl (2.5-4.9); Potassium 4.4 mmol/L (3.5-5.1)
--- NOTE | 2023-11-30 08:35 | Cardiology Progress Note ---
Date of Service November 30, 2023 Assessment & Plan (1) Acute on chronic heart failure with preserved ejection fraction (HFpEF): (2) Atrial fibrillation with rapid ventricular response: (3) Morbid obesity: (4) LBBB (left bundle branch block): Plan Patient admitted with HFpEF in setting of non compliance wiht home medications. Weight gain of approx 30 lbs noted in the last few weeks. Pulm edema on chest xray with evidence of volume overload on exam. Continue furosemide 40 mg IV BID today. May need dose increase pending response. Monitor I+O's. Monitor electrolytes Mild hyponatremia noted. Likely dilutional. Will improve with diuretics. continue spironolactone. On admission, afib RVR noted. Treated with several doses IV beta víctor and IV diltiazem. Rates now improved. Continue atenolol 25 mg BID. She was non compliant with home beta víctor per outpatient notes. Continue anticoagulation with Eliquis 5 mg BID. [place] scheduled [place] [facility]/code purple. Patient hit head. Fall was mechanical as she slipped getting off the toilet. Head CT was negative. No current symptoms of headache or vision changes. Monitor. 11/27/2023 Slowly improving acute on chronic diastolic heart failure Continue IV diuretics. Will increase furosemide to 40mg 3 times daily Continue atenolol twice per day dosing patient unwilling to trial alternate beta-víctor 11/28/2023 Acute on chronic decompensated heart failure with preserved ejection fraction slowly improving. Called floor asked for daily weight Heart rates variable but trending towards control Anticoagulated with Eliquis Continue IV diuretics, oxygen supplementation. Would recommend nocturnal oximetry and O2 demand assessment as patient approaches discharge Still room for further diuresis and renal function allowing Room to increase spironolactone but holding increase given hyponatremia 11/29/2023: -Slow improvement in chronic diastolic heart failure. No accurate I&Os or weights as noted above. -Day nurse obtained standing scale weight today, also asked if 2 collection containers "hats" could be placed in the toilet to help capture output. -Requested that patient either have MODESTA hose or JUDE compression wraps applied to help assist with fluid mobilization. -HR remains consistent 90-110 bpm. She is slated for an upcoming A-fib ablation at [facility] in the near future. -Continue Eliquis for anticoagulation -Continue IV diuretics. 40mg TID Maintain close monitoring of renal function as well as goal serum K> 4.0 and serum mag > 2.0. -Continue Atenolol, losartan and Spironolactone as part of HF regimen -Continue with oral potassium supplementation -Reassess fluid status in the AM 11/30/2023: -Patient is doing well from a cardiac perspective. Continues to show effective diuresis. there are much more accurate weights and I&O on chart today which has provided a sense of positive progression for the patient and is reassuring. -Continue to recommend JUDE wraps or MODESTA compression stockings to assist in mobilizing fluid -Telemetry reviewed, rates with slight improvement. Continue Atenolol -Continue Eliquis for anticoagulation -Continue IV diuretics. 40mg TID Maintain close monitoring of renal function as well as goal serum K> 4.0 and serum mag > 2.0. -Continue Atenolol, losartan and Spironolactone as part of HF regimen -Continue with oral potassium supplementation -Reassess fluid status in the AM Case has been discussed with Dr. Bailey. Further recommendations regarding plan of care as per his assessment. I spent a total of 30 minutes on the date of service in preparation, delivery, documentation of the care provided to the patient excluding any time spent in the performance of separately billed services. HUMBERTO [facility] Admission and Anticipated Discharge Date Admission Date: November 25, 2023 Supervising Physician Co-Signing Physician Notes I have personally performed a history and physical examination on the patient. I have reviewed the advance practitioner's documentation, and I agree with, and take responsibility for the plan of care. 73-year-old female with complex history of paroxysmal atrial fibrillation and acute on chronic diastolic heart failure. Primarily right-sided signs/symptoms. Heart rate improved with resumption of beta-víctor therapy. Volume status/edema improved with IV diuresis. Renal function remains stable. Possible transition to oral diuretic therapy in 24-48 hours. Continue potassium supplementation and Aldactone as ordered. I spent a total of 25 minutes on the date of service in preparation, delivery, and documentation of the care provided to this patient, excluding any time spent in the performance of separately billed services. Subjective 11/30/2023: Patient seen and examined in follow up today. Feeling well today. She is out of bed ambulating Denies any chest pain, pressure or palpitations. Labs, vitals, diagnostics, telemetry and documentation reviewed. Telemetry reviewed showing A-fib, rates 90s. No acute events overnight. -1kg weight loss overnight. Patient also endorses taking all of her medications. She had been declining her beta víctor therapy. Heart rates demonstrate better control. Review of Systems Review of Systems: All systems reviewed & are unremarkable except as noted in HPI & below Physical Exam Constitutional: + obese; no acute distress and not ill a ppearing Neck: normal visual inspection and trachea midline Respiratory: normal respiratory effort; no respiratory distress, no labored breathing and no cough Auscultation: + diminished lung sounds (diminished in bilateral bases ); no crackles, no rales, no rhonchi and no wheezes Cardiovascular: Rate/Rhythm: + irregularly irregular Heart Sounds: normal S1, normal S2 and + murmur (+II/ systolic murmur) Vessels: dorsalis pedis pulses present; no JVD Extremities: + edema (trace to +1 BLE) Skin: no rashes, warm and dry Psychiatric: A+Ox3, euthymic affect Results & Data Vital Signs (Past 12 Hours) Vital Signs Temp Pulse Pulse Pulse Resp BP Pulse Ox 11/30/23 06:24 36.8 C 81 20 128/99 96 11/30/23 00:04 11/29/23 23:17 91 H 11/29/23 22:58 37.5 C 111 H 22 130/54 L 96 11/29/23 22:32 82 11/29/23 22:09 99 H 11/29/23 21:08 Pulse Ox O2 Del Method O2 Del Method O2 Flow Rate 11/30/23 06:24 Room Air 11/30/23 00:04 98 Nasal Cannula 2 11/29/23 23:17 98 Nasal Cannula 2 11/29/23 22:58 Room Air 11/29/23 22:32 93 Room Air 21 11/29/23 22:09 11/29/23 21:08 Room Air Laboratory Results CBC 11/30/23 Range/Units 06:14 WBC 5.31 (4.8-10.8) K/ul RBC 3.59 L (4.20-5.40) M/uL Hgb 10.0 L (12.0-16.0) g/dl Hct 31.5 L (37.0-47.0) % Plt Count 220 (130-400) K/uL Comprehensive Metabolic Panel 11/30/23 Range/Units 06:14 Sodium 134 L (136-145) mmol/L Potassium 4.4 (3.5-5.1) mmol/L Chloride 101 (98-107) mmol/L Carbon Dioxide 27 (21-32) mmol/L BUN 31 H (6-23) mg/dl Creatinine 0.83 (0.6-1.2) mg/dl Glucose 112 H (70-99(Fasting)) mg/dl Calcium 8.8 (8.6-10.3) mg/dl Intake and Output 11/29/23 11/30/23 11/30/23 22:59 06:59 14:59 Intake Total 340 / 1060 170 / 1060 Output Total 750 / 1325 Balance 340 / -265 -580 / -265 Intake: Oral 340 / 1060 170 / 1060 Output: Urine 750 / 1325 Other: Weight 110.4 kg Weight Measurement Method Standing Scale Standing Scale
--- NOTE | 2023-11-30 10:15 | Electrocardiogram Report ---
Test Reason : Blood Pressure : / mmHG Vent. Rate : 090 BPM Atrial Rate : 122 BPM P-R Int : 000 ms QRS Dur : 124 ms QT Int : 418 ms P-R-T Axes : 000 -15 098 degrees QTc Int : 511 ms Atrial fibrillation Left bundle branch block Abnormal ECG When compared with ECG of 27-NOV-2023 08:32, Nonspecific T wave abnormality has replaced inverted T waves in Lateral leads Confirmed by Rodriguez Pollock ([id number]) on 11/30/2023 10:14:49 AM Referred By: REFERRED SELF Confirmed By:Rodriguez Pollock
--- NOTE | 2023-11-30 14:19 | Hospitalist Progress Note ---
Date of Service November 30, 2023 Assessment & Plan (1) Acute on chronic heart failure with preserved ejection fraction (HFpEF): (2) Atrial fibrillation with rapid ventricular response: (3) HTN (hypertension): (4) Sleep apnea: (5) Hypothyroidism: Plan Ms Lynch is a 73 year old woman with history of pulmonary hypertension, diastolic heart failure, atrial fibrillation, on chronic AC, exercise-induced asthma, KIMMY (intermittently uses CPAP b/c she is concerned it causes sinus infections), GERD, anxietywho was admitted on 11/24 for management of acute on chronic HFpEF and atrial fibrillation with RVR. In the ED, pt was found to be in atrial fibrillation with rapid ventricular response with rates in the 130s-140s. Noted to have marked fluid overload so give IV furosemide 60 mg and referred for admission. Given one dose of diltiazem 20 mg IV with initial improvement of rate to the 100s-110s but rates now back in the 120s-130s. Patient remains on IV lasix TID with rates managed on atenolol BID. Intake/output poorly captured, placing navarro for accurate I/Os; however, patient declined navarro. #Acute on chronic HFpEF #Chronic LBBB --CXR:Cardiomegaly with suggestion of pulmonary edema. Also on Aldactone 12.5 mg daily Monitor I's and O's, daily weight -Standing am weight -Navarro placed 11/28 Monitor volume status closely Replace electrolytes as needed Appreciate cardiology input Continue IV lasix TID, plans for 24-48 hours transition to PO Replace lytes prn weight from 114.4-->110 kg # Atrial fibrillation with rapid ventricular response: Improved ? Compliance with beta-víctor Scheduled for ablation in [place] on 12/18 Atenolol dose increased to 25 mg twice daily, encourage compliance On Eliquis for anticoagulation, Monitor and replete electrolytes as needed #Mechanical fall --CT head:No acute intracranial process Fall precautions PT OT: independent #Abnormal urine analysis Ruled out UTI, UA negative, no further abx #HTN (hypertension): Hypertensive urgency at the time of admission, resolved Likely situational Continue losartan, atenolol Monitor BP #Sleep apnea: Has a CPAP but using inconsistently due to concern that it causes sinus infections. Follows with sleep medicine Overnight pulse oximetry: patient declined the study 11/28 and 11/29 #Prior Hypothyroidism Normal TSH DVT apixban PCU/tele Dispo contingent on transition to Po diuretic Admission and Anticipated Discharge Date Admission Date: November 25, 2023 Subjective NAEO Repots subjective improvement in swelling of BLE and mobility Physical Exam Constitutional: WD/WN, vitals as above Respiratory: normal respiratory effort, lungs clear to auscultation Cardiovascular: irregularly irregular Skin: improved pedal edema Results & Data Results & Data Vital Signs (Past 12 Hours) Vital Signs Temp Pulse Resp BP Pulse Ox O2 Del Method 11/30/23 12:13 36.5 C 96 H 19 105/70 93 Room Air 11/30/23 06:24 36.8 C 81 20 128/99 96 Room Air Laboratory Results Short CBC 11/30/23 Range/Units 06:14 WBC 5.31 (4.8-10.8) K/ul Hgb 10.0 L (12.0-16.0) g/dl Hct 31.5 L (37.0-47.0) % Plt Count 220 (130-400) K/uL BMP 11/30/23 06:14 Sodium 134 L Potassium 4.4 Chloride 101 Carbon Dioxide 27 BUN 31 H Creatinine 0.83 Glucose 112 H Calcium 8.8 Medications Administered Home Medications Medication Instructions Recorded Confirmed Last Taken cyanocobalamin (vitamin B-12) 1,000 mcg IM MONTHLY 07/28/21 11/25/23 1 Month Ago 1,000 mcg/mL injection solution ~10/25/23 ipratropium bromide 21 mcg (0.03 2 spray intranasal DAILY #30 mL 08/09/23 11/25/23 11/24/23 %) nasal spray acetaminophen 650 mg 1,300 mg PO Q12H PRN Pain 09/08/23 11/25/23 09/08/23 08:00 tablet,extended release (Tylenol Arthritis Pain) apixaban 5 mg tablet (Eliquis) 5 mg PO BID 09/08/23 11/25/23 11/25/23 aripiprazole 5 mg tablet 5 mg PO HS 09/08/23 11/25/23 11/24/23 atenolol 25 mg tablet 25 mg PO QAM 09/08/23 11/25/23 11/24/23 benzonatate 100 mg capsule 100 mg PO TID PRN Cough 09/08/23 11/25/23 Unknown ergocalciferol (vitamin D2) 1,250 1,250 mcg PO WK 09/08/23 11/25/23 11/22/23 mcg (50,000 unit) capsule (Vitamin D2) furosemide 40 mg tablet See Rx Instructions .Route .COMPLEX 09/08/23 11/25/23 11/24/23 lorazepam 1 mg tablet 1 mg PO HS Anxiety 09/08/23 11/25/23 11/24/23 losartan 25 mg tablet 25 mg PO DAILY 09/08/23 11/25/23 11/24/23 naphazoline 0.025 %-pheniramine 1 drp OPB BID 09/08/23 11/25/23 11/24/23 0.3 % eye drops (Naphcon-A) spironolactone 25 mg tablet 12.5 mg PO DAILY 09/08/23 11/25/23 11/24/23 trazodone 50 mg tablet 50 mg PO HS PRN Sleep 09/08/23 11/25/23 Unknown zolpidem 10 mg tablet 10 mg PO HS PRN Sleep 09/08/23 11/25/23 Unknown Active Medications Generic Name Dose Route Start Last Admin Trade Name Freq PRN Reason Stop Dose Admin Apixaban 5 mg 11/25/23 21:00 11/30/23 08:19 Apixaban 5 Mg Tablet PO 12/25/23 20:59 5 mg BID LORENA Administration Aripiprazole 5 mg 11/25/23 21:00 11/29/23 20:50 Aripiprazole 5 Mg Tab PO 12/25/23 20:59 5 mg HS LORENA Administration Atenolol 25 mg 11/25/23 21:00 11/30/23 08:18 Atenolol 25 Mg Tablet PO 12/25/23 20:59 25 mg BID LORENA Administration Furosemide 40 mg 11/27/23 14:45 11/30/23 08:20 Furosemide 40 Mg/4 Ml Vial IV 12/27/23 14:44 40 mg TID LORENA Administration Ipratropium [place] 1 sprays 11/26/23 09:00 11/30/23 08:22 Ipratropium [place] Nasal [place] 0.06% 15ml FIORELLA 12/26/23 08:59 1 sprays DAILY LORENA Administration Lorazepam 1 mg 11/25/23 21:00 11/29/23 20:50 Lorazepam 1 Mg Tab PO 12/25/23 20:59 1 mg HS LORENA Administration Losartan Potassium 25 mg 11/26/23 09:00 11/30/23 08:19 Losartan Potassium 25 Mg Tab PO 12/26/23 08:59 25 mg DAILY LORENA Administration Naphazoline HCl/Pheniramine Maleate 1 drops 11/25/23 21:00 11/30/23 08:22 Naphazolin/Pheniramin Oph Soln 15 Ml Btl OPB 12/25/23 20:59 1 drops BID LORENA Administration Oxycodone HCl 5 mg 11/26/23 21:30 11/29/23 21:05 Oxycodone Hcl Ir 5 Mg Tab (Immediate Release) PO 12/10/23 21:29 5 mg Q4H PRN Administration Pain Potassium Chloride 10 meq 11/28/23 09:45 11/30/23 08:19 Potassium Chloride 10 Meq Tabcr PO 12/28/23 09:44 10 meq BID LORENA Administration Spironolactone 12.5 mg 11/26/23 09:00 11/30/23 08:21 Spironolactone 12.5 Mg Tab PO 12/26/23 08:59 12.5 mg DAILY LORENA Administration Trazodone HCl 50 mg 11/25/23 16:00 11/29/23 21:05 Trazodone Hcl 50 Mg Tab PO 12/25/23 15:59 50 mg HS PRN Administration Sleep Zolpidem Tartrate 5 mg 11/28/23 12:50 11/30/23 00:03 Zolpidem Tartrate 5 Mg Tab PO 12/25/23 16:06 5 mg HS PRN Administration Sleep (3) HTN (hypertension) Hypertension type: primary hypertension Qualified Code(s): I10 - Essential (primary) hypertension (4) Sleep apnea Sleep apnea type: obstructive Qualified Code(s): G47.33 - Obstructive sleep apnea (adult) (pediatric) (5) Hypothyroidism Hypothyroidism type: unspecified Qualified Code(s): E03.9 - Hypothyroidism, unspecified
[2023-12-01 06:08] LABS: Hematocrit (blood only) 34.9 % (37.0-47.0); Mean Corpuscular Hemoglobin 27.6 pg (25.0-34.0); Mean Corpuscular Hgb Conc 31.5 g/dL (32.0-36.0); Mean Corpuscular Volume 87.7 fL (80.0-100.0); Mean Platelet Volume 9.3 fL (9.4-12.4); Platelet Count 258 K/uL (130-400); RDW Coefficient of Variation 13.6 % (11.5-14.5); RDW Standard Deviation 44.1 fL (36.4-46.3); Red Blood Count 3.98 M/uL (4.20-5.40); White Blood Count 6.12 K/ul (4.8-10.8)
[2023-12-01 06:29] LABS: Calcium 9.2 mg/dl (8.6-10.3); Creatinine Clr Calc Pharmacy 61.5 ml/min; Est GFR (African American) 69.3 ml/min; Est GFR (Non-African American) 59.8 ml/min; Magnesium 2.1 mg/dl (1.7-2.4); Potassium 4.2 mmol/L (3.5-5.1)
--- NOTE | 2023-12-01 09:21 | Cardiology Progress Note ---
Date of Service December 01, 2023 Assessment & Plan (1) Acute on chronic heart failure with preserved ejection fraction (HFpEF): (2) Atrial fibrillation with rapid ventricular response: (3) Morbid obesity: (4) LBBB (left bundle branch block): Plan Patient admitted with HFpEF in setting of non compliance wiht home medications. Weight gain of approx 30 lbs noted in the last few weeks. Pulm edema on chest xray with evidence of volume overload on exam. Continue furosemide 40 mg IV BID today. May need dose increase pending response. Monitor I+O's. Monitor electrolytes Mild hyponatremia noted. Likely dilutional. Will improve with diuretics. continue spironolactone. On admission, afib RVR noted. Treated with several doses IV beta víctor and IV diltiazem. Rates now improved. Continue atenolol 25 mg BID. She was non compliant with home beta víctor per outpatient notes. Continue anticoagulation with Eliquis 5 mg BID. Patient scheduled for ablation in December at [facility] Fall today/code purple. Patient hit head. Fall was mechanical as she slipped getting off the toilet. Head CT was negative. No current symptoms of headache or vision changes. Monitor. 11/27/2023 Slowly improving acute on chronic diastolic heart failure Continue IV diuretics. Will increase furosemide to 40mg 3 times daily Continue atenolol twice per day dosing patient unwilling to trial alternate beta-víctor 11/28/2023 Acute on chronic decompensated heart failure with preserved ejection fraction slowly improving. Called floor asked for daily weight Heart rates variable but trending towards control Anticoagulated with Eliquis Continue IV diuretics, oxygen supplementation. Would recommend nocturnal oximetry and O2 demand assessment as patient approaches discharge Still room for further diuresis and renal function allowing Room to increase spironolactone but holding increase given hyponatremia 11/29/2023: -Slow improvement in chronic diastolic heart failure. No accurate I&Os or weights as noted above. -Day nurse obtained standing scale weight today, also asked if 2 collection containers "hats" could be placed in the toilet to help capture output. -Requested that patient either have MODESTA hose or JUDE compression wraps applied to help assist with fluid mobilization. -HR remains consistent 90-110 bpm. She is slated for an upcoming A-fib ablation at [facility] in the near future. -Continue Eliquis for anticoagulation -Continue IV diuretics. 40mg TID Maintain close monitoring of renal function as well as goal serum K> 4.0 and serum mag > 2.0. -Continue Atenolol, losartan and Spironolactone as part of HF regimen -Continue with oral potassium supplementation -Reassess fluid status in the AM 11/30/2023: -Patient is doing well from a cardiac perspective. Continues to show effective diuresis. there are much more accurate weights and I&O on chart today which has provided a sense of positive progression for the patient and is reassuring. -Continue to recommend JUDE wraps or MODESTA compression stockings to assist in mobilizing fluid -Telemetry reviewed, rates with slight improvement. Continue Atenolol -Continue Eliquis for anticoagulation -Continue IV diuretics. 40mg TID Maintain close monitoring of renal function as well as goal serum K> 4.0 and serum mag > 2.0. -Continue Atenolol, losartan and Spironolactone as part of HF regimen -Continue with oral potassium supplementation -Reassess fluid status in the AM 12/01/2023: -Patient is doing well from a cardiac perspective and wishes to go home. -Continued diuresis noted. -Stop IV lasix in favor of transitioning back to PO home regimen. -Reinforced CHF teaching including daily weights, less than 2g sodium restriction, 1500ml fluid restriction. -Continue Eliquis for anticoagulation -Continue Atenolol, losartan and spironolactone as part of HF regimen -Keep scheduled appt for ablation as planned with Dr. Carrera. -Patient is ok for discharge when appropriate per primary team. Case has been discussed with Dr. Bailey. Further recommendations regarding plan of care as per his assessment. I spent a total of 30 minutes on the date of service in preparation, delivery, documentation of the care provided to the patient excluding any time spent in the performance of separately billed services. HUMBERTO Roman [facility] Admission and Anticipated Discharge Date Admission Date: November 25, 2023 Supervising Physician Co-Signing Physician Notes I have personally performed a history and physical examination on the patient. I have reviewed the advance practitioner's documentation, and I agree with, and take responsibility for the plan of care. 73-year-old female with complex history of paroxysmal atrial fibrillation and acute on chronic diastolic heart failure. Primarily right-sided signs/symptoms. Heart rate improved with resumption of beta-víctor therapy. Volume status/edema improved. Renal function remains stable. Transition to oral diuretic therapy, lasix 60mg AM and 40mg PM. Continue potassium supplementation and Aldactone as ordered. Patient is scheduled for PVI ablation in early December. Outpatient cardiology follow-up in 2 weeks. I spent a total of 25 minutes on the date of service in preparation, delivery, and documentation of the care provided to this patient, excluding any time spent in the performance of separately billed services. Subjective 12/01/2023: Patient seen and examined in follow up today. Feeling well. currently sitting out of bed in the chair with no new cardiac concerns. Labs, vitals, diagnostics, telemetry and documentation reviewed. Telemetry reviewed showing A-fib rates 80's-90's. Denies chest pain, pressure, palpitations, shortness of breath, PND, pre-syncope or syncope. Review of Systems Review of Systems: All systems reviewed & are unremarkable except as noted in HPI & below Physical Exam Constitutional: + obese; no acute distress and not ill a ppearing Neck: normal visual inspection and trachea midline Respiratory: normal respiratory effort; no respiratory distress, no labored breathing and no cough Auscultation: + diminished lung sounds (diminished in bilateral bases ); no crackles, no rales, no rhonchi and no wheezes Cardiovascular: Rate/Rhythm: + irregularly irregular Heart Sounds: normal S1, normal S2 and + murmur (+II/ systolic murmur) Vessels: dorsalis pedis pulses present; no JVD Extremities: + edema (trace to +1 BLE) Skin: no rashes, warm and dry Psychiatric: A+Ox3, euthymic affect Results & Data Vital Signs (Past 12 Hours) Vital Signs Temp Pulse Resp BP Pulse Ox O2 Del Method 12/01/23 08:13 36.9 C 106 H 17 136/84 96 Room Air 12/01/23 05:18 36.5 C 105 H 16 122/99 94 Room Air 11/30/23 22:41 36.7 C 82 16 106/61 98 Nasal Cannula Laboratory Results CBC 12/01/23 Range/Units 05:45 WBC 6.12 (4.8-10.8) K/ul RBC 3.98 L (4.20-5.40) M/uL Hgb 11.0 L (12.0-16.0) g/dl Hct 34.9 L (37.0-47.0) % Plt Count 258 (130-400) K/uL Comprehensive Metabolic Panel 12/01/23 Range/Units 05:45 Sodium 134 L (136-145) mmol/L Potassium 4.2 (3.5-5.1) mmol/L Chloride 100 (98-107) mmol/L Carbon Dioxide 27 (21-32) mmol/L BUN 31 H (6-23) mg/dl Creatinine 0.94 (0.6-1.2) mg/dl Glucose 119 H (70-99(Fasting)) mg/dl Calcium 9.2 (8.6-10.3) mg/dl Intake and Output 11/30/23 12/01/23 12/01/23 22:59 06:59 14:59 Intake Total 150 / 650 Output Total 700 / 1650 300 / 1650 Balance -700 / -1000 -150 / -1000 Intake: Oral 150 / 650 Output: Urine 700 / 1650 300 / 1650 Other: Other Intake Source Sips # Unmeasured Voids 1 Weight 110.2 kg 110.2 kg Weight Measurement Method Standing Scale Patient Weight 12/02/23 06:59 Weight 110.2 kg
--- NOTE | 2023-12-01 11:29 | Discharge Summary ---
Discharge Summary Date of Service December 01, 2023 Principal Dx & Hospital Course #1 = Principal Diagnosis (1) Acute on chronic heart failure with preserved ejection fraction (HFpEF): (2) Atrial fibrillation with rapid ventricular response: (3) HTN (hypertension): (4) Sleep apnea: (5) Hypothyroidism: Plan Ms Lynch is a 73 year old woman with history of pulmonary hypertension, diastolic heart failure, atrial fibrillation, on chronic AC, exercise-induced asthma, KIMMY (intermittently uses CPAP b/c she is concerned it causes sinus infections), GERD, anxietywho was admitted on 11/24 for management of acute on chronic HFpEF and atrial fibrillation with RVR. In the ED, pt was found to be in atrial fibrillation with rapid ventricular response with rates in the 130s-140s. Noted to have marked fluid overload so give IV furosemide 60 mg and referred for admission. Given one dose of diltiazem 20 mg IV with initial improvement of rate to the 100s-110s but rates now back in the 120s-130s. Patient remained on IV lasix TID with rates managed on atenolol BID. Intake/output poorly captured, recommended placing navarro for accurate I/Os; however, patient declined navarro. Daily weights obtained and noted admission weight of 114.4kg to 110.2 kg on day of discharge. Patient was encouraged to adhere to heart health diet with fluid restriction of 2L and to continue home lasix regimen. On day of discharge, patient denied any acute concerns. She stated that she was tired and eager for discharge. #Acute on chronic HFpEF *improved #Chronic LBBB --CXR:Cardiomegaly with suggestion of pulmonary edema. Also on Aldactone 12.5 mg daily Monitor I's and O's, daily weight -Standing am weight -Navarro placed 11/28 Monitor volume status closely Replace electrolytes as needed Appreciate cardiology input Transition from IV lasix TID, plans for 24-48 hours transition to PO Replace lytes prn weight from 114.4-->110 kg # Atrial fibrillation with rapid ventricular response: Improved ? Compliance with beta-víctor Scheduled for ablation in [place] on 12/18 Atenolol dose increased to 25 mg twice daily, encouraged compliance On Eliquis for anticoagulation, Monitor and replete electrolytes as needed #Mechanical fall --CT head:No acute intracranial process Fall precautions PT OT: independent #Abnormal urine analysis Ruled out UTI, UA negative, no further abx #HTN (hypertension): Hypertensive urgency at the time of admission, resolved Likely situational Continue losartan, atenolol Monitor BP #Sleep apnea: Has a CPAP but using inconsistently due to concern that it causes sinus infections. Follows with sleep medicine Overnight pulse oximetry: patient declined the study 11/28 and 11/29 encouraged home cpap use #Prior Hypothyroidism Normal TSH Notes For Next Care Provider Medication Changes From Visit Atenolol 25 mg BID Resume home lasix Admission HPI Per Admitting Provider This is a 73 y/o female with pulmonary hypertension, diastolic heart failure, atrial fibrillation, on chronic AC, exercise-induced asthma, KIMMY (intermittently uses CPAP b/c she is concerned it causes sinus infections), GERD, anxiety and other history as outlined who presents to the ED today with progressive edema and dyspnea. She reports recurrent issues with atrial fibrillation since first diagnosed in 2020. She feels better after cardioversion but then symptoms gradually return, often triggered by acute illness. She is scheduled for an ablation in [place] on December 18. Her current symptoms started a week ago with gradually progressive LE edema. She notes a sinus infection 2-3 weeks ago, treated with antibiotics, that she thinks may have been the trigger for this episode. Over the last week, she has had progressive edema to the point of being unable to ambulate. She notes dyspnea on exertion that has progressed to the point of shortness of breath at rest since yesterday. She notes orthopnea, having to sleep sitting up or she will feel like she cannot breathe. She notes some tightness in her solar plexus area but no overt chest pain. Denies palpitations, racing heart, syncope, lightheadedness. She did see her PCP earlier in November for the edema, and her furosemide was changed to torsemide. However, pt did not note any significant improvement with this change so she restarted the furosemide yesterday. Pt notes a 30 lb weight gain over the last couple of weeks. She received a dose of IV furosemide in the ED. Respiratory status is already improving with diuresis. She was prescribed an inhaler by her PCP this week but reports she has not started it because she did not think her symptoms were related to history of asthma. ECHO (ANDREW) 10/10/23 - LVEF 55-59%, no LV segmental wall motion abnormalities, mild to moderate MR, moderate TR, mild pulmonary HTN Admission Exam Per Admitting Provider General: awake, alert, NAD HEENT: no scleral icterus, moist oral mucosa Neck: trachea midline Heart: tachycardic, irregularly irregular Lungs: fine bibasilar crackles, o/w clear Abdomen: softly distended, +BS Extremities: 3-4+ edema bilateral LE to above knees Skin: no jaundice Neurologic: Ox3, moving all extremities, no focal deficits, no dysarthria, no confusion Discharge Exam Constitutional WD/WN, vitals as above Respiratory normal respiratory effort, lungs clear to auscultation Cardiovascular irregularly irregular Gastrointestinal (Abdomen) normal bowel sounds, soft, nontender, no hepatosplenomegaly Skin notable resolution of pedal edema, improved swelling bilateral lower extremities, remainder 2/2 habitus Updated Medication List Medication Instructions Recorded Confirmed Type cyanocobalamin (vitamin B-12) 1,000 mcg IM MONTHLY 07/28/21 11/25/23 History 1,000 mcg/mL injection solution ipratropium bromide 21 mcg (0.03 2 spray intranasal DAILY #30 mL 08/09/23 11/25/23 Rx %) nasal spray acetaminophen 650 mg 1,300 mg PO Q12H PRN Pain 09/08/23 11/25/23 History tablet,extended release (Tylenol Arthritis Pain) apixaban 5 mg tablet (Eliquis) 5 mg PO BID 09/08/23 11/25/23 History aripiprazole 5 mg tablet 5 mg PO HS 09/08/23 11/25/23 History benzonatate 100 mg capsule 100 mg PO TID PRN Cough 09/08/23 11/25/23 History ergocalciferol (vitamin D2) 1,250 1,250 mcg PO WK 09/08/23 11/25/23 History mcg (50,000 unit) capsule (Vitamin D2) furosemide 40 mg tablet See Rx Instructions .Route .COMPLEX 09/08/23 11/25/23 History lorazepam 1 mg tablet 1 mg PO HS Anxiety 09/08/23 11/25/23 History losartan 25 mg tablet 25 mg PO DAILY 09/08/23 11/25/23 History naphazoline 0.025 %-pheniramine 1 drp OPB BID 09/08/23 11/25/23 History 0.3 % eye drops (Naphcon-A) spironolactone 25 mg tablet 12.5 mg PO DAILY 09/08/23 11/25/23 History trazodone 50 mg tablet 50 mg PO HS PRN Sleep 09/08/23 11/25/23 History zolpidem 10 mg tablet 10 mg PO HS PRN Sleep 09/08/23 11/25/23 History atenolol 25 mg tablet 25 mg PO BID #60 tabs 12/01/23 Rx Hospital Stay Data Consultations 11/25/23 13:10 ED Decision to Admit Stat 11/25/23 16:00 Consult Cardiology Routine 11/29/23 08:33 Consult Patient Rep [Consult Patient Services] Routine Diagnostic Imagining Performed 11/26/23 08:41 CT head/brain wo con Urgent Pending Results Patient Have Any Pending Studies at Discharge: No Discharge Instructions Given to Patient (Per Discharging Provider) You are admitted for swelling and shortness of breath, noted to be secondary to heart failure exacerbation. You atrial fibrillation was noted to be uncontrolled as well. You responded successfully to IV lasix. Your weight on discharge is 110.2 kilos or 242.44 pounds. Please continue your lasix 40mg in the morning and 20mg in the afternoon. Please increase your atenolol from 25mg daily to 25 mg two times a day to help control your heart rates while you plan for your ablation. Please continue a low sodium diet and water restriction of 2L. Please weight yourself daily and notify your home health nurse for any weight weight increase of greater than 2 pounds in a day, or more than 5 pounds in a week. Total Time Total Time Spent Total Time Spent (In Minutes): 45 Home Health Attestation I certify that this patient is under my care and that I, or a physicians medical office assistant instructor working with me, had a face to-face encounter that meets the home health [id number] encounter requirements with this patient. The encounter with the patient was in whole, or in part, for the following medical condition, which is the primary reason for home health care (list medical condition): CHF I certify that, based on my findings, the following services are medically necessary home health services: My clinical findings support the need for the above services because: Daily Weights Medication Compliance and Monitoring Effective of New Medications Medication Compliance Safety Skilled Nsg Assessment Skilled Nsg Instruction New Medications Skilled Nsg Assess Pt Illness, Disease and Sx Monitoring S/S to Report to Provider Teach on Disease Management and Interventions Vital Signs Further, I certify that my clinical findings support that this patient is homebound (i.e. absences from home require considerable and taxing effort and are for medical reasons or evangelical services or infrequently or of short duration when for other reasons) because: Transportation Assistance/Unable to Leave Home Unassisted Certification for Home Health Services: Based on the above findings, I certify that this patient is confined to the home and needs intermittent mcc care, physical therapy and/or speech therapy or continues to need occupational therapy. The patient is under my care, and I have initiated the establishment of the plan of care. This patient will be followed by a physician who will periodically review the plan of care.
== END 2023-12-01 14:36 | disposition home health service (06) | DRG 291 ==
LOC: ED 09:42 → 2E 13:24 → SUATTDRO 13:24 → 2E 15:22